=== PATIENT | male | born 1955 | race Caucasian/White ===

== ENCOUNTER 2019-08-06 16:36 | Emergency (ER) | payer OTHER, SELFPAY ==
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
[2019-08-06 16:44] VITALS: BP 145/92; PULSE 95; RESP 20; TEMP 36.9; O2SAT 97
[2019-08-06] MEDS: IBUPROFEN 600 MG TABLET PO (17:07)
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
[2019-08-06 18:25] VITALS: BP 136/101; PULSE 68; RESP 20; O2SAT 96
== END 2019-08-06 18:26 | disposition home or self-care (01) ==
PROVIDERS: Emergency Provider Emergency Medicine
DX: S80.01XA Contusion of right knee, initial encounter (principal); E78.00 Pure hypercholesterolemia, unspecified; Y04.2XXA Assault by strike against or bumped into by another person, initial encounter
CPT/HCPCS: 73564; 99283; A9270

== ENCOUNTER → 2022-04-12 10:11 | Outpatient (CLI) | payer OTHER, SELFPAY ==
--- NOTE | ~2022-04-12 | CT_ITS ---
EXAMINATION: CT sinus wo con DATE: 04/12/2022 10:28 INDICATION: Chronic sinusitis TECHNIQUE: Computed tomography (CT) of the paranasal sinuses was performed without intravenous contra st. The dose-length product was 289.74 mGy-cm. Automated exposure control and iterative reconstructio n technique were employed. COMPARISON: None FINDINGS: There is mild mucosal thickening of the right maxillary and ethmoid sinuses. No significant mucoperiosteal reaction. Leftward nasal septal deviation. Ostiomeatal units are patent. Mastoids are pneumatized. IMPRESSION: 1. Mild sinus disease. Reviewed, dictated and finalized at location B. 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 Mild sinus disease.
== END ==
PROVIDERS: PCP Otolaryngology; Visit Provider Otolaryngology
DX: J32.9 Chronic sinusitis, unspecified (principal)
CPT/HCPCS: 70486

== ENCOUNTER 2022-06-15 13:37 | Emergency (ER) | payer OTHER, SELFPAY ==
--- NOTE | ~2022-06-15 | CT_ITS ---
EXAMINATION: CT abdomen pelvis w con DATE: 06/15/2022 17:14 INDICATION: Right abdominal bulge. TECHNIQUE: Computed tomography (CT) of the abdomen and pelvis was performed with 100 mL Omnipaque 350 intravenous contrast. Automated exposure control and iterative reconstruction technique were employe d. The dose-length product was 709.88 mGy-cm. COMPARISON: None. FINDINGS: The visualized portions of the lung bases demonstrate mild atelectasis. No pleural effusion . The heart size is normal. No pericardial effusion. There is mild bilateral gynecomastia. The liver, gallbladder, spleen, pancreas, and adrenal glands are normal. There are cysts in the kidneys measuri ng up to 3.4 cm on the right. There is a right inguinal hernia containing nonobstructed small bowel. There is a left inguinal hernia containing fat. The appendix is normal. There are no dilated loops of bowel. There are no pathologically enlarged lymph nodes. There is no free intraperitoneal fluid. The re is severe lumbar spondylosis. IMPRESSION: 1. Right inguinal hernia containing nonobstructed small bowel. 2. Left inguinal hernia containing fat. Reviewed, dictated and finalized at location E.
[2022-06-15 14:01] VITALS: BP 150/98; PULSE 82; RESP 16; TEMP 36.9; O2SAT 100
--- NOTE | 2022-06-15 16:06 | PC.NURSE ---
Pt ambulates into ER c/o pain in his right groin. States the pain started 2 days ago and never experienced pain like this before. The next day pt awoke and found a bulge in the right groin and the pain had started to increase. Pt states he called his PCP who instructed him to come to the ED due to the sudden onset and no prior history. Pt states the pain is starting to radiate down his right leg.
--- NOTE | 2022-06-15 16:19 | ED.ABDPAIN ---
HPI - Abdominal Pain General Chief Complaint: Abdominal Pain Stated Complaint: hernia Time Seen by Provider: 06/15/22 16:12 History of Present Illness HPI narrative: 66-year-old male here for evaluation of right-sided abdominal pain x3 days. Patient states the pain comes and goes, seems to be provoked after he coughs or moves positions. He has felt a bulge in his right groin that has been tender to palpation as well. He contacted his primary care doctor who recommended ED evaluation. Denies any nausea, vomiting, diarrhea, constipation, fevers or chills. Related Data Home Medications Medication Instructions Recorded Confirmed rosuvastatin 10 mg tablet (Crestor) 10 mg PO HS 08/06/19 Allergies Allergy/AdvReac Type Severity Reaction Status Date / Time No Known Allergies Allergy Verified 06/15/22 16:13 Review of Systems Review of Systems: Gen.: Denies fevers or chills Eyes: Denies eye pain or visual change ENT: Denies congestion Respiratory: Denies shortness of breath or cough CV: Denies chest pain or palpitations GI: Reports abdominal pain. : denies burning, urgency, frequency or hematuria Musculoskeletal: Denies back pain or muscle pain Neuro: Denies numbness, tingling, weakness or focal weakness Skin: Denies rash Except as documented, all other systems reviewed and negative PMFSH Past Medical History Medical History Hypercholesterolemia Social History Social History (Updated 08/06/19 @ 17:08 by Moises Alcantar DO) Smoking status: Never smoker Alcohol intake: current Gender identity (if verbalized by the patient): Female Exam Narrative: APPEARANCE: Well appearing, no pain in distress, well-nourished. Head: Normocephalic and atraumatic. EYES: PERRLA/EOMI, conjunctivae clear NOSE: No nasal drainage EARS: External ear normal in appearance THROAT: Oropharynx is clear. Mucous membranes are moist. NECK: Supple. No adenopathy, no masses. RESPIRATORY: Airway patent, respirations nonlabored. Clear to auscultation bilaterally, no rales, rhonchi, wheezing. CARDIOVASCULAR: Regular rate and rhythm without murmurs, rubs, or gallops. ABDOMINAL: there is a firm mass palpated in the R scrotum, RLQ that is tender to palpation. MUSCULOSKELETAL: Extremities are warm and well-perfused. Moves all extremities well. No edema. NEURO: Normal speech. No focal neurologic deficits. SKIN: Skin is warm and dry. No rashes. PSYCHIATRIC: Normal affect/mood. Course Vital Signs Vital signs: Vital Signs Temperature 98.5 F 06/15/22 14:01 Pulse Rate 82 06/15/22 14:01 Respiratory Rate 16 06/15/22 14:01 Blood Pressure 150/98 H 06/15/22 14:01 Pulse Oximetry 100 06/15/22 14:01 Temperature 98.5 F 06/15/22 14:01 Pulse Rate 82 06/15/22 14:01 Respiratory Rate 16 06/15/22 14:01 Blood Pressure 150/98 H 06/15/22 14:01 Pulse Oximetry 100 06/15/22 14:01 MDM - Abdominal Pain MDM Narrative Medical decision making narrative: 66-year-old male here for evaluation of pain and a bulge that he feels in his right inguinal region for the past several days. He has evidence of an easily reducible right inguinal hernia on exam that is nontender to palpation without overlying redness/warmth. His basic labs are unremarkable. UA is normal. CT abdomen pelvis confirms this finding, reveals a inguinal hernia containing bowel in the left inguinal hernia containing fat. Patient declines pain medicine in the ED. He will be discharged home to follow-up with general surgery. We discussed return precautions, particularly signs or symptoms of incarcerated hernia, and he voiced understanding. Lab Data 06/15/22 16:32 06/15/22 16:32 Labs: Lab Results 06/15/22 06/15/22 Range/Units 16:32 17:35 WBC 6.9 (4.5-10.0) K/mm3 RBC 4.99 (4.6-6.20) M/mm3 Hgb 15.0 (14.0-18.0) g/dL Hct 45.6 (42.0-52.0)
[2022-06-15 16:53] LABS: Basophils Percent Auto 0.4 % (0.2-1.2); Eosinophils Absolute Auto 0.1 K/mm3 (0-0.3); Hematocrit 45.6 % (42.0-52.0); Immature Granulocyte Absolute 0.03 K/mm3 (0.00-0.031); Immature Granulocyte Percent A 0.4 % (0-0.5); Lymphocytes Absolute Auto 1.49 K/mm3 (0.9-3.2); Lymphocytes Percent Auto 21.7 % (18.3-44.2); Mean Corpuscular HGB Conc 32.9 g/dl (32-36); Mean Corpuscular Hemoglobin 30.1 pg (26-34); Mean Corpuscular Volume 91.4 fl (80-100); Mean Platelet Volume 10.8 fl (7.4-10.4); Monocytes Absolute Auto 0.5 K/mm3 (0.1-0.6); Monocytes Percent Auto 7.7 % (2.6-8.5); Neutrophils Absolute Auto 4.7 K/mm3 (1.3-6.7); Neutrophils Percent Auto 68.8 % (45.5-73.1); Platelet Count Result 166 k/mm3 (150-375); Red Blood Count 4.99 M/mm3 (4.6-6.20); Red Cell Distribution Width 12.8 % (11.5-14.5); White Blood Count 6.9 K/mm3 (4.5-10.0)
[2022-06-15 17:01] LABS: Alanine Aminotransferase 24 U/L (6-50); Albumin Level 4.7 g/dL (3.5-5.1); Alkaline Phosphatase 57 U/L (38-126); Anion Gap 6 mmol/L (8-16); Aspartate Amino Transferase 26 U/L (17-59); Bilirubin,Total 0.6 mg/dL (0.2-1.3); Blood Urea Nitrogen 24 mg/dL (9-20); Calcium 9.3 mg/dL (8.4-10.2); Carbon Dioxide 31 mmol/L (22-30); Chloride 103 mmol/L (98-107); Estimated CRCL calculation 81 ml/min; Estimated Glomerular Filt Rate > 60; Glucose 92 mg/dL (65-110); Lipase 75 U/L (23-300); Potassium 3.9 mmol/L (3.4-5.0); Sodium 140 mmol/L (137-145)
[2022-06-15 18:45] LABS: Appearance Urine Clear (Clear); Bilirubin Urine Negative (Negative); Blood Urine Negative (Negative); Color Urine Yellow (Yellow); Glucose Urine UA Negative (Negative); Ketones Urine Negative (Negative); Leukocyte Esterase Ur Negative LEU/UL (Negative); Nitrate Urine Negative (Negative); Protein Urine Negative (Negative); Urobilinogen Urine 0.2 mg/dL (<2.0)
[2022-06-15 18:56] LABS: Specific Grav Ur 1.058 (1.001-1.035)
[2022-06-15 18:57] LABS: Add Urine Microscopic? NO
== END 2022-06-15 18:22 | disposition home or self-care (01) ==
PROVIDERS: Emergency Provider Physician Assistant
DX: K40.20 Bilateral inguinal hernia, without obstruction or gangrene, not specified as recurrent (principal); E78.00 Pure hypercholesterolemia, unspecified
CPT/HCPCS: 36415; 74177; 80053; 81003; 83690; 85025; 99284; Q9967

== ENCOUNTER 2022-07-13 07:53 | Outpatient (CLI) | payer OTHER, SELFPAY ==
--- NOTE | 2022-07-13 08:00 | ECG_ITS ---
Measurements Intervals [place] Rate: 63 P: 18 MI: 184 QRS: 44 QRSD: 108 T: 10 QT: 393 QTc: 403 Interpretive Statements SINUS RHYTHM POSSIBLE LEFT VENTRICULAR HYPERTROPHY MINIMAL Q WAVES- DIFFUSE LEADS BASELINE ARTIFACT- I, II, AVR BORDERLINE ECG NO PREVIOUS ECG AVAILABLE FOR COMPARISON Electronically Signed On 07-13-2022 9:32:11 CDT by Zackary Davis D.O.
== END 2022-07-13 07:54 | disposition home or self-care (01) ==
PROVIDERS: Visit Provider Surgery
DX: Z01.812 Encounter for preprocedural laboratory examination (principal); Z01.810 Encounter for preprocedural cardiovascular examination; K40.20 Bilateral inguinal hernia, without obstruction or gangrene, not specified as recurrent; E78.00 Pure hypercholesterolemia, unspecified
CPT/HCPCS: 36415; 86850; 86900; 86901; 93005

== ENCOUNTER 2022-07-18 01:56 | Day surgery (SDC) | payer OTHER, SELFPAY ==
[2022-07-10 13:22] VITALS: BMI 27.3
--- NOTE | 2022-07-10 13:23 | PC.NURSE ---
Report to the Outpatient Waiting Room, entrance under the green pavilion located off [facility], at time _1000_ on date _[id number]_. Planned Procedure Time: _1200_. Time changes happen often and if your time is changed the preop area will call you the afternoon before. - You and your visitor will be asked to self-screen and do not enter if you have any COVID symptoms. - A mask is optional within the hospital at this time. Patients may have clear liquids (water, carbonated beverages, clear teas, apple juice) until 3 hours prior to surgery with a maximum of 20 ounces. - No food from midnight until time of surgery Take the following medications with a SIP of water the morning of surgery: ____None DO NOT STOP ANY OF YOUR OTHER PRESCRIPTION MEDICATIONS PRIOR TO SURGERY ?EXCEPT THE FOLLOWING Medications to discontinue per physician ____Calcium and vitamin d Date to take last oqca___[phone] Please no make-up, nail macedonian, hairspray, perfume, deodorant, or body powder the day of surgery. No jewelry (including any body piercings) or valuables the day of surgery, leave them at home. Please take a shower the morning of, surgery with Hebiclense an antibacterial soap. Wear comfortable, loose fitting clothing. - Jewelry must be removed prior to entering the operating room. Rings and piercings that are not removed may be cut off. - The hospital will not accept responsibility for valuables. - Please leave all valuables, including medications, at home the day of surgery. If you are going home after surgery, a licensed driver/refuse collector must drive you home. - NO public transportation without another adult if you receive anesthesia. - We recommend that an adult stay with you for 24 hours following discharge. - We also recommend that you do not drive, make important decision, drink alcoholic beverages, or take any drugs that were not prescribed by your health care provider for at least 24 hours after your discharge time. Follow any additional instructions given to you from your surgeon. If you or anyone in your household have experienced Covid symptoms in the past week, please notify your surgeon or the nurse liaison at the phone number below for possible testing. Telephone instructions given to __Patient___and asked if any additional questions and then verbalized understanding. Patient advised to call surgeon office or pre surgery nurse liaison [phone] if any additional questions.
[2022-07-18] VITALS (11 sets, daily range): BP systolic 95–162; BP diastolic 53–95; PULSE 56–79; RESP 12–20; TEMP 36.2–36.4; O2SAT 97–100
[2022-07-18] MEDS: ACETAMINOPHEN 500 MG TABLET 1000 MG PO (10:44)
[2022-07-18] MEDS: KETOROLAC 15 MG/ML VIAL (*BKC) IV PUSH ×2 (11:05→15:39)
--- NOTE | 2022-07-18 11:35 | WPDHPUPDATE1 ---
History and Physical Update Update Date/Time: 07/18/22 11:35 History and Physical has been reviewed, including an updated exam of the patient. There are NO changes in the patient's condition. Risks, benefits, and alternatives have been discussed and questions answered. Patient agrees to proceed with procedure.
--- NOTE | 2022-07-18 12:07 | P.PNAN_ITS ---
Anes - Initial Pre Proc Eval Procedure: Operation Date: 07/18/22 12:00 Proposed Procedures p Robotic Assisted Laparoscopic Bilateral Inguinal Hernia Repair with Mesh - Percy Jones MD Date/Time: 07/18/22 12:07 Surgeon: Percy Jones MD Pre Op Diagnosis: Reducible Bilateral Ing Hernia Patient Data Age: 66 Gender: M Height: 1.75 m Weight: 86.5 kg Last Vital Signs Temp 36.4 C L 07/18/22 10:17 Pulse 67 07/18/22 10:17 Resp 20 07/18/22 10:17 BP 162/95 H 07/18/22 10:17 Pulse Ox 97 07/18/22 10:17 O2 Del Method Room Air 07/18/22 10:17 Allergies Allergy/AdvReac Type Severity Reaction Status Date / Time No Known Allergies Allergy Verified 07/18/22 10:16 Home Medications Medication Instructions Recorded Confirmed Type ibuprofen 600 mg tablet (IBU) 600 mg PO Q6H PRN pain #20 tabs 08/06/19 07/18/22 Rx rosuvastatin 10 mg tablet (Crestor) 10 mg PO HS 08/06/19 07/18/22 History calcium carbonate 600 mg-vitamin 1 tablet PO DAILY 07/10/22 07/18/22 History D3 5 mcg (200 unit) tablet Patient hx anesthesia problems: none Family hx anesthesia problems: none Results Review: All pre-operative results and documents have been reviewed as part of the pre- operative evaluation. [facility] Past Medical History Medical History History of skin cancer Hypercholesterolemia Surgical History Surgical History S/P shoulder surgery Family History Family History Mother Diabetes mellitus Hypertension Social History Social History Smoking status: Never smoker Alcohol intake: current Drinks per week: 3 Living arrangements: with family Gender identity (if verbalized by the patient): Female Spiritual care concerns: No Anes - Eval Final PreProcedure Day of Procedure 07/18/22 12:07 Patient weight: overweight Heart: regular rate and rhythm Lungs: clear to auscultation Airway: Mallampati scale class II Neurological: alert and oriented Last oral intake: >/= 8 hours ASA classification: II Emergent: no Anesthetic plan: proceed Anesthesia type and monitoring: general ETT and standard monitoring Results Review: All pre-operative results and documents have been reviewed as part of the pre- operative evaluation. Informed Consent: The patient's anesthetic plan and its attendant risks and benefits were discussed with the patient/family/POA. Questions were solicited and answers provided to the satisfaction of the patient/family/POA.
[2022-07-18] MEDS: ceFAZolin 2 GM/D5W 50 ML 2 GM/50 ML BAG IVPB (13:00)
[2022-07-18] MEDS: LIDO 1%/EPINEPHRINE 1:100,000 20 ML VIAL 18 ML INFILTRATE (13:00)
[2022-07-18] MEDS: LACTATED RINGERS 1,000 ML 30 ML IV CONT ×3 (16:04→16:52)
--- NOTE | 2022-07-18 16:49 | PM.OP ---
Procedure Note - Brief Procedure Note - Brief Date of procedure: 07/18/22 Reducible Bilateral Ing Hernia Procedure performed: Robotic assisted laparoscopic bilateral inguinal hernia repair with Bard 3D mid weight mesh Surgeon: Percy Jones MD Payroll Bookkeeper: BO Carrington Anesthesia: GETA Implants: Bard 3D mid weight mesh extra-large x2 Estimated blood loss (mL): 20 Drains: No Packing: No Pathology: None sent Complications: No immediate complications Condition: Stable Disposition: PACU
[2022-07-18] MEDS: fentaNYL CITRATE INJ (*CRX) 100 MCG/2 ML VIAL 25 MCG IV PUSH ×6 (16:55→17:14)
[2022-07-18] MEDS: ONDANSETRON INJ 4 MG/2 ML VIAL IV PUSH (17:22)
[2022-07-18] MEDS: SCOPOLAMINE 1.5 MG PATCH TRANSDERM (17:57)
[2022-07-18] MEDS: FAMOTIDINE 20 MG/2 ML VIAL IV PUSH (18:19)
[2022-07-18] MEDS: diphenhydrAMINE HCl INJ 50 MG/ML VIAL 25 MG IV PUSH (18:20)
--- NOTE | 2022-07-18 18:50 | W.PM.PROC2 ---
Procedure Note - Detailed Date of Procedure 07/18/22 Pre-op Diagnosis Reducible Bilateral Ing Hernia Post-op Diagnosis Same ( right direct, left pantaloon) Procedure Performed Robotic assisted laparoscopic bilateral inguinal hernia repair with 3D mid weight mesh. 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 CT scan of the abdomen pelvis was performed showing a low right inguinal hernia with a loop of small bowel which was within the hernia sac which was not obstructed. Fat containing left inguinal hernia was seen on CT as well. He presents now for a robotic assisted laparoscopic bilateral inguinal hernia repair with mesh. Findings The right inguinal hernia was a large direct defect. The small bowel easily reduced out of the hernia defect with pneumoperitoneum. The left inguinal hernia was a pantaloon hernia with a small indirect component and a larger direct component. It was fat containing. Description of Procedure After informed consent was obtained patient was brought to the operating room was placed supine position and general endotracheal anesthesia was administered. The abdomen and bilateral groin regions were then prepped and draped in usual sterile fashion. A time-out was then performed correctly identifying the patient as well as procedure to be performed. No site marking was needed as this was a bilateral procedure. He was given a perioperative IV antibiotics. First started by gaining entrance in the abdomen utilizing a 10mm Optiview port left upper quadrant of the abdomen. Once inside the abdomen insufflated to adequate pneumoperitoneum of 15mmHg of CO2. 8Mm robotic ports were then and placed into the abdomen in the periumbilical region and the left and right sides of the abdomen under direct visualization. The DA Daisy robot was then brought to the patient's bedside and docked to the right side of the bed. The robotic arms were then attached the robotic ports. The robotic laparoscopic advanced into the abdomen and then robotic instruments were advanced into the abdomen under direct visualization. I then scrubbed out the procedure sent down the robotic console to perform the dissection robotically. First started by making a preperitoneal flap across the lower portion of the abdomen starting at the area just above and medial to the right anterior superior iliac spine extending across the midline to the same position on the left side of the abdomen. in the preperitoneal space I dissected this peritoneal flap distally 1st starting on the right side all the way down to the pubic tubercle. the inferior epigastric vessels were identified and there was a large direct defect on the right side. The hernia sac was dissected out of the defect easily and I dissected down into the internal ring as well. There is no evidence of a cord lipoma. I continued my dissection of the peritoneal flap up onto the psoas muscle. Identified vas deferens and testicular vessels were preserved these without injury. I continued my dissection of the peritoneal flap across the midline and the bladder was dissected off the pubic symphysis. I dissected down to the space of Retzius for couple cm. I continued my dissection to the left side again finding the left pubic tubercle and on this side there was a direct defect as well as a small indirect defect. The peritoneum was dissected out the direct defect easily with electrocautery. Inferior epigastric vessels were identified and then I dissected the small hernia sac out of the indirect space. Fast deficit cystic vessels were preserved without injury during this dissection the left side. The peritoneal flap was dissected all the way up onto the psoas muscle beyond where the vas deferens and testicular vessels separate. I then proceeded to choose extra large pieces of Bard 3D mid weight mesh.
== END 2022-07-18 19:06 | disposition home or self-care (01) ==
PROVIDERS: Visit Provider Surgery
PROC: 8E0Y4CZ Robotic Assisted Procedure of Lower Extremity, Percutaneous Endoscopic Approach (ICD-10-PCS; CPT 49650; principal; 2022-07-18 12:00)
DX: K40.20 Bilateral inguinal hernia, without obstruction or gangrene, not specified as recurrent (principal); E78.00 Pure hypercholesterolemia, unspecified
CPT/HCPCS: 49650; S2900; A9270; C1781; J0330; J0690; J1100; J1170; J1200; J1885; J2250; J2405; J2704; J2710; J3010; J7030; J7120

== ENCOUNTER 2022-07-21 03:15 | Emergency (ER) | payer OTHER, SELFPAY ==
--- NOTE | ~2022-07-21 | CT_ITS ---
CT of the Abdomen and Pelvis: Indication: Abdominal pain, status post recent surgery Technique: 2.5 mm axial scans were obtained through the abdomen and pelvis following intravenous adm inistration of 100 cc of Omnipaque 350. Dose reduction technique was used on this scan by utilizing a utomated exposure control and iterative reconstruction technique. The dose-length product (DLP) was 6 36.43 mGy-cm. COMPARISON: 06/15/2022 Findings: Scans through the lung bases are unremarkable. The liver, spleen, pancreas, gallbladder, adrenals and kidneys are within normal limits. No evidence of aortic aneurysm. No lymphadenopathy. No bowel obstruction or bowel wall thickening. Pneumoperitoneum as well as soft tissue gas along the abdominal wall is presumably postoperative in nature given history of recent surgery. Images through the pelvis were performed. Urinary bladder unremarkable. No ascites. There is been alexa arent recent repair bilateral inguinal hernias, with associated soft tissue gas extending to the scro ward. Prostate gland and seminal vesicles are unremarkable. Impression: Extensive pneumoperitoneum and subcutaneous soft tissue gas along the abdominal wall and extending to the scrotum is all presumably postsurgical in nature, related to recent bilateral inguinal hernia re pair. No other significant findings. Reviewed, dictated and finalized at location . Impression: Extensive pneumoperitoneum and subcutaneous soft tissue gas along the abdominal wall and extending to the scrotum is all presumably postsurgical in nature, re lated to recent bilateral inguinal hernia repair. No other significant findings.
[2022-07-21 03:17] VITALS: BP 135/113; PULSE 69; RESP 16; TEMP 36.3; O2SAT 98
[2022-07-21 03:40] LABS: Basophils Percent Auto 0.3 % (0.2-1.2); Eosinophils Absolute Auto 0.1 K/mm3 (0-0.3); Eosinophils Percent Auto 2.4 % (0-4.4); Hematocrit 41.8 % (42.0-52.0); Hemoglobin 13.2 g/dL (14.0-18.0); Immature Granulocyte Absolute 0.02 K/mm3 (0.00-0.031); Immature Granulocyte Percent A 0.3 % (0-0.5); Immature Platelet Fraction Pct 6.7 % (0.9-11.2); Lymphocytes Absolute Auto 1.33 K/mm3 (0.9-3.2); Lymphocytes Percent Auto 22.7 % (18.3-44.2); Mean Corpuscular HGB Conc 31.6 g/dl (32-36); Mean Corpuscular Hemoglobin 29.9 pg (26-34); Mean Corpuscular Volume 94.8 fl (80-100); Mean Platelet Volume 10.2 fl (7.4-10.4); Monocytes Absolute Auto 0.5 K/mm3 (0.1-0.6); Monocytes Percent Auto 7.7 % (2.6-8.5); Neutrophils Absolute Auto 3.9 K/mm3 (1.3-6.7); Neutrophils Percent Auto 66.6 % (45.5-73.1); Platelet Count Result 151 k/mm3 (150-375); Red Blood Count 4.41 M/mm3 (4.6-6.20); Red Cell Distribution Width 13.1 % (11.5-14.5); White Blood Count 5.9 K/mm3 (4.5-10.0)
[2022-07-21 03:49] LABS: Alanine Aminotransferase 29 U/L (6-50); Albumin Level 3.8 g/dL (3.5-5.1); Alkaline Phosphatase 49 U/L (38-126); Anion Gap 3 mmol/L (8-16); Aspartate Amino Transferase 41 U/L (17-59); Bilirubin,Total 0.4 mg/dL (0.2-1.3); Blood Urea Nitrogen 16 mg/dL (9-20); Calcium 8.6 mg/dL (8.4-10.2); Carbon Dioxide 31 mmol/L (22-30); Chloride 105 mmol/L (98-107); Estimated CRCL calculation 73 ml/min; Estimated Glomerular Filt Rate > 60; Glucose 101 mg/dL (65-110); Lactic Acid Reflex 0.6 mmol/L (0.7-2.0); Lipase 49 U/L (23-300); Sodium 139 mmol/L (137-145)
[2022-07-21] MEDS: ONDANSETRON INJ 4 MG/2 ML VIAL IV PUSH (03:50)
[2022-07-21] MEDS: SODIUM CHLORIDE 0.9% IV 1,000 ML 999 ML IV CONT (03:50)
--- NOTE | 2022-07-21 04:36 | ED.GENADULT ---
HPI - General Adult General Chief complaint: Abdominal Pain Stated complaint: abdominal pain Time Seen by Provider: 07/21/22 03:31 History of Present Illness HPI narrative: Patient 66-year-old gentleman who presents the emergency department with chief complaint of abdominal pain. Patient reports that he had a recent bilateral inguinal hernia repair and has been doing okay except has not had a bowel movement in the last 3 days patient reports that his abdomen has become more distended and he feels as though he has gained about 10 pounds in weight patient states that he is passing a small amount of gas patient denies vomiting Related Data Home Medications Medication Instructions Recorded Confirmed rosuvastatin 10 mg tablet (Crestor) 10 mg PO HS 08/06/19 07/18/22 calcium carbonate 600 mg-vitamin 1 tablet PO DAILY 07/10/22 07/18/22 D3 5 mcg (200 unit) tablet Allergies Allergy/AdvReac Type Severity Reaction Status Date / Time No Known Allergies Allergy Verified 07/21/22 03:16 Review of Systems Review of Systems: A 10 system review of systems was completed on the patient and is negative except for what is stated in the HPI. Nursing and ancillary documentation was reviewed. [facility] Past Medical History Medical History History of skin cancer Hypercholesterolemia Surgical History Surgical History S/P shoulder surgery Family History Family History Mother Diabetes mellitus Hypertension Social History Social History Smoking status: Never smoker Alcohol intake: current Drinks per week: 3 Living arrangements: with family Gender identity (if verbalized by the patient): Female Spiritual care concerns: No Exam Narrative: GENERAL: Well-appearing, well-nourished, and in no acute distress. HEAD: Normocephalic, atraumatic. EYES: PERRLA and EOMI. ENT: Nares clear, no rhinorrhea or epistaxis. Mucous membranes moist. NECK: Supple. CHEST: Clear to auscultation. No respiratory distress. HEART: Regular rate and rhythm. No murmur heard. Normal peripheral pulses. ABDOMEN: Soft, nontender, mild distended, normal active bowel sounds. Incisions are well approximated no erythema there is slight bruising along the lower incision inferior to the umbilicus EXTREMITIES: Normal range of motion. No edema. SKIN: Warm, dry, no rash. NEURO: No focal deficits. Alert and oriented x3. PSYCH: Normal mood and affect. Course Vital Signs Vital signs: Vital Signs Temperature 36.3 C L 07/21/22 03:17 Pulse Rate 69 07/21/22 03:17 Respiratory Rate 16 07/21/22 03:17 Blood Pressure 135/113 H 07/21/22 03:17 Pulse Oximetry 98 07/21/22 03:17 Oxygen Delivery Room Air 07/21/22 03:17 Temperature 36.3 C L 07/21/22 03:17 Pulse Rate 69 07/21/22 03:17 Respiratory Rate 16 07/21/22 03:17 Blood Pressure 135/113 H 07/21/22 03:17 Pulse Oximetry 98 07/21/22 03:17 Oxygen Delivery Room Air 07/21/22 03:17 Medical Decision Making [facility] Narrative Medical decision making narrative: Differential diagnosis includes small bowel obstruction, ileus, constipation, fecal impaction Laboratory studies were obtained on the patient which showed a white count of 5.9 hemoglobin was 13.2 electrolytes are within normal limits lactic acid is 0.6 liver enzymes are within normal limits lipase was 49 urinalysis was within normal limits CT scan of the abdomen pelvis showed a large amount of stool in the cecum measuring up to 7 cm in diameter suggesting constipation there is no focal bowel wall inflammation no free fluid and no abscess. Patient will be started on p.o. MiraLAX and should follow-up with his surgeon Vital Signs Vital Signs: Vital Signs Temperature 3
[2022-07-21 05:05] LABS: Appearance Urine Clear (Clear); Bilirubin Urine Negative (Negative); Blood Urine Negative (Negative); Color Urine Yellow (Yellow); Glucose Urine UA Negative (Negative); Ketones Urine Negative (Negative); Leukocyte Esterase Ur Negative LEU/UL (Negative); Nitrate Urine Negative (Negative); Protein Urine Negative (Negative); Urobilinogen Urine 0.2 mg/dL (<2.0); pH Urine 6.5 (5.0-9.0)
[2022-07-21 05:14] LABS: Specific Grav Ur 1.046 (1.001-1.035)
[2022-07-21 05:20] VITALS: BP 139/68; PULSE 89; RESP 17; O2SAT 100
[2022-07-21] MEDS: polyethylene glycoL 3350 17 GM POWD.PACK PO (05:25)
[2022-07-21 05:34] LABS: Add Urine Microscopic? NO
== END 2022-07-21 05:20 | disposition home or self-care (01) ==
PROVIDERS: Emergency Provider Emergency Medicine
DX: K59.00 Constipation, unspecified (principal); R10.84 Generalized abdominal pain; E78.00 Pure hypercholesterolemia, unspecified; Z85.828 Personal history of other malignant neoplasm of skin
CPT/HCPCS: 36415; 74177; 80053; 81003; 83605; 83690; 85025; 85055; 96361; 96374; 99284; J2405; J7030; Q9967

== ENCOUNTER 2023-12-21 23:38 | Emergency (ER) | payer MEDICARE, OTHER, SELFPAY ==
[2023-12-21 23:42] VITALS: BP 157/79; PULSE 73; RESP 18; TEMP 36.7; O2SAT 99
--- NOTE | 2023-12-22 00:52 | ED_ITS ---
HPI - Eye Problem General Chief complaint: Eye Problems Stated complaint: eye complaint Time Seen by Provider: 12/22/23 00:52 Source: patient Mode of arrival: ambulatory Limitations: no limitations History of Present Illness HPI Narrative: This is a 68-year-old male who presents to the ED for chief complaint of bilateral eye irritation and difficulty removing contacts. Reports that the contacts have been in since around 8:00 a.m. this morning. Reports trying a the irrigation techniques and unsuccessful to get the contacts out. He does not have the punctured advises to help suction the contacts off. Denies trauma to the eye. Endorses irritation but no significant pain or headache. Related Data Home Medications Medication Instructions Recorded Confirmed rosuvastatin 10 mg tablet (Crestor) 10 mg PO HS 08/06/19 07/18/22 Allergies Allergy/AdvReac Type Severity Reaction Status Date / Time No Known Allergies Allergy Verified 08/24/22 14:18 Review of Systems Review of Systems: All systems as dictated in [facility] Past Medical History Medical History History of skin cancer Hypercholesterolemia Surgical History Surgical History H/O bilateral inguinal hernia repair 07/18/22 Robotic assisted laparoscopic bilateral inguinal hernia repair with 3D mid weight mesh S/P shoulder surgery Family History Family History Mother Diabetes mellitus Hypertension Social History Social History Smoking status: Never smoker Alcohol intake: current Drinks per week: 3 Living arrangements: with family Gender identity (if verbalized by the patient): Female Spiritual care concerns: No Exam Narrative: GENERAL: Well-appearing, well-nourished, and in no acute distress. HEAD: Normocephalic, atraumatic. EYES: PERRLA and EOMI. Bilateral contacts in place. Scleral injection noted bilaterally. ENT: Nares clear, no rhinorrhea or epistaxis. Mucous membranes moist. Oropharynx without tonsillar hypertrophy exudate or other lesions. NECK: Supple. No adenopathy or masses. CHEST: No respiratory distress. Clear to auscultation. No wheezes rales or rhonchi HEART: Regular rate and rhythm. No murmur heard. Normal peripheral pulses. ABDOMEN: Soft, nontender, nondistended, normal active bowel sounds. MSK: Normal range of motion. No edema. SKIN: Warm, dry, no rash. NEURO: Alert and oriented x4. No focal deficits. PSYCH: Normal mood and affect. Course Vital Signs Vital signs: Vital Signs Temperature 98.0 F 12/21/23 23:42 Pulse Rate 73 12/21/23 23:42 Respiratory Rate 18 12/21/23 23:42 Blood Pressure 157/79 H 12/21/23 23:42 Pulse Oximetry 99 12/21/23 23:42 Oxygen Delivery Room Air 12/21/23 23:42 Temperature 98.0 F 12/21/23 23:42 Pulse Rate 73 12/21/23 23:42 Respiratory Rate 18 12/21/23 23:42 Blood Pressure 157/79 H 12/21/23 23:42 Pulse Oximetry 99 12/21/23 23:42 Oxygen Delivery Room Air 12/21/23 23:42 MDM - Eye Problem MDM Narrative Medical decision making narrative: This is a 68 yo male who presents to the ED for her chief complaint of contact lens stuck in a bilateral eyes. Patient uses rigid contacts and normally has a plunger but lost it today. Vitals are normal. Exam shows injected sclera bilaterally with contact lenses in position. Wood's lamp exam does not reveal any evidence of ocular injury. After a couple of attempts to remove contacts with Q-tip swabs, unsuccessful. However with manual attempts able to remove both contacts without pain or injury. Patient will be discharged in stable condition. Supportive measures discussed and return precautions given. Patient is understanding and agreeable with plan for discharge with PCP/ophtho follow-up. Discharge Plan Discharge Clinical Impression: Contact lens stuck Patient Disposition: Home, Self-Care Condition: Stable Instructions: Antibiotic Form Additional Instructions: Exam today did show contact lens stuck bilaterally. They were removed manually. Follow-up with eye doctor closely on this issue. If you have any new or worsening symptoms please return to the ER for further evaluation. Prescriptions: No Action rosuvastatin [Crestor] 10 mg tablet 10 mg PO HS ibuprofen [IBU] 600 mg tablet 600 mg PO Q6H PRN (Reason: pain) Qty: 20 0RF Follow-up/Referrals: [facility] [employer], [Primary Care Provider] - Time of Disposition: 01:53
== END 2023-12-22 02:00 | disposition home or self-care (01) ==
PROVIDERS: Emergency Provider Physician Assistant
DX: T15.02XA Foreign body in cornea, left eye, initial encounter (principal); T15.01XA Foreign body in cornea, right eye, initial encounter; E78.00 Pure hypercholesterolemia, unspecified; Z85.828 Personal history of other malignant neoplasm of skin; W44.8XXA Other foreign body entering into or through a natural orifice, initial encounter
CPT/HCPCS: 65220; 99282

== ENCOUNTER 2024-09-29 08:05 | Emergency (ER) | payer MEDICARE, OTHER, SELFPAY ==
--- NOTE | 2024-09-29 08:07 | ED_ITS ---
HPI - URI/Sore Throat General Chief Complaint: Upper Respiratory Infection Stated Complaint: sinus infection Time Seen by Provider: 09/29/24 08:07 Source: patient Mode of arrival: ambulatory Limitations: no limitations History of Present Illness HPI Narrative: Patient is a 68-year-old male who presents with 3 days of sinus congestion, sinus pressure and left ear pain. Patient went to [place] and [place] and t hen to [place] and forgot his allergy medications. Patient has sinus surgery scheduled the end of the month to fix his deviated septum. Patient has tried [id number] medications along with his prescribed meds with no relief. Related Data Home Medications ?Medication ?Instructions ?Recorded ?Confirmed ?Last Taken ?Type rosuvastatin 10 mg tablet (Crestor) 10 mg PO HS 08/06/19 07/18/22 07/15/22 History albuterol sulfate 90 mcg/actuation inhalation 09/29/24 Unknown History aerosol inhaler azelastine 205.5 mcg (0.15 %) 1 spray intranasal QDAY 09/29/24 09/29/24 Unknown History nasal spray (Astepro Allergy) fluticasone propionate 50 1 spray intranasal DAILY PRN nasal 09/29/24 09/29/24 Unknown History mcg/actuation nasal congestion spray,suspension (24 Hour Allergy Relief) Allergies Allergy/AdvReac Type Severity Reaction Status Date / Time caffeine AdvReac Mild Other Verified 09/29/24 08:17 Review of Systems Review of Systems: All systems reviewed & are unremarkable except as noted in HPI and below Constitutional: Constitutional: Denies chills, Denies fatigue, Denies fever(s), Denies headache(s), Denies malaise and Denies weakness Eyes: Eyes: Denies blurry vision, Denies itchy eyes and Denies loss of vision ENT: Reports otalgia, Denies headache(s), Reports nasal congestion, Denies sinus pain, Reports sinus pressure and Denies sore throat Cardiovascular: Cardiovascular: Denies chest pain, Denies irregular heart rhythm and Denies dyspnea Respiratory: Respiratory: Denies cough and Denies dyspnea Gastrointestinal: Gastrointestinal: Denies abdominal pain, Denies diarrhea, Denies nausea and Denies vomiting Musculoskeletal: Musculoskeletal: Denies back pain, Denies myalgias and Denies arthralgias Integumentary/Breasts: Skin/Breast: Denies pruritus and Denies rash Neurologic: Denies headache(s), Denies loss of vision and Denies weakness Psychiatric: Psychiatric: Reports no additional psychiatric complaints Endocrine: Endocrine: Denies fatigue Allergic/Immunologic: Allergic/Immunologic: Denies itchy eyes PMFSH Past Medical History Medical History History of skin cancer Hypercholesterolemia Surgical History Surgical History H/O bilateral inguinal hernia repair 07/18/22 Robotic assisted laparoscopic bilateral inguinal hernia repair with 3D mid weight mesh S/P shoulder surgery Family History Family History Mother Diabetes mellitus Hypertension Social History Social History Smoking status: Never smoker Alcohol intake: current Drinks per week: 3 Living arrangements: with family Gender identity (if verbalized by the patient): Female Spiritual care concerns: No Comments At time of signature, agree with nursing past medical, surgical, social and family history. There is no relevant family history pertinent to the presenting complaint. Exam Const: General: cooperative, healthy appearing, comfortable, no acute distress and well nourished Nutritional Appearance: well nourished Orientation/consciousness: patient oriented x3 Limitations: no limitations HENMT: Head: normal to inspection, normocephalic and atraumatic Ears: hearing grossly normal bilaterally, external ears normal, EAC's normal, no periauricular adenopathy and TM abnormal bulging on the left, erythematous on the left and scarred on the right Face/Nose/Sinus: Normal external nose present, Abnormal mucous membranes and turbinates present erythematous bilateral and diffuse, normal facial exam, face symmetric and Facial tenderness on exam of face and sinuses Face and sinus: normal facial exam and face symmetric Mouth: Yes Normal oral and palatal mucosa present, Yes lip normal, Yes tongue normal, Yes Normal salivary glands and ducts present, Yes oropharynx normal and Yes moist mucous membranes Teeth and gingiva: dentition normal Throat: posterior oropharynx normal, tonsils normal and uvula midline Eyes: General: appearance normal, both eyes and all related structures Alignment and Position: alignment normal and position normal Periorbital: periorbital findings normal Eyelids: eyelids normal Pupils: Equal, round and reactive pupils present Neck: Neck: normal visual inspection, full ROM, no lymphadenopathy and supple Chest: Chest palpation & inspection: normal inspection of the chest and normal palpation of entire chest wall Resp: Effort & Inspection: normal respiratory effort and able to speak in complete sentences Auscultation: clear to auscultation bilaterally, no crackles, no rales, no rhonchi and no wheezes Cardio: Rate: regular rate Rhythm: regular rhythm Heart sounds: S1 normal heart sound present and S2 normal heart sound present GI: Inspection: normal to inspection Skin: General skin exam: normal color and no rashes or lesions noted Neuro: General: patient oriented x3 and moves all extremities Cranial nerves: Yes Equal, round and reactive pupils present Speech: normal speech Gait exam (Neuro): Normal gait present Extrem: General: normal to inspection, full ROM and no edema Psych: Appearance: grossly normal and well kempt Mental Status: mental status grossly normal Speech and movement: Normal speech and movement present Affect: normal affect Attitude: cooperative Thought process: Normal thought process present Course Course Emergency Course: Discharge instructions reviewed with patient, as well as provided in writing per nursing staff. The instructions also include specific and strict return/GO TO THE ER as well as f/u information. All questions have been answered, and the patient deny any further questions with discharge and discharge plan. Portions of this record may have been created with voice recognition software Level of Care: Express Care Visit Vital Signs Vital signs: Reviewed MDM - URI/Sore Throat MDM Narrative Medical decision making narrative: Pt well hydrated appearing, in no respiratory distress, hemodynamically stable. Recommend supportive care. The patient is stable at time of discharge the clinical impression was discussed and the patient was given the opportunity to ask questions, which were addressed as completely as possible given the information available at present. Anticipatory guidance and return to care precautions were discussed and the importance of primary care follow-up was stressed and encouraged. The patient voiced understanding of the plan, indications to return, and the need for follow-up. Exam findings show no acute concerns or changes Patient is appropriate for outpatient treatment and follow-up. Differential diagnosis considered: Leyva virus, strep pharyngitis, allergic rhinitis, upper respiratory tract infection, sinusitis, rhinosinusitis, nasopharyngitis. viral pharyngitis, otitis media, otitis externa, otitis effusion, foreign body, cerumen impaction, viral syndrome, and influenza.? Medical Records Attestation: I reviewed the patient's medical records. Discharge Plan Discharge Clinical Impression: Otitis media Qualifiers: Otitis media type: suppurative Chronicity: acute Laterality: left Recurrence: non-recurrent Spontaneous tympanic membrane rupture: without spontaneous rupture Qualified Code(s): H66.002 - Acute suppurative otitis media without spontaneous rupture of ear drum, left ear Sinusitis Qualifiers: Sinusitis location: pansinusitis Chronicity: acute Recurrence: non-recurrent Qualified Code(s): J01.40 - Acute pansinusitis, unspecified Patient Disposition: Home Condition: Stable Instructions: Sinusitis (ED), Ear Infection (GEN) Additional Instructions: Take antibiotics as directed. Take steroids per package instructions Recommend antihistamine such as Benadryl at night time and Zyrtec or Marimar during the day until symptoms improve Symptomatic treatment of a sinus infection aims to relieve symptoms. These treatments do not shorten the duration of illness. Nonprescription pain medications, such as acetaminophen (eg, Tylenol) or ibuprofen (eg, Motrin, Advil), are recommended for pain. Flushing the nose and sinuses with a saline solution several times per day has been proven to decrease pain associated with congestion and shorten the duration of symptoms. Nasal steroids (such as Flonase, 2 sprays in each nostril daily) can help to reduce swelling inside the nose, usually within two to three days. These drugs have few side effects and relieve symptoms in most people. Oral decongestants (pseudoephedrine and phenylephrine) may be helpful if you have associated symptoms of ear pain or fullness. Nasal decongestant sprays, including oxymetazoline (Afrin) and phenylephrine (Brent-Synephrine), can be used to temporarily treat congestion. However, these sprays should not be used for more than two to three days due to the risk of rebound congestion (when the nose becomes congested constantly unless the medication is used repeatedly), possible addiction, and long-term consequences of frequent use, including persistent nasal dryness and crusting, which is very difficult to treat once it has developed. Medications to thin secretions (such as guaifenesin) may help to clear mucus. Please follow-up with your primary care doctor in the next 1-2 days. If you cannot follow-up with your primary care doctor please go to the ED for any urgent issues. If you have any worsening of symptoms or any other concerns please go to the ED immediately. Your blood pressure was elevated above 120/80 today at Urgent Care. This puts you above the threshold for follow up visit with a primary care provider. High blood pressure does not usually cause any symptoms, however it may lead to kidney failure, stroke, heart disease just to name a few if untreated . Many people are anxious when seeing a provider or nurse. As a result, you are not diagnosed with hypertension at this time unless your blood pressure is persistently high at two office visits at least one week apart. Some things that can help lower blood pressure are lifestyle modifications, such as light exercise, decreased salt in diet, and weight loss. It is important to follow up with a PCP about this within 1 week. Patient Language: Kiswahili Prescriptions: New methylprednisolone [Medrol (Ugo)] 4 mg tablets,dose pack See Rx Instructions .ROUTE .COMPLEX Qty: 21 0RF Rx Instructions: orally per package directions amoxicillin-pot clavulanate 875-125 mg tablet 1 tablet PO Q12H 10 Days Qty: 20 0RF No Action albuterol sulfate 90 mcg/actuation HFA aerosol inhaler INHALATION fluticasone propionate [24 Hour Allergy Relief] 50 mcg/actuation spray,suspension 1 spray intranasal DAILY PRN (Reason: nasal congestion) Rx Instructions: administer into each nostril rosuvastatin [Crestor] 10 mg tablet 10 mg PO HS Follow-up/Referrals: [facility] [Primary Care Provider] - 3 Days Time of Disposition: 08:28
--- OUTSIDE RECORDS SUMMARY | 2024-09-29 08:09 | XMS_ITS | Encounter Summary ---
Author Name [facility] [place] [facility] Address [address] [place] [address] Care Team Providers Care Process Assistant Name Role Phone LOULOU KILGORE Primary Care Provider Unavailabl e Insurance Providers: All historical and current Section Date Range: From patient's date of to the date document was created. This section includes the names of all active insurance providers for the patient. Insurance Provider Type of Coverage Plan Name Start of Policy Coverage End of Policy Coverage Group Number Member ID Insurance Provider's Telephone Number Policy Sears's Name Patient's Relationship to Policy Sears MEDICARE (WNR) MEDICARE (M) PART A Nov 19, 2022 PART A [id number] MANDY SAN PATIENT MEDICARE (WNR) MEDICARE (M) PART B Nov 19, 2022 PART B [id number] [place] PATIENT Selected Encounter This section includes the information on record at [place] for the Encounter. Date/Time Encounter Type Encounter Description Reason Provider Source Jan 22, 2024 01:30 PM OFFICE O/P EST MOD 30 MIN ORTHO/JOINT SURG ICD-10-CM M23.207 Derangement of unsp meniscus due to old tear/inj, left knee WEHKING,MILAGROS W IHE Encounter Template Text not used by [place] Assessments - Encounter Diagnoses This section includes the primary and secondary diagnoses documented for the Encounter. Date/Time Primary/Secondary Diagnosis Diagnosis Name Provider Source Jan 22, 2024 03:44 PM PRIMARY Derangement of unsp meniscus due to old tear/inj, left knee WEH,MILAGROS W [facility] Plan of Treatment: Future Appointments (+ 6 months) and Future Tests (+/- 45 days) The Plan of Treatment section includes future care activities for the patient from all [place] [facility]. This section includes future appointments and future orders which are active, pending or scheduled. Future Appointments This section includes appointments that were scheduled to occur 6 months from the date of the Encounter, up to a maximum of 20 appointments. The data comes from all [place] treatment facilities. Appointment Date/Time Appointment Type Appointme nt Facility Name Jan 31, 2024 11:00 AM AMBULATORY - NONE [facility] Feb 11, 2024 10:20 AM AMBULATORY - NONE [facility] Mar 17, 2024 01:00 PM AMBULATORY - SURGERY [facility] Mar 21, 2024 11:30 AM AMBULATORY - SURGERY [facility] Mar 24, 2024 10:00 AM AMBULATORY - MEDICINE [facility] Mar 27, 2024 10:30 AM AMBULATORY - MEDICINE [facility] Apr 01, 2024 08:30 AM AMBULATORY - NONE [facility] Apr 03, 2024 10:00 AM AMBULATORY - NONE [facility] Apr 10, 2024 10:00 AM AMBULATORY - MEDICINE [facility] Jun 05, 2024 09:30 AM AMBULATORY [facility] SURGERY [facility] July 15, 2024 11:00 AM AMBULATORY - SURGERY [facility] July 15, 2024 12:00 PM AMBULATORY - SURGERY [facility] Vital Signs: All taken on the encounter date This section contains inpatient and outpatient Vital Signs collected on the date of the Encounter. Date/Time Temperature Pulse Blood Pressure Respiratory Rate SP02 Pain Height Weight Body Mass Index Source Jan 22, 2024 01:30 PM 96.8 77 157/80 18 98 8 69 196.6 29 [facility] Radiology Reports: +/- 30 days of the encounter Radiology Reports For cases when an order for radiology services may have been completed prior to the date of the Encounter, the report list includes the Radiology Reports that were completed up to 30 days before dateof the Encounter. For cases when an order for radiology services may have been completed after the date of the Encounter, the report list also includes the Radiology Reports that were completed up to30 days after date of the Encounter. The data comes from all [place] treatment facilities. Date/Time Radiology Report Provider Source Jan 12, 2024 08:[address] SINUS W/O CONTR AST (ENV): RAJEEV SAN [id number] -1955 M Exm Date: JAN 12, 2024@08:45 Req Phys: RAJEEV FRANCIS Pat Loc: [facility] ( Img Loc: [facility] Service: Unknown [address] [address] (Case [id number] COMPLETE) CT SINUS W/O CONTRAST (ENV) (CT Detailed) CPT:17924 Reason for Study: chronic sinusiitis Clinical History: Responsible Attending: Dr. Singh Attending Contact Number: [phone] Resident Contact Number: CT [facility] Allergies listed in CPRS chart: CAFFEINE Creatinine: CREATININE 0.88 mg/dL 03/21/2023 08:21 /eGFR: STL EGFR (within one year). CREATININE 0.88 mg/dL (03/21/23 08:21) Wt: 188 lb [85.28 kg] (09/26/2023 09:34) History of: Renal failure, chronic or acute renal disease: NO Report Status: Verified Date Reported: JAN 14, 2024 Date Verified: JAN 14, 2024 Validation Software Facilitator E-Sig:/ES/CHARLIE VELEZ MD Report: Axial images with sagittal and coronal reconstructions through the paranasal sinuses were performed. No mucosal thickening, soft tissue masses, or fluid in the sinuses. No bony erosion or destruction. The infundibula of the osteomeatal complexes are patent. Impression: Normal Primary Interpreting Staff: CHARLIE VELEZ MD, Radiologist (Validation Software Facilitator) /CHARLIE CARTER [facility] Encounter Notes: All associated encounter notes This section contains the clinical notes associated to the Encounter. Date/Time Encounter Note(s) Provider Source Jan 22, 2024 03:42 PM SUICIDE PREVENTION NOTE: LOCAL TITLE: [place]-SUICIDE SEVERITY RATING SCALE STANDARD TITLE: SUICIDE PREVENTION NOTE DATE OF NOTE: JAN 22, 2024@15:42 ENTRY DATE: JAN 22, 2024@15:43 AUTHOR: MILAGROS PALMER EXP COSIGNER: URGENCY: STATUS: COMPLETED [place]-Suicide Severity Rating Scale (C-SSRS Screener) 1. Over the past month, have you wished you were or wished you could go to sleep and not wake up? No 2. Over the past month, have you had any actual thoughts of killing yourself? No 3. Over the past month, have you been thinking about how you might do this? Response not required due to responses to other questions. 4. Over the past month, have you had these thoughts and had some intention of acting on them? Response not required due to responses to other questions. 5. Over the past month, have you started to work out or worked out the details of how to kill yourself? Response not required due to responses to other questions. 6. If yes, at any time in the past month did you intend to carry out this plan? Response not required due to responses to other questions. 7. In your lifetime, have you ever done anything, started to do anything, or prepared to do anything to end your life (for example, collected pills, obtained a gun, gave away valuables, went to the roof but didn't jump)? No 8. If YES, was this within the past 3 months? Response not required due to responses to other questions. I have reviewed the results of the Mental Health screens and have evaluated the patient. Based on the evaluation, the following disposition plan will be implemented: No further intervention is needed at this time. Contact information and instructions for accessing emergency services provided. /amilcar/ MILAGROS POSEY- Advanced Practice Nurse, Orthopedics Signed: 01/22/2024 15:44 MILAGROS PALMER [facility] Jan 22, 2024 06:07 AM ORTHOPEDIC SURGERY NOTE: LOCAL TITLE: ORTHOPEDIC STL STANDARD TITLE: ORTHOPEDIC SURGERY NOTE DATE OF NOTE: JAN 22, 2024@06:07 ENTRY DATE: JAN 22, 2024@06:07:42 AUTHOR: MILAGROS PALMER EXP COSIGNER: URGENCY: STATUS: COMPLETED RAJEEV SAN, is a 68 year old MALE, accompanied by his , who [facility] for follow up regarding his left knee. He was last seen for this problem 08/16/2023 and received left knee Durolane injection. He received excellent relief until a few weeks ago he was raking leaves and also and had increasing pain to his left knee. He states he was very debilitating was unable to walk approximately 3 days. He ices and elevates and uses cream as directed. He describes his pain is severe: Sharp, stabbing, throbbing, burning, dull, aching. He states his pain is much better but he is afraid it will happen again. He has had an MRI and has a known meniscal tear. Denies any catching or locking/mechanical symptoms on a regular basis. 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 3) Pain in both feet 4) Deviated nasal septum 5) Low back pain Medications Active Outpatient Medications (including Supplies): Active Outpatient Medications Status ========= 1) AZELASTINE 137MCG/SPRAY 200D NASAL INHL SPRAY 2 ACTIVE SPRAYS IN NOSTRIL(S) TWICE A DAY FOR ALLERGIC RHINITIS *PRIME BEFORE USE* 2) CARBOXYMETHYLCELLULOSE 1% OPH GEL 0.4ML INSTILL 1 ACTIVE DROP INTO AFFECTED EYE(S) FOUR TIMES A DAY NEEDED FOR DRY EYE(S) USE DIRECTED 3) DICLOFENAC NA 1% TOP GEL APPLY 4 GM TO AFFECTED ACTIVE AREA(S) FOUR TIMES A DAY FOR PAIN DO NOT EXCEED MORE THAN 16 GRAMS DAILY TO ANY LOWER EXTREMITY JOINT. NOT MORE THAN 8 GRAMS DAILY TO ANY UPPER EXTREMITY JOINT. MAX 32GM/DAY OVER ALL JOINTS. (MEASURE DOSE WITH RULER ATTACHED INSIDE BOX) 4) FLUTICASONE PROP 50MCG 120D NASAL INHL INSTILL 2 ACTIVE SPRAYS IN NOSTRIL(S) TWICE A DAY FOR RHINITIS (MUST BE USED DIRECTED FOR MINIMUM OF 21 DAYS TO PROVIDE ADEQUATE BENEFITS) 5) OLOPATADINE HCL 0.2% OPH SOLN INSTILL 1 DROP IN BOTH ACTIVE EYES ONCE A DAY 6) ROSUVASTATIN CA 20MG TAB TAKE ONE-HALF TABLET BY ACTIVE MOUTH EVERY EVENING 7) SODIUM CHLORIDE 0.9% INHL 3ML USE 3 ML VIAL BY TO ACTIVE AFFECTED AREA(S) FOUR TIMES A DAY USE DIRECTED BY YOUR EYE CARE PROVIDER FOR SCLERAL CONTACT LENS Active Non-VA Medications Status ========= 1) Non-VA DICLOFENAC NA 75MG EC TAB 75MG BY MOUTH EVERY ACTIVE MORNING AND EVENING 8 Total Medications Allergies CAFFEINE Vital Signs: Temp: 96.8 F [36.0 C] (01/22/2024 13:30) Pulse: 77 (01/22/2024 13:30) BP: 157/80 (01/22/2024 13:30) RESP: 18 (01/22/2024 13:30) Pain: 8 (01/22/2024 13:30) Height: 69 in [175.3 cm] (01/22/2024 13:30) Weight: 196.6 lb [89.18 kg] (01/22/2024 13:30) BMI:29.1 CRE:CREATININE 0.88 mg/dL 03/21/2023 08:21 HBA1C: HGA1C 6.1 H % 03/21/2023 08:21 BASIC METABOLIC PANEL: SODIUM 139 mEq/L 03/21/2023 08:21 POTASSIUM 4.5 mEq/L 03/21/2023 08:21 CHLORIDE 106 mEq/L 03/21/2023 08:21 UREA NITROGEN 15.0 mg/dL 03/21/2023 08:21 CREATININE 0.88 mg/dL 03/21/2023 08:21 CALCIUM 9.5 mg/dL 03/21/2023 08:21 CARBON DIOXIDE 25 mEq/L 03/21/2023 08:21 GLUCOSE 94 mg/dL 03/21/2023 08:21 EGFR (CKD-EPI 2020) 95.4 03/21/2023 08:21 WBC: 4.3 10*3/uL (03/21/23 08:21) HCT: 45.4 % (03/21/23 08:21) HGB: HGB 14.5 g/dL 03/21/2023 08:21 Plt: PLT 162 10*3/uL 03/21/2023 08:21 EXAMINATION: Constitutional: Patient alert and oriented x3, well-developed, well-nourished / obese and in no acute distress. mood is pleasant and appropriate ambulation: antalgic respirations: even and unlabored hearing: able to hear spoken word skin intact Musculoskeletal exam: Knee: Exam of the right knee reveals no erythema, warmth, lesions, or masses. There is no swelling about the knee. Medial point j tenderness. There is a negative Vito's and anterior drawer test. No laxity with varus stress. No laxity with valgus stress. Crepitus is felt. Extension-5 degrees; Flexion 120 degrees, Knee flexion and extension strength 4/5. Distally neurovascularly intact with normal sensation, pulses, color, and capillary refill. Exam of the left knee reveals no erythema, warmth lesions, or masses. There is no swelling about the knee. No joint line tenderness. There is a negative Vito's and anterior drawer test. No laxity with varus stress. No laxity with valgus stress. Crepitus is felt. Extension 0 degrees ; Flexion 120 degrees, Knee flexion and extension strength 5/5. Distally neurovascularly intact with normal sensation, pulses, color, and capillary refill. Size, contour and muscular development is normal and appears symmetrical. Muscle strength is appropriate and equal bilaterally. ======== RADIOGRAPHS: Radiographs were personally reviewed with the patient in the office today. Date Procedure CPT Status Case # 03/26/2023 SPINE LUMBOSACRAL 2 OR 3 VIEWS [id number] Verified 627 Intervertebral disc space height loss and endplate remodeling is most prominent at L4-L5 and L2-L3. Multilevel facet arthropathy. Degenerative changes involving the sacroiliac joints. 5 nonrib-bearing bearing vertebral bodies. Lowest fully formed intervertebral disc space is designated as L5-S1. Normal vertebral body heights. No traumatic subluxation of the posterior elements. 03/26/2023 KNEE,LEFT, 3 VIEWS [id number] Verified 612 \H\Right knee: \N\ Joint spaces are grossly preserved. No acute displaced fracture. No significant malalignment. \H\Left knee: \N\ The joint spaces are grossly preserved. No acute displaced fracture. No significant malalignment. 03/26/2023 KNEE,RIGHT,1 OR 2 VIEWS [id number] Verified 613 IMPRESSION: derangement meniscus left knee ASSESSMENT/PLAN: The anatomic basis and natural history of the problem were discussed with the patient: going over the diagnosis, prognosis, and treatment options. Options discussed were NSAIDs , both Viscosupplement and corticosteroid injections and possible surgical intervention once all more conservative measures are exhausted. The following recommendations were made: The patient conveyed an understanding of the condition. The following recommendations were made: - home exercise program --mindfulness when getting up from chair and sitting down to use muscles. Try to not push off or plop down. - weight loss ( every pound lost is 3-5 pounds of pressure)Stay away from fad diets. Eat in moderation. Decreased carbs, increase protein. - ice and elevate, higher than heart, end of every day, for at least 30 minutes. - bracing: New knee sleeve ordered with whole for patella - diclofenac topical: QID scheduled Viscosupplement injections: provide an option that will not likely cause/contribute to joint degeneration. May have pseudoseptic response from medication. Cortisone/marcaine injection(s): risk of change in skin pigment, chondrolysis, rising blood sugars, bleeding, neuritis, crystal flare or systemic absorption. Injections have a potential to cause infection. Patient aware the maximum amount of cortisone injections to each joint is three: lifetime. -- INJECTION: KNEE Left knee Durolane viscosupplement injection(s) was/were requested today. Risks, benefits, and alternatives were discussed. Patient wishes to proceed. Consent and time out completed. Checklist to be completed prior to the start of the Procedure by the Nurse Practitioner A. If the patient is conscious and able to answer, do the following: Ask the patient to state the patient's full name: Yes Ask the patient to state full social security number or birthdate: Yes Ask the patient to state procedure to be done and site of procedure: Yes B. The name and SSN or date of must be checked against each of the following: Patient's armband or ID card or picture ID: Yes Consent form: Yes C. If patient is unable to state name and SSN or date: Did a guardian or family member provide the above information? No Was patient identification done by using armband, ID card or picture ID, and consent form: Yes PROCEDURE: Left knee Allergies were reviewed with the patient prior to preparation. The patient was positioned sitting on the edge of the examination table with the knee flexed 90 degrees. The joint space lateral to the patellar tendon was palpated and marked. The area was cleaned in a sterile fashion prior to the procedure with ChloraPrep One-Step. The sterile 20g 1.5 needle was inserted lateral to the patellar tendon, approximately 1 cm above the tibia plateau, and was directed 15-45 degrees from anterior knee surface vertical midline toward the intraarticular joint space. The injectate flowed freely without any significant resistance. The site was dressed with a sterile adhesive bandage and the patient was encouraged to ice the area immediately following the injection and to avoid strenuous activity with the involved knee for remainder of the day. Signs, symptoms and reasons to call for infection and/or localized reaction were explained, patient verbalized understanding. Left knee Durolane 60mg/3 ml [id number] Numbing of area before above injection: The area was cleaned in a sterile fashion prior to the procedure with ChloraPrep One-Step. The sterile 25g 1.5 needle was inserted lateral to the patellar tendon, approximately 1 cm above the tibia plateau, and was directed 15-45 from anterior knee surface vertical midline toward the intraarticular joint space. The injectate flowed freely without any significant resistance. Left knee Lidocaine 1% 3ml [id number] -avoid any activities that put stress on your knee (such as jogging, tennis, heavy lifting, standing on your feet for more than an hour) for 48 hours. -If after the injection, experience increased pain, redness or tenderness ,blood sugar >299: seek attention promptly. -Discussed if viscosupplement injection does not help his pain could consider genicular blocks/RFA ablation. Dr. Sullivan reviewed MRI today:mild medial compartment OA. 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 - f/u 6 months re-evaluation of left knee and possible left knee Durolane viscosupplement injection(s) NO OB, NO OFF GRID. Patient to contact me sooner if his pain is not resolved or much better after today's injection. Patient verbalized understanding and agreed with the plan of care outlined above. Time spent:30 minutes chart review, interview, physical examination, inspection of images, order processing clerk, counseling/teaching, and documentation /amilcar/ MILAGROS PALMER ANP- Advanced Practice Nurse, Orthopedics Signed: 01/22/2024 15:49 MILAGROS PALMER [facility]
--- OUTSIDE RECORDS SUMMARY | 2024-09-29 08:09 | XMS_ITS | Encounter Summary ---
Author Name [facility] ([place] Address [address] [place] [address] Care Team Providers Care Heddle Machine Operator Name Role Phone LOULOU KILGORE Primary Care [...] PART A Nov 19, 2022 PART A [id number] [place] PATIENT MEDICARE (WNR) MEDICARE (M) PART B Nov 19, 2022 PART B [id number] [place] PATIENT Selected Encounter This section includes the information on record at [place] for the Encounter. Date/Time Encounter Type Encounter Description Reason Provider Source Sep 08, 2024 10:30 AM OFFICE O/P EST MOD 30 MIN OPTOMETRY ICD-10-CM H52.6 Other disorders of refraction XIOMARA NOE Encounter Template Text not used by [place] Assessments - Encounter Diagnoses This section includes the primary and secondary diagnoses documented for the Encounter. Date/Time Primary/Secondary Diagnosis Diagnosis Name Provider Source Sep 08, 2024 11:15 AM PRIMARY Other disorders of refraction VERONICA-BRAULIO,OD DIPIKA V [facility] Sep 08, 2024 11:15 AM SECONDARY Age-related nuclear cataract, bilateral LEMELODIE-BRAULIO,OD DIPIKA V [facility] Sep 08, 2024 11:15 AM SECONDARY Dry eye syndrome of bilateral lacrimal glands VERONICA-BRAULIO,OD DIPIKA V [facility] Sep 08, 2024 11:15 AM SECONDARY Prediabetes VERONICA-BRAULIO,OD DIPIKA V [facility] Sep 08, 2024 11:15 AM SECONDARY Unspecified pterygium of eye, bilateral LEMELODIE-AKNOLAN,OD DIPIKA V [facility] Sep 08, 2024 11:15 AM SECONDARY Vitreous degeneration, right eye VERONICA-BRAULIO,OD DIPIKA V [facility] Plan of Treatment: Future Appointments (+ 6 months) and Future Tests (+/- 45 days) The Plan of Treatment section includes future care activities for the patient [facility] [place] [facility] This section includes future appointments and future orders which are active, pending or scheduled. Future Appointments This section includes appointments that were scheduled to occur 6 months from the date of the Encounter, up to a maximum of 20 appointments. The data comes from all [place] treatment facilities. Appointment Date/Time Appointment Type Appointme nt Facility Name Nov 13, 2024 10:30 AM AMBULATORY - NONE . [facility] Jan 07, 2025 01:30 PM AMBULATORY - MEDICINE [facility] Jan 12, 2025 10:30 AM AMBULATORY - SURGERY [facility] Mar 06, 2025 02:00 PM AMBULATORY - SUR[facility]ERY [facility] Lab Results: +/- 30 days of the encounter This section includes the Chemistry and Hematology Lab Results on record with [place] for the patient. Radiology Reports and Pathology Reports are provided separately, in subsequent sections. Lab Results This section contains the Chemistry/Hematology Results that were resulted 30 days before or 30 daysafter the date of the Encounter. Date/Time Source Result Type Result - Unit Interpretation Reference Range Specimen Type Comment Sep 23, 2024 02:18 PM [facility] BASIC METABOLIC PANEL PLASMA Specimen Type: PLASMA Comment: No hemolysis noted. Ordering Provider: JOSEPH GAONA Report Released Date/Time: Sep 18, 2024 11:19 AM Reporting Lab: [address] [id number] Performing Lab: [address] [id number] CREATININE 0.84 mg/dL 0.7-1.3 UREA NITROGEN 20.8 mg/dL 9.0-25.0 GLUCOSE 151 mg/dL H 72-99 SODIUM 140 meq/L 136-145 POTASSIUM 3.8 meq/L 3.5-5 CHLORIDE 107 meq/L 98-107 CARBON DIOXIDE 26 meq/L 22-31 CALCIUM 9.1 mg/dL 8.4-10.4 EGFR (CKD-EPI 2020) 96.2 >60 Sep 23, 2024 02:18 PM [facility] CBC BLOOD Specimen Type: BLOO D No comment entered. Ordering Provider: JOSEPH GAONA Report Released Date/Time: Sep 18, 2024 11:19 AM Reporting Lab: [address] [id number] Performing Lab: [address] [id number] WBC 5.7 10*3/uL 3.6-11.2 RBC 4.72 10*6/uL 4.10-5.70 HGB 14.0 g/dL 13.1-16.8 HCT 42.8 38.2-48.4 MCV 90.7 fL 80.0-100.0 MCH 29.7 pg 27.0-34.0 MCHC 32.7 g/dL L 33.0-36.0 PLT 162 10*3/uL 150-400 MPV 10.6 fL 7.5-11.2 RDW 12.7 11.8-15.1 LYMPHOCYTES, AUTO % 25 MONOCYTES, AUTO % 6 NEUTROPHILS, AUTO % 67 EOSINOPHILS, AUTO % 1 BASOPHILS, AUTO % 0 LYMPHOCYTES, ABSOLUTE 1.43 10*3/uL 0.77- 4.50 MONOCYTES, ABSOLUTE 0.34 10*3/uL 0.19-0. 80 NEUTROPHILS, ABSOLUTE 3.83 10*3/uL 2.10- 8.00 EOSINOPHILS, ABSOLUTE 0.06 10*3/uL 0.00- 0.60 BASOPHILS, ABSOLUTE 0.02 10*3/uL 0.00-0. 20 Encounter Notes: All associated encounter notes This section contains the clinical notes associated to the Encounter. Date/Time Encounter Note(s) Provider Source Sep 08, 2024 11:07 AM OPTOMETRY NOTE: LOCAL TITLE: EYEGLASS PRESCRIPTION NOTE STL STANDARD TITLE: OPTOMETRY NOTE DATE OF NOTE: SEP 08, 2024@11:07 ENTRY DATE: SEP 08, 2024@11:07:12 AUTHOR: JANICE MEDINA EXP COSIGNER: URGENCY: STATUS: COMPLETED EYEGLASS PRESCRIPTION NOTE STL Has ADDENDA DATE OF LAST EYE EXAM:SEP 08, 2024 OD: +3.00 -2.50 x031 OS: +2.75 -2.50 x140 Add: +2.50 LENS MATERIAL: Polycarbonate LENS TYPE: Bifocal Other Add Ons: Photochromic lenses included due to medical condition Additional Comments: /monet MEDINA RESIDENT TEST CENTER ADMINISTRATOR Signed: 09/08/2024 11:08 09/08/2024 ADDENDUM STATUS: COMPLETED ADDITIONAL COMMENTS: AR NUZHAT /monet MEDINA RESIDENT TEST CENTER ADMINISTRATOR Signed: 09/08/2024 11:[address] [facility] Sep 08, 2024 10:34 AM OPTOMETRY NOTE: LOCAL TITLE: OPTOMETRY NOTE STANDARD TITLE: OPTOMETRY NOTE DATE OF NOTE: SEP 08, 2024@10:34 ENTRY DATE: SEP 08, 2024@10:34:14 AUTHOR: JANICE MEDINA EXP COSIGNER: MARY NOE URGENCY: STATUS: COMPLETED OPTOMETRY NOTE Has ADDENDA KALANI: CL exam 02/2024 REASON FOR VISIT: CEE CC: Patient reports... Blurry vision, OU - doing well in ScCL wearing since 08:30am this morning - finished at S - good comfort in ScCL now,vision is good - cleans lens with [place] (Qdaily) and ClearCare (Q1W) - (-)flashes/floaters/curta in over vision Pre-DM - Lost 20 lbs since mar - A1C is doing well No other ocular or visual concerns today. Ocular meds: none Ocular ROS: 1. PVD OD 2. Pterygium OU 3. Cataracts OU 4. DANNY 2/2 allergic component 5. Presbyopia/ref error FOHx: (-) blindness (-) glaucoma (-) AMD (-) RD Cardiovascular ROS: no change from problem & medication lists CPRS Problem list, medications and allergies reviewed: [facility] Serology for Diabetes GLUCOSE 94 mg/dL 03/20/2024 11:30 HGA1C 5.9 % 03/20/2024 11:30 Cardiovascular BP: 147/78 (06/05/2024 09:20) Pulse: 77 (06/05/2024 09:20) Neuro: Orientation: Normal Psych: Mood/Affect: Normal Depression/suicide ideation: NO - VISUAL ACUITY - DVA WITH ScCL correction: OD: 20/20 OS: 20/20 Pupils: PERRL OU (-)APD Confrontation: FTFC OU Extra-Ocular Muscles: Full OU ORScCL ODl +0.50 SPH 20/20 OS: PL SPH 20/20 Externals/Adnexa: Unremarkable OU LMRx: 01/01/2024 OD: +3.50 -3.00 x031 20/20 OS: +2.75 -2.50 x140 20/20 Add: +2.50 Refraction: (09/08/2024) OD: +3.00 -2.50 x031 20/20 OS: +2.75 -2.50 x140 20/20 Add: +2.50 - SLIT LAMP EXAMINATION - Lids/Lashes/Lacrimal: (-) blepharitis OU Conjunctiva/Sclera: tr injection 360 OU OS: (+)symblepharon/scarring reji Cornea: pannus 360, dense reji ant stromal scarring OU Ant Chamber: deep and quiet OU Iris: normal, (-)NVI OU Lens: tr NS OU Intraocular Pressures (Goldmann): 1 gtt Fluress Date OD OS Time Meds 09/08/2024 13 13 1100 none - RETINAL EVALUATION - DFE Dilated retinal exam: Instilled 1 gtt phenylephrine 2.5%, 1 gtt tropicamide 1% OU @ 1100 Pt understands the side effects associated with dilation Vitreous: (-)PVD OU Optic Nerve OD: 0.45 CDR Flat, pink, distinct (-)NVD OS: 0.50 CDR Flat, pink, distinct (-)NVD Vessels: 2/3 OU, (-)NVE OU Posterior Pole: OD: (-) hemes/exudates/CWS/NVE OS: (-) hemes/exudates/CWS/NVE Macula: OD: Flat, clear (-)CSME OS: Flat, clear (-)CSME Periphery: OD: No holes, tears, detachments 360 OS: No holes, tears, detachments 360 Assessment/Plan: (09/08/2024) 1. Pre-Diabetes without retinopathy - Last HgA1C 5.9 - No DME OU - Pt ed on the importance of maintaining tight bg control to reduce the risk for diabetic ocular complications. - Cont to monitor with annual DFE. 2. Hyperopia/astig/presbyopi a - CL are from 08/2023 with minor scratches. - stable BCVA c ScCL OU with good comfort/vision OD/OS - Order new ScCL (to be delivered to pt address- mailing address verified) - Stressed importance of maintaining good CL hygiene to minimize risks of CL-associated infections. Advised pt to remove CL and RTC STAT for any sudden onset of visual change (burning/redness/cloudine ss). Pt verbalized understanding. - RTC 6 months for ScCL check or sooner pending issues. - Updated spec rx today. 3. Pterygium OU - s/p excision OU - high recurrence OS, uncomplicated OD - stable findings on clinical exam today (+)dense scarring/symblepharon OS c limited ABduction - pt was prev offered surgical treatment to increase motility OS but deferred d/t risk - Monitor at next visit for any changes in S/S's 4. Cataracts OU - not visually significant - BCVA c ScCL: 20/20 OD/OS/OU - no CE indicated at this time. - Pt ed on use of UV protection when outdoors to slow progression of cataract development. Monitor for visual changes. 5. DANNY OU - minimally symptomatic - using ATs PRN OU - Continue using ATs. No refills needed at this time - Monitor at next viist. 6. PVD OD - asymptomatic for floaters/flashes/curtain over vision - (-)holes/breaks/detachmen ts - Pt ed on signs/symptoms of RD (flashes/floaters/curtain over vision). RTC STAT for any sudden onset of symptoms. - Monitor. Patient educated on all findings and given the opportunity to have questions answered RTC 6 months in [place] [facility] clinic for ScCL check; sooner if any issues. CONTACT LENS ASSESSMENT: 09/08/2024 - OD - Custom Stable Sa.097 CCZ: -1.00 Limbal Light: -2.00 SLZ: +1.00/-6.00 Power: -1.00 sphere BC: 7.85 JOCELINE: 14.8 CT: 0.30 PT: 0.40 Material: Optimum Extra Fit: minor diffuse scratches, good coverage, adequate edge lift, good central clearance ~150 um, midperiph 1:1, adeqaute limbal clearance (+)O-marking @ 35deg - OS - Custom Stable Sa.016 CCZ: -2.00 Limbal Light: -2.00 SLZ: 0.00/-7.00 SLZ in Q3 -2.00 Power: +1.00 sphere BC: 8.23 JOCELINE: 14.8 Material: Optimum Extra 30/30/155 edge vault OS: Light Blue OS Fit: minor diffuse scratches, good coverage, adequate edge lift good central clearance ~200 um, midperiph 1:1, adeqaute limbal clearance (+)O-marking @deg 030 /amilcar/ JANICE MEDINA RESIDENT TEST CENTER ADMINISTRATOR Signed: 09/08/2024 14:07 /amilcar/ MARY NOE OD TEST CENTER ADMINISTRATOR Cosigned: 09/08/2024 14:27 09/08/2024 ADDENDUM STATUS: COMPLETED I have reviewed the history, findings and agree with the assessment and plan as charted in CPRS on this established patient. /amilcar/ MARY NOE OD TEST CENTER ADMINISTRATOR Signed: 09/08/2024 14:28 [facility]
--- OUTSIDE RECORDS SUMMARY | 2024-09-29 08:09 | XMS_ITS | Encounter Summary ---
Author Name [facility] [place] ([place]) Organization [facility] ([place] Address [address] [place] [address] Care Team Providers Care Activities Director Name Role Phone LOULOU KILGORE Primary Care [...] PART A Nov 19, 2022 PART A [id number] [phone] M[place]Y [place] PATIENT MEDICARE (WNR) MEDICARE (M) PART B Nov 19, 2022 PART B [id number] [place] PATIENT Selected Encounter This section includes the information on record at [place] for the Encounter. Date/Time Encounter Type Encounter Description Reason Provider Source Dec 10, 2023 09:34 AM EMERGENCY DEPT VISIT [facility] EMERGENCY DEPT ICD-10-CM J41.0 Simple chronic bronchitis ALAN FRYE Encounter Template Text not used by [place] Assessments - Encounter Diagnoses This section includes the primary and secondary diagnoses documented for the Encounter. Date/Time Primary/Secondary Diagnosis Diagnosis Name Provider Source Dec 10, 2023 11:46 AM PRIMARY Simple chronic bronchitis ALAN FRYE [facility] Plan of Treatment: Future Appointments (+ 6 months) and Future Tests (+/- 45 days) The Plan of Treatment section includes future care activities for the patient from all [place] [facility]. This section includes future appointments and future orders which are active, pending or scheduled. Future Appointments This section includes appointments that were scheduled to occur 6 months from the date of the Encounter, up to a maximum of 20 appointments. The data comes from all [facility] facilities. Appointment Date/Time Appointment Type Appointme nt Facility Name Jan 01, 2024 09:00 AM AMBULATORY - SURGERY [facility] Jan 12, 2024 09:00 AM AMBULATORY - NONE [facility] Jan 22, 2024 08:40 AM AM[facility]ULATORY - NONE [facility] Jan 22, 2024 01:30 PM AMBULATORY - [facility]ERY [facility] Jan 22, 2024 02:30 PM AMBULATORY - NONE [facility] Jan 31, 2024 11:00 AM AM[facility]ULATORY - NONE [facility] Feb 11, 2024 10:20 AM AMBULATORY - NONE [facility] Mar 17, 2024 01:00 PM AM[facility]ULATORY - [facility]ERY [facility] Mar 21, 2024 11:30 AM AMBULATORY - [facility]ERY [facility] Mar 24, 2024 10:00 AM AMBULATORY - MEDICINE [facility] Mar 27, 2024 10:30 AM AMBULATORY - MEDICINE [facility] Apr 01, 2024 08:30 AM AMBULATORY - NONE [facility] Apr 03, 2024 10:00 AM AMBULATORY - NONE [facility] Apr 10, 2024 10:00 AM AMBULATORY - MEDICINE [facility] Jun 05, 2024 09:30 AM AMBULATORY - [facility]GERY [facility] Vital Signs: All taken on the encounter date This section contains inpatient and outpatient Vital Signs collected on the date of the Encounter. Date/Time Temperature Pulse Blood Pressure Respiratory Rate SP02 Pain Height Weight Body Mass Index Source Dec 10, 2023 09:42 AM 97.5 84 163/91 16 5 [facility] Radiology Reports: +/- 30 [...] the Encounter. The data comes from all [place] treatment facilities. Date/Time Radiology Report Provider Source Dec 10, 2023 09:46 AM CHEST X-RAY, 2 VIE WS: RAJEEV SAN [id number] -[id number] M Exm Date: DEC 10, 2023@09:46 Req Phys: AALN FRYE Loc: -EMERGENCY DEPT 2ND SHIFT (R Img Loc: -MAIN RADIOLOGY SUITE Service: [facility] [address] [place] [address] (Case [id number] COMPLETE) CHEST X-RAY, 2 VIEWS (RAD Detailed) CPT:66472 Reason for Study: SOB, nonproductive cough Clinical History: Report Status: Verified Date Reported: DEC 10, 2023 Date Verified: DEC 10, 2023 Splicer Operator E-Sig:/ES/CHARLIE VELEZ MD Report: CASE #: [id number] DATE:12/10/2023 9:54 AM CLINICAL HISTORY:SOB, nonproductive cough TECHNIQUE: CHEST X-RAY, 2 VIEWS COMPARISON: None currently available. PA and lateral chest x-ray Heart: No significant pathology Lungs: No significant pathology. Mediastinum: No significant pathology Pulmonary vasculature: Within normal limits. Impression: No acute disease Dictated by Denae Gay M.D. (Diagnostic Bucket Operator). ICharlie, have reviewed the images and report and concur with these findings. Primary Interpreting Staff: CHARLIE VELEZ MD, Radiologist (Splicer Operator) Primary Interpreting Resident: Denae Gay MD, Resident Physician /CHARLIE VENTURA [facility] Encounter Notes: All associated encounter notes This section contains the clinical notes associated to the Encounter. Date/Time Encounter Note(s) Provider Source Dec 10, 2023 10:46 AM PHYSICIAN EMERGENCY DEPT NOTE: LOCAL TITLE: EMERGENCY DEPARTMENT ST STANDARD TITLE: PHYSICIAN EMERGENCY DEPT NOTE DATE OF NOTE: DEC 10, 2023@10:46 ENTRY DATE: DEC 10, 2023@10:46:35 AUTHOR: ALAN FRYE COSIGNER: URGENCY: STATUS: COMPLETED TRIAGE CHIEF COMPLAINT: cough, chest conjestion HPI: Patient is a 68 year old male who presents with cough, chest conjestion. Went to an urgent care last week and was prescribed augmentin, tessilon pearls, albuterol, paxlovid (althought he was covid negative) prednisone but continues to cough. States he cannot sleep due to coughing. Denies GARCIA, blurred vision, dizziness, muscle aches, CP, SOB, N/V/D, constipation, dysuria. REVIEW OF SYSTEMS: See HPI for further details. All 10 systems reviewed and otherwise negative unless otherwise detailed herein. PAST MEDICAL HISTORY: 1) Hyperlipidemia 2) Derangement of meniscus of left knee joint 3) Pain in both feet 4) Deviated nasal septum 5) Low back pain CURRENT MEDICATIONS: Active Outpatient Medications (including Supplies): Active Outpatient Medications Status ========= 1) AZELASTINE 137MCG/SPRAY 200D NASAL INHL SPRAY 2 ACTIVE SPRAYS IN NOSTRIL(S) TWICE A DAY FOR ALLERGIC RHINITIS *PRIME BEFORE USE* 2) CARBOXYMETHYLCELLULOSE 1% OPH GEL 0.4ML INSTILL 1 ACTIVE DROP INTO AFFECTED EYE(S) FOUR TIMES A DAY NEEDED FOR DRY EYE(S) USE DIRECTED 3) CARBOXYMETHYLCELLULOSE NA 0.5% OPH SOLN INSTILL 1 ACTIVE DROP IN BOTH EYES FOUR TIMES A DAY NEEDED FOR DRY EYE(S) 4) DICLOFENAC NA 1% TOP GEL APPLY 4 GM TO AFFECTED ACTIVE AREA(S) FOUR TIMES A DAY FOR PAIN DO NOT EXCEED MORE THAN 16 GRAMS DAILY TO ANY LOWER EXTREMITY JOINT. NOT MORE THAN 8 GRAMS DAILY TO ANY UPPER EXTREMITY JOINT. MAX 32GM/DAY OVER ALL JOINTS. (MEASURE DOSE WITH RULER ATTACHED INSIDE BOX) 5) FLUTICASONE PROP 50MCG 120D NASAL INHL INSTILL 2 ACTIVE SPRAYS IN NOSTRIL(S) TWICE A DAY FOR RHINITIS (MUST BE USED DIRECTED FOR MINIMUM OF 21 DAYS TO PROVIDE ADEQUATE BENEFITS) 6) OLOPATADINE HCL 0.2% OPH SOLN INSTILL 1 DROP IN BOTH ACTIVE EYES ONCE A DAY 7) ROSUVASTATIN CA 20MG TAB TAKE ONE-HALF TABLET BY ACTIVE MOUTH EVERY EVENING 8) SINUS RINSE NEILMED REGULAR KIT USE 1 KIT NOSTRIL(S) ACTIVE TWICE A DAY FOR NASAL CONGESTION 9) SODIUM CHLORIDE 0.9% INHL 3ML USE 3 ML VIAL BY TO ACTIVE AFFECTED AREA(S) FOUR TIMES A DAY USE DIRECTED BY YOUR EYE CARE PROVIDER FOR SCLERAL CONTACT LENS Active Non-VA Medications Status ========= 1) Non-VA DICLOFENAC NA 75MG EC TAB 75MG BY MOUTH EVERY ACTIVE MORNING AND EVENING 10 Total Medications I have reviewed the patient's medication list with the patient and/or his/her care-interior horticulturist. Any medication discrepancies have been resolved. Patient will be provided with an updated list of his/her medication(s). SURGICAL HISTORY: not pertinent FAMILY HISTORY: not pertinent SOCIAL HISTORY: Social History Main Topics: Smoking status: No data available for: Current Tobacco User Alcohol Use: not indorsed ____ Illicit Drug Use: not indorsed Sexual Activity: Other Topics of Concern: ALLERGIES: Review of patient's allergies indicates: CAFFEINE PHYSICAL EXAM: VITAL SIGNS: 163/91 (12/10/2023 09:42)84 (12/10/2023 09:42)96% (11/30/2023 12:46)97.5 F [36.4 C] (12/10/2023 09:42)16 (12/10/2023 09:42)The OBJECT WEIGHT LAST 3 was NOT found...Contact IRM. MAThe OBJECT was NOT found...Contact IRM.PAIN ASSESSMENTThe OBJECT was NOT found...Contact IRM. Measurement DT PAIN 12/10/2023 09:42 5 GENERAL:Coopertive, NAD CV:S1S2 regular no murmur, gallops or rubs LUNGS: Respirations unlabored, lung sounds clear in all almeida ABD: Soft, nontender, bowel sounds in all quads, no organmegaly. EXT: no edema NEURO:Alert, oriented X3 LABS: RADIOLOGY: CXR: Impression: No acute disease ECG IMPRESSION: ED COURSE & MEDICAL DECISION MAKING: Nursing notes, medications, vital signs, allergies and pertinent labs & imaging studies reviewed (see chart for details) with lab results reviewed with patient and family/caregivers at bedside and radiology results reviewed with patient and any family/caregivers at bedside. Stable, alert, nontoxic, nonfocal with clinically apparent cough, neg cxr will order guiafensin with codiene Clinical information obtained from an independent historian. History obtained from or confirmed by:Vet ___spouse ___parent ___guardian ___family ___friend ___EMS ___other: External records reviewed: ___Inpatient records ___office records _x__outpatient records ___prior outpatient labs ___prior outpatient radiology ___primary care record ___outside ED record ___PMD referral ___outside ER ___urgent care referral ___other: Management of the patient was discussed with: Sara RESEARCH BIOLOGIST SERVICE/TIME: MEDICATIONS GIVEN IN ED: [ ] YES [ x ] NO Critical care time none DECISION to ADMIT / DISCHARGE TIME: 1100 DISPOSITION CONDITION:[ ] Improved [ ] Unchanged [ ] Deteriorated CLINICAL IMPRESSION: 1 - bronchitis-treated by will give guiafensin with codiene for cough 2 - 3 - DISCHARGE INSTRUCTIONS AND PATIENT-DIRECTED FOLLOW-UP RECOMMENDATIONS: DIET: ACTIVITY: NEW MEDS:as above MEDICATION RECONCILIATION: CONTINUE ALL PRESCRIBED MEDICATIONS DIRECTED EXCEPT: FOLLOW-UP WITH PRIMARY INCIDENT ANALYST/SPECIALIST: RETURN TO EMERGENCY: if any worries or concerns ADDITIONAL SIGNATURE PCP: [ ] YES [ ] NO [ ] not listed /amilcar/ ALAN FRYE Advanced Practice Nurse Signed: 12/10/2023 14:42 Receipt Acknowledged By: 12/13/2023 18:19 /amilcar/ LOULOU KILGORE MD Staff Physician ALAN FRYE [facility] Dec 10, 2023 09:39 AM EMERGENCY DEPT TRIAGE NOTE: LOCAL TITLE: EMERGENCY DEPARTMENT TRIAGE NOTE STANDARD TITLE: EMERGENCY DEPT TRIAGE NOTE DATE OF NOTE: DEC 10, 2023@09:39 ENTRY DATE: DEC 10, 2023@09:39:52 AUTHOR: NARCISO KOHLER EXP COSIGNER: URGENCY: STATUS: COMPLETED Emergency Department/Urgent Care Center Triage Patient age:68 Sex: MALE On arrival patient was: AMBULATORY Patient phone number: Allergies: CAFFEINE Subjective/Chief Complaint: SOB/cough/congestion Objective: Pt to ED with complaint of SOB, cough, and congestion for the past week. Pt states he was seen at Urgent Care last Sunday. Pt states he was given an inhaler, Paxlovid, a steroid, cough syrup, and a medication for congestion, but it is not getting any better. Pt's respirations are even and unlabored. Pt is afebrile and nondiaphoretic. The patient is a fall risk. Intervention: Pt observed. BP: P: R: WT: T: HT: Temperature 97.5 F (36.4 C) Pulse 84 Respirations 16 Blood Pressure 163/91 Pain scale recorded: 5 Pulse Oximetry 96 Room Air Sepsis Screening Evaluation Emergency Severity Index (LALO) level Level 3 Current Medications: Active Outpatient Medications (including Supplies): Active Outpatient Medications Status ========= 1) AZELASTINE 137MCG/SPRAY 200D NASAL INHL SPRAY 2 ACTIVE SPRAYS IN NOSTRIL(S) TWICE A DAY FOR ALLERGIC RHINITIS *PRIME BEFORE USE* 2) CARBOXYMETHYLCELLULOSE 1% OPH GEL 0.4ML INSTILL 1 ACTIVE DROP INTO AFFECTED EYE(S) FOUR TIMES A DAY NEEDED FOR DRY EYE(S) USE DIRECTED 3) CARBOXYMETHYLCELLULOSE NA 0.5% OPH SOLN INSTILL 1 ACTIVE DROP IN BOTH EYES FOUR TIMES A DAY NEEDED FOR DRY EYE(S) 4) DICLOFENAC NA 1% TOP GEL APPLY 4 GM TO AFFECTED ACTIVE AREA(S) FOUR TIMES A DAY FOR PAIN DO NOT EXCEED MORE THAN 16 GRAMS DAILY TO ANY LOWER EXTREMITY JOINT. NOT MORE THAN 8 GRAMS DAILY TO ANY UPPER EXTREMITY JOINT. MAX 32GM/DAY OVER ALL JOINTS. (MEASURE DOSE WITH RULER ATTACHED INSIDE BOX) 5) FLUTICASONE PROP 50MCG 120D NASAL INHL INSTILL 2 ACTIVE SPRAYS IN NOSTRIL(S) TWICE A DAY FOR RHINITIS (MUST BE USED DIRECTED FOR MINIMUM OF 21 DAYS TO PROVIDE ADEQUATE BENEFITS) 6) OLOPATADINE HCL 0.2% OPH SOLN INSTILL 1 DROP IN BOTH ACTIVE EYES ONCE A DAY 7) ROSUVASTATIN CA 20MG TAB TAKE ONE-HALF TABLET BY ACTIVE MOUTH EVERY EVENING 8) SINUS RINSE NEILMED REGULAR KIT USE 1 KIT NOSTRIL(S) ACTIVE TWICE A DAY FOR NASAL CONGESTION 9) SODIUM CHLORIDE 0.9% INHL 3ML USE 3 ML VIAL BY TO ACTIVE AFFECTED AREA(S) FOUR TIMES A DAY USE DIRECTED BY YOUR EYE CARE PROVIDER FOR SCLERAL CONTACT LENS Active Non-VA Medications Status ========= 1) Non-VA DICLOFENAC NA 75MG EC TAB 75MG BY MOUTH EVERY ACTIVE MORNING AND EVENING 10 Total Medications Current Problems: 1) Hyperlipidemia 2) Derangement of meniscus of left knee joint 3) Pain in both feet 4) Deviated nasal septum 5) Low back pain Suicide Screen: [place] Suicide Severity Rating Scale (C-SSRS) screener 1. Over the past month, have you [...] required due to responses to other questions. /es/ NARCISO KOHLER VOLUNTEER SERVICES MANAGER REGISTERED NURSE Signed: 12/10/2023 09:43 NARCISO KOHLER [facility]
--- OUTSIDE RECORDS SUMMARY | 2024-09-29 08:10 | XMS_ITS ---
Author Name [facility] [place] Organization [place] Address [address] [place] [address] Care Team Providers Care Accounting Auditor Name Role Phone LOULOU KILGORE Primary Care [...] PART A Nov 19, 2022 PART A [id number] [phone] MANDY [place] PATIENT MEDICARE (WNR) MEDICARE (M) PART B Nov 19, 2022 PART B [id number] MANDY [place] PATIENT Selected Encounter This section includes the information on record at [place] for the Encounter. Date/Time Encounter Type Encounter Description Reason Provider Source Apr 01, 2024 08:30 AM MANUAL THERAPY 1/> [facility] ICD-10-CM M54.50 Low back pain, unspecified ESME CARR Encounter Template Text not used by [place] Assessments - Encounter Diagnoses This section includes the primary and secondary diagnoses documented for the Encounter. Date/Time Primary/Secondary Diagnosis Diagnosis Name Provider Source Apr 01, 2024 08:52 AM PRIMARY Low back pain, unspecified EVER CARR [facility] Apr 01, 2024 08:52 AM SECONDARY Myalgia, other site EVER CARR [facility] Plan of Treatment: Future Appointments (+ 6 months) and Future Tests (+/- 45 days) The Plan of Treatment section includes future care activities for the patient from all [place] treatmentfacilities. This section includes future appointments and future orders which are active, pending or scheduled. Future Appointments This section includes appointments that were scheduled to occur 6 months from the date of the Encounter, up to a maximum of 20 appointments. The data comes from all [place] treatment facilities. Appointment Date/Time Appointment Type Appointme nt Facility Name Apr 03, 2024 10:00 AM AMBULATORY - NONE [facility] Apr 10, 2024 10:00 AM AMBULATORY - MEDICINE [facility] Jun 05, 2024 09:30 AM AMBULATORY - SURGERY [facility] July 15, 2024 11:00 AM AMBULATORY - SUR[facility]ERY [facility] July 15, 2024 12:00 PM AMBULATORY - SUR[facility]ERY [facility] Sep 08, 2024 10:30 AM AMBULATORY - SURGERY [facility] Lab Results: +/- 30 days of the encounter This section includes the Chemistry and Hematology Lab Results on record with [place] for the patient. Radiology Reports and Pathology Reports are provided separately, in subsequent sections. Lab Results This section contains the Chemistry/Hematology Results that were resulted 30 days before or 30 daysafter the date of the Encounter. Date/Time Source Result Type Result - Unit Interpretation Reference Range Specimen Type Comment Mar 20, 2024 11:30 AM [facility] COMPREHENSIVE METABOLIC PANEL PLASMA Specimen Type: PLASMA Comment: No hemolysis noted. Ordering Provider: LOULOU KILGORE Report Released Date/Time: Sep 26, 2023 10:07 AM Reporting Lab: [facility] [address] [phone] Performing Lab: [facility] [address] [facility] [phone] CREATININE 0.78 mg/dL 0.7-1.3 UREA NITROGEN 16.3 mg/dL 9.0-25.0 GLUCOSE 94 mg/dL 72-99 SODIUM 142 meq/L 136-145 POTASSIUM 4.7 meq/L 3.5-5 CHLORIDE 110 meq/L H 98-107 CARBON DIOXIDE 25 meq/L 22-31 CALCIUM 9.2 mg/dL 8.4-10.4 PROTEIN 6.8 g/dL 6-8.6 ALBUMIN 3.9 g/dL 3.4-5 TOTAL BILIRUBIN 0.6 mg/dL 0.2-1.2 ALKALINE PHOSPHATASE 51 U/L 40-150 AST/SGOT 23 U/L 5-34 ALT/SGPT 18 U/L 8-40 EGFR (CKD-EPI 2020) 98.4 >60 Mar 20, 2024 11:30 AM [facility] CBC BLOOD Specimen Type: BLOOD No comment entered. Ordering Provider: LOULOU KILGORE Report Released Date/Time: Sep 26, 2023 10:07 AM Reporting Lab: [facility] [address] [phone] Performing Lab: [facility] [address] [facility] [facility] [phone] WBC 4.7 10*3/uL 3.6-11.2 RBC 4.92 10*6/uL 4.10-5.70 HGB 14.5 g/dL 13.1-16.8 HCT 44.9 38.2-48.4 MCV 91.3 fL 80.0-100.0 MCH 29.5 pg 27.0-34.0 MCHC 32.3 g/dL L 33.0-36.0 PLT 133 10*3/uL L 150-400 MPV 12.7 fL H 7.5-11.2 RDW 12.4 11.8-15.1 LYMPHOCYTES, AUTO % 23 MONOCYTES, AUTO % 9 NEUTROPHILS, AUTO % 67 EOSINOPHILS, AUTO % 1 BASOPHILS, AUTO % 0 LYMPHOCYTES, ABSOLUTE 1.06 10*3/uL 0.77- 4.50 MONOCYTES, ABSOLUTE 0.41 10*3/uL 0.19-0. 80 NEUTROPHILS, ABSOLUTE 3.10 10*3/uL 2.10- 8.00 EOSINOPHILS, ABSOLUTE 0.06 10*3/uL 0.00- 0.60 BASOPHILS, ABSOLUTE 0.02 10*3/uL 0.00-0. 20 Mar 20, 2024 11:30 AM [facility] LIPID PANEL (STL) PLASMA Specimen Type: PLASM A Comment: No hemolysis noted. Ordering Provider: LOULOU KILGORE Report Released Date/Time: Sep 26, 2023 10:07 AM Reporting Lab: [facility] [address] [phone] Performing Lab: [facility] [address] [place] [phone] CHOLESTEROL 197 mg/dL 0-200 TRIGLYCERIDE 111 mg/dL 0-150 CALCULATED LDL 129 mg/dL HDL(New) 46 mg/dL >40 Mar 20, 2024 11:30 AM [facility] PROST. SPECIFIC AG.(PB-STL) SERUM Specimen Ty pe: SERUM Comment: The listed sex of this patient may not be a typical indication for this test. Therefore, reference ranges or interpretive criteria listed may not be valid. Clinical correlation suggested. Ordering Provider: LOULOU KILGORE Report Released Date/Time: Sep 26, 2023 10:07 AM Reporting Lab: [facility] [address] [facility] [phone] Performing Lab: [facility] [address] [place] [phone] PROST. SPECIFIC AG.(PB-STL) 1.393 ng/mL 0-4 Mar 20, 2024 11:30 AM [facility] HGA1C BLOOD Specimen Type: BLOOD No comment entered. Ordering Provider: LOULOU KILGORE Report Released Date/Time: Sep 26, 2023 10:07 AM Reporting Lab: [facility] [address] [facility] [phone] Performing Lab: [facility] [address] [place] [phone] HGA1C 5.9 4.0-6.0 Mar 20, 2024 11:30 AM [facility] TSH (MA-PB) SERUM Specimen Type: SERUM Comment: No hemolysis noted. Ordering Provider: LOULOU KILGORE Report Released Date/Time: Sep 26, 2023 10:07 AM Reporting Lab: [facility] [address] [phone] Performing Lab: [facility] [address] [facility] [phone] TSH 1.969 u[IU]/mL 0.47-5 Mar 20, 2024 11:30 AM [facility] VITAMIN D, 25-HYDROXY SERUM Specimen Type: SE RUM Comment: The listed sex of this patient may not be a typical indication for this test. Therefore, reference ranges or interpretive criteria listed may not be valid. Clinical correlation suggested. Ordering Provider: LOULOU KILGORE Report Released Date/Time: Sep 26, 2023 10:07 AM Reporting Lab: [facility] [address] [phone] Performing Lab: [facility] [address] [phone] VITAMIN D, 25-HYDROXY 31.5 ng/mL 30- Encounter Notes: All associated encounter notes This section contains the clinical notes associated to the Encounter. Date/Time Encounter Note(s) Provider Source Apr 01, 2024 08:34 AM CHIROPRACTIC NOTE: LOCAL TITLE: CHIROPRACTIC [facility] STANDARD TITLE: CHIROPRACTIC NOTE DATE OF NOTE: APR 01, 2024@08:34 ENTRY DATE: APR 01, 2024@08:34:59 AUTHOR: EVER CARR COSIGNER: URGENCY: STATUS: COMPLETED SUBJECTIVE: Patient presents today for a follow up visit of keron madsen. He notes lately has been doing alot of walking, about 3 miles/day. he notes with increased walkinging has noticed some tightness in low back, more prevalant in morning, when getting up and moving around will loosen up. He notes seeing pain management provider and recommended holding off on geniculate block. He has continued with home exercises which have been helpful. Today rates complaint as 2-3/10. GOALS: Decrease low back pain, improve core stability REFERRAL DATE: EXAM DATE(S): 05/23/23 11:00 INITIAL TREATMENT DATE: 05/23/23 11:00 TYPE OF CARE: active DISCHARGE DATE: 04/01/2024 ALERTS: EXAMINATION APPEARANCE, MOOD & ORIENTATION The patient is a 68 year old WHITE NOT OR MALE, who is alert and oriented to person, place, and time. The patient is in no apparent distress and is well developed and well nourished. Patient walks with slight limp offloading left lower extremity. OBJECTIVE/PALPATION: Taut and tender thoracolumbar paraspinals, and QL. RESTRICTIONS: Thoracic, lumbar, SIJ ASSESSMENT: Patient is a pleasant 68-year-old male with history of chronic low back pain, recent episode of low back pain likely contributed to from biomechanical changes in gait due to left knee pain. On examination no evidence of neurological compromise, deep tendon reflexes, dermatomes and myotomes intact bilaterally without deficit. Currently working with orthopedics regarding left knee complaint, has MRI ordered waiting to be scheduled. Patient motivated to increase physical activity however limited due to knee pain, open to self- care/self-management strategies. Has had previous conservative management with benefit and anticipate similar results. Continues to to notice benefit with self management strategies, should flare up or exacerbation occured may contact clinic for trial of care. PLAN: The patient was given a review of findings following the exam. The benefits, risks and alternatives to healthcare administrator were discussed with the patient, along with an opportunity to ask questions. Patient then gave an informed consent to treatment. Plan of care will consist of 4 -6 visits consisting of chiropractic manipulation with an incremental increase in home exercise depending on the patients response. The patient agrees to this plan. Treatment consisted of flexion distraction lumbar spine, supine manipulation thoracic spine, side-lying manipulation lumbar and SIJ. Manual therapy consisting of table assisted pin and stretch thoracolumbar paraspinals, side-lying passive stretch lumbar paraspinals. Prone vibratory massage thoracolumbar paraspinals, and QLs Manual therapy 8 minutes. The patient reported feeling much better following their treatment. Treatment rendered without incident. HOME CARE: bug exercises, 10 reps 3 sets daily, curl ups 10 reps, 3 times daily, seated hamstring stretch as needed. Supine trunk rotations as needed, seated figure 4 hold 2-3 seconds, 5 reps, B/L daily. RTC:CHRIS /amilcar/ EVER CARR [facility] Chiropractic Physician Signed: 04/01/2024 08:52 EVER CARR [facility]
--- OUTSIDE RECORDS SUMMARY | 2024-09-29 08:10 | XMS_ITS | Encounter Summary ---
Author Name [facility] [place] [facility] [place] Address [address] [facility], [place] [address] Care Team Providers Care Finishing Lab Technician Name Role Phone LOULOU KILGORE Primary Care [...] PART A Nov 19, 2022 PART A [id number] [place] PATIENT MEDICARE (WNR) MEDICARE (M) PART B Nov 19, 2022 PART B [id number] [place] PATIENT Selected Encounter This section includes the information on record at [place] for the Encounter. Date/Time Encounter Type Encounter Description Reason Provider Source Mar 27, 2024 10:30 AM OFFICE O/P EST MOD 30 MIN PRIMARY CARE/MEDICINE ICD-10-CM M54.50 Low back pain, unspecified LOULOU KILGORE Encounter Template Text not used by [place] Assessments - Encounter Diagnoses This section includes the primary and secondary diagnoses documented for the Encounter. Date/Time Primary/Secondary Diagnosis Diagnosis Name Provider Source Mar 27, 2024 04:27 PM PRIMARY Low back pain, unspecified [facility] Mar 27, 2024 04:27 PM SECONDARY Derangement of unsp meniscus due to old tear/inj, left knee [facility] Mar 27, 2024 04:27 PM SECONDARY Deviated nasal septum [facility] Mar 27, 2024 04:27 PM SECONDARY Elevated blood-pressure reading, w/o diagnosis of htn [facility] Mar 27, 2024 04:27 PM SECONDARY Hyperlipidemia, unspecified [facility] Mar 27, 2024 04:27 PM SECONDARY Prediabetes [facility] Plan of Treatment: Future Appointments (+ 6 months) and Future Tests (+/- 45 days) The Plan of Treatment section includes future care activities for the patient from all [place] treatment[facility] hospital. This section includes future appointments and future orders which are active, pending or scheduled. Future Appointments This section includes appointments that were scheduled to occur 6 months from the date of the Encounter, up to a maximum of 20 appointments. The data comes from all [place] treatment facilities. Appointment Date/Time Appointment Type Appointme nt Facility Name Apr 01, 2024 08:30 AM AMBULATORY - NONE [facility] Apr 03, 2024 10:00 AM AMBULATORY - NONE [facility] Apr 10, 2024 10:00 AM AMBULATORY - MEDICINE [facility] Jun 05, 2024 09:30 AM AMBULATORY - SURGERY [facility] July 15, 2024 11:00 AM AMBULATORY [facility] July 15, 2024 12:00 PM [facility] Sep 08, 2024 10:30 AM AMBULATORY - SURGERY [facility] Lab Results: +/- 30 days [...] Type Comment Mar 20, 2024 11:30 AM [facility] COMPREHENSIVE METABOLIC PANEL PLASMA Specimen Type: PLASMA Comment: No hemolysis noted. Ordering Provider: LOULOU KILGORE Report Released Date/Time: Sep 26, 2023 10:07 AM Reporting Lab: [facility] [address] [place] [phone] Performing Lab: [address] [address] CREATININE 0.78 mg/dL 0.7-1.3 UREA NITROGEN 16.3 [...] 98.4 >60 Mar 20, 2024 11:30 AM [facility] CBC BLOOD Specimen Type: BLOOD No comment entered. Ordering Provider: LOULOU KILGORE Report Released Date/Time: Sep 26, 2023 10:07 AM Reporting Lab: [facility] [address] [place] [phone] Performing Lab: [facility] [address] [place] [phone] WBC 4.7 10*3/uL 3.6-11.2 RBC 4.92 10*6/uL [...] 0.00-0. 20 Mar 20, 2024 11:30 AM [facility] LIPID PANEL (STL) PLASMA Specimen Type: PLASM A Comment: No hemolysis noted. Ordering Provider: LOULOU KILGORE Report Released Date/Time: Sep 26, 2023 10:07 AM Reporting Lab: [address] [phone] Performing Lab: [address] [address] CHOLESTEROL 197 mg/dL 0-200 TRIGLYCERIDE 111 mg/dL 0-150 CALCULATED LDL 129 mg/dL HDL(New) 46 mg/dL >40 Mar 20, 2024 11:30 AM [facility] PROST. SPECIFIC AG.(PB-STL) SERUM Specimen Ty pe: SERUM Comment: The listed sex of this patient may not be a typical indication for this test. Therefore, reference ranges or interpretive criteria listed may not be valid. Clinical correlation suggested. Ordering Provider: LOULOU KILGORE Report Released Date/Time: Sep 26, 2023 10:07 AM Reporting Lab: [facility] [address] [facility] [address] Performing Lab: [address] [address] PROST. SPECIFIC AG.(PB-STL) 1.393 ng/mL 0-4 Mar 20, 2024 11:30 AM [facility] HGA1C BLOOD Specimen Type: BLOOD No comment entered. Ordering Provider: LOULOU KILGORE Report Released Date/Time: Sep 26, 2023 10:07 AM Reporting Lab: [address] [place] [address] Performing Lab: [place] [address] [facility] [address] HGA1C 5.9 4.0-6.0 Mar 20, 2024 11:30 AM [facility] TSH (MA-PB) SERUM Specimen Type: SERUM Comment: No hemolysis noted. Ordering Provider: LOULOU KILGORE Report Released Date/Time: Sep 26, 2023 10:07 AM Reporting Lab: [facility] [address] [facility] [address] Performing Lab: [place] [address] [facility] [address] TSH 1.969 u[IU]/mL 0.47-5 Mar 20, 2024 11:30 AM [facility] VITAMIN D, 25-HYDROXY SERUM Specimen Type: SE RUM Comment: The listed sex of this patient may not be a typical indication for this test. Therefore, reference ranges or interpretive criteria listed may not be valid. Clinical correlation suggested. Ordering Provider: LOULOU KILGORE Report Released Date/Time: Sep 26, 2023 10:07 AM Reporting Lab: [address] [address] Performing Lab: [address] [address] VITAMIN D, 25-HYDROXY 31.5 ng/mL 30-96 Vital Signs: All taken on the encounter date This section contains inpatient and outpatient Vital Signs collected on the date of the Encounter. Date/Time Temperature Pulse Blood Pressure Respiratory Rate SP02 Pain Height Weight Body Mass Index Source Mar 27, 2024 10:39 AM 86 147/92 [facility] Mar 27, 2024 10:29 AM 98 75 143/78 16 96 [address] [place] [address] Social History: Smoking Status (Most current) and Tobacco Use (All prior to encounter date) This section includes the most current, and the historical, smoking and tobacco- related health factors from the [place] facility where the Encounter took place. Current Smoking Status This section includes the most current smoking, or tobacco-related health factor, from the [place] facility where the Encounter took place. Date/Time Current Smoking Status Comment Facil ity Mar 27, 2024 10:30 AM VA-TOBACCO NEVER U SED CIGARETTES [facility] Tobacco Use History This section includes a history of the smoking, or tobacco-related health factors, that were collected on or before the date of the Encounter. The data comes from the [place] facility where the Encounter took place. Date/Time Smoking Status/Tobacco Use Comment F acility Mar 27, 2024 10:30 AM VA-TOBACCO NEVER U SED OTHER TYPE [facility] Mar 26, 2023 10:30 AM VA-TOBACCO NEVER USED [facility] Mar 29, 2022 01:00 PM VA-TOBACCO NEVER USED [facility] Encounter Notes: All associated encounter notes This section contains the clinical notes associated to the Encounter. Date/Time Encounter Note(s) Provider Source Mar 27, 2024 04:17 PM PRIMARY CARE NOTE: LOCAL TITLE: PRIMARY CARE PROVIDER ESTABLISHED VISIT STL STANDARD TITLE: PRIMARY CARE NOTE DATE OF NOTE: MAR 27, 2024@16:17 ENTRY DATE: MAR 27, 2024@16:17:11 AUTHOR: LOULOU KILGORE COSIGNER: URGENCY: STATUS: COMPLETED Patient is 68 and WHITE Self Identified Gender - Man Reason for visit:Scheduled follow-up Chief Complaint: - -Follow-up on chronic medical issues private PCP at [place]-Dr. Ronaldo Luu at [facility] for dermatology [facility] E[facility] He had multiple Rt tympanoplastis ( with ) most recent in Feb No otalgia, facial weakness, or vertigo. getting scheduled for Endoscopic septoplasty, bilateral inferior turbinate reductions stable left knee pain, he had physical therapy and for intra- articular injections so far and did not help. He had meniscal tear . [facility] off [facility] Given viscosupplement injection into the left knee in 07/2026. Significant medical history( updated ) :- -Hyperlipidemia -Right ear pain tympanic membrane perforation, s/p Tympanoplasty multiple times He had another patch put in 3 months ago Deviated nsal septum & collpased left nostril -Left knee meniscal tear -multiple steroid inj, most recent injection Visco supplement [facility]2023 [facility] -Bilateral feet pain -Low back pain -s/p right shoulder arthroscopic surgery for impingement -s/p removal of multiple skin cancers -s/p bilateral inguinal hernia repair 06/2022 FH : Mother diabetic Screening and test: Colonoscopy 07/10/2023: 1 hyperplastic polyp 1 tubular adenomatous polyp External hemorrhoids Repeat surveillance colonoscopy in 3 years SH : ---- Retired from [employer] in 2011 Never smoked Alcohol: Twice weekly, 2 glasses of wine No recreational drug use Medication Review: The essential med list for review which includes the patient's active VA prescriptions and if applicable, remote VA prescriptions, non-VA prescriptions, and discontinued VA prescriptions within the last 90 days and known allergies including local and remote allergies have been reviewed. Allergies:CAFFEINE Active and Recently Outpatient Medications (excluding Supplies): Active Outpatient Medications Status 1) AZELASTINE 137MCG/SPRAY 200D NASAL INHL SPRAY 2 SPRAYS IN ACTIVE NOSTRIL(S) TWICE A DAY *PRIME BEFORE USE* Indication: FOR ALLERGIC RHINITIS 2) CARBOXYMETHYLCELLULOSE 1% OPH GEL 0.4ML INSTILL 1 DROP INTO ACTIVE AFFECTED EYE(S) FOUR TIMES A DAY NEEDED USE DIRECTED Indication: FOR DRY EYE(S) 3) DICLOFENAC NA 1% TOP GEL APPLY 4 GM TO AFFECTED AREA(S) FOUR ACTIVE (S) TIMES A DAY NEEDED NO MORE THAN 16 GM/DAY TO ANY LOWER EXTREMITY JOINT. NO MORE THAN 8 GM/DAY TO ANY UPPER EXTREMITY JOINT. MAX 32GM/DAY OVER ALL JOINTS.(MEASURE DOSE WITH RULER INSIDE BOX) Indication: FOR PAIN 4) FLUTICASONE PROP 50MCG 120D NASAL INHL INSTILL 2 SPRAYS IN ACTIVE (S) NOSTRIL(S) TWICE A DAY (MUST BE USED DIRECTED FOR MINIMUM OF 21 DAYS TO PROVIDE ADEQUATE BENEFITS) Indication: FOR RHINITIS 5) OLOPATADINE HCL 0.2% OPH SOLN INSTILL 1 DROP IN BOTH EYES ACTIVE ONCE A DAY Indication: FOR ALLERGIC CONJUNCTIVITIS 6) ROSUVASTATIN CA 20MG TAB TAKE ONE-HALF TABLET BY MOUTH EVERY ACTIVE (S) EVENING Indication: FOR HIGH CHOLESTEROL 7) SODIUM CHLORIDE 0.9% INHL 3ML USE 3 ML VIAL BY TO AFFECTED ACTIVE AREA(S) FOUR TIMES A DAY USE DIRECTED BY YOUR EYE CARE PROVIDER Indication: FOR SCLERAL CONTACT LENS Active Non-VA Medications Status 1) Non-VA DICLOFENAC NA 75MG EC TAB 75MG BY MOUTH EVERY MORNING ACTIVE AND EVENING Indication: FOR PAIN 8 Total Medications Weight : Patient Weight History - Last Four 1. 194.8 lbs. / 88.4 kg. on MAR 27, 2024@10:29:37 2. 196.6 lbs. / 89.2 kg. on JAN 22, 2024@13:30:34 3. 188.0 lbs. / 85.3 kg. on SEP 26, 2023@09:34:01 4. 195.3 lbs. / 88.6 kg. on AUG 16, 2023@09:26:52 Vitals : ----- Temp : 98 F [36.7 C] (03/27/2024 10:29) BP : 147/92 (03/27/2024 10:39) MN : 86 (03/27/2024 10:39): RR : 16 (03/27/2024 10:29) POX: 96% (03/27/2024 10:29) Objective findings: Alert , oriented X 3 Not in acute distress HEENT - moist mucous membranes NECK - supple , no adenopathy, no bruits Heart - s1s2, rrr, no murmurs Chest - CTA edin with no distress Abdomen - soft, nontender, no organomegaly Extremities- no pedal edema , good pedal pulses, both feet warm Most recent labs : LDL : 129 HDL : 46 mg/dL (03/20/24 11:30) TRI : 111 mg/dL (03/20/24 11:30) CHOLESTEROL 197 mg/dL 03/20/2024 11:30 HGA1C 5.9 % 03/20/2024 11:30 HGA1C 6.1 H % 03/21/2023 08:21 HGA1C 5.8 % 03/29/2022 14:28 VITAMIN D, 25-HYDROXY 31.5 ng/mL 03/20/2024 11:30 HEP C Ab HCV Ab (STL) Nonreactive S/CO (03/29/22 14:28) TSH 1.969 uIU/mL 03/20/2024 11:30 PROST. SPECIFIC AG.(PB-STL) 1.393 ng/mL 03/20/2024 11:30 WBC : 4.7 10*3/uL (03/20/24 11:30) HGB 14.5 g/dL 03/20/2024 11:30 MCV :91.3 fL (03/20/24 11:30) PLT 133 L 10*3/uL 03/20/2024 11:30 SODIUM 142 mEq/L 03/20/2024 11:30 POTASSIUM 4.7 mEq/L 03/20/2024 11:30 CALCIUM : 9.2 mg/dL (03/20/24 11:30) CREATININE 0.78 mg/dL 03/20/2024 11:30 GLUCOSE 94 mg/dL 03/20/2024 11:30 SGOT : 23 U/L (03/20/24 11:30) SGPT : 18 U/L (03/20/24 11:30) ALKALINE PHOSPHATASE 51 U/L 03/20/2024 11:30 Assessment/Plan: Above labs reviewed with patient Patient gives verbal permission to leave messages on voice mail # Hyperlipidemia: LDL reasonable, continue Crestor 10 mg daily Recommend low-fat diet-avoid deep fried foods and red meat Increase vegetable intake Moderate exercise # Predabetes : improved a1c - he is trying to avoid seets & lose weight # Left knee pain from torn meniscus: He is using diclofenac 75 mg twice daily had intra-articular steroid injection X 4 He completed physical therapy Seen by [place] orthopedics and advisable surgery at this time due to no instability He was given viscosupplement injection into left knee 07/2023 # Bilateral feet pain : Evaluated by [place]iatry in [place] in 06/2022, he was issued custom orthotics #S/p Multiple tympanoplasty of right ear: f/u with ENT # DNS : he is going to be scheduled for Septoplasty & inferior turbinate reduction # Low back pain: Chronic but stable. He has good results with chiropractic therapy. Lumbar spine x-ray 03/2023: Intervertebral disc space height loss and endplate remodeling is most prominent at L4-L5 and L2-L3. Multilevel facet arthropathy. Degenerative changes involving the sacroiliac joints # Elevted bp with out diagnosis of HTN : advised low salt diet & exercise issued Bp monitor advised to check gaviota daily & keep log request rncm to f/u SUMMARY STATEMENT: Plan of care has been discussed with including expected therapeutic benefits and potential side effects of prescribed medication and treatments. [place] verbalizes understanding and is in agreement with the plan of care. Patient was instructed to keep all scheduled appointments and contact truck unloader for any additional problems. 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 RTC: 12/2024 /amilcar/ LOULOU KILGORE MD Staff Physician Signed: 03/27/2024 16:27 LOULOU KILGORE [facility] Mar 27, 2024 10:33 AM NURSING NOTE: LOCAL TITLE: V15 PACT FACE TO FACE NOTE STL STANDARD TITLE: NURSING NOTE DATE OF NOTE: MAR 27, 2024@10:33 ENTRY DATE: MAR 27, 2024@10:33:25 AUTHOR: MILAD PUENTES COSIGNER: URGENCY: STATUS: COMPLETED Provider Visit: Patient Identifiers : Full Name Date of Reason for visit: Established Follow-Up Mode of Arrival: Ambulatory Allergy Review: CAFFEINE Allergy list reviewed and remains current. Recent Vital Signs: Temperature: 98 F [36.7 C] (03/27/2024 10:29) Pulse: 75 (03/27/2024 10:) Respiration: 16 (03/27/2024 10:) B/P: 143/78 (03/27/2024 10:29) Pain: 2 (03/27/2024 10:) Wt: 194.8 lb [88.36 kg] (03/27/2024 10:29) Ht: 69 in [175.3 cm] (03/27/2024 10:) BMI: 28.8 POX: 96% (03/27/2024:) Blood sugar glucometer reading: na PERSONAL HEALTH INVENTORY Notes: No data available for PHI note titles PERSONAL HEALTH INVENTORY - MAP: 09/26/2023 Personal Health Plan [place], [place], [place] (MAP) getting over covid 03/26/2023 Personal Health Plan [place], [place] (MAP) HAVING FUN WITH MY AND STAYING HEALTHY What matters most to you in your life right now? [place]'s Response: my health WHOLE HEALTH SHARED GOALS: PERSONAL HEALTH PLAN - SHARED GOALS: 09/26/2023 [facility] Shared Goals weight loss SHARED GOALS weight loss Would you like to discuss any personal problem, family problem, alcohol use, drug use, or a mental or emotional illness? No Contact provided Primary Care phone number and encouraged to call if any questions or concerns. Review that after hours nurse line [phone] and emergency room are available 11/09 for patient use. Contact verbalized good understanding. Alcohol Use Screen (AUDIT-C) - V: Alcohol Screen: SCREEN FOR ALCOHOL (AUDIT-C) An alcohol screening test (AUDIT-C) was negative (score=2). 1. How often did you have a drink containing alcohol in the past year? Consider a drink to be a 12 ounce can or bottle of regular beer, 8 ounces of malt liquor, a 5 ounce glass of table wine, or a 1.5 ounce shot of liquor (like scotch, gin, or vodka). Two to four times a month 2. How many drinks containing alcohol did you have on a typical day when you were drinking in the past year? One or two drinks 3. How often did you have six or more drinks on one occasion in the past year? Never Tobacco Use Screening - AT,DE,L,M,N,P,PH,PS,RT,S,U: The patient has never smoked cigarettes. The patient has never used other types of tobacco. Learning Assessment: - * This patient's learning ABILITIES, BARRIERS to learning, CULTURAL and BUDDHISM beliefs, and learning PREFERENCES were assessed. Following are findings of note: Patient reads well. Comment: wears hars contacts Patient has the following hearing/auditory barrier(s) to consider when teaching: Hard of hearing. Patient has the following speech barrier to consider when teaching: No speech barrier identified. LANGUAGE Patient reports that Egyptian is preferred language for healthcare. Patient reports learning preference is to refer to handouts. Patient reports learning preference is attending one-to-one or group demonstrations. Patient reports learning preference is looking at pictures or viewing videos. COVID-19 Immunization - L,N,P,PH,U: Refused Pfizer Monovalent COVID-19 vaccine Immunization: COVID-19 (PFIZER), MRNA, LNP-S, PF, BINTA-SUCROSE, 30 MCG/0.3 ML (AGES 12+ YEARS) Refusal Reason: PATIENT DECISION Patient refuses all immunization(s) in the COVID-19 group Date Documented: 03/27/24 10:40 Depression Screening - V: Perform PHQ-2 A PHQ-2 screen was performed. The score was 0 which is a negative screen for depression. Over the past two weeks, how often have you been bothered by the following problems? 1. Little interest or pleasure in doing things Not at all 2. Feeling down, depressed, or hopeless Not at all Influenza Immunization - L,N,P,PH,U: Deferral / Refusal The patient declines to receive the recommended dose of seasonal influenza vaccine. Immunization: INFLUENZA, UNSPECIFIED FORMULATION Refusal Reason: PATIENT DECISION Patient refuses all immunization(s) in the FLU group Date Documented: 03/27/24 10:41 Herpes Zoster (Shingles) Vaccine - L,N,P,PH,U: The patient declines to receive the recommended dose of zoster (shingles) vaccine. Immunization: ZOSTER RECOMBINANT Refusal Reason: PATIENT DECISION Patient refuses all immunization(s) in the ZOSTER group Date Documented: 03/27/24 10:41 Pneumococcal Conjugate Vaccine (PCV15/PCV20) - L,N,P,PH,U: Refuses PCV vaccine Immunization: PNEUMOCOCCAL CONJUGATE, UNSPECIFIED FORMULATION Refusal Reason: PATIENT DECISION Patient refuses all immunization(s) in the PneumoPCV group Date Documented: 03/27/24 10:41 Tdap Immunization - L,N,P,PH,U: The patient declines to receive the recommended dose of Tdap vaccine. Immunization: TDAP Refusal Reason: PATIENT DECISION Patient refuses all immunization(s) in the TDAP group Date Documented: 03/27/24 10:41 /amilcar/ MILAD PUENTES LPN LICENSED PRACTIAL NURSE Signed: 03/27/2024 10:42 MILAD PUENTES [facility]
--- OUTSIDE RECORDS SUMMARY | 2024-09-29 08:10 | XMS_ITS | Encounter Summary ---
Author Name [facility] ([place] [facility] Address [address] [place] [address] Care Team Providers Care Bar Hostess Name Role Phone LOULOU KILGORE Primary Care [...] PART A Nov 19, 2022 PART A [id number] M[place]Y [place] PATIENT MEDICARE (WNR) MEDICARE (M) PART B Nov 19, 2022 PART B [id number] [place] PATIENT Selected Encounter This section includes the information on record at [place] for the Encounter. Date/Time Encounter Type Encounter Description Reason Provider Source Jan 01, 2024 09:00 AM OFFICE O/P EST MOD 30 MIN OPTOMETRY ICD-10-CM H43.811 Vitreous degeneration, right eye TRESA ENGLAND IHNimisha Encounter Template Text not used by [facility] Assessments - Encounter Diagnoses This section includes the primary and secondary diagnoses documented for the Encounter. Date/Time Primary/Secondary Diagnosis Diagnosis Name Provider Source Jan 01, 2024 01:13 PM PRIMARY Vitreous degeneration, right eye JALEN MUNOZ [facility] Jan 01, 2024 01:13 PM SECONDARY Age-related nuclear cataract, bilateral JALEN MUNOZ [facility] Jan 01, 2024 01:13 PM SECONDARY Dry eye syndrome of bilateral lacrimal glands JALEN MUNOZ [facility] Jan 01, 2024 01:13 PM SECONDARY Presbyopia JALEN MUNOZ [facility] Jan 01, 2024 01:13 PM SECONDARY Unspecified pterygium of eye, bilateral JALEN MUNOZ [facility] Plan of Treatment: Future Appointments (+ 6 months) and Future Tests (+/- 45 days) The Plan of Treatment section includes future care activities for the patient from all [place] treatmentfacilities. This section includes future appointments and future orders which are active, pending or scheduled. Future Appointments This section includes appointments that were scheduled to occur 6 months from the date of the Encounter, up to a maximum of 20 appointments. The data comes from all [place] treatment facilities. Appointment Date/Time Appointment Type Appointme nt Facility Name Jan 12, 2024 09:00 AM AMBULATORY - NONE [facility] Jan 22, 2024 08:40 AM AMBULATORY - NONE [facility] Jan 22, 2024 01:30 PM AMBULATORY - SURGERY [facility] Jan 22, 2024 02:30 PM AMBULATORY - NONE [facility] Jan 31, 2024 11:00 AM AMBULATORY - NONE [facility] Feb 11, 2024 10:20 AM AMBULATORY - NONE [facility] Mar 17, 2024 01:00 PM AMBULATORY - SURGERY [facility] Mar 21, 2024 11:30 AM AMBULATORY - SURGERY [facility] Mar 24, 2024 10:00 AM AMBULATORY - MEDICINE [facility] Mar 27, 2024 10:30 AM AMBULATORY - [facility]IC[facility] Apr 01, 2024 08:30 AM [facility] Apr 03, 2024 10:00 AM AMBULATORY - NONE [facility] Apr 10, 2024 10:00 AM AMBULATORY - MEDICINE [facility] Jun 05, 2024 09:30 AM AMBULATORY - SURGERY [facility] Arabella [facility] Radiology Reports: +/- 30 days of the [...] the Encounter. The data comes from all [place] treatment facilities. Date/Time Radiology Report Provider Source Jan 12, 2024 08:[address] SINUS W/O CONTR AST (ENV): RAJEEV SAN [id number] -[id number] M Exm Date: JAN 12, 2024@08:45 Req Phys: RAJEEV FRANCIS Pat Loc: [facility]-ENT HEAD AND NECK CONSULT ( Img Loc: [facility] IMAGING Service: [address] [address] (Case [id number] COMPLETE) CT SINUS W/O CONTRAST (ENV) (CT Detailed) CPT:03949 Reason for Study: chronic sinusiitis Clinical History: Responsible Attending: Dr. Singh Attending Contact Number: [phone] Resident Contact Number: CT [facility] Allergies listed in CPRS chart: CAFFEINE Creatinine: CREATININE 0.88 mg/dL 03/21/2023 08:21 /eGFR: STL EGFR (within one year). CREATININE 0.88 mg/dL (03/21/23 08:21) Wt: 188 lb [85.28 kg] (09/26/2023 09:34) History of: Renal failure, chronic or acute renal disease: NO Report Status: Verified Date Reported: JAN 14, 2024 Date Verified: JAN 14, 2024 Mill Platform Supervisor E-Sig:/ES/CHARLIE VELEZ MD Report: Axial images with sagittal and coronal reconstructions through the paranasal sinuses were performed. No mucosal thickening, soft tissue masses, or fluid in the sinuses. No bony erosion or destruction. The infundibula of the osteomeatal complexes are patent. Impression: Normal Primary Interpreting Staff: CHARLIE VELEZ MD, Radiologist (Mill Platform Supervisor) /CHARLIE CARTER Steve [facility] Dec 10, 2023 09:46 AM CHEST X-RAY, 2 VIE WS: RAJEEV SAN [id number] -[id number] M Exm Date: DEC 10, 2023@09:46 Req Phys: ALAN FRYE Loc: -EMERGENCY DEPT 2ND SHIFT (R Img Loc: -MAIN RADIOLOGY SUITE Service: [facility], [facility] [address] [place] [address] (Case [id number] COMPLETE) CHEST X-RAY, 2 VIEWS (RAD Detailed) CPT:48418 Reason for Study: SOB, nonproductive cough Clinical History: Report Status: Verified Date Reported: DEC 10, 2023 Date Verified: DEC 10, 2023 Mill Platform Supervisor E-Sig:/ES/CHARLIE VELEZ MD Report: CASE #: [id number] DATE:12/10/2023 9:54 AM CLINICAL HISTORY:SOB, nonproductive cough TECHNIQUE: CHEST X-RAY, 2 VIEWS COMPARISON: None currently available. PA and lateral chest x-ray Heart: No significant pathology Lungs: No significant pathology. Mediastinum: No significant pathology Pulmonary vasculature: Within normal limits. Impression: No acute disease Dictated by Denae Gay M.D. (Diagnostic Title One Reading Teacher). ICharlie, have reviewed the images and report and concur with these findings. Primary Interpreting Staff: CHARLIE VELEZ MD, Radiologist (Mill Platform Supervisor) Primary Interpreting Resident: Denae Gay MD, Resident Physician /CHARLIE VENTURA [facility] Encounter Notes: All associated encounter notes This section contains the clinical notes associated to the Encounter. Date/Time Encounter Note(s) Provider Source Jan 01, 2024 09:05 AM OPTOMETRY NOTE: LOCAL TITLE: OPTOMETRY NOTE STANDARD TITLE: OPTOMETRY NOTE DATE OF NOTE: JAN 01, 2024@09:05 ENTRY DATE: JAN 01, 2024@09:06:03 AUTHOR: [place]ER [place] EXP COSIGNER: URGENCY: STATUS: COMPLETED Last seen: 07/06/2023 for scleral lens discomfort (Last DFE 01/01/2023) Reason for visit: ocular health CC: 1. Pt s/p pterygium removal OU OD uneventful OS has high recurrence, had 5x surergies. Ended up with decent vision, but diplopia 2' to heavy nasal symblepharon 2. vision is stable OU with scleral lenses wears about 10-12 hours per day 1 week ago pt reports losing plunger, could not get lenses out of eye, had to go to ER ([facility]) who eventually removed the lenses, was told to follow up with optom using OTC readers over SCLs 3. new flashes OD only first started about 3 weeks ago with associated floaters constant flashes for the first 4-5 days, now intermittent seems to be getting better Ocular meds: ATs prn Ocular ROS: (+) Pterygium OU 1 surgery OD-excision Complicated surgical course OS, 5x excision surgeries. Heavy nasal symblepharon, lateral EOM restriction Family OcHX: (-) blindness (-) glaucoma (-) AMD (-) RD Cardiovascular ROS: no change from problem & medication lists CPRS Problem list, medications and allergies reviewed: CPRS Serology for Diabetes GLUCOSE 94 mg/dL 03/21/2023 08:21 HGA1C 6.1 H % 03/21/2023 08:21 Cardiovascular BP: 163/91 (12/10/2023 09:42) Pulse: 84 (12/10/2023 09:42) Neuro: Orientation: Normal Psych: Mood/Affect: Normal Depression/suicide ideation: NO VISUAL ACUITY With correction Distance Visual Acuity (thru scleral lenses) OD: 20/15 OS: 20/15 Pupils PERRL OU (-)APD Confrontation: FTFC OU Extra-Ocular Muscles Full OD, limited Abduction OS Externals/adnexa: Unremarkable OU Refraction: 01/01/2023 OD SPHERE: +3.00 CYL: -2.50 AXIS: 31 20/20- OS SPHERE: +2.50 CLY: -2.25 AXIS: 133 20/20- ADD: +2.50 Refraction info from 02/2023 autorefraction OD +4.25-3.97v404 (5-7) OS +3.75-2.95c959 (5-7) Manifest Refraction 02/22/2023 OD +3.50-3.87u863 20/20- prefers mrx much better OS +3.00-2.33c048 20/20- slow fairly close Add +2.50 trialed full distance rx OD/OS patient can appreciate improvement OU patient is unable to adapt using phoropter and trial frame Patient is used to having OS clearer than OD due to uncorrected rx's when best corrected OD is clearer than OS and is difficult for patient in glasses Trialed full rx OD, no rx OS half rx OD, no rx OS (OD had monoc diplopia) full rx OU The interesting thing is patient is able to see 20/20 uncorrected OS -- he doesn't appreciate a large improvement with the manifest refraction. OD however, he notices and loves the improvement in BCVA. Refraction 01/01/2024 OD: +3.50 -3.00 x031 20/20 OS: +2.75 -2.50 x140 20/20 Add: +2.50 *Pt reports clear, single vision OD/ OS/ OU thru phoropter* SLIT LAMP EXAMINATION Lids/Lashes/Lacrimal No blepharitis OU Conjunctiva/Sclera Moderate circumlimbal injection OU Scarring/symblepharon nasal OS Cornea Pannus 360, heavy anterior stromal scarring nasal OU Ant Chamber Deep and quiet OU Iris Normal, (-)NVI OU Lens Tr NS cataract OU Intraocular Pressures (Goldmann) 1 gtt fluress Date: O.D. O.S. 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 patient agrees to have OD only dilatd. Optic Nerve OD: 0.30 CDR Flat, pink, distinct (-)NVD OS: 0.30 CDR Flat, pink, distinct (-)NVD Vessels: 2/3 OU Macula: OD: Flat, clear (-)CSME OS: Flat, clear (-)CSME Post Pole: OD: Clear OS: Clear Periphery OD: flat and attached (-) holes, tears, detachments OS: undilated Vitreous (+)PVD OD Bethany Munoz, Optometry Retail Wireless Sales Representative participated in the care of this under my supervision. I personally examined the patient and provided the following assessment and plan: Assessment 01/01/2024 1. PVD OD pt recently symptomatic for flashes and floaters 2. Pterygium OU S/p excision OU Uncomplicated OD Complicated with multiple surgeries/recurrences OS Cornea OS doing well now, but heavy scarring/symblepharon OS limited OS abduction, diplopic in left gaze. Pt had previously discussed surgery for motility issue OS, felt that risk was high and he elected to monitor. Offered surgical opinion here at [place], pt declines. Has my contact # if he changes his mind. 3. Mild age related cataracts OU not viusally significant 4. Dry Eye OU 2/2 to Allergic component pt asymptomatic with current tx 5. Refractive error/presbyopia OU BCVA stable entering (thru sceral lenses) Plan 01/01/2024 1. Edu pt on findings and nature of condition. Discussed signs and symptoms of RD and need for immediate rtc if experiencing any. Pt verbalizes understanding. 2. Monitor 12 months Continue ATs ptn Call if he would like surgical eval OS 3. Monitor Defer c/e until BVA is 20/40 or worse and signs/sx indicate 4. Continue ATs BID-TID PRN, continue 1 gtt Olopatadine BID/prn OU instructed patient to wait at least 5-10 minutes before putting in contacts Educated pt on chronic nature of condition of which there is no cure; stressed importance of daily maintenance therapy. Monitor 5. No glasses ordered due to h/o poor adaptation. Continue habitual scleral contact lenses at this time. RTC Feb 2024 as previously scheduled for contact lens f/up Continue OTC readers over SCLs for near viewing. 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
--- OUTSIDE RECORDS SUMMARY | 2024-09-29 08:10 | XMS_ITS | Continuity of Care Document ---
Author Name [facility] Organization [facility] Care Team Providers [employer] Analyst Name Role Phone [facility] Unavailable Unavailable Problems Combined list of problems from Department of Defense and Veterans Affairs facilities. It does not include entries that were removed or entered in error. Problem Status Onset Date Problem Type Date of Resolution Comments Source Foreign body granuloma of skin2 Active 019 Condition Outside Source Comment: Overview: Vicryl suture [facility] Inflamed seborrheic keratosis3 Active 018 Condition Outside Source Comment: Last Assessment & Plan: - Discussed benign potential - Fully reviewed treatment options with patient including indications, risks, benefits, alternatives to LN2 - pt desires treatment - Cryo x 5 lesion - Wound care reviewed - Post cryo handout given [facility] Basal cell carcinoma of skin1 Active Condition Outside S ource Comment: see below [facility] Elevated blood pressure reading without diagnosis of hypertension Active Condition [facility] Hyperlipidemia Active Condition 0055C-3 75th [facility] Low back pain Active Condition 0055C-37 5th [facility] Murmur Active Condition [facility] Tympanic membrane marginal perforation Active Condition [facility] Derangement of meniscus of left knee joint Active Condition [facility] Deviated nasal septum Active Condition [facility] Elevated blood-pressure reading without diagnosis of hypertension Active Condition [facility] Pain in both feet Active Condition [facility] Prediabetes Active Condition [facility] CHEST PAIN Active Condition [facility] Outpatient Physician Consultation Active Condition Do[facility] ACTINIC KERATOSIS Inactive Condition [facility] SKIN NEOPLASM UNCERTAIN BEHAVIOR Active Condition [facility] Preventive Medicine Estab Patient Checkup Adult 40-64 Inactive Condition [facility] visit for: issue repeat prescription Inactive Condition [facility] Back Muscle Spasm Active Condition [facility] ANTERIOR WALL CHEST PAIN WITH RESPIRATION Active Condition [facility] SEBORRHEIC KERATOSIS INFLAMED Active Condition [facility] Murmurs Active Condition [facility] HYPERLIPIDEMIA Active Condition [facility] PINGUECULA Active Condition [facility] PTERYGIUM DOUBLE Active Condition DoD PRESBYOPIA Active Condition DoD ASTIGMATISM Active Condition [facility] REFRACTIVE ERROR - HYPERMETROPIA Active Condition Do[facility] visit for: routine eye exam Active Condition DoD visit for: administrative purpose Inactive Condition [facility] BACK STRAIN Inactive Condition There se ems to be a spastic component to his pain. Advised to try glucosamine chondroitin otc as directed for 1 month or longer if it works for him. He's to contact his PCM for an accupuncture referral and schedule the appointment. DoD ACROCHORDON Active Condition Electroc autery x 2 lesions. Snip removal of axillary lesion. Tolerated well. DoD SKIN CANCER Active Condition No new l esions noted today on full skin exam DoD Laboratory Studies Inactive Condition L AB LIPID PANEL~SEND PATIENT TO LAB~BLOOD~RED /SST on 02 Jan 2008 ~PRE-ACTIVE . . . . . . . . . . . . . . . . sNOBLEC 13AUG@1250 DoD DERMATOPHYTOSIS NAILS Active Condition DoD visit for: screening malignant neoplasm colon Active Condition DoD visit for: screening exam lipoid disorders Active Condition DoD LUMBAGO Active Condition DoD visit for: refer patient without exam or treatment Inactive Condition [facility] SKIN CANCER BASAL CELL CARCINOMA Active Condition see below Do[facility] X-Ray Inactive Condition CT results Do[facility] Imaging Studies Inactive Condition [facility] STRAIN Inactive Condition Has faild conservative therapy. Will get MRI of the pelvis to look at the inginal ligament and associated muscles. Exam is negative for hernia bulges. F/U after the MRI. May need referral to ortho. [facility] Other Physical Therapy Inactive Condition DoD FOREIGN BODY GRANULOMAS OF THE SKIN Active Condition Vicryl suture DoD Diagnosis: ICD-10-CM H52.6 Other disorders of refraction Active Diagnosis [facility] Diagnosis: ICD-10-CM M23.207 Derangement of unsp meniscus due to old tear/inj, left knee Active Diagnosis [facility] Diagnosis: ICD-10-CM H90.A22 Snsrnrl hear loss, uni, l ear, with rstrcd hear cntra side Active Diagnosis [facility] Diagnosis: ICD-10-CM R09.81 Nasal congestion Active Diagnosis [facility] Diagnosis: ICD-10-CM Z71.9 Counseling, unspecified Active Diagnosis [facility] Diagnosis: ICD-10-CM M79.673 Pain in unspecified foot Active Diagnosis [facility] Diagnosis: ICD-10-CM Z46.89 Encounter for fitting and adjustment of oth devices Active Diagnosis [facility] Diagnosis: ICD-10-CM M54.50 Low back pain, unspecified Active Diagnosis [facility] Diagnosis: ICD-10-CM J34.2 Deviated nasal septum Active Diagnosis [facility] Diagnosis: ICD-10-CM H11.009 Unspecified pterygium of unspecified eye Active Diagnosis [facility] Diagnosis: ICD-10-CM H43.811 Vitreous degeneration, right eye Active Diagnosis [facility] Diagnosis: ICD-10-CM J41.0 Simple chronic bronchitis Active Diagnosis [facility] Diagnosis: ICD-10-CM J32.8 Other chronic sinusitis Active Diagnosis [facility] Diagnosis: ICD-10-CM H90.3 Sensorineural hearing loss, bilateral Active Diagnosis [facility] Diagnosis: ICD-10-CM H91.93 Unspecified hearing loss, bilateral Active Diagnosis [facility] Diagnosis: ICD-10-CM E78.5 Hyperlipidemia, unspecified Active Diagnosis [facility] Diagnosis: ICD-10-CM H90.A31 Mix cndct/snrl hear loss,uni,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 Active Diagnosis [facility] Diagnosis: ICD-10-CM M17.12 Unilateral primary osteoarthritis, left knee Active Diagnosis [facility] Diagnosis: ICD-10-CM K63.5 Polyp of colon Active Diagnosis [facility] Diagnosis: ICD-10-CM Z01.818 Encounter for other preprocedural examination Active Diagnosis [facility] Diagnosis: ICD-10-CM H11.003 Unspecified pterygium of eye, bilateral Active Diagnosis [facility] Diagnosis: ICD-10-CM Z23 Encounter for immunization Active Diagnosis [facility] Diagnosis: ICD-10-CM Z12.11 Encounter for screening for malignant neoplasm of colon Active Diagnosis [facility] Medications Combined list of outpatient medications from Department of Defense and Veterans Affairs facilities.Medications provided include 1) outpatient medications from the last 15 months, and 2) patient-reported medications. Medication Details Route Status Patient Instructions Prescription Expires Prescription Number Last Dispense Date Ordering Provider Order Date Order Qty Source AZELASTINE HCL 137MCG/SPRA Y INHL,NASAL, 30ML SPRAY 2 SPRAYS IN NOSTRIL( S) TWICE A DAY FOR ALLERGIC RHINITIS *PRIME BEFORE USE* NASAL ACTIVE 04/15/2025 [id number] MANDY FRANCIS P 2024 1 [facility] AZELASTINE HCL 137MCG/SPRA Y INHL,NASAL, 30ML SPRAY 2 SPRAYS IN NOSTRIL( S) TWICE A DAY FOR ALLERGIC RHINITIS *PRIME BEFORE USE* NASAL DISCONT INUED 11/30/2024 [id number] 5 MANDY FRANCIS P 2023 1 [facility] calcium-vit stroud D extended release Oral, every morning, 0 total refill(s ), Maintena nce Oral (given by mouth) Ordered 2023 0055C-[address] [place] [address] CARBOXYMETH YLCELLULOSE NA 1% GEL,OPH 0.4ML INSTILL 1 DROP INTO AFFECTED EYE(S) FOUR TIMES A DAY NEEDED FOR DRY EYE(S) USE DIRECTED OPHTHA LMIC 08/16/2024 [id number] NAY SINGH N 2023 90 [facility] CODEINE 10MG/GUAIFE NESIN 100MG/5ML (SF & AF) LIQUID TAKE 10 ML BY MOUTH FOUR TIMES A DAY NEEDED FOR COUGH ORAL 01/09/2024 [id number] 4 Saskia FRYE 2023 118 [facility] CRESTOR (BRAND) 20 MG ORAL TAB TAKE ONE-HALF TABLET BY MOUTH EVERY EVENING 03/26/2024 [id number] 4 LOULOU KILGORE 2023 45 [facility] DICLOFENAC NA 1% GEL,TOP APPLY 4 GM TO AFFECTED AREA(S) FOUR TIMES A DAY NEEDED FOR PAIN NO MORE THAN 16 GM/DAY TO ANY LOWER EXTREMIT Y JOINT. NO MORE THAN 8 GM/DAY TO ANY UPPER EXTREMIT Y JOINT. MAX 32GM/DAY OVER ALL JOINTS.( MEASURE DOSE WITH RULER INSIDE BOX) TOPICA L ACTIVE 03/28/2025 [id number] 5 BRENNA KILGORE D 2024 100 [facility] DICLOFENAC NA 1% GEL,TOP APPLY 4 GM TO AFFECTED AREA(S) FOUR TIMES A DAY FOR PAIN DO NOT EXCEED MORE THAN 16 GRAMS DAILY TO ANY LOWER EXTREMIT Y JOINT. NOT MORE THAN 8 GRAMS DAILY TO ANY UPPER EXTREMIT Y JOINT. MAX 32GM/DAY OVER ALL JOINTS. (MEASURE DOSE WITH RULER ATTACHED INSIDE BOX) TOPICA L DISCONT INUED 08/16/2024 [id number] 4 Saskia PALMER W 2023 300 [facility] DICLOFENAC NA 75MG TAB,EC TAKE ONE TABLET BY MOUTH EVERY MORNING AND EVENING ORAL ACTIVE BRENNA KILGORE 2022 [facility] FLUTICASONE PROPIONATE 50MCG/SPRAY SOLN,NASAL, 16GM INSTILL 2 SPRAYS IN NOSTRIL( S) TWICE A DAY FOR RHINITIS (MUST BE USED DIRECTED FOR MINIMUM OF 21 DAYS TO PROVIDE ADEQUATE BENEFITS ) NASAL ACTIVE 03/28/2025 [id number] 5 BRENNA KILGORE D 2024 6 [facility] FLUTICASONE PROPIONATE 50MCG/SPRAY SOLN,NASAL, 16GM INSTILL 2 SPRAYS IN NOSTRIL( S) TWICE A DAY FOR RHINITIS (MUST BE USED DIRECTED FOR MINIMUM OF 21 DAYS TO PROVIDE ADEQUATE BENEFITS ) NASAL DISCONT INUED 02/28/2024 [id number] 4 MANDY FRANCIS P 2023 3 [facility] OLOPATADINE 0.2 % EYE DROP [2.5 ML] INSTILL 1 DROP IN BOTH EYES ONCE A DAY 07/06/2024 [id number] CHUN AGUILAR 2023 10 [facility] gentile OLOPATADINE HCL 0.2% SOLN,OPH INSTILL 1 DROP IN BOTH EYES ONCE A DAY OPHTHA LMIC 07/06/2024 [id number] 4 CHUN AGUILAR 2023 10 [facility] Abhijit rosuvastati n 10 mg oral tablet 1 tab(s), Oral, Daily, # 90 tab(s), 3 total refill(s ), Acute, Pharmacy : [facility] Oral (given by mouth) Complet ed 01/25/2024 3 2023 90.0 0055C-[address] [place] [address]- [facility] rosuvastati n 10 mg tablet See dose instruct ions in comments , # 90 EA, 2 total refill(s ), Acute Complet ed 12/25/2022 3 2022 90.0 Ambulat ory Pharmac y ROSUVASTATI N CA 20MG TAB TAKE ONE-HALF TABLET BY MOUTH EVERY EVENING ORAL ACTIVE 03/28/2025 [id number] 5 BRENNA KILGORE [address] [facility] ROSUVASTATI N CA 20MG TAB TAKE ONE-HALF TABLET BY MOUTH EVERY EVENING ORAL DISCONT INUED 03/26/2024 [id number] 4 BRENNA KILGORE 2023 45 [facility] SINUS RINSE NEILMED REGULAR KIT USE 1 KIT NOSTRIL( S) TWICE A DAY FOR NASAL CONGESTI ON NASAL 12/30/2023 [id number] 4 MANDY FRANCIS 2023 1 [facility] Allergies, Adverse Reactions, Alerts Combined list of allergies from Department of Defense and Veterans Affairs facilities. It does not include entries that were removed or entered in error. Substance Category Reaction Severity Reaction type Status Date Reported Comments Source caffeine Propensity to adverse reactions to drug Unknown Active 4 Unknown Organization [place] Propensity to adverse reactions to substance (finding) Tremor SEVERE active 3 [facility] ([place]) Drug allergy (disorder) Unknown active 4 [facility] ([facility] Immunizations Combined list of available immunizations from the Department of Defense and Veterans Affairs facilities. Immunization Series Date Given Administered By Site Reaction Lot Number CVX Code Drug Compliance Director Status Comments Source zoster vaccine, inactivated 2020 zzLef t Arm [id number] [employer] complet ed zoster vaccine, inactivat ed 08/25/20 Given Ambulat ory Pharmac y zoster vaccine recombinant 1 2020 Unknown, Provider [id number] [facility] complet ed zoster vaccine recombina nt DoD COVID Vaccine Moderna 2020 TRANSCR IBED 207 complet ed COVID Vaccine Moderna 04/07/20 Given Ambulat ory Pharmac y SARS-COV-2 (COVID-19) vaccine, mRNA, spike protein, LNP, preservative free, 100 mcg or 50 mcg dose 2 2020 Unknown, Provider 207 Moderna [employer] (MOD) complet ed SARS-COV- 2 (COVID-19 ) vaccine, mRNA, spike protein, LNP, preservat dana free, 100 mcg or 50 mcg dose DoD COVID Vaccine Moderna 2020 TRANSCR IBED 207 complet ed COVID Vaccine Moderna 03/09/20 Given Ambulat ory Pharmac y SARS-COV-2 (COVID-19) vaccine, mRNA, spike protein, LNP, preservative free, 100 mcg or 50 mcg dose 1 2020 Unknown, Provider 207 Moderna [employer] (MOD) complet ed SARS-COV- 2 (COVID-19 ) vaccine, mRNA, spike protein, LNP, preservat dana free, 100 mcg or 50 mcg dose DoD INFLUENZA, UNSPECIFIED FORMULATION 1 2019 88 complet ed HISTORICA L INFORMATI ON - FROM OTHER REGISTRY, [facility] tetanus, diphtheria, acellular pertu is 2016 zzLef t Arm [id number] Gl[employer]Smith[employer] ne complet ed tetanus, diphtheri a, acellular pertussis 08/16/16 Given Ambulat ory Pharmac y tetanus toxoid, reduced diphtheria toxoid, and acellular pertu is vaccine, adsorbed 1 2016 Unknown, Provider [address] ([place]) complet ed tetanus toxoid, reduced diphtheri a toxoid, and acellular pertussis vaccine, adsorbed DoD influenza virus vaccine, whole virus 2002 zzLef t Arm [id number] 16 sanofi pasteur complet ed influenza virus vaccine, whole virus 12/08/02 Given Ambulat ory Pharmac y influenza virus vaccine, whole virus 1 2002 Unknown, Provider [id number] 16 Sanofi Pasteur ([facility]) complet ed influenza virus vaccine, whole virus DoD influenza virus vaccine, whole virus 2001 [id number] 16 [employer] complet ed influenza virus vaccine, whole virus 12/23/01 Given Ambulat ory Pharmac y influenza virus vaccine, whole virus 1 2001 Unknown, Provider [id number] 16 [facility] ([facility]) complet ed influenza virus vaccine, whole virus DoD meningococcal polysaccharid e (MPSV4) 2001 [id number] sanofi pasteur complet ed meningoco ccal polysacch aride (MPSV4) 07/25/01 Given Ambulat ory Pharmac y meningococcal polysaccharid e vaccine (MPSV4) 1 2001 Unknown, Provider [id number] 32 Sanofi Pasteur ([facility]) complet ed meningoco ccal polysacch aride vaccine (MPSV4) DoD influenza virus vaccine, whole virus 2000 [id number] 16 sanofi pasteur complet ed influenza virus vaccine, whole virus 02/06/01 Given Ambulat ory Pharmac y influenza virus vaccine, whole virus 1 2000 Unknown, Provider [id number] 16 Sanofi Pasteur ([facility]) complet ed influenza virus vaccine, whole virus DoD influenza virus vaccine, whole virus 1999 zzLef t Arm [id number] 16 [employer] complet ed influenza virus vaccine, whole virus 01/30/00 Given Ambulat ory Pharmac y influenza virus vaccine, whole virus 1 1999 Unknown, Provider [id number] 16 [facility] ([facility]) complet ed influenza virus vaccine, whole virus DoD tuberculin purified protein derivative 1999 zzLef t Arm [id number] sanofi pasteur complet ed Patient Tolerance : Negative Ambulat ory Pharmac y tuberculin skin test; purified protein derivative solution, intradermal 1 1999 Unknown, Provider [id number] 96 Sanofi Pasteur ([facility]) complet ed tuberculi n skin test; purified protein derivativ e solution, intraderm al DoD typhoid vaccine, inactivated 1999 zzLef t Arm 101 complet ed typhoid vaccine, inactivat ed 01/02/00 Given Ambulat ory Pharmac y typhoid vaccine, parenteral, other than acetone-kille d, dried 1 1999 Unknown, Provider 41 () complet ed typhoid vaccine, parentera l, other than acetone-k illed, dried DoD influenza virus vaccine, whole virus 1998 [id number] 16 sanofi pasteur complet ed influenza virus vaccine, whole virus 01/31/99 Given Ambulat ory Pharmac y influenza virus vaccine, whole virus 1 1998 Unknown, Provider [id number] 16 Sanofi Pasteur ([facility]) complet ed influenza virus vaccine, whole virus DoD influenza virus vaccine, whole virus [id number] 16 [facility] complet ed influenza virus vaccine, whole virus 12/10/97 Given Ambulat ory Pharmac y hepatitis A adult vaccine 1997 52 complet ed hepatitis A adult vaccine 12/10/97 Given Ambulat ory Pharmac y influenza virus vaccine, whole virus 1 1997 Unknown, Provider [id number] 16 [facility] ([facility]) complet ed influenza virus vaccine, whole virus DoD hepatitis A vaccine, adult dosage 2 1997 Unknown, Provider 52 () complet ed hepatitis A vaccine, adult dosage DoD yellow fever vaccine 1996 37 complet ed yellow fever vaccine 07/22/96 Given Ambulat ory Pharmac y yellow fever vaccine 1 1996 Unknown, Provider 37 () complet ed yellow fever vaccine DoD typhoid, parenteral, AKD 1996 53 complet ed typhoid, parentera l, AKD 07/10/96 Given Ambulat ory Pharmac y hepatitis A adult vaccine 1996 52 complet ed hepatitis A adult vaccine 07/10/96 Given Ambulat ory Pharmac y tetanus-dipht h toxoids (Td) adult/adol 1996 09 complet ed tetanus-d iphth toxoids (Td) adult/ado l 07/10/96 Given Ambulat ory Pharmac y meningococcal polysaccharid e (MPSV4) 1996 32 complet ed meningoco ccal polysacch aride (MPSV4) 07/10/96 Given Ambulat ory Pharmac y tetanus and diphtheria toxoids, adsorbed, preservative free, for adult use (2 Lf of tetanus toxoid and 2 Lf of diphtheria toxoid) 1 1996 Unknown, Provider 09 () complet ed tetanus and diphtheri a toxoids, adsorbed, preservat dana free, for adult use (2 Lf of tetanus toxoid and 2 Lf of diphtheri a toxoid) DoD meningococcal polysaccharid e vaccine (MPSV4) 1 1996 Unknown, Provider 32 () complet ed meningoco ccal polysacch aride vaccine (MPSV4) DoD hepatitis A vaccine, adult dosage 1 1996 Unknown, Provider 52 () complet ed hepatitis A vaccine, adult dosage DoD typhoid vaccine, parenteral, acetone-kille d, dried ([place] ) 2 1996 Unknown, Provider 53 () complet ed typhoid vaccine, parentera l, acetone-k illed, dried ([place] ) DoD poliovirus vaccine, live, oral 1983 02 complet ed polioviru s vaccine, live, oral 08/03/83 Given Ambulat ory Pharmac y trivalent poliovirus vaccine, live, oral 1 1983 Unknown, Provider 02 () complet ed trivalent polioviru s vaccine, live, oral DoD poliovirus vaccine, live, oral 1983 02 complet ed polioviru s vaccine, live, oral 05/02/83 Given Ambulat ory Pharmac y trivalent poliovirus vaccine, live, oral 1 1983 Unknown, Provider 02 () complet ed trivalent polioviru s vaccine, live, oral [facility] Results Combined list of recent chemistry, hematology and other laboratory results from Department of Defense and Veterans Affairs, ranging from 15 months to all on record, depending upon the facility. Order Name Results Value Reference Range Date Interpretation Specimen Comments Source BASIC METABOLIC PANEL CREATININE [MASS/VOLUM E] IN SERUM OR PLASMA 0.84 mg/dL 0.7 - 1.3 09/23 Specimen Type: PLASMA Comment: No hemolysis noted. Ordering Provider: ANTONIA GAONA Report Released Date/Time: Sep 18, 2024 11:19 AM Reporting Lab: [facility] [address] [address] Performing Lab: [facility] [address] [place] [phone] [facility] BASIC METABOLIC PANEL UREA NITROGEN [MASS/VOLUM E] IN SERUM OR PLASMA 20.8 mg/dL 9.0 - 25.0 09/23 Specimen Type: PLASMA Comment: No hemolysis noted. Ordering Provider: ANTONIA GAONA Report Released Date/Time: Sep 18, 2024 11:19 AM Reporting Lab: [address] [address] Performing Lab: [address] [address] [facility] BASIC METABOLIC PANEL GLUCOSE [MASS/VOLUM E] IN SERUM OR PLASMA 151 mg/dL 72 - 99 09/23 H Specimen Type: PLASMA Comment: No hemolysis noted. Ordering Provider: ANTONIA GAONA Report Released Date/Time: Sep 18, 2024 11:19 AM Reporting Lab: [place] [address] [address] [address] Performing Lab: [address] [address] [facility] BASIC METABOLIC PANEL SODIUM [MOLES/VOLU ME] IN SERUM OR PLASMA 140 meq/L 136 - 145 09/23 Specimen Type: PLASMA Comment: No hemolysis noted. Ordering Provider: ANTONIA GAONA Report Released Date/Time: Sep 18, 2024 11:19 AM Reporting Lab: [place] [address] [facility] [address] Performing Lab: [address] [address] [facility] BASIC METABOLIC PANEL POTASSIUM [MOLES/VOLU ME] IN SERUM OR PLASMA 3.8 meq/L 3.5 - 5 08/05 /2025 Specimen Type: PLASMA Comment: No hemolysis noted. Ordering Provider: ANTONIA GAONA Report Released Date/Time: Sep 18, 2024 11:19 AM Reporting Lab: [facility] [address] [address] Performing Lab: [facility] [address] [address] [facility] BASIC METABOLIC PANEL CHLORIDE [MOLES/VOLU ME] IN SERUM OR PLASMA 107 meq/L 98 - 107 09/23 Specimen Type: PLASMA Comment: No hemolysis noted. Ordering Provider: ANTONIA GAONA Report Released Date/Time: Sep 18, 2024 11:19 AM Reporting Lab: [facility] [address] [place] [phone] Performing Lab: [facility] [address] [address] [facility] BASIC METABOLIC PANEL CARBON DIOXIDE, TOTAL [MOLES/VOLU ME] IN SERUM OR PLASMA 26 meq/L 22 - 31 09/23 Specimen Type: PLASMA Comment: No hemolysis noted. Ordering Provider: ANTONIA GAONA Report Released Date/Time: Sep 18, 2024 11:19 AM Reporting Lab: [facility] [address] [address] Performing Lab: [facility] [address] [address] [facility] BASIC METABOLIC PANEL CALCIUM [MASS/VOLUM E] IN SERUM OR PLASMA 9.1 mg/dL 8.4 - 10.4 09/23 Specimen Type: PLASMA Comment: No hemolysis noted. Ordering Provider: ANTONIA GAONA Report Released Date/Time: Sep 18, 2024 11:19 AM Reporting Lab: [facility] [address] [address] Performing Lab: [facility] [address] [address] [facility] BASIC METABOLIC PANEL GLOMERULAR FILTRATION RATE/1.73 SQ M.PREDICTED [VOLUME RATE/AREA] IN SERUM, PLASMA OR BLOOD BY CREATININE- BASED FORMULA (CKD-EPI 2020) 96.2 60 09/23 Specimen Type: PLASMA Comment: No hemolysis noted. Ordering Provider: ANTONIA GAONA Report Released Date/Time: Sep 18, 2024 11:19 AM Reporting Lab: [place] [address] Performing Lab: [address] CBC LEUKOCYTES [#/VOLUME] IN BLOOD BY AUTOMATED COUNT 5.7 10*3/u L 3.6 - 11.2 09/23 Specimen Type: BLOOD No comment entered. Ordering Provider: ANTONIA GAONA Report Released Date/Time: Sep 18, 2024 11:19 AM Reporting Lab: [place] [address] Performing Lab: [address] CBC ERYTHROCYTE S [#/VOLUME] IN BLOOD BY AUTOMATED COUNT 4.72 10*6/u L 4.10 - 5.70 09/23 Specimen Type: BLOOD No comment entered. Ordering Provider: ANTONIA GAONA Report Released Date/Time: Sep 18, 2024 11:19 AM Reporting Lab: [place] [address] Performing Lab: [address] CBC HEMOGLOBIN [MASS/VOLUM E] IN BLOOD 14.0 g/dL 13.1 - 16.8 09/23 Specimen Type: BLOOD No comment entered. Ordering Provider: ANTONIA GAONA Report Released Date/Time: Sep 18, 2024 11:19 AM Reporting Lab: [place] [address] Performing Lab: [address] [place] [address] [facility] CBC HEMATOCRIT [VOLUME FRACTION] OF BLOOD 42.8 38.2 - 48.4 09/23 Specimen Type: BLOOD No comment entered. Ordering Provider: ANTONIA GAONA Report Released Date/Time: Sep 18, 2024 11:19 AM Reporting Lab: [address] [address] Performing Lab: [address] [address] [facility] CBC MCV [ENTITIC VOLUME] BY AUTOMATED COUNT 90.7 fL 80.0 - 100.0 09/23 Specimen Type: BLOOD No comment entered. Ordering Provider: ANTONIA GAONA Report Released Date/Time: Sep 18, 2024 11:19 AM Reporting Lab: [address] [address] Performing Lab: [address] [address] [facility] CBC MCH [ENTITIC MASS] BY AUTOMATED COUNT 29.7 pg 27.0 - 34.0 09/23 Specimen Type: BLOOD No comment entered. Ordering Provider: ANTONIA GAONA Report Released Date/Time: Sep 18, 2024 11:19 AM Reporting Lab: [address] [address] Performing Lab: [address] [address] [facility] CBC MCHC [MASS/VOLUM E] BY AUTOMATED COUNT 32.7 g/dL 33.0 - 36.0 09/23 L Specimen Type: BLOOD No comment entered. Ordering Provider: ANTONIA GAONA Report Released Date/Time: Sep 18, 2024 11:19 AM Reporting Lab: [address] [address] Performing Lab: [address] [place] [address] [facility] CBC PLATELETS [#/VOLUME] IN BLOOD BY AUTOMATED COUNT 162 10*3/u L 150 - 400 09/23 Specimen Type: BLOOD No comment entered. Ordering Provider: ANTONIA GAONA Report Released Date/Time: Sep 18, 2024 11:19 AM Reporting Lab: [address] [address] Performing Lab: [place] [address] [facility] [address] [facility] CBC PLATELET MEAN VOLUME [ENTITIC VOLUME] IN BLOOD BY AUTOMATED COUNT 10.6 fL 7.5 - 11.2 09/23 Specimen Type: BLOOD No comment entered. Ordering Provider: ANTONIA GAONA Report Released Date/Time: Sep 18, 2024 11:19 AM Reporting Lab: [place] [address] [facility] [address] Performing Lab: [place] [address] [facility] [address] [facility] CBC ERYTHROCYTE DISTRIBUTIO N WIDTH [RATIO] BY AUTOMATED COUNT 12.7 11.8 - 15.1 09/23 Specimen Type: BLOOD No comment entered. Ordering Provider: ANTONIA GAONA Report Released Date/Time: Sep 18, 2024 11:19 AM Reporting Lab: [place] [address] [facility] [address] Performing Lab: [address] [address] [facility] CBC LYMPHOCYTES /100 LEUKOCYTES IN BLOOD BY AUTOMATED COUNT 25 09/23 Specimen Type: BLOOD No comment entered. Ordering Provider: ANTONIA GAONA Report Released Date/Time: Sep 18, 2024 11:19 AM Reporting Lab: [place] [address] [facility] [address] Performing Lab: [place] [address] [facility] [address] [facility] CBC MONOCYTES/1 00 LEUKOCYTES IN BLOOD BY AUTOMATED COUNT 6 09/23 Specimen Type: BLOOD No comment entered. Ordering Provider: ANTONIA GAONA Report Released Date/Time: Sep 18, 2024 11:19 AM Reporting Lab: [facility] [address] [facility] [address] Performing Lab: [facility] [address] [facility] [phone] [place] [address] CBC NEUTROPHILS /100 LEUKOCYTES IN BLOOD BY AUTOMATED COUNT 67 09/23 Specimen Type: BLOOD No comment entered. Ordering Provider: ANTONIA GAONA Report Released Date/Time: Sep 18, 2024 11:19 AM Reporting Lab: [facility] [address] [place] [phone] Performing Lab: [facility] [address] [place], [place] [id number] CBC EOSINOPHILS /100 LEUKOCYTES IN BLOOD BY AUTOMATED COUNT 1 09/23 Specimen Type: BLOOD No comment entered. Ordering Provider: ANTONIA GAONA Report Released Date/Time: Sep 18, 2024 11:19 AM Reporting Lab: [facility] [address] [place] [address] Performing Lab: [address] [phone] [place] [address] CBC BASOPHILS/1 00 LEUKOCYTES IN BLOOD BY AUTOMATED COUNT 0 09/23 Specimen Type: BLOOD No comment entered. Ordering Provider: ANTONIA GAONA Report Released Date/Time: Sep 18, 2024 11:19 AM Reporting Lab: [address] [address] Performing Lab: [address] [address] [facility] CBC LYMPHOCYTES [#/VOLUME] IN BLOOD BY AUTOMATED COUNT 1.43 10*3/u L 0.77 - 4.50 09/23 Specimen Type: BLOOD No comment entered. Ordering Provider: ANTONIA GAONA Report Released Date/Time: Sep 18, 2024 11:19 AM Reporting Lab: [address] [address] Performing Lab: [address] [address] [facility] CBC MONOCYTES [#/VOLUME] IN BLOOD BY AUTOMATED COUNT 0.34 10*3/u L 0.19 - 0.80 09/23 Specimen Type: BLOOD No comment entered. Ordering Provider: ANTONIA GAONA Report Released Date/Time: Sep 18, 2024 11:19 AM Reporting Lab: [address] [address] Performing Lab: [address] [address] [facility] CBC NEUTROPHILS [#/VOLUME] IN BLOOD BY AUTOMATED COUNT 3.83 10*3/u L 2.10 - 8.00 09/23 Specimen Type: BLOOD No comment entered. Ordering Provider: ANTONIA GAONA Report Released Date/Time: Sep 18, 2024 11:19 AM Reporting Lab: [address] [address] Performing Lab: [address] [address] [facility] CBC EOSINOPHILS [#/VOLUME] IN BLOOD BY AUTOMATED COUNT 0.06 10*3/u L 0.00 - 0.60 09/23 Specimen Type: BLOOD No comment entered. Ordering Provider: ANTONIA GAONA Report Released Date/Time: Sep 18, 2024 11:19 AM Reporting Lab: [address] [address] Performing Lab: [address] [address] [facility] CBC BASOPHILS [#/VOLUME] IN BLOOD BY AUTOMATED COUNT 0.02 10*3/u L 0.00 - 0.20 09/23 Specimen Type: BLOOD No comment entered. Ordering Provider: ANTONIA GAONA Report Released Date/Time: Sep 18, 2024 11:19 AM Reporting Lab: [address] [address] Performing Lab: [address] [address] [facility] COMPREHEN SIVE METABOLIC PANEL CREATININE [MASS/VOLUM E] IN SERUM OR PLASMA 0.78 mg/dL 0.7 - 1.3 03/20 Specimen Type: PLASMA Comment: No hemolysis noted. Ordering Provider: LOULOU KILGORE Report Released Date/Time: Sep 26, 2023 10:07 AM Reporting Lab: [address] [address] Performing Lab: [address] [address] [facility] COMPREHEN SIVE METABOLIC PANEL UREA NITROGEN [MASS/VOLUM E] IN SERUM OR PLASMA 16.3 mg/dL 9.0 - 25.0 03/20 Specimen Type: PLASMA Comment: No hemolysis noted. Ordering Provider: LOULOU KILGORE Report Released Date/Time: Sep 26, 2023 10:07 AM Reporting Lab: [address] [address] Performing Lab: [address] [address] [facility] COMPREHEN SIVE METABOLIC PANEL GLUCOSE [MASS/VOLUM E] IN SERUM OR PLASMA 94 mg/dL 72 - 99 03/20 Specimen Type: PLASMA Comment: No hemolysis noted. Ordering Provider: LOULOU KILGORE Report Released Date/Time: Sep 26, 2023 10:07 AM Reporting Lab: [address] [address] Performing Lab: [address] [address] [facility] COMPREHEN SIVE METABOLIC PANEL SODIUM [MOLES/VOLU ME] IN SERUM OR PLASMA 142 meq/L 136 - 145 03/20 Specimen Type: PLASMA Comment: No hemolysis noted. Ordering Provider: LOULOU KILGORE Report Released Date/Time: Sep 26, 2023 10:07 AM Reporting Lab: [facility] [address] [facility] [address] Performing Lab: [facility] [address] [facility] [address] [facility] COMPREHEN SIVE METABOLIC PANEL POTASSIUM [MOLES/VOLU ME] IN SERUM OR PLASMA 4.7 meq/L 3.5 - 5 03/20 Specimen Type: PLASMA Comment: No hemolysis noted. Ordering Provider: LOULOU KILGORE Report Released Date/Time: Sep 26, 2023 10:07 AM Reporting Lab: [facility] [address] [facility] [address] Performing Lab: [facility] [address] [facility] [address] [facility] COMPREHEN SIVE METABOLIC PANEL CHLORIDE [MOLES/VOLU ME] IN SERUM OR PLASMA 110 meq/L 98 - 107 03/20 H Specimen Type: PLASMA Comment: No hemolysis noted. Ordering Provider: LOULOU KILGORE Report Released Date/Time: Sep 26, 2023 10:07 AM Reporting Lab: [facility] [address] [facility] [address] Performing Lab: [facility] [address] [facility] [address] [facility] COMPREHEN SIVE METABOLIC PANEL CARBON DIOXIDE, TOTAL [MOLES/VOLU ME] IN SERUM OR PLASMA 25 meq/L 22 - 31 03/20 Specimen Type: PLASMA Comment: No hemolysis noted. Ordering Provider: LOULOU KILGORE Report Released Date/Time: Sep 26, 2023 10:07 AM Reporting Lab: [facility] [address] [facility] [address] Performing Lab: [facility] [address] [facility] [address] [facility] COMPREHEN SIVE METABOLIC PANEL CALCIUM [MASS/VOLUM E] IN SERUM OR PLASMA 9.2 mg/dL 8.4 - 10.4 03/20 Specimen Type: PLASMA Comment: No hemolysis noted. Ordering Provider: LOULOU KILGORE Report Released Date/Time: Sep 26, 2023 10:07 AM Reporting Lab: [place] [phone] Performing Lab: [place] [phone] COMPREHEN SIVE METABOLIC PANEL PROTEIN [MASS/VOLUM E] IN SERUM OR PLASMA 6.8 g/dL 6 - 8.6 03/20 Specimen Type: PLASMA Comment: No hemolysis noted. Ordering Provider: LOULOU KILGORE Report Released Date/Time: Sep 26, 2023 10:07 AM Reporting Lab: [place] [phone] Performing Lab: [address] [phone] [place] [address] COMPREHEN SIVE METABOLIC PANEL ALBUMIN [MASS/VOLUM E] IN SERUM OR PLASMA 3.9 g/dL 3.4 - 5 03/20 Specimen Type: PLASMA Comment: No hemolysis noted. Ordering Provider: LOULOU KILGORE Report Released Date/Time: Sep 26, 2023 10:07 AM Reporting Lab: [facility] [address] [place], [place] [phone] Performing Lab: [address] [address] [facility] COMPREHEN SIVE METABOLIC PANEL BILIRUBIN.T OTAL [MASS/VOLUM E] IN SERUM OR PLASMA 0.6 mg/dL 0.2 - 1.2 03/20 Specimen Type: PLASMA Comment: No hemolysis noted. Ordering Provider: LOULOU KILGORE Report Released Date/Time: Sep 26, 2023 10:07 AM Reporting Lab: [facility] [address] [place] [phone] Performing Lab: [facility] [address] [place] [phone] [facility] COMPREHEN SIVE METABOLIC PANEL ALKALINE PHOSPHATASE [ENZYMATIC ACTIVITY/VO LUME] IN SERUM OR PLASMA 51 U/L 40 - 150 03/20 Specimen Type: PLASMA Comment: No hemolysis noted. Ordering Provider: LOULOU KILGORE Report Released Date/Time: Sep 26, 2023 10:07 AM Reporting Lab: [facility] [address] [place] [phone] Performing Lab: [address] [phone] [place] [address] COMPREHEN SIVE METABOLIC PANEL ASPARTATE AMINOTRANSF ERASE [ENZYMATIC ACTIVITY/VO LUME] IN SERUM OR PLASMA 23 U/L 5 - 34 03/20 Specimen Type: PLASMA Comment: No hemolysis noted. Ordering Provider: LOULOU KILGORE Report Released Date/Time: Sep 26, 2023 10:07 AM Reporting Lab: [facility] [address] [place] [phone] Performing Lab: [facility] [address] [place] [phone] [facility] COMPREHEN SIVE METABOLIC PANEL ALANINE AMINOTRANSF ERASE [ENZYMATIC ACTIVITY/VO LUME] IN SERUM OR PLASMA 18 U/L 8 - 40 03/20 Specimen Type: PLASMA Comment: No hemolysis noted. Ordering Provider: LOULOU KILGORE Report Released Date/Time: Sep 26, 2023 10:07 AM Reporting Lab: [facility] [address] [place] [phone] Performing Lab: [address] [address] [facility] COMPREHEN SIVE METABOLIC PANEL GLOMERULAR FILTRATION RATE/1.73 SQ M.PREDICTED [VOLUME RATE/AREA] IN SERUM, PLASMA OR BLOOD BY CREATININE- BASED FORMULA (CKD-EPI 2020) 98.4 60 03/20 Specimen Type: PLASMA Comment: No hemolysis noted. Ordering Provider: LOULOU KILGORE Report Released Date/Time: Sep 26, 2023 10:07 AM Reporting Lab: [facility] [address] [place], [place] [phone] Performing Lab: [facility] [address] [place] [phone] [place] [address] CBC LEUKOCYTES [#/VOLUME] IN BLOOD BY AUTOMATED COUNT 4.7 10*3/u L 3.6 - 11.2 03/20 Specimen Type: BLOOD No comment entered. Ordering Provider: LOULOU KILGORE Report Released Date/Time: Sep 26, 2023 10:07 AM Reporting Lab: [place] [address] Performing Lab: [address] CBC ERYTHROCYTE S [#/VOLUME] IN BLOOD BY AUTOMATED COUNT 4.92 10*6/u L 4.10 - 5.70 03/20 Specimen Type: BLOOD No comment entered. Ordering Provider: LOULOU KILGORE Report Released Date/Time: Sep 26, 2023 10:07 AM Reporting Lab: [facility] [address] [place] [phone] Performing Lab: [address] [phone] [place] [address] CBC HEMOGLOBIN [MASS/VOLUM E] IN BLOOD 14.5 g/dL 13.1 - 16.8 03/20 Specimen Type: BLOOD No comment entered. Ordering Provider: LOULOU KILGORE Report Released Date/Time: Sep 26, 2023 10:07 AM Reporting Lab: [facility] [address] [place] [address] Performing Lab: [address] CBC HEMATOCRIT [VOLUME FRACTION] OF BLOOD 44.9 38.2 - 48.4 03/20 Specimen Type: BLOOD No comment entered. Ordering Provider: LOULOU KILGORE Report Released Date/Time: Sep 26, 2023 10:07 AM Reporting Lab: [facility] [address] [place] [phone] Performing Lab: [address] [phone] [place] [address] CBC MCV [ENTITIC VOLUME] BY AUTOMATED COUNT 91.3 fL 80.0 - 100.0 03/20 Specimen Type: BLOOD No comment entered. Ordering Provider: LOULOU KILGORE Report Released Date/Time: Sep 26, 2023 10:07 AM Reporting Lab: [address] [address] Performing Lab: [address] CBC MCH [ENTITIC MASS] BY AUTOMATED COUNT 29.5 pg 27.0 - 34.0 03/20 Specimen Type: BLOOD No comment entered. Ordering Provider: LOULOU KILGORE Report Released Date/Time: Sep 26, 2023 10:07 AM Reporting Lab: [address] [address] Performing Lab: [address] [phone] [place] [address] CBC MCHC [MASS/VOLUM E] BY AUTOMATED COUNT 32.3 g/dL 33.0 - 36.0 03/20 L Specimen Type: BLOOD No comment entered. Ordering Provider: LOULOU KILGORE Report Released Date/Time: Sep 26, 2023 10:07 AM Reporting Lab: [address] [address] Performing Lab: [address] [phone] CBC PLATELETS [#/VOLUME] IN BLOOD BY AUTOMATED COUNT 133 10*3/u L 150 - 400 03/20 L Specimen Type: BLOOD No comment entered. Ordering Provider: LOULOU KILGORE Report Released Date/Time: Sep 26, 2023 10:07 AM Reporting Lab: [facility] [address] [facility] [address] Performing Lab: [facility] [address] [facility] [address] [facility] CBC PLATELET MEAN VOLUME [ENTITIC VOLUME] IN BLOOD BY AUTOMATED COUNT 12.7 fL 7.5 - 11.2 03/20 H Specimen Type: BLOOD No comment entered. Ordering Provider: LOULOU KILGORE Report Released Date/Time: Sep 26, 2023 10:07 AM Reporting Lab: [facility] [address] [facility] [address] Performing Lab: [address] [address] [facility] CBC ERYTHROCYTE DISTRIBUTIO N WIDTH [RATIO] BY AUTOMATED COUNT 12.4 11.8 - 15.1 03/20 Specimen Type: BLOOD No comment entered. Ordering Provider: LOULOU KILGORE Report Released Date/Time: Sep 26, 2023 10:07 AM Reporting Lab: [facility] [address] [facility] [address] Performing Lab: [facility] [address] [place] [phone] [facility] CBC LYMPHOCYTES /100 LEUKOCYTES IN BLOOD BY AUTOMATED COUNT 23 03/20 Specimen Type: BLOOD No comment entered. Ordering Provider: LOULOU KILGORE Report Released Date/Time: Sep 26, 2023 10:07 AM Reporting Lab: [facility] [address] [place] [phone] Performing Lab: [facility] [address] [facility] [address] [facility] CBC MONOCYTES/1 00 LEUKOCYTES IN BLOOD BY AUTOMATED COUNT 9 03/20 Specimen Type: BLOOD No comment entered. Ordering Provider: LOULOU KILGORE Report Released Date/Time: Sep 26, 2023 10:07 AM Reporting Lab: [facility] [address] [place] [phone] Performing Lab: [facility] [address] [facility] [address] [facility] CBC NEUTROPHILS /100 LEUKOCYTES IN BLOOD BY AUTOMATED COUNT 67 03/20 Specimen Type: BLOOD No comment entered. Ordering Provider: LOULOU KILGORE Report Released Date/Time: Sep 26, 2023 10:07 AM Reporting Lab: [facility] [address] [place] [phone] Performing Lab: [facility] [address] [place] [phone] [facility] CBC EOSINOPHILS /100 LEUKOCYTES IN BLOOD BY AUTOMATED COUNT 1 03/20 Specimen Type: BLOOD No comment entered. Ordering Provider: LOULOU KILGORE Report Released Date/Time: Sep 26, 2023 10:07 AM Reporting Lab: [facility] [address] [place] [phone] Performing Lab: [address] [phone] CBC BASOPHILS/1 00 LEUKOCYTES IN BLOOD BY AUTOMATED COUNT 0 03/20 Specimen Type: BLOOD No comment entered. Ordering Provider: LOULOU KILGORE Report Released Date/Time: Sep 26, 2023 10:07 AM Reporting Lab: [facility] [address] [place] [phone] Performing Lab: [facility] [address] [place] [phone] [facility] CBC LYMPHOCYTES [#/VOLUME] IN BLOOD BY AUTOMATED COUNT 1.06 10*3/u L 0.77 - 4.50 03/20 Specimen Type: BLOOD No comment entered. Ordering Provider: LOULOU KILGORE Report Released Date/Time: Sep 26, 2023 10:07 AM Reporting Lab: [facility] [address] [place] [phone] Performing Lab: [facility] [address] [place] [phone] [facility] CBC MONOCYTES [#/VOLUME] IN BLOOD BY AUTOMATED COUNT 0.41 10*3/u L 0.19 - 0.80 03/20 Specimen Type: BLOOD No comment entered. Ordering Provider: LOULOU KILGORE Report Released Date/Time: Sep 26, 2023 10:07 AM Reporting Lab: [place] [address] Performing Lab: [facility] [address] [place] [phone] CBC NEUTROPHILS [#/VOLUME] IN BLOOD BY AUTOMATED COUNT 3.10 10*3/u L 2.10 - 8.00 03/20 Specimen Type: BLOOD No comment entered. Ordering Provider: LOULOU KILGORE Report Released Date/Time: Sep 26, 2023 10:07 AM Reporting Lab: [place] [address] Performing Lab: [address] CBC EOSINOPHILS [#/VOLUME] IN BLOOD BY AUTOMATED COUNT 0.06 10*3/u L 0.00 - 0.60 03/20 Specimen Type: BLOOD No comment entered. Ordering Provider: LOULOU KILGORE Report Released Date/Time: Sep 26, 2023 10:07 AM Reporting Lab: [address] [address] Performing Lab: [address] [phone] [place] [address] CBC BASOPHILS [#/VOLUME] IN BLOOD BY AUTOMATED COUNT 0.02 10*3/u L 0.00 - 0.20 03/20 Specimen Type: BLOOD No comment entered. Ordering Provider: LOULOU KILGORE Report Released Date/Time: Sep 26, 2023 10:07 AM Reporting Lab: [place] [address] Performing Lab: [address] [phone] [place] [address] LIPID PANEL (STL) CHOLESTEROL [MASS/VOLUM E] IN SERUM OR PLASMA 197 mg/dL 0 - 200 03/20 Specimen Type: PLASMA Comment: No hemolysis noted. Ordering Provider: LOULOU KILGORE Report Released Date/Time: Sep 26, 2023 10:07 AM Reporting Lab: [address] [address] Performing Lab: [address] [address] [facility] LIPID PANEL (STL) TRIGLYCERID E [MASS/VOLUM E] IN SERUM OR PLASMA 111 mg/dL 0 - 150 03/20 Specimen Type: PLASMA Comment: No hemolysis noted. Ordering Provider: LOULOU KILGORE Report Released Date/Time: Sep 26, 2023 10:07 AM Reporting Lab: [place] [phone] Performing Lab: [address] [phone] [place] [address] LIPID PANEL (STL) CHOLESTEROL IN LDL [MASS/VOLUM E] IN SERUM OR PLASMA BY CALCULATION 129 mg/dL 03/20 Specimen Type: PLASMA Comment: No hemolysis noted. Ordering Provider: LOULOU KILGORE Report Released Date/Time: Sep 26, 2023 10:07 AM Reporting Lab: [address] [phone] Performing Lab: [address] [phone] [place] [address] LIPID PANEL (STL) CHOLESTEROL IN HDL [MASS/VOLUM E] IN SERUM OR PLASMA 46 mg/dL 40 03/20 Specimen Type: PLASMA Comment: No hemolysis noted. Ordering Provider: LOULOU KILGORE Report Released Date/Time: Sep 26, 2023 10:07 AM Reporting Lab: [address] [address] Performing Lab: [address] [address] [facility] PROST. SPECIFIC AG.(PB-ST L) PROSTATE SPECIFIC AG [MASS/VOLUM E] IN SERUM OR PLASMA 1.393 ng/mL 0 - 4 01/30 /2025 Specimen Type: SERUM Comment: The listed sex of this patient may not be a typical indication for this test. Therefore, reference ranges or interpretiv e criteria listed may not be valid. Clinical correlation suggested. Ordering Provider: LOULOU KILGORE Report Released Date/Time: Sep 26, 2023 10:07 AM Reporting Lab: [place] [address] Performing Lab: [address] [id number] HEMOGLOBIN A1C/HEMOGLO BIN.TOTAL IN BLOOD 5.9 4.0 - 6.0 03/20 Specimen Type: BLOOD No comment entered. Ordering Provider: LOULOU KILGORE Report Released Date/Time: Sep 26, 2023 10:07 AM Reporting Lab: [place] [address] Performing Lab: [address] TSH (MA-PB) THYROTROPIN [UNITS/VOLU ME] IN SERUM OR PLASMA 1.969 u[IU]/ mL 0.47 - 5 03/20 Specimen Type: SERUM Comment: No hemolysis noted. Ordering Provider: LOULOU KILGORE Report Released Date/Time: Sep 26, 2023 10:07 AM Reporting Lab: [place] [phone] Performing Lab: [address] VITAMIN D, 25-HYDROX Y 25-HYDROXYV ITAMIN D3 [MASS/VOLUM E] IN SERUM OR PLASMA 31.5 ng/mL 30 - 96 03/20 Specimen Type: SERUM Comment: The listed sex of this patient may not be a typical indication for this test. Therefore, reference ranges or interpretiv e criteria listed may not be valid. Clinical correlation suggested. Ordering Provider: LOULOU KILGORE Report Released Date/Time: Sep 26, 2023 10:07 AM Reporting Lab: [facility] [address] [facility] [address] Performing Lab: [facility] [address] [facility] [address] [facility] Chemistry eGFR CKD EPI 95 mL/min /1.73_ m2 05/09 Interpretiv e Data: Estimated Glomerular Filtration Rate (eGFR) calculated using the 2020 Chronic Kidney Disease-Epi demiology (CKD-EPI) Collaborati on creatinine equation; units of measure are mL/min/1.73 m2. Results are only valid for adults (>=18 years) whose serum creatinine is in steady state. eGFR calculation s are not valid for patients with acute kidney injury and for patients on dialysis. Creatinine- based estimates of kidney function may also be inaccurate in patients with reduced creatinine generation due to decreased muscle mass (e.g., malnutritio n, severe hypoalbumin emia, sarcopenia, chronic neuromuscul ar disease, amputations , severe heart failure or liver disease) and in patients with increased creatinine generation due to increased muscle mass (e.g., muscle builders, anabolic steroids) or increased dietary intake. CKD is diagnosed based on abnormaliti es of kidney structure or function, present for >3 months, with implication s for health and disease. CKD is classified and staged based on cause, eGFR and albuminuria (quantified as urine albumin to creatinine ratio). An eGFR >60 mL/min/1.73 m2 in the absence of increased urine albumin excretion or structural abnormaliti es does not CKD. eGFR provides only an estimate of measured GFR within +/- 30% for most patients. As mentioned, nutritional status and muscle mass, among many factors, may lead to inaccuracy in the estimate. Consider ordering the creatinine- cystatin C panel if better accuracy is needed for clinical decision-joão awad. eGFR (mL/min/1.7 3 m2) CKD stage Interpretat ion Normal 60-89 Mild decrease 45-59 Mild to moderate decrease 30-44 Moderate to severe decrease 15-29 Severe decrease <15 Kidney failure [facility] Potassium Lvl 4.1 mmol/L 3.5 - 5.1 05/09 N [facility] Sodium 140 mmol/L 136 - 145 05/09 N [facility] Phosphorus 2.8 mg/dL 2.3 - 4.7 05/09 N [facility] Creatinine Level 0.90 mg/dL 0.72 - 1.25 05/09 N [facility] Chemistry Glucose Lvl 102 mg/dL 74 - 99 05/09 H [facility] Chemistry AGAP 10.00 0.00 - 15.00 05/09 N [facility] Chemistry Albumin 3.90 g/dL 3.50 - 5.20 05/09 N [facility] Chemistry BUN/Creat Ratio 20 mg/dL 12 - 20 05/09 N [facility] Chemistry Calcium 9.7 mg/dL 8.4 - 10.2 05/09 N [facility] Chloride 104 mmol/L 98 - 107 05/09 N [facility] CO2 26 mmol/L 22 - 29 05/09 N [facility] Chemistry BUN 18 mg/dL 8 - 26 05/09 N [facility] Chemistry eAvg Glucose 105 mg/dL 05/09 [facility] Chemistry Hemoglobin A1c 5.3 % 4.0 - 5.6 05/09 N Interpretiv e Data: Normal: 4.0 - 5.6% Increased Risk: 5.7 - 6.4% Diabetic Range: 6.5% For patients without diabetes, the normal range for the hemoglobin A1c test is between 4% and 5.6%. Hemoglobin A1c levels between 5.7% and 6.4% indicate increased risk of diabetes, and levels of 6.5% or higher indicate diabetes. Because studies have repeatedly shown that out-of-cont rol diabetes results in complicatio ns from the disease, the goal for people with diabetes is a hemoglobin A1c less than 7%. The higher the hemoglobin A1c, the higher the risks of developing complicatio ns related to diabetes. If confirmatio n is needed, consider recalling the patient and ordering Hemoglobin Electrophor esis. - [facility] MCHC 33.0 g/dL 33.0 - 36.5 05/09 N [facility] MCH 30 pg 28 - 33 05/09 N [facility] Hemoglobin 15.2 g/dL 13.0 - 16.3 05/09 N [facility] Hematocrit 46 % 40 - 49 05/09 N 375 [facility] Differentia l? Auto ( 8:49 AM) 05/09 N [facility] WBC 9.5 x10^3/ mcL 4.0 - 11.0103 05/09 N [facility] RDW 12.6 % 11.0 - 14.9 05/09 N [facility] RBC 5.0 x10^6/ mcL 4.0 - 5.6106 05/09 N [facility] Platelets 158.0 x10^3/ mcL 150.0 - 450.0103 05/09 N [facility] MPV 11.1 fL 7.4 - 10.4 05/09 H [facility] MCV 92 fL 80 - 97 05/09 N [facility] Chol/HDL 3 mg/dL 05/09 [facility] Cholesterol Total 188 mg/dL 05/09 N Interpretiv e Data: According to the [place] [employer] : AGES 0-19: Desirable: < 170 mg/dL Borderline High: 170-199 mg/dL High Blood Cholesterol : >/= 200 mg/dL ADULTS: Desirable < 200 mg/dL Borderline High: 200-239 mg/dL High Blood Cholesterol : >/= 240 mg/dL [facility] Chemistry HDL Cholesterol 56 mg/dL 40 - 59 05/09 N Interpretiv e Data: HDL (HIGH DENSITY LIPOPROTEIN ): ADULTS: Low: < 40 mg/dL High: >/= 60 mg/dL AGES 0 -19: Low: < 40 mg/dL Borderline Low: 40 - 45 mg/dL Acceptable: > 45 mg/dL [facility] Chemistry LDL 123 mg/dL 100 - 130 05/09 N Interpretiv e Data: AGES 0-19: Desirable: < 110 mg/dL Borderline High: 110-129 mg/dL High: >/= 130 mg/dL ADULTS: Desirable: <100 mg/dL Near/above optimal: 100-130 mg/dL Borderline High: 131-159 mg/dL High: 160-189 mg/dL Very High: 190 mg/dL [facility] Chemistry LDL/HDL 2 05/09 [facility] Chemistry Triglycerid es 73 mg/dL 7 - 149 05/09 N Interpretiv e Data: AGES 0-9: Desirable: < 75 mg/dL Borderline High: 75-99 mg/dL High: >/= 100 mg/dL AGES 10-19: Desirable: < 90 mg/dL Borderline High: 90-129 mg/dL High: >/= 130 mg/dL ADULTS: Desirable: < 150 mg/dL Borderline High: 150-199 mg/dL High: >/= 240 mg/dL Very High: >/= 500 mg/dL [facility] Chemistry Potassium Lvl 4.1 mmol/L 3.5 - 5.1 05/09 N [facility] Chemistry Sodium 140 mmol/L 136 - 145 05/09 N [facility] Protein Total 7.3 g/dL 6.4 - 8.3 05/09 N [facility] Chemistry AGAP 10.00 0.00 - 15.00 05/09 N [facility] Chemistry Albumin 3.90 g/dL 3.50 - 5.20 05/09 N [facility] Alk Phos 60 U/L 40 - 150 05/09 N [facility] ALT 14 U/L 5 - 55 05/09 N [facility] AST 14 U/L 5 - 34 05/09 N [facility] Bilirubin Total 0.6 mg/dL 0.2 - 1.2 05/09 N [facility] BUN 18 mg/dL 8 - 26 05/09 N [facility] BUN/Creat Ratio 20 mg/dL 12 - 20 05/09 N [facility] Calcium 9.7 mg/dL 8.4 - 10.2 05/09 N [facility] CO2 26 mmol/L 22 - 29 05/09 N [facility] Creatinine Level 0.90 mg/dL 0.72 - 1.25 05/09 N [facility] Glucose Lvl 102 mg/dL 74 - 99 05/09 H [facility] Neutrophil % Auto 79.5 % 46.0 - 77.0 05/09 H [facility] Lymph Absolute 1.2 x10^3/ mcL 1.2 - 4.0103 05/09 N [facility] Donley Absolute 0.6 x10^3/ mcL 0.2 - 0.8103 05/09 N [facility] Lymphocyte % Auto 12.2 % 20.0 - 40.0 05/09 L [facility] Monocyte % Auto 7 % 1 - 12 05/09 N [facility] Neutro Absolute 7.6 x10^3/ mcL 2.0 - 7.0103 05/09 H [facility] Baso Absolute 0.0 x10^3/ mcL 0.0 - 0.1103 05/09 N - [facility] Eosinophil % Auto 1 % 0 - 5 05/09 N [facility] Basophil % Auto 0.2 % 0.0 - 2.5 05/09 N [facility] Eos Absolute 0.1 x10^3/ mcL 0.0 - 0.7103 05/09 N - [facility] PROST. SPECIFIC AG.(PB-ST L) PROSTATE SPECIFIC AG [MASS/VOLUM E] IN SERUM OR PLASMA 1.251 ng/mL 0 - 4 03/21 Specimen Type: SERUM Comment: The listed sex of this patient may not be a typical indication for this test. Therefore, reference ranges or interpretiv e criteria listed may not be valid. Clinical correlation suggested. Ordering Provider: LOULOU KILGORE Report Released Date/Time: Oct 04, 2022 11:21 AM Reporting Lab: [facility] [address] [place] [phone] Performing Lab: [facility] [address] [place] [phone] [facility] Vital Signs Combined list of inpatient and outpatient Vital Signs from Department of Defense and Veterans Affairs, ranging from 12 months to all on record, depending upon the facility. Vital Sign Value Date Comments Source BP Site Left arm 05/15/2023 14:34:00 [facility] Temperature Oral 36.4 [place] 05/15/2023 14:34:00 [facility] Peripheral Pulse Rate 79 bpm 05/15/2023 14:34:00 [facility] Mean Arterial Pressure, Cuff (Calc) 99 mm[Hg] 05/15/2023 14:34:00 [facility] Blood Pressure Manual Automatic 05/15/2023 14:34:00 [facility] Respiratory Rate 18 br/min 05/15/2023 14:34:00 [facility] Systolic Blood Pressure 137 mm[Hg] 05/15/19 14:34:00 [facility] Diastolic Blood Pressure 80 mm[Hg] 14:34:00 [facility] Mean Arterial Pressure, Cuff (Calc) 105 mm[Hg] 05/14/2023 13:19:00 [facility] Peripheral Pulse Rate 80 bpm 05/14/2023 13:19:00 [facility] Systolic Blood Pressure 148 mm[Hg] 05/14/19 13:19:00 [facility] Diastolic Blood Pressure 83 mm[Hg] 13:19:00 [facility] SYSTOLIC BLOOD PRESSURE 147 06/06/19 09:20:27 [facility] DIASTOLIC BLOOD PRESSURE 78 025 09:20:27 [facility] PULSE OXIMETRY 97 06/05/2024 09:20:27 [facility] PAIN 0 06/05/2024 09:20:27 [facility] TEMPERATURE 97.8 06/05/2024 09:20:27 [facility] PULSE 77 06/05/2024 09:20:27 [facility] RESPIRATION 18 06/05/2024 09:20:27 [facility] SYSTOLIC BLOOD PRESSURE 131 04/10/19 09:54:28 [facility] DIASTOLIC BLOOD PRESSURE 86 025 09:54:28 [facility] PULSE OXIMETRY 99 04/10/2024 09:54:28 [facility] WEIGHT 195.4 04/10/2024 09:54:28 [facility] BMI 29 kg/m2 04/10/2024 09:54:28 [facility] TEMPERATURE 97.6 04/10/2024 09:54:28 [facility] PULSE 77 04/10/2024 09:54:28 [facility] RESPIRATION 18 04/10/2024 09:54:28 [facility] SYSTOLIC BLOOD PRESSURE 143 03/27/19 10:29:37 [facility] DIASTOLIC BLOOD PRESSURE 78 025 10:29:37 [facility] PULSE OXIMETRY 96 03/27/2024 10:29:37 [facility] WEIGHT 194.8 03/27/2024 10:29:37 [facility] BMI 29 kg/m2 03/27/2024 10:29:37 [facility] PAIN 2 03/27/2024 10:29:37 [facility] HEIGHT 69 03/27/2024 10:29:37 [facility] TEMPERATURE 98 03/27/2024 10:29:37 [facility] PULSE 75 03/27/2024 10:29:37 [facility] RESPIRATION 16 03/27/2024 10:29:37 [facility] SYSTOLIC BLOOD PRESSURE 138 03/21/19 25 11:39:14 [facility] DIASTOLIC BLOOD PRESSURE 73 025 11:39:14 [facility] PULSE OXIMETRY 97 03/21/2024 11:39:14 [facility] PAIN 0 03/21/2024 11:39:14 [facility] TEMPERATURE 98 03/21/2024 11:39:14 [facility] PULSE 93 03/21/2024 11:39:14 [facility] RESPIRATION 16 03/21/2024 11:39:14 [facility] SYSTOLIC BLOOD PRESSURE 157 01/22/20 24 13:30:34 [facility] DIASTOLIC BLOOD PRESSURE 80 024 13:30:34 [facility] PULSE OXIMETRY 98 01/22/2024 13:30:34 [facility] WEIGHT 196.6 01/22/2024 13:30:34 [facility] BMI 29 kg/m2 01/22/2024 13:30:34 [facility] PAIN 8 01/22/2024 13:30:34 [facility] HEIGHT 69 01/22/2024 13:30:34 [facility] TEMPERATURE 96.8 01/22/2024 13:30:34 [facility] PULSE 77 01/22/2024 13:30:34 [facility] RESPIRATION 18 01/22/2024 13:30:34 [facility] Encounters Combined list of: 1) Encounters from Department of [facility] Affairs facilities going backup to the last 18 months, not all VA inpatient encounters are included; 2) Encounters from the Department of [facility] facilities going backup to 280 months. Location Location Details Encounter Type Encounter Number Reason For Visit Attending Provider ADM Date DC Date Status Disposition Source [address] [place] [address] [employer] [place]Eric matology) OUTPATIENT [id number] f/u CHRISTIANO MAYERS 09/24 Released w/o Limitations [address] [place] [address] [employer] ([facility])(D ermatol ogy) [address] [place] [address] [employer] ([facility]Pt Neuromusc uloskelet al Clinic) OUTPATIENT [id number] EZEQUIEL Cuevas 05/03 Released w/o Limitations [facility] [employer] [facility]P t Neuromu sculosk eletal Clinic) [address] [place] [address] [employer] ([facility]Phy sical Therapy) OUTPATIENT [id number] TL KOHLER 05/17 Released w/o Limitations [address] [place] [address] [employer] ([facility]P hysical Therapy ) [address] [place] [address] [employer] ([facility]Phy sical Therapy) OUTPATIENT [id number] TL KOHLER 05/23 Released w/o Limitations [address] [place] [address] [employer] ([facility]P hysical Therapy ) [address] [place] [address] [employer] ([facility]Phy sical Therapy) OUTPATIENT [id number] TL KOHLER 05/25 Released w/o Limitations [address] [place] [address] [employer] ([facility]P hysical Therapy ) [address] [place] [address] [employer] ([facility]Phy sical Therapy) OUTPATIENT [id number] TL KOHLER 05/31 Released w/o Limitations [address] [place] [address] [employer] ([facility]P hysical Therapy ) [address] [place] [address] [employer] ([facility]Pt Neuromusc uloskelet al Clinic) OUTPATIENT [id number] EZEQUIEL HUFFMAN 06/01 Released w/o Limitations [address] [place] [address])(P t Neuromu sculosk eletal [facility]) [address] [place] [address])(Pt Neuromusc uloskelet al [facility]) OUTPATIENT [id number] EZEQUIEL HUFFMAN 07/05 Released w/o Limitations [address] [place] [address])(P t Neuromu sculosk eletal [facility]) [address] [place] [address])([facility]) TELE CONSULT [id number] Pull Groin Muscle - MRI Results EMELYN HERNANDEZ Vickie 08/[address] [place] [address])(F amily Practic e Non-GME FHI1) [address] [place] [address])([facility] Non-GME FHI1) TELE CONSULT [id number]- [place] [facility] jack-karen VALLEJOEMELYN FRANCOIS Vickie 04/[address] [place] [address])(F amily Practic e Non-GME FHI1) [address] [place] [address])([facility] jeni Practice Non-GME FHI1) OUTPATIENT [id number] EXTREME LOWER BACK PAIN GIOVANNA ESCOBEDO 10/30 Released w/o Limitations [address] [place] [address])(F amily Practic e Non-GME FHI1) [address] [place] [address])([facility] jeni Practice Non-GME FHI1) TELE CONSULT [id number] MRI results - LESVIA Poole 11/[address] [place] [address])(F amily Practic e Non-GME FHI1) [address] [place] [address])([facility] jeni Practice Non-GME FHI1) OUTPATIENT [id number] f/u on MRI results and lumbago GIOVANNA ESCOBEDO 12/14 Released w/o Limitations [address] [place] [address])(F amily Practic e Non-GME FHI1) [address] [place] [address])([facility] jeni Practice Non-GME FHI1) TELE CONSULT [id number] renew ref for yrly derm exam - ARSLAN Royal 05/[address] [place] [address])(F amily Practic e Non-GME FHI1) [address] [place] [address])([facility] Non-[facility]ME FHI1) TELE CONSULT [id number] referra jack oliva on- LESVIA Poole 05/[address] [place] [address])(F amily Practic e Non-GME FHI1) [address] [place] [address])([facility] Non-GME FHI1) OUTPATIENT [id number] NEED REFERRA L TO DERM AND OTHER DISCUSS ION??? RAFAEL RAMESH 09/23 Released w/o Limitations [address] [place] [address])(F amily Practic e Non-GME FHI1) [address] [place] [address])([facility] jeni Practice Non-GME FHI2) TELE CONSULT [id number] Lab Call Back- BENEDICTO Sanchez 09/[address] [place] [address])(F amily Practic e Non-GME FHI2) [address] [place] [address])(Eric matology) OUTPATIENT [id number] BASAL CELL NEVUS SYNDROM E TONIE FOREMAN 10/02 Released w/o Limitations [address] [place] [address])(D ermatol ogy) [address] [place] [address])([facility] Non-GME FHI2) TELE CONSULT [id number] ANGELICA WHIPPLE 10/[address] [place] [address])(F amily Practic e Non-GME FHI2) [address] [place] [address])(Sco tt Internal Medicine Tm) OUTPATIENT [id number] lower back pain [place] 10/13 Released w/o Limitations [address] [place] [address])(S cott Interna l Medicin e Tm) [address] [place] [address])([facility] jeni Practice Non-GME FHI2) TELE CONSULT [id number] referra santiago/HIGINIO [place] 10/[address] [place] [address])(F amily Practic e Non-GME FHI2) [address] [place] [address] [employer] [facility] jeni Practice Non-GME FHI2) TELE CONSULT [id number] Med Request MALU ALVES 11/[address] [place] [address] [facility]F amily Practic e Non-GME FHI2) [address] [place] [address] [employer] [facility] jeni Practice Non-GME FHI1) TELE CONSULT [id number] Labs MALU ALVES 11/[address] [place] [address] [facility]F amily Practic e Non-GME FHI1) [address] [place] [address] [employer] [facility] jeni Practice Non-GME FHI2) TELE CONSULT [id number] call back lab results LEOBARDO LYNN 12/[address] [place], [place] [address]B [facility]F amily Practic e Non-GME FHI2) [address] [place], [place] [address]B [facility]Opt ometry) OUTPATIENT [id number] C ANNUAL EXAM - WEARS READING GLASSES SUMEET COOK W 01/06 Released w/o Limitations [address] [place] [address] [employer] [facility]O ptometr y) [address] [place] [address] [employer] Non[facility]ME FHI1) OUTPATIENT [id number] f/u on cholest medhat RAFAEL RAMESH 01/09 Released w/o Limitations [address] [place] [address] [employer] [facility]F amily Practic e Non-GME FHI1) [address] [place] [address] [facility] Non-[facility]ME FHI1) TELE CONSULT [id number] PCM/NOB LE/BIGH AM-PT REQUEST ING LAB TESTS MAHAMED HOGAN 02/[address] [place] [address] [employer] [facility]F amily Practic e Non-GME FHI1) [address] [place] [address] [employer] [facility] jeni Practice Non-GME FHI1) TELE CONSULT [id number] Ramesh/B igham/w ants lab results LEOBARDO LYNN 03/[address] [place] [address] [employer] [facility]F amily Practic e Non-GME FHI1) [address] [place] [address] [employer] [facility])(Sco tt FHC Team 3) TELE CONSULT [id number] call re: stress echo MARIYA MILNER Vickie 05/[address] [place] [address] [facility] ([facility] 3) [address] [place] [address] [facility] [facility])(Eric matology) OUTPATIENT [id number] history of basal cell cancer TONIE FOREMAN Clare 06/03 Released w/o Limitations [address] [place] [address] [facility] [place] ([facility])(D ermatol alessandra) [address] [place] [address] [facility] [place] [facility] Team 3) TELE CONSULT [id number] med refill- STEVEN Collins 01/[address] [place] [address] [facility] 3) [address] [place] [address] [facility] [place] [facility] 3) OUTPATIENT [id number] annual cholest RAFAEL Pretty 01/22 Released w/o Limitations [address] [place] [address] [facility] [place] [facility] 3) [address] [place] [address] [facility] [place] [facility] 4) TELE CONSULT [id number] Ramesh/r eferral request CAROLINA SIGALA 03/[address] [place] [address] [facility] [place] [facility] [address]) [address] [place] [address] [facility] [place] [facility])(Fam jeni Med Tm B Non-AD BCC) OUTPATIENT [id number] PAIN IN RT RIBS (SECOND KEVIN TO TRAUMA) LIVIER MATTSON 03/18 Released w/o Limitations [address] [place] [address] [facility] [place] [facility])(F amily Med Tm B Non-AD BCC) [address] [place] [address] [facility] [place] [facility])([facility] 3) OUTPATIENT [id number] back pain [phone] RAFAEL RAMESH 06/01 Released w/o Limitations [address] [place] [address] [facility] [place] [facility] 3) [address] [place] [address] [employer] [facility] 3) TELE CONSULT [id number] Pt request ing referra l to [employer] logist -[phone] BAIRON WILEY 10/[address] [place] [address] [facility] 3) [address] [place] [address] [facility])([facility] 3) OUTPATIENT [id number] Pt with hx pterygi um seen by jacinda optlori kimball who states vision is worseni NAREN Salas 10/05 Released w/o Limitations [address] [place] [address] [facility])([facility] 3) [address] [place] [address] [facility])([facility] 3) TELE CONSULT [id number] Vlad /[phone]/re fill LIPITOR and labs ordered CHHOEUN, VENTURA R 02/09 Referred for Appointment [address] [place] [address] [facility] 3) [address] [place] [address] [facility])([facility] 3) TELE CONSULT [id number] Vlad /[phone]/re fill LIPITOR CHHOEUN, VENTURA R 02/28 Referred for Appointment [address] [place] [address] [facility] 3) [address] [place] [address] [facility])([facility] 3) TELE CONSULT [id number] Santana/ [phone] rdio referra l extenti on LIZ Bales R 04/07 Referred for Appointment [facility])([facility] 3) [address] [place] [address] [facility])([facility] 3) TELE CONSULT [id number] [facility] referra [facility] renewed . [phone] LIZ MACEDO R 04/22 Referred for Appointment [facility] 3) [address] [place] [address] [facility] Medicine Team 3) TELE CONSULT [id number] T con for referra l for eye surgery [address]n [address] Cook ph [phone] LIZ MACEDO R 07/[address] [place] [address] [facility] Team 3) [address] [place] [address] [facility])([facility] 3) TELE CONSULT [id number] T con for referra l for eye special ist at [facility] ph [phone] 09/[address] [place] [address] Per[facility])([facility] Team 3) [address] [place] [address] Per[facility])([facility] 3) OUTPATIENT [id number] medical assessm ent prior to surgery NAREN COOK 10/26 Released w/o Limitations [address] [place] [address])([facility] Team 3) [address] [place] [address])([facility] 3) TELE CONSULT [id number] Notes Entered by: DIVINA HOUSTON 23 Mar 2011 1200 ------- ------- ------- ------- -- Jacoby harper /Randall hy/444. 0417c/m LIZ Salazar 03/[address] [place] [address])([facility] Team 3) [address] [place] [address])([facility] A Ad) TELE CONSULT [id number] Notes Entered by: Jr RAMIREZ 10 Jul 2012 0720 ------- ------- ------- ------- -- Request ing blood work Kong [phone] CARISA CORNEJO I 07/[address] [place] [address])([facility] Ad) [address] [place] [address])([facility] A Ad) TELE CONSULT [id number] Notes Entered by: LUDWIN PRECIADO 11 Jul 2012 1237 ------- ------- ------- ------- -- CAROLINA Miller 07/[address] [place] [address])([facility] Tm A Ad) [address] [place] [address])([facility] T[facility] A Ad) OUTPATIENT [id number] [facility] s exam ED PRECIADO 07/24 Released w/o Limitations [address] [place] [address] [facility])([facility] Tm A Ad) [address] [place] [address] Per[facility])(Eric matology) OUTPATIENT [id number] skin cancer history CAMILLEPERCY MARQUEZ 08/08 Released w/o Limitations [address] [place] [address] [facility]D ermatol ogy) [address] [place] [address] Per[facility])(Fam jeni Med Tm B Non-AD BCC) TELE CONSULT [id number] Notes Entered by: DESTIN RIVERA 24 Dec 2012 0800 ------- ------- ------- ------- -- Network Results - CARDIOL OGY - 3 ED PRECIADO 12/[address] [place] [address] Per[facility])(F amily Med Tm B Non-AD BCC) [address] [place] [address] Per[facility])([facility] Med Cln Tm A Ad) TELE CONSULT [id number] Notes Entered by: LINNEA BOYD 24 Dec 2012 1216 ------- ------- ------- ------- -- Network results - Ophthal mology - 3 ED PRECIADO 12/[address] [place] [address] [facility])([facility] Cl[facility] Tm A Ad) [address] [place] [address] [facility])([facility] Cl[facility] Tm A Ad) OUTPATIENT [id number] pt fell on ice-1 wk ago, feels L side rib cage pain [id number] ED PRECIADO 04/02 Released w/o Limitations [address] [place] [address] Per[facility])([facility] Op Med Cln Tm A Ad) [address] [place] [address] [facility])([facility] Op Med Cln Tm A Ad) TELE CONSULT [id number] Notes Entered by: LUDWIN PRECIADO 03 Apr 2013 1140 ------- ------- ------- ------- -- X-ray ED PRECIADO 04/[address] [place] [address])([facility] Tm A Ad) [address] [place] [address])([facility] Tm A Ad) TELE CONSULT [id number] Notes Entered by: Jr RAMIREZ 04 Aug 2013 1155 ------- ------- ------- ------- -- Med refill Preciado DARIEN BEE 08/[address] [place] [address])([facility] Cl[facility] Tm A Ad) [address] [place] [address])([facility] Cl[facility] Tm A Ad) OUTPATIENT [id number] annual face to face check up, med refED Elena 08/12 Released w/o Limitations [address] [place] [address])([facility] Med Cl[facility] Tm A Ad) [address] [place] [address])(Fam jeni Med Tm B Non-AD BCC) TELE CONSULT [id number] Notes Entered by: DESTIN RIVERA 04 Nov 2013 1338 ------- ------- ------- ------- -- Network Results - DERMATO LOGY - 09/25/13 ED PRECIADO 11/[address] [place] [address])(F amily Med Tm B Non-AD BCC) [address] [place] [address])([facility] Cl[facility] Tm A Ad) TELE CONSULT [id number] Notes Entered by: THERESA CUELLAR 02 Apr 2014 0821 ------- ------- ------- ------- -- Dermato logy trenton l renewal request ed by DEYANIRA Cronin 04/02 Referred for Appointment [address] [place] [address])([facility] Tm A Ad) [address] [place] [address])([facility] Cl[facility] Tm A Ad) TELE CONSULT [id number] Notes Entered by: DESTIN RIVERA 27 Apr 2014 1625 ------- ------- ------- ------- -- Network Results - DERMATO LOGY - 04/27/14 BELINDA BERNABE 04/[address] [place] [address])([facility] Med Cl[facility] Tm A Ad) [address] [place] [address])([facility] Op Med Cln Tm A Ad) TELE CONSULT [id number] Notes Entered by: ROB LUND ELS 24 Aug 2014 1248 ------- ------- ------- ------- -- Lab Request //Med Renewal //Liver mon//44 4.0417 DOUG MCKEON 08/24 Referred for Appointment [address] [place] [address])([facility] Tm A Ad) [address] [place] [address])([facility] Cl[facility] Tm A Ad) OUTPATIENT [id number] annual check up BELINDA BERNABE 09/10 Released w/o Limitations [address] [place] [address])([facility] Tm A Ad) [address] [place] [address])([facility] Cl[facility] Tm A Ad) TELE CONSULT [id number] Notes Entered by: VINOD DIGGS 29 Sep 2014 1457 ------- ------- ------- ------- -- Laborat ory results BELINDA BERNABE 09/[address] [place] [address])([facility] Cl[facility] Tm A Ad) [address] [place] [address])([facility] Cl[facility] Tm A Ad) TELE CONSULT [id number] Notes Entered by: VINOD DIGGS 17 Nov 2014 1305 ------- ------- ------- ------- -- Thaddeus su t count DOUG MCKEON 11/17 Referred for Appointment [address] [place] [address])([facility] Cl[facility] Tm A Ad) [address] [place] [address])(Fam jeni Med Tm B Non-AD BCC) TELE CONSULT [id number] Notes Entered by: LUCHO SANTIAGO 21 Jan 2015 0647 ------- ------- ------- ------- -- Lab results LINDADOUG GUZMÁN Jack 01/21 Referred for Appointment [address] [place] [address])(F amily Med Tm B Non-AD BCC) [address] [place] [address])([facility] ) TELE CONSULT [id number] Notes Entered by: Vickie LUCIANO 11 May 2015 0732 ------- ------- ------- ------- -- ER F/U Appt / Sangita / Martin# AUNG PEREZ 05/[address] [place] [address])(S cott Interna l Medicin e Tm) [address] [place] [address])([facility] ) OUTPATIENT [id number] f/u ER Visit-- L Mid Finger Injury (record s receive d) KANIKA QUESADA 05/11 Released w/o Limitations [address] [place] [address])(S cott Interna l Medicin e Tm) [address] [place] [address])([facility] ) TELE CONSULT [id number] Notes Entered by: TOMMY BHATTI 13 May 2015 1325 ------- ------- ------- ------- -- Needs a referra l for occupat ional therapy AUNG PEREZ 05/[address] [place] [address])(S cott Interna l Medicin e Tm) [address] [place] [address])([facility] ) TELE CONSULT [id number] Notes Entered by: TASHI GRAY 02 Aug 2015 0722 ------- ------- ------- ------- -- TRENTON HARPER / SANGITA / / ATTILA CABRERA 08/01 Immediate Referral [address] [place] [address])(S cott Interna l Medicin e Tm) [address] [place] [address])(Eric matology) OUTPATIENT [id number] Foreign body granulo ma of the skin and subcuta neous tissue DANIELA SHAW 09/14 Released w/o Limitations [address] [place] [address])(D ermatol ogy) [address] [place] [address])([facility] matology) OUTPATIENT [id number] Excisio n left mid back DANIELA SHAW 10/04 Released w/o Limitations [address] [place] [address])(D ermatol ogy) [address] [place] [address] [id number] Notes Entered by: Jr AL 18 Oct 2015 0743 ------- ------- ------- ------- -- Suture Removal DANIELA SHAW 10/17 Released w/o Limitations [address] [place] [address])(D ermatol ogy) [address] [place] [address])([facility]) TELE CONSULT [id number] Notes Entered by: Estiven TEAGUE 15 Nov 2015 1335 ------- ------- ------- ------- -- Med renewal / Sangita / SOLE Vela 11/[address] [place] [address])(S cott Interna l Medicin e Tm) [address] [place] [address])([facility]) TELE CONSULT [id number] Notes Entered by: Rosalie FELICIANO 19 Nov 2015 1028 ------- ------- ------- ------- -- Med jacobyill JASON WINN 11/18 Referred for Appointment [facility])(S cott Interna l Medicin e Tm) [facility])([facility] ) TELE CONSULT [id number] Notes Entered by: LAN WOOD 05 Jan 2016 0937 ------- ------- ------- ------- -- Network results Physica l Therapy 016 [place], TE 01/04 [facility])(S cott Interna l Medicin e Tm) [facility])([facility] ) TELE CONSULT [id number] Notes Entered by: LAN WOOD 20 Jan 2016 0927 ------- ------- ------- ------- -- Network results Surgery 016 [place], TE 01/19 [facility])(S cott Interna l Medicin e Tm) [facility])([facility] ) TELE CONSULT [id number] Notes Entered by: ISIDRA MAGDALENO 28 Feb 2016 1544 ------- ------- ------- ------- -- Med Renewal / Request for Lab Order / Pushpa / - sgJASON Paulino 02/27 Referred for Appointment [facility])(S cott Interna l Medicin e Tm) [facility])([facility] ) OUTPATIENT [id number] f/u labs annual appoint ment TE [place] 03/07 Released w/o Limitations [facility]S cott Interna l Medicin e Tm) [facility])([facility] ) TELE CONSULT [id number] Notes Entered by: FRANCISCA HOROWITZ 15 Jun 2016 0911 ------- ------- ------- ------- -- Med leroy /Tenzin mcghee/ /nely ANGEL DELEONGARCÍA Johnston 06/15 Medication Refill Forwarded [address] [place] [address] Per[facility])(S cott Interna l Medicin e Tm) [address] [place] [address])([facility] ) TELE CONSULT [id number] Notes Entered by: Estiven MATTSON 14 Jul 2016 1612 ------- ------- ------- ------- -- Network results Ophthal mology 05/12/16 TB SCOTT SHIN V 07/[address] [place] [address] [facility])( cott Interna l Medicin e Tm) [address] [place] [address])([facility] ) TELE CONSULT [id number] Notes Entered by: MEL HANCOCK RET 24 Jul 2016 0730 ------- ------- ------- ------- -- SX: Swollen tight from fluid- [facility] F/U Cecil nickerson/John borrero/ JASON WINN 07/24 Referred for Appointment [address] [place] [address] [facility])(S cott Interna l Medicin e Tm) [address] [place] [address] [facility])([facility] ) OUTPATIENT [id number] rt knee pain and swellin g SCOTT SHIN V 08/02 Released w/o Limitations [address] [place] [address] Per[facility])(S cott Interna l Medicin e Tm) [address] [place] [address] [facility])([facility]) OUTPATIENT [id number] right knee CARLOS LEE A 08/04 Released w/o Limitations [address] [place] [address] [facility] [place] - Orthope dics) [address] [place] [address] [facility])([facility]) OUTPATIENT [id number] f/u right knee bursiti CAROLS Myers A 08/11 Released w/o Limitations [address] [place] [address] [facility])([facility] A - Orthope dics) [address] [place] [address])([facility]) OUTPATIENT [id number] Follow up right knee bursiti CARLOS Myers 08/28 Released w/o Limitations [address] [place] [address])(V A - Orthope dics) [address] [place] [address])([facility] ) TELE CONSULT [id number] Notes Entered by: Vickie LUCIANO 29 Mar 2017 0832 ------- ------- ------- ------- -- Med Renewal / Pushpa/ [phone] - SOLE Rosen 03/[address] [place] [address])(S cott Interna l Medicin e Tm) [address] [place] [address])([facility] ) OUTPATIENT [id number] Med refill, lab results , annual visit TE [place] 04/27 Released w/o Limitations [address] [place] [address])(S cott Interna l Medicin e Tm) [address] [place] [address])([facility] ) TELE CONSULT [id number] Notes Entered by: MICHAEL ERVIN 20 Jun 2017 1008 ------- ------- ------- ------- -- Trenton Harper /Dirk /([phone])- [phone] SOLE JONES 06/[address] [place] [address])(S cott Interna l Medicin e Tm) [address] [place] [address])([facility] ) OUTPATIENT [id number] open wound on head and f/u vertigo - [id number] PRICE PARKER 07/31 Released w/o Limitations [address] [place] [address])(S cott Interna l Medicin e Tm) [facility])([facility] ) TELE CONSULT [id number] Notes Entered by: FRANCISCA HOROWITZ 29 Aug 2017 1134 ------- ------- ------- ------- -- STAT Referra jack 04 September 2017/Elayne diaz 4.0417/ KATIE Arnold 08/[address] [place] [address] Group [facility])(S cott Interna l Medicin e Tm) [address] [place] [address] Group [facility])([facility] ) TELE CONSULT [id number] Notes Entered by: JOHNATHON OLSEN 17 Oct 2017 0912 ------- ------- ------- ------- -- Retro referra jack Dumont - - tsg ADRIENNE QUIROS 10/17 Referred for Appointment [facility])(S cott Interna l Medicin e Tm) [facility])([facility] ) OUTPATIENT [id number] 1 right foot pain and cough x 3 wks MOUSTAPHA DUMONT 02/07 Released w/o Limitations [facility])(S cott Interna l Medicin e Tm) [address] [place] [address])([facility] ) TELE CONSULT [id number] Notes Entered by: VIOLETA KNOX 01 Mar 2018 0858 ------- ------- ------- ------- -- STAT-re jey cooley /davie / DARIEN Chandler 03/01 Referred for Appointment [facility])(S cott Interna l Medicin e Tm) [address] [place] [address])([facility] ) TELE CONSULT [id number] Notes Entered by: VIOLETA KNOX 14 May 2018 1124 ------- ------- ------- ------- -- Medicat ion leroy /davie / SOLE Taveras 05/14 Medication Refill Forwarded [address] [place] [address])(S cott Interna l Medicin e Tm) [address] [place] [address])([facility] ) TELE CONSULT [id number] Notes Entered by: JOHNATHON OLSEN 07 Jun 2018 1002 ------- ------- ------- ------- -- Order maryan - Davie - - SOLE Maldonado 06/07 Other Not Elsewhere Classified [address] [place] [address])(S cott Interna l Medicin e Tm) [address] [place] [address])([facility] ) OUTPATIENT [id number] annual check up MOUSTAPHA DUMONT 06/19 Released w/o Limitations [address] [place] [address])(S cott Interna l Medicin e Tm) [address] [place] [address])([facility] ) TELE CONSULT [id number] 3 Notes Entered by: John GARCIA 10 Jul 2018 1523 ------- ------- ------- ------- -- Network results Podiatr y 019 MOUSTAPHA HERNADEZ 07/[address] [place] [address])(S cott Interna l Medicin e Tm) [address] [place] [address])([facility] ) TELE CONSULT [id number] Notes Entered by: SHANNON IVAN 05 Sep 2018 1118 ------- ------- ------- ------- -- STAT Aug Otorhin olary Ref Renew Req/Sos nov/ GUSTAVO Snowa -a jh STEVEN PAUL 09/05 Referred for Appointment [facility])(S cott Interna l Medicin e Tm) [address] [place] [address])([facility] ) TELE CONSULT [id number] Notes Entered by: MATHIEU ASTUDILLO R 17 Feb 2019 1141 ------- ------- ------- ------- -- Referra l Renewal /Sosalexandre / SOLE JONES 02/17 Other Not Elsewhere Classified [address] [place] [address] Group [facility])(S cott Interna l Medicin e Tm) [address] [place] [address])([facility] ) TELE CONSULT [id number] Notes Entered by: BERNICE MATSON 04 Jul 2019 0859 ------- ------- ------- ------- -- Referra l Renewal / Sosalexandre/ (841) STEVEN PAUL 07/03 Referred for Appointment [address] [place] [address] Group [facility])(S cott Interna l Medicin e Tm) [address] [place] [address])([facility] ) TELE CONSULT [id number] Notes Entered by: SHANNON IVAN 05 Aug 2019 1236 ------- ------- ------- ------- -- Lab Test Inquiry -Med Renewal Request / Sosnov/ 618- - [facility] [phone] MOUSTAPHA DUMONT 08/[address] [place] [address] Group [facility])(S cott Interna l Medicin e Tm) [address] [place] [address])([facility] ) TELE CONSULT [id number] Notes Entered by: MATHIEU ASTUDILLO R 19 Dec 2019 1507 ------- ------- ------- ------- -- Positiv e COVID Test/Co hen/618 .444.04 17 SOLE JONES 12/18 Other Not Elsewhere Classified [address] [place] [address] Group [facility])(S cott Interna l Medicin e Tm) [address] [place] [address])([facility] ) OUTPATIENT [id number] right hand middle finger pain/61 [phone]/vi rtual MAMIE GUERRERO 01/28 Released w/o Limitations [address] [place] [address])(S cott Interna l Medicin e Tm) [address] [place] [address])([facility] ) TELE CONSULT [id number] Notes Entered by: Jr GUERRERO 30 Jan 2020 1456 ------- ------- ------- ------- -- Finger pain STEVEN PAUL 01/29 Other Not Elsewhere Classified [address] [place] [address])(S cott Interna l Medicin e Tm) [address] [place] [address])([facility] ) OUTPATIENT [id number] Virtual - L ear pain, MAMIE GUERRERO 02/05 Released w/o Limitations [address] [place] [address])(S cott Interna l Medicin e Tm) [address] [place] [address])([facility] ) TELE CONSULT [id number] Notes Entered by: SHANNON IVAN 18 Mar 2020 1108 ------- ------- ------- ------- -- Dermato roselia Moratayaq- Appt CesarBean [phone] -ADRIENNE Saldana 03/18 Referred for Appointment [address] [place] [address])(S cott Interna l Medicin e Tm) [address] [place] [address])([facility] ) TELE CONSULT [id number] Notes Entered by: BERNICE MATSON 06 Jul 2020 1032 ------- ------- ------- ------- -- Trenton Guerrero/ STEVEN PAUL 07/06 Other Not Elsewhere Classified [address] [place] [address])(S cott Interna l Medicin e Tm) [address] [place] [address])([facility] ) TELE CONSULT [id number] Notes Entered by: SHANNON IVAN 13 Aug 2020 0911 ------- ------- ------- ------- -- Med Renewal Request / Shashi/ [phone] - SOLE Rosen 08/13 Medication Refill Forwarded [address] [place] [address])(S cott Interna l Medicin e Tm) [address] [place] [address])([facility] ) OUTPATIENT [id number] F2f lab and annual CONNOR CARRIZALES 08/18 Released w/o Limitations [address] [place] [address])(S cott Interna l Medicin e Tm) [address] [place] [address])([facility] ) TELE CONSULT [id number] Notes Entered by: BERNICE MATSON 07 Oct 2020 0759 ------- ------- ------- ------- -- Lab Request / Shashi/ SOLE JONES 10/07 Other Not Elsewhere Classified [address] [place] [address])(S cott Interna l Medicin e Tm) [address] [place] [address])([facility] ) OUTPATIENT [id number] RX eval, [phone] .[phone] f2f appt CONNOR CARRIZALES 10/08 Released w/o Limitations [address] [place] [address])(S cott Interna l Medicin e Tm) [address] [place] [address])([facility] ) TELE CONSULT [id number] 5 Notes Entered by: BIANCA GRIMALDO 30 Nov 2020 1012 ------- ------- ------- ------- -- SX Itchine rivas/ Lavinia martni/ JASON LUND 11/30 Referred for Appointment [address] [place] [address])(S cott Interna l Medicin e Tm) [address] [place] [address])([facility] ) OUTPATIENT [id number] F2F rash/it sharon possibl e drug reatcio n SWETHA CRUZ 12/01 Released w/o Limitations [address] [place] [address])(S cott Interna l Medicin e Tm) [address] [place] [address])([facility] ) TELE CONSULT [id number] Notes Entered by: SHARON STOKES 10 Dec 2020 1458 ------- ------- ------- ------- -- Network Results Podiatr y 021 BF SWETHA CRUZ 12/[address] [place] [address])(S cott Interna l Medicin e Tm) [address] [place] [address])([facility] ) TELE CONSULT [id number] Notes Entered by: Clare BRITO 07 Sep 2021 0859 ------- ------- ------- ------- -- Rx Renewal 6 days left/Ro tee / LISSA SCHRADER 09/[address] [place] [address])(S cott Interna l Medicin e Tm) [address] [place] [address])([facility] ) TELE CONSULT [id number] Notes Entered by: BERNICE MATSON 29 Nov 2021 0927 ------- ------- ------- ------- -- Lab Results / and Appt Request / Felix fitzgerald/ [id number] VARINDER NIETOCaroline Santiago 11/29 Medication Refill Forwarded [address] [place] [address])(S cott Interna l Medicin e Tm) [address] [place] [address])([facility] ) OUTPATIENT [id number] f/u annual phyical [phone] EVER FUNG 12/07 Released w/o Limitations [address] [place] [address])(S cott Interna l Medicin e Tm) [address] [place] [address])([facility] [facility] ) OUTPATIENT [id number] F2F - left knee pain EVER FUNG 01/23 Released w/o Limitations [address] [place] [address])([facility]) [address] [place] [address])([facility] ) TELE CONSULT [id number] Notes Entered by: BERNICE MATSON 21 Feb 2022 0953 ------- ------- ------- ------- -- MRI Results / Felix fitzgerald / [phone] STEVEN PAUL 02/21 Other Not Elsewhere Classified [address] [place] [address])([facility]) [address] [place] [address])([facility] ) TELE CONSULT [id number] 2 Notes Entered by: CYN OTTO 27 Feb 2022 1204 ------- ------- ------- ------- -- MRI Review STEVEN PAUL 02/27 Other Not Elsewhere Classified [address] [place] [address])([facility]) [address] [place] [address])([facility] ) OUTPATIENT [id number] VIRTUAL MRI RESULTS EVER FUNG 02/27 Released w/o Limitations [address] [place] [address])([facility]) [address] [place] [address])([facility] ) OUTPATIENT [id number] F2F - F/U right ear [phone] EVER FUNG 03/14 Released w/o Limitations [address] [place] [address])([facility]) [address] [place] [address])([facility] ) TELE CONSULT [id number] Notes Entered by: RYLAN CHAVEZ 16 Mar 2022 1526 ------- ------- ------- ------- -- Network results Orthope dics 023 HLW EVER FUNG 03/[address] [place] [address])([facility]) [address] [place] [address])([facility] ) TELE CONSULT [id number] 9 Notes Entered by: LUIZ TURNER 12 Apr 2022 1630 ------- ------- ------- ------- -- Network results Otolary ngology [ENT] 04/06/19 23 EVER BUSTILLO 04/[address] [place] [address])([facility]) [address] [place] [address])([facility] ) TELE CONSULT [id number] 6 Notes Entered by: OSCAR LARKIN 26 Apr 2022 0954 ------- ------- ------- ------- -- Trenton Aviles /Victoria donahue/618 .[phone] 17 TANG FUCHS 04/26 Other Not Elsewhere Classified [address] [place] [address])([facility]) [address] [place] [address])([facility] ) TELE CONSULT [id number] 8 Notes Entered by: JOHNATHON OLSEN 26 May 2022 0956 ------- ------- ------- ------- -- F/U Spec - Referra l req - Felix es - - [facility] [place] STEVEN PAUL 05/26 Referred for Appointment [address] [place] [address])([facility]) [address] [place] [address])([facility] ) TELE CONSULT [id number] 0 Notes Entered by: JEET CELESTE 15 Jun 2022 0739 ------- ------- ------- ------- -- Sx - Possibl e Hernia/ Felix es/618. [phone] 7 ANDREA SEYMOUR 06/15 Referred- Emergency Department [address] [place] [address])([facility]) [address] [place] [address])([facility] ) TELE CONSULT [id number] 1 Notes Entered by: CHERRY LEDEZMA 16 Jun 2022 0836 ------- ------- ------- ------- -- ER JOSELO/ FELIX ES / TANG FUCHS 06/16 Other Not Elsewhere Classified [address] [place] [address])([facility]) [address] [place] [address])([facility] ) TELE CONSULT [id number] 5 Notes Entered by: RYLAN CHAVEZ 22 Jun 2022 1100 ------- ------- ------- ------- -- Network results Orthope dics 023 EVER QUINTERO 06/[address] [place] [address])([facility]) [address] [place] [address])([facility]) TELE CONSULT [id number] 0 Notes Entered by: Abhijit GUERIN 02 Jul 2022 1356 ------- ------- ------- ------- -- Network Results - Otolary ngology EVER FUNG 07/[address] [place] [address] Percy RAHMAN [place]) [facility] Outpatient Encounter [id number] 04/18 [facility] Outpatient Encounter [id number] 04/23 [facility] OFF/OP CONSLTJ NEW/EST SF 20 58216-4.65 [id number] Diagnos is: ICD-10- CM Z12.11 Encount er for screeni ng for maligna nt neoplas m of colon SHEDELJAK RKENISHA L 05/07 [facility] OFF/OP CNSLTJ NEW/EST MOD 40 14341-1.65 [id number] Diagnos is: ICD-10- CM 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 COLONOSCOP Y W/LESION REMOVAL 08236-1.65 [id number] Diagnos is: ICD-10- CM K63.5 Polyp of colon WENDY KarinaCHELLY T 07/09 [facility] Outpatient Encounter 82742-6.65 [id number] 07/09 [facility] Outpatient Encounter 96318-1.65 [id number] MARKO OCHOA 07/09 [facility] Outpatient Encounter 24612-9.65 [id number] NAHEED NANCE 07/11 [facility] Outpatient Encounter 93377-5.65 [id number] 07/12 [facility] Outpatient Encounter 60820-1.65 [id number] 2 07/26 [facility] MANUAL THERAPY 1/> [place] 97199-5.65 [id number] Diagnos is: ICD-10- CM M54.50 Low back pain, unspeci fied JOÃO CARR TTHEW J 07/30 [facility] OFFICE O/P EST MOD 30 MIN 77862-0.65 [id number] Diagnos is: ICD-10- CM 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, left knee WEHKING,PE GGY W 08/15 [facility] Outpatient Encounter [id number] [id number] 08/15 [facility] Outpatient Encounter 97103-9.65 [id number] Diagnos is: ICD-10- CM 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 , left knee RAUSARIA,S MEHDI 08/15 [facility] Outpatient Encounter 29360-7.65 [id number] LOULOU KILGORE 09/18 [facility] Outpatient Encounter 57767-2.65 [id number] 09/18 [facility] HEARING AID FITTING/CH ECKING 51432-1.65 [id number] 480 Diagnos is: ICD-10- CM H90.A31 Mix cndct/s nrl hear loss,un i,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 BLUE LIU S E 09/20 [facility] Outpatient Encounter [id number] [id number] 09/23 [facility] OFFICE O/P EST MOD 30 MIN 15916-1.65 [id number] 487 Diagnos is: ICD-10- CM E78.5 Hyperli pidemia , unspeci fied LOULOU KILGORE D 09/25 [facility] Outpatient Encounter 08736-5.65 [id number] 09/25 [facility] MANUAL THERAPY 1/> [place] 40366-0.65 [id number] Diagnos is: ICD-10- CM M54.50 Low back pain, unspeci fied JOÃO CARR TTHEW J 10/29 [facility] EAR IMPRESSION 05226-7.65 [id number] Diagnos is: ICD-10- CM H91.93 Unspeci fied hearing loss, BLUE Jones E 10/30 [facility] Outpatient Encounter 24843-4.65 [id number] 10/30 [facility] HEARING AID FITTING/CH ECKING 21756-8.65 [id number] 412 Diagnos is: ICD-10- CM H90.3 Sensori neural hearing loss, harsh pritchard NAMITA VALDOVINOS J 11/15 [facility] MANUAL THERAPY 1/ [place] 04100-6.65 [id number] 502 Diagnos is: ICD-10- CM M54.50 Low back pain, unspeci fied JOÃO CARR TTHEW J 11/19 [facility] OFFICE O/P NEW LOW 30 MIN 67168-6.65 [id number] Diagnos is: ICD-10- CM J32.8 Other chronic sinusit is HERMELINDO HERRON 11/29 [facility] Outpatient Encounter 80837-3.65 [id number] JANNETH FRYE 12/09 [facility] EMERGENCY DEPT VISIT LOW [facility] 80234-5.65 [id number] Diagnos is: ICD-10- CM J41.0 Simple chronic bronchi tis JANNETH FREY 12/09 [facility] Outpatient Encounter 57875-4.65 [id number] JANNETH FRYE 12/09 [facility] OFFICE O/P EST MOD 30 MIN 59847-4.65 [id number] Diagnos is: ICD-10- CM 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, right eye JOÃO ENGLAND TTHEW C 12/31 [facility] CHIROPRACT MANJ 3-4 [place] 95352-3.65 [id number] 707 Diagnos is: ICD-10- CM M54.50 Low back pain, unspeci fied JOÃO CARR TTHEW J 01/21 [facility] OFFICE O/P EST MOD 30 MIN 56190-2.65 [id number] Diagnos is: ICD-10- CM 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, left knee WEHKING,PE GGY W 01/21 [facility] Outpatient Encounter [id number] [id number] 01/21 [facility] ORTHOTIC MGMT&TRAIN G 1ST ENC 38679-3.65 [id number] 249 Diagnos is: ICD-10- CM Z46.89 Encount er for fitting and adjustm ent of oth devices DEJON MAZARIEGOS ERT J 01/21 [facility] Outpatient Encounter 44584-6.65 [id number] RAMANDEEP,OLGA NTHA L 01/23 [facility] BELT STRAP SLEEV GRMNT COVER 16918-3.65 [id number] Diagnos is: ICD-10- CM Z46.89 Encount er for fitting and adjustm ent of oth devices OLIVERIO GIBSON 01/30 [facility] MANUAL THERAPY 1/> [place] 53983-7.65 [id number] Diagnos is: ICD-10- CM M54.50 Low back pain, unspeci fied JOÃO CARR TTHEW J 02/10 [facility] Outpatient Encounter 20003-0.65 [id number] 02/13 [facility] OFFICE O/P EST LOW 20 MIN 66281-9.65 [id number] Diagnos is: ICD-10- CM H11.009 Unspeci fied pterygi um of unspeci fied eye MARY NOE 03/17 [facility] Outpatient Encounter 70501-3.65 [id number] MAGUI,LOULOU D 03/19 [facility] OFFICE O/P EST MOD 30 MIN 09225-1.65 [id number] Diagnos is: ICD-10- CM J34.2 Deviate d nasal septum GERMAINE,HERMELINDO ODETTE 03/21 [facility] Outpatient Encounter 54421-6.65 [id number] 03/24 [facility] OFFICE O/P EST MOD 30 MIN 72868-2.65 [id number] Diagnos is: ICD-10- CM M54.50 Low back pain, unspeci fied MAGUI,LOULOU D 03/27 [facility] MANUAL THERAPY 1/> [place] 58795-6.65 [id number] Diagnos is: ICD-10- CM M54.50 Low back pain, unspeci fied JOÃO CARR TTHEW J 04/01 [facility] Outpatient Encounter [id number] [id number] 04/02 [facility] BELT STRAP SLEEV GRMNT COVER 49386-9.65 [id number] Diagnos is: ICD-10- CM Z46.89 Encount er for fitting and adjustm ent of oth devices OLIVERIO GIBSON KALANI 04/03 [facility] OFF/OP EST MAY X REQ PHY/QHP 20847-3.65 [id number] 577 Diagnos is: ICD-10- CM Z71.9 [employer] 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, 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 Alireza Lebron 04/08 [facility] OFFICE O/P EST LOW 20 MIN 79573-8.65 [id number] Diagnos is: ICD-10- CM M79.673 Pain in unspeci fied foot MAGUI,LOULOU D 04/10 [facility] OFF/OP EST MAY X REQ PHY/QHP 06035-8.65 [id number] Diagnos is: ICD-10- CM Z71.9 [employer] Specialist ing, unspeci Alireza Lebron 04/14 [facility] Outpatient Encounter 55328-5.65 [id number] 05/06 [facility] Outpatient Encounter 54958-1.65 [id number] 05/06 [facility] OFFICE O/P EST LOW 20 MIN 98311-5.65 [id number] Diagnos is: ICD-10- CM R09.81 Nasal congest TRACY Macdonald ETT E 06/05 [facility] Outpatient Encounter 78713-3.65 [id number] SEAN PALMER GGY W 07/03 [facility] HEARING AID FITTING/CH ECKING 77378-8.65 [id number] 560 Diagnos is: ICD-10- CM H90.A22 Snsrnrl hear loss, uni, l ear, with rstrcd hear cntra side LUKE LOWE 07/15 [facility] Outpatient Encounter 66246-3.65 [id number] 07/15 [facility] O[facility]P EST MOD 30 MIN 96547-2.65 [id number] 282 Diagnos is: ICD-10- CM 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, left knee WEANABELL,PE GGY W 07/15 [facility] OFFICE O/P EST MOD 30 MIN 07788-5.65 [id number] Diagnos is: ICD-10- CM H52.6 Other disorde rs of refract ion HASMUKHMARY 09/08 [facility] Outpatient Encounter [id number] [id number] 09/18 [facility] Procedures Combined list of: 1) Procedures from Department of Veterans Affairs facilities going back up to thelast 18 months, not all VA non-surgical procedures are included; 2) All procedures from the Department of Defense facilities. Procedure Procedure Type Code Date Perfomer Comments Sour e Hernia repair Hernia repair (procedure) [id number] 20225C [facility] Right Tympanoplasty Repair of middle ear (procedure) [id number] 20225C- [facility] fanny Pterygium excision Simple excision of pterygium (procedure) [id number] 2013 x5 of left eye, x1 of right eye 5th [facility] cott Arthroscopy of right shoulder with limited debridement Arthroscopy of shoulder with limited debridement (procedure) 48402413 5th [facility] cott TELE ASSESS & MGT SRV PROV QUAL NONPHYS HLTH CARE PRO TO EST PAT,PARENT,GUARD NOT ORIG REL ASSESS & MGT SRV PROV W/IN PREV 7 DAYS NOR LEAD ASSESS & MGT SRV/PX W/IN NXT 24H/SOON APT; 11-20 MIN MED DIS 2022 DoD TELE ASSESS & MGT SRV PROV QUAL NONPHYS HLTH CARE PRO TO EST PAT,PARENT,GUARD NOT ORIG REL ASSESS & MGT SRV PROV W/IN PREV 7 DAYS NOR LEAD ASSESS & MGT SRV/PX W/IN NXT 24H/SOON APT; 11-20 MIN MED DIS 2022 DoD TELE ASSESS & MGT SRV PROV QUAL NONPHYS HLTH CARE PRO TO EST PAT,PARENT,GUARD NOT ORIG REL ASSESS & MGT SRV PROV W/IN PREV 7 DAYS NOR LEAD ASSESS & MGT SRV/PX W/IN NXT 24H/SOON APT; 11-20 MIN MED DIS 2022 DoD WAIVER SERVICES; NOT OTHERWISE SPECIFIED (NOS) 2022 DoD TELE ASSESS & MGT SRV PROV QUAL NONPHYS HLTH CARE PRO TO EST PAT,PARENT,GUARD NOT ORIG REL ASSESS & MGT SRV PROV W/IN PREV 7 DAYS NOR LEAD ASSESS & MGT SRV/PX W/IN NXT 24 HR/SOON APT;5-10 MIN MED DIS 2022 DoD TELE ASSESS & MGT SRV PROV QUAL NONPHYS HLTH CARE PRO TO EST PAT,PARENT,GUARD NOT ORIG REL ASSESS & MGT SRV PROV W/IN PREV 7 DAYS NOR LEAD ASSESS & MGT SRV/PX W/IN NXT 24 HR/SOON APT;5-10 MIN MED DIS 2022 DoD TELE ASSESS & MGT SRV PROV QUAL NONPHYS HLTH CARE PRO TO EST PAT,PARENT,GUARD NOT ORIG REL ASSESS & MGT SRV PROV W/IN PREV 7 DAYS NOR LEAD ASSESS & MGT SRV/PX W/IN NXT 24 HR/SOON APT;5-10 MIN MED DIS 2021 DoD WAIVER SERVICES; NOT OTHERWISE SPECIFIED (NOS) 2019 DoD WAIVER SERVICES; NOT OTHERWISE SPECIFIED (NOS) 2019 DoD TELE ASSESS & MGT SRV PROV QUAL NONPHYS HLTH CARE PRO TO EST PAT,PARENT,GUARD NOT ORIG REL ASSESS & MGT SRV PROV W/IN PREV 7 DAYS NOR LEAD ASSESS & MGT SRV/PX W/IN NXT 24 HR/SOON APT;5-10 MIN MED DIS 2017 DoD TELE ASSESS & MGT SRV PROV QUAL NONPHYS HLTH CARE PRO TO EST PAT,PARENT,GUARD NOT ORIG REL ASSESS & MGT SRV PROV W/IN PREV 7 DAYS NOR LEAD ASSESS & MGT SRV/PX W/IN NXT 24 HR/SOON APT;5-10 MIN MED DIS 2017 DoD TELE ASSESS & MGT SRV PROV QUAL NONPHYS HLTH CARE PRO TO EST PAT,PARENT,GUARD NOT ORIG REL ASSESS & MGT SRV PROV W/IN PREV 7 DAYS NOR LEAD ASSESS & MGT SRV/PX W/IN NXT 24 HR/SOON APT;5-10 MIN MED DIS 2017 DoD TELE ASSESS & MGT SRV PROV QUAL NONPHYS HLTH CARE PRO TO EST PAT,PARENT,GUARD NOT ORIG REL ASSESS & MGT SRV PROV W/IN PREV 7 DAYS NOR LEAD ASSESS & MGT SRV/PX W/IN NXT 24 HR/SOON APT;5-10 MIN MED DIS 2017 DoD ARTHROCENTESIS, ASPIRATION AND/OR INJECTION, MAJOR JOINT OR BURSA (EG, SHOULDER, HIP, KNEE, SUBACROMIAL BURSA); WITHOUT ULTRASOUND GUIDANCE 2016 DoD TELE ASSESS & MGT SRV PROV QUAL NONPHYS HLTH CARE PRO TO EST PAT,PARENT,GUARD NOT ORIG REL ASSESS & MGT SRV PROV W/IN PREV 7 DAYS NOR LEAD ASSESS & MGT SRV/PX W/IN NXT 24 HR/SOON APT;5-10 MIN MED DIS 2016 DoD TELE ASSESS & MGT SRV PROV QUAL NONPHYS HLTH CARE PRO TO EST PAT,PARENT,GUARD NOT ORIG REL ASSESS & MGT SRV PROV W/IN PREV 7 DAYS NOR LEAD ASSESS & MGT SRV/PX W/IN NXT 24 HR/SOON APT;5-10 MIN MED DIS 2016 DoD TELE ASSESS & MGT SRV PROV QUAL NONPHYS HLTH CARE PRO TO EST PAT,PARENT,GUARD NOT ORIG REL ASSESS & MGT SRV PROV W/IN PREV 7 DAYS NOR LEAD ASSESS & MGT SRV/PX W/IN NXT 24 HR/SOON APT;5-10 MIN MED DIS 2015 DoD TELE ASSESS & MGT SRV PROV QUAL NONPHYS HLTH CARE PRO TO EST PAT,PARENT,GUARD NOT ORIG REL ASSESS & MGT SRV PROV W/IN PREV 7 DAYS NOR LEAD ASSESS & MGT SRV/PX W/IN NXT 24 HR/SOON APT;5-10 MIN MED DIS 2015 DoD POSTOPERATIVE FOLLOW-UP VISIT, NORMALLY INCLUDED IN THE SURGICAL PACKAGE, INDICATE THAT EVALUATION & MANAGEMENT SERVICE WAS PERFORMED DURING A POSTOPERATIVE PERIOD REASON RELATED ORIGINAL PROCEDURE 2015 DoD REPAIR, INTERMEDIATE, WOUNDS OF SCALP, AXILLAE, TRUNK AND/OR EXTREMITIES (EXCLUDING HANDS AND FEET); 2.6 CM TO 7.5 CM 2015 DoD DESTRUCT (EG, LASER SURGERY, ELECTROSURGERY, CRYOSURGERY, CHEMOSURGERY, SURGICAL CURETTEMENT), PREMALIGNANT LESIONS (EG, ACTINIC KERATOSES); 2ND THRU 14 LESIONS, EA (LIST SEP ADDITION CD, 1ST LESION) 2015 DoD TELE ASSESS & MGT SRV PROV QUAL NONPHYS HLTH CARE PRO TO EST PAT,PARENT,GUARD NOT ORIG REL ASSESS & MGT SRV PROV W/IN PREV 7 DAYS NOR LEAD ASSESS & MGT SRV/PX W/IN NXT 24 HR/SOON APT;5-10 MIN MED DIS 2015 DoD TELE ASSESS & MGT SRV PROV QUAL NONPHYS HLTH CARE PRO TO EST PAT,PARENT,GUARD NOT ORIG REL ASSESS & MGT SRV PROV W/IN PREV 7 DAYS NOR LEAD ASSESS & MGT SRV/PX W/IN NXT 24H/SOON APT; 11-20 MIN MED DIS 2015 DoD TELE ASSESS & MGT SRV PROV QUAL NONPHYS HLTH CARE PRO TO EST PAT,PARENT,GUARD NOT ORIG REL ASSESS & MGT SRV PROV W/IN PREV 7 DAYS NOR LEAD ASSESS & MGT SRV/PX W/IN NXT 24 HR/SOON APT;5-10 MIN MED DIS 2014 DoD TELE ASSESS & MGT SRV PROV QUAL NONPHYS HLTH CARE PRO TO EST PAT,PARENT,GUARD NOT ORIG REL ASSESS & MGT SRV PROV W/IN PREV 7 DAYS NOR LEAD ASSESS & MGT SRV/PX W/IN NXT 24 HR/SOON APT;5-10 MIN MED DIS 2014 DoD TELE ASSESS & MGT SRV PROV QUAL NONPHYS HLTH CARE PRO TO EST PAT,PARENT,GUARD NOT ORIG REL ASSESS & MGT SRV PROV W/IN PREV 7 DAYS NOR LEAD ASSESS & MGT SRV/PX W/IN NXT 24 HR/SOON APT;5-10 MIN MED DIS 2014 DoD TELE ASSESS & MGT SRV PROV QUAL NONPHYS HLTH CARE PRO TO EST PAT,PARENT,GUARD NOT ORIG REL ASSESS & MGT SRV PROV W/IN PREV 7 DAYS NOR LEAD ASSESS & MGT SRV/PX W/IN NXT 24 HR/SOON APT;5-10 MIN MED DIS 2014 DoD TELE ASSESS & MGT SRV PROV QUAL NONPHYS HLTH CARE PRO TO EST PAT,PARENT,GUARD NOT ORIG REL ASSESS & MGT SRV PROV W/IN PREV 7 DAYS NOR LEAD ASSESS & MGT SRV/PX W/IN NXT 24 HR/SOON APT;5-10 MIN MED DIS 2013 DoD DESTRUCT (EG, LASER SURGERY, ELECTROSURGERY, CRYOSURGERY, CHEMOSURGERY, SURGICAL CURETTEMENT), PREMALIGNANT LESIONS (EG, ACTINIC KERATOSES); 2ND THRU 14 LESIONS, EA (LIST SEP ADDITION CD, 1ST LESION) 2012 DoD TELE ASSESS & MGT SRV PROV QUAL NONPHYS HLTH CARE PRO TO EST PAT,PARENT,GUARD NOT ORIG REL ASSESS & MGT SRV PROV W/IN PREV 7 DAYS NOR LEAD ASSESS & MGT SRV/PX W/IN NXT 24 HR/SOON APT;5-10 MIN MED DIS 2011 DoD DESTRUCTION (EG, LASER SURGERY, ELECTROSURGERY, CRYOSURGERY, CHEMOSURGERY, SURGICAL CURETTEMENT), OF BENIGN LESIONS OTHER THAN SKIN TAGS OR CUTANEOUS VASCULAR PROLIFERATIVE LESIONS; UP TO 14 LESIONS 2008 DoD TELE ASSESS & MGT SRV PROV QUAL NONPHYS HLTH CARE PRO TO EST PAT,PARENT,GUARD NOT ORIG REL ASSESS & MGT SRV PROV W/IN PREV 7 DAYS NOR LEAD ASSESS & MGT SRV/PX W/IN NXT 24 HR/SOON APT;5-10 MIN MED DIS 2008 DoD DETERMINATION OF REFRACTIVE STATE 2007 DoD REMOVAL OF SKIN TAGS, MULTIPLE FIBROCUTANEOUS TAGS, ANY AREA; UP TO AND INCLUDING 15 LESIONS 2007 DoD PHYSICAL THERAPY RE-EVALUATION 2004 DoD PHYSICAL THERAPY RE-EVALUATION 2004 DoD APPLICATION OF A MODALITY TO 1 OR MORE AREAS; ULTRASOUND, EACH 15 MINUTES 2004 DoD APPLICATION OF A MODALITY TO 1 OR MORE AREAS; ULTRASOUND, EACH 15 MINUTES 2004 DoD APPLICATION OF A MODALITY TO 1 OR MORE AREAS; ULTRASOUND, EACH 15 MINUTES 2004 DoD MANUAL THERAPY TECHNIQUES (EG, MOBILIZATION/ MANIPULATION, MANUAL LYMPHATIC DRAINAGE, MANUAL TRACTION), 1 OR MORE REGIONS, EACH 15 MINUTES 2004 DoD PHYSICAL THERAPY EVALUATION 2004 DoD SUPPLY OF SPECTACLES, EXCEPT PROSTHESIS FOR APHAKIA AND LOW VISION AIDS 2003 DoD INJECTION, DIAZEPAM, UP TO 5 MG 2003 DoD REPAIR, INTERMEDIATE, WOUNDS OF FACE, EARS, EYELIDS, NOSE, LIPS AND/OR MUCOUS MEMBRANES; 2.5 CM OR LESS 2003 DoD DESTRUCT (EG, LASER SURGERY, ELECTROSURGERY, CRYOSURGERY, CHEMOSURGERY, SURGICAL CURETTEMENT), PREMALIGNANT LESIONS (EG, ACTINIC KERATOSES); 2ND THRU 14 LESIONS, EA (LIST SEP ADDITION CD, 1ST LESION) 2002 DoD INJECTION, METHYLPREDNISOLONE ACETATE, 40 MG 2002 DoD THERAPEUTIC PROCEDURE, 1 OR MORE AREAS, EACH 15 MINUTES; THERAPEUTIC EXERCISES TO DEVELOP STRENGTH AND ENDURANCE, RANGE OF MOTION AND FLEXIBILITY 2002 DoD THERAPEUTIC PROCEDURE, 1 OR MORE AREAS, EACH 15 MINUTES; THERAPEUTIC EXERCISES TO DEVELOP STRENGTH AND ENDURANCE, RANGE OF MOTION AND FLEXIBILITY 2002 DoD THERAPEUTIC PROCEDURE, 1 OR MORE AREAS, EACH 15 MINUTES; THERAPEUTIC EXERCISES TO DEVELOP STRENGTH AND ENDURANCE, RANGE OF MOTION AND FLEXIBILITY 2002 DoD THERAPEUTIC PROCEDURE, 1 OR MORE AREAS, EACH 15 MINUTES; THERAPEUTIC EXERCISES TO DEVELOP STRENGTH AND ENDURANCE, RANGE OF MOTION AND FLEXIBILITY 2002 DoD THERAPEUTIC PROCEDURE, 1 OR MORE AREAS, EACH 15 MINUTES; THERAPEUTIC EXERCISES TO DEVELOP STRENGTH AND ENDURANCE, RANGE OF MOTION AND FLEXIBILITY 2002 DoD THERAPEUTIC PROCEDURE, 1 OR MORE AREAS, EACH 15 MINUTES; THERAPEUTIC EXERCISES TO DEVELOP STRENGTH AND ENDURANCE, RANGE OF MOTION AND FLEXIBILITY 2002 DoD THERAPEUTIC PROCEDURE, 1 OR MORE AREAS, EACH 15 MINUTES; THERAPEUTIC EXERCISES TO DEVELOP STRENGTH AND ENDURANCE, RANGE OF MOTION AND FLEXIBILITY 2002 DoD THERAPEUTIC PROCEDURE, 1 OR MORE AREAS, EACH 15 MINUTES; THERAPEUTIC EXERCISES TO DEVELOP STRENGTH AND ENDURANCE, RANGE OF MOTION AND FLEXIBILITY 2002 DoD RANGE OF MOTION MEASUREMENTS AND REPORT (SEPARATE PROCEDURE); EACH EXTREMITY (EXCLUDING HAND) OR EACH TRUNK SECTION (SPINE) 2002 DoD THERAPEUTIC PROCEDURE, 1 OR MORE AREAS, EACH 15 MINUTES; THERAPEUTIC EXERCISES TO DEVELOP STRENGTH AND ENDURANCE, RANGE OF MOTION AND FLEXIBILITY 2002 DoD THERAPEUTIC PROCEDURE, 1 OR MORE AREAS, EACH 15 MINUTES; THERAPEUTIC EXERCISES TO DEVELOP STRENGTH AND ENDURANCE, RANGE OF MOTION AND FLEXIBILITY 2002 DoD THERAPEUTIC PROCEDURE, 1 OR MORE AREAS, EACH 15 MINUTES; THERAPEUTIC EXERCISES TO DEVELOP STRENGTH AND ENDURANCE, RANGE OF MOTION AND FLEXIBILITY 2002 DoD THERAPEUTIC PROCEDURE, 1 OR MORE AREAS, EACH 15 MINUTES; THERAPEUTIC EXERCISES TO DEVELOP STRENGTH AND ENDURANCE, RANGE OF MOTION AND FLEXIBILITY 2002 DoD THERAPEUTIC PROCEDURE, 1 OR MORE AREAS, EACH 15 MINUTES; THERAPEUTIC EXERCISES TO DEVELOP STRENGTH AND ENDURANCE, RANGE OF MOTION AND FLEXIBILITY 2002 [facility] ROTATOR CUFF REPAIR 2002 [facility] ARTHROSCOPY OF SHOULDER 2002 [facility] OTHER REPAIR OF SHOULDER 2002 [facility] EXERCISE EQUIPMENT 2002 [facility] RANGE OF MOTION MEASUREMENTS AND REPORT (SEPARATE PROCEDURE); EACH EXTREMITY (EXCLUDING HAND) OR EACH TRUNK SECTION (SPINE) 2002 DoD INJECTION, METHYLPREDNISOLONE ACETATE, 40 MG 2002 DoD INJECTION, METHYLPREDNISOLONE ACETATE, 40 MG 2002 DoD THERAPEUTIC PROCEDURE, 1 OR MORE AREAS, EACH 15 MINUTES; THERAPEUTIC EXERCISES TO DEVELOP STRENGTH AND ENDURANCE, RANGE OF MOTION AND FLEXIBILITY 2002 DoD APPLICATION OF A MODALITY TO 1 OR MORE AREAS; HOT OR COLD PACKS 2002 DoD APPLICATION OF A MODALITY TO 1 OR MORE AREAS; HOT OR COLD PACKS 2002 DoD APPLICATION OF A MODALITY TO 1 OR MORE AREAS; ELECTRICAL STIMULATION (UNATTENDED) 2002 DoD APPLICATION OF A MODALITY TO 1 OR MORE AREAS; ELECTRICAL STIMULATION (UNATTENDED) 2002 DoD THERAPEUTIC PROCEDURE, 1 OR MORE AREAS, EACH 15 MINUTES; THERAPEUTIC EXERCISES TO DEVELOP STRENGTH AND ENDURANCE, RANGE OF MOTION AND FLEXIBILITY 2002 [facility] APPLICATION OF A MODALITY TO 1 OR MORE AREAS; ELECTRICAL STIMULATION (MANUAL), EACH 15 MINUTES 2002 [facility] PHYSICAL THERAPY EVALUATION 2001 [facility] Non-Physician Phone Call To Patient/Provider Brief (5-10min) Non-Physician Phone Call To Patient/Provider Brief (5-10min) [id number] 2017 ADRIENNE QUIROS [facility] Non-Physician Phone Call To Patient/Provider Brief (5-10min) Non-Physician Phone Call To Patient/Provider Brief (5-10min) [id number] 2017 KATIE BLANKENSHIP [facility] Non-Physician Phone Call To Patient/Provider Brief (5-10min) Non-Physician Phone Call To Patient/Provider Brief (5-10min) [id number] 2017 SOLE JONES [facility] Non-Physician Phone Call To Patient/Provider Brief (5-10min) Non-Physician Phone Call To Patient/Provider Brief (5-10min) [id number] 2017 SOLE JONES [facility] Arthrocentesis Aspiration Of Bursa Of Knee Arthrocentesis Aspiration Of Bursa Of Knee [id number] 2016 CARLOS LEE [facility] Non-Physician Phone Call To Patient/Provider Brief (5-10min) Non-Physician Phone Call To Patient/Provider Brief (5-10min) [id number] 2016 JASON WINN [facility] Non-Physician Phone Call To Patient/Provider Brief (5-10min) Non-Physician Phone Call To Patient/Provider Brief (5-10min) [id number] 2016 JASON WINN [facility] Non-Physician Phone Call To Patient/Provider Brief (5-10min) Non-Physician Phone Call To Patient/Provider Brief (5-10min) [id number] 2015 JASON WINN [facility] Non-Physician Phone Call To Patient/Provider Brief (5-10min) Non-Physician Phone Call To Patient/Provider Brief (5-10min) [id number] 2015 SOLE JONES [facility] Postoperative Visit, Without Charge Postoperative Visit, Without Charge [id number] 2015 DANIELA SHAW [facility] Layer Closure Of Wound Trunk 2.6 to 7.5 cm Layer Closure Of Wound Trunk 2.6 to 7.5 cm 52905 2015 DANIELA SHAW Excision Of Lesion Trunk Benign 1.1 to 2cm Excision Of Lesion Trunk Benign 1.1 to 2cm 59305 2015 DANIELA SHAW Destruct Of Benign Lesion By Any Method Second Through 14 Destruct Of Benign Lesion By Any Method Second Through 14 03571 2015 DANIELA SHAW Destruction Of Benign Lesion By Any Method One Lesion Destruction Of Benign Lesion By Any Method One Lesion 08658 2015 DANIELA SHAW Destruct Of Premalignant Lesion By Any Method 2nd Through 14 Destruct Of Premalignant Lesion By Any Method 2nd Through 14 83101 2015 DANIELA SHAW Destruction Of Premalignant Lesion By Any Method One Lesion Destruction Of Premalignant Lesion By Any Method One Lesion 08340 2015 DANIELA SHAW Shaving Of Lesion Trunk .6 to 1cm Shaving Of Lesion Trunk .6 to 1cm 85924 2015 DANIELA SHAW Non-Physician Phone Call To Patient/Provider Brief (5-10min) Non-Physician Phone Call To Patient/Provider Brief (5-10min) [id number] 2015 AUNG PEREZ Non-Physician Phone Call To Pt/Provider Intermed (11-20 min) Non-Physician Phone Call To Pt/Provider Intermed (11-20 min) [id number] 2015 AUNG PEREZ Non-Physician Phone Call To Patient/Provider Brief (5-10min) Non-Physician Phone Call To Patient/Provider Brief (5-10min) [id number] 2014 DOUG MCKEON Non-Physician Phone Call To Patient/Provider Brief (5-10min) Non-Physician Phone Call To Patient/Provider Brief (5-10min) [id number] 2014 DOUG MCKEON Non-Physician Phone Call To Patient/Provider Brief (5-10min) Non-Physician Phone Call To Patient/Provider Brief (5-10min) [id number] 2014 DOUG MCKEON Non-Physician Phone Call To Patient/Provider Brief (5-10min) Non-Physician Phone Call To Patient/Provider Brief (5-10min) [id number] 2014 DEYANIRA CUELLAR [facility] Non-Physician Phone Call To Patient/Provider Brief (5-10min) Non-Physician Phone Call To Patient/Provider Brief (5-10min) [id number] 2013 DARIEN BEE [facility] Destruct Of Premalignant Lesion By Any Method 2nd Through 14 Destruct Of Premalignant Lesion By Any Method 2nd Through 14 70750 2012 PERCY OBRIEN Destruction Of Premalignant Lesion By Any Method One Lesion Destruction Of Premalignant Lesion By Any Method One Lesion 39489 2012 PERCY BORIEN [facility] Biopsy Skin Biopsy Skin 90804 2012 PERCY OBRIEN [facility] Non-Physician Phone Call To Patient/Provider Brief (5-10min) Non-Physician Phone Call To Patient/Provider Brief (5-10min) [id number] 2011 LIZ MACEDO [facility] Destruction Of Benign Lesion By Cryosurgery 2008 TONIE FOREMAN [facility] Non-Physician Phone Call To Patient/Provider Brief (5-10min) Non-Physician Phone Call To Patient/Provider Brief (5-10min) [id number] 2008 LEOBARDO LYNN [facility] Determination Of Refractive State Determination Of Refractive State [id number] 2007 SUMEET COOK [facility] Ophthalmological New Patient Start Comprehensive Care Ophthalmological New Patient Start Comprehensive Care [id number] 2007 SUMEET COOK [facility] Physical Medicine Physical Therapy Re-Evaluation Physical Medicine Physical Therapy Re-Evaluation 58916 2004 EZEQUIEL HUFFMAN Physical Medicine Physical Therapy Re-Evaluation Physical Medicine Physical Therapy Re-Evaluation 22673 2004 EZEQUIEL HUFFMAN Modalities Ultrasound Modalities Ultrasound 95860 2004 TL KOHLER [facility] Modalities Ultrasound Modalities Ultrasound 67858 2004 TL KOHLER Modalities Ultrasound Modalities Ultrasound 02605 2004 TL KOHLER Modalities Ultrasound Modalities Ultrasound 26300 2004 TL KOHLER Physical Therapy Mobilization Joint Physical Therapy Mobilization Joint 41671 2004 TL KOHLER Physical Medicine Physical Therapy Evaluation Physical Medicine Physical Therapy Evaluation 02397 2004 EZEQUIEL HUFFMAN DoD Waiver services; not otherwise specified (NOS) MAMIE GUERRERO [facility] Non-Physician Phone Call To Patient/Provider Brief (5-10min) Non-Physician Phone Call To Patient/Provider Brief (5-10min) [id number] LARRY NIETO [facility] Non-Physician Phone Call To Pt/Provider Intermed (11-20 min) Non-Physician Phone Call To Pt/Provider Intermed (11-20 min) [id number] TANG FUCHS [facility] Social History Combined list of available smoking, tobacco, and other social history from Department of Defense and Veterans Affairs facilities. Social History Type Response Date Comment [facility] e Tobacco smoking status NHIS NM-TOBACCO NEVER USED CIGARETTES 03/27/2024 [facility] History of tobacco use NM-TOBACCO NEVER USED OTHER TYPE 03/27/2024 [facility] History of tobacco use NM-TOBACCO NEVER USED 03/26/2023 [facility] Sex Representation Male (finding) 04/13/2022 Un known Organization History of tobacco use VA-TOBACCO NEVER USED 03/29/2022 [facility] Tobacco Cigarette use: Never-cigarette user. Other Tobacco use: Never-other tobacco user (not cigarettes). [facility] Sexual Orientation Ambula tory Pharmacy Gender identity Ambulator y Pharmacy This section is an empty social history section. [facility] Assessment and Plan Combined list of future care activities from Department of Defense and Veterans Affairs facilities (e.g., assessment and plan notes, appointments, orders, and referrals). Additional future care activities may be listed in the Plan of Care section. Result Assessment and Plan Date Source Assessment and Plan Extracted from:Title : 0055[facility] - Preop risk assessment/abnormal EKG Author: JEFFRY KHANNA MD Date: 05/15/23 1. T ympanic membrane marginal perforation Pre-operative evaluation: Surgery: Right Tympanoplasty under general anesthesia Risk of surgery: Low Cardiac: -No history of active ACS, decompensated heart failure, uncontrolled arrhythmia or severe valvular disease. -RCRI= 1 point (class II risk) (6.0% 30-day risk of , IN, or cardiac arrest) -Olson score: 0.1% risk of IN or cardiac arrest -DASI score: 50.7. METS 8 .97 -Can perform >4 METS at baseline -No history of arrhythmia -EKG obtained in clinic today showed pathologic Q-waves in the inferior leads and ST-segment changes in the lateral leads. No comparisons available. Pulmonary: -JORDY: No, STOP-BAN, low risk. -Smoking: Never -Asthma/COPD: none -No CXR or PFTs indicated Hematologic: -No history of uncontrolled bleeding/thrombosis or transfusion reaction -Baseline CBC o btained Renal: -Last serum creatinine 0 .9 Neurologic: -No history of cerebrovascular disease Diabetes: -No history of diabetes mellitus (last a1c 5.3) Medications to withhold: -NSAIDs to be stopped 1 week prior to surgery Personal or family history of anesthetic complications: -None -Full medication reconciliation performed with patient at clinic visit today -Per RCRI, patient is low-risk for a low risk surgical procedure -No further cardiopulmonary testing indicated prior to surgery. Will review old records from [facility] and consider further workup after surgery. 2. M urmur [place] back in 2012. TTE at the time showed normal left ventricular function (EF 74%), no focal wall motion abnormalities, normal diastolic function, normal aortic, tricuspid, and pulmonary valves. Normal appearance of the mitral valve with trivial regurgitation noted. The murmur is no longer present, and has not been heard in years. He denies any associated sxms. - No indication for repeat TTE prior to surgery 3. E KG: Q wave abnormal EKG obtained in clinic today showed pathologic Q-waves in the inferior leads and ST-segment changes in the lateral leads. No comparisons available. He reports that he saw cardiology in 2013 at [facility] for evaluation of a murmur. He had the TTE done as well as a stress test (unclear why). Only the TTE record is available. He reports that the stress test was normal. Will obtain these records and consider further evaluation for the abnormal EKG after surgery. Given that he is asymptomatic and low risk for complications, this will no need to delay his surgery. He expressed understanding of this plan of care. Patient encouraged to return to clinic, present to [facility] or ER for persistent worsening or development of other concerning symptoms. Patient cites understanding and agrees with plan of care. A total of 30 minutes was spent on this visit reviewing previous notes, counseling the patient on the listed diagnoses, reviewing/ordering tests, adjusting medications, and documenting the findings in this note. Jeffry Khanna MD Capt, [facility] Internal Medicine Staff Physician Extracted from:Title: 0055C Clinic - Annual visit/hyperlipidemia Author: JEFFRY KHANNA MD Date: 05/14/23 1. A nnual wellness exam Reviewed most recent labs, imaging, history, and prev med. ROS and physical exam unremarkable. Discussed diet and exercise recommendations (Low carb diet, Mediterranean diet, whole food plant based as options). 150 min/wk vigorous exercise per ACC/AHA. Preventative Medicine: # General Wellness. -Colon CA Screening: Normal in 2010, due for repeat, being scheduled with [facility] -Lung CA: D oes not meet criteria (non-smoker) -Prostate Cancer: Being obtained through the [facility], discussed risks and benefits -Osteoporosis Screening: N ot indicated -AAA Screening: Not indicated, nonsmoker -Diabetes Screening: Patient is N on-Diabetic. Last hgba1c of 5 .3 -Lipid Screening: O n statin -ASCVD: 14.5% -Hepatitis C (lifetime): N eg (2020) # Vaccinations: -Influenza: Advised to complete annually -Pneumococcal: Due, advised to obtain -Tetanus: Last 0 08/16/2016 -Zoster: 08/25/2020 10/26/2020DUE, advised to obtain -COVID: Clare oderna 04/07/2020x2, advised to complete annually 2. H yperlipidemia LDL 123 (previous high 183 prior to statin therapy). ASCVD risk: 14.5%. On appropriate statin therapy with 30% reduction in LDL. - Continue rosuvastatin 10mg daily 3. E levated blood pressure reading without diagnosis of hypertension Elevated blood pressure in clinic. Hxy of white coat hypertension. - Advised to keep periodic blood pressure log and to call if readings are consistently elevated ? Patient encouraged to return to clinic, present to UC or ER for persistent worsening or development of other concerning symptoms. Patient cites understanding and agrees with plan of care. A total of 40 minutes was spent on this visit reviewing previous notes, counseling the patient on the listed diagnoses, reviewing/ordering tests, adjusting medications, and documenting the findings in this note. Jeffry Khanna MD Capt, [facility] Internal Medicine Staff Physician 09/29/2024 [id number] Plan of Care List of future care activities from Department of Veterans Affairs facilities. Additional future care activities may be listed in the Assessment and Plan section. Date/Time Care Activity Care Activity Detail Juanita ty 11/13/2024 AMBULATORY - NONE AMBULATORY - NONE [facility] Functional Status Combined list of recent functional and cognitive assessments recorded at [facility] Functional Chambers Measurement (FIM) Scale: 1 = Total Assistance (Subject = 0% +), 2 = Maximal Assistance (Subject = 25% +), 3 = Moderate Assistance (Subject = 50% +), 4 = Minimal Assistance (Subject = 75% +), 5 = Supervision, 6 = Modified Chambers (Device), 7 = Complete Chambers (Timely, Safely). Assessment Date/Time Source Assessment Type Assessment Skill Assessment Score Assessment Details No data available for this section
--- OUTSIDE RECORDS SUMMARY | 2024-09-29 08:10 | XMS_ITS | Encounter Summary ---
Author Name [facility] [place] [facility] Address [address] [place] [address] Care Team Providers Care Tooling Specialist Name Role Phone LOULOU KILGORE Primary Care [...] PART A Nov 19, 2022 PART A [id number] [place] PATIENT MEDICARE (WNR) MEDICARE (M) PART B Nov 19, 2022 PART B [id number] [place] PATIENT Selected Encounter This section includes the information on record at [place] for the Encounter. Date/Time Encounter Type Encounter Description Reason Provider Source Jan 24, 2024 02:22 PM Outpatient Encounter COMMUNITY CARE CONSULT FABI SABILLON Encounter Template Text not used by [place] Plan of Treatment: Future Appointments (+ 6 months) and Future Tests (+/- 45 days) The Plan of Treatment section includes future care activities for the patient from all VA treatmentfacilities. This section includes future appointments and future orders which are active, pending or scheduled. Future Appointments This section includes appointments that were scheduled to occur 6 months from the date of the Encounter, up to a maximum of 20 appointments. The data comes from all [facility]. Appointment Date/Time Appointment Type Appointme nt Facility Name Jan 31, 2024 11:00 AM AMBULATORY - NONE [facility] Feb 11, 2024 10:20 AM AMBULATORY - NONE [facility] Collins [facility] Mar 17, 2024 01:00 PM AMBULATORY - SURGERY [facility] Mar 21, 2024 11:30 AM AMBULATORY - SURGERY [facility] Mar 24, 2024 10:00 AM AMBULATORY - MEDICINE [facility] Mar 27, 2024 10:30 AM AMBULATORY - MEDICINE [facility] Apr 01, 2024 08:30 AM AMBULATORY - NONE [facility] R [facility] Apr 03, 2024 10:00 AM AMBULATORY - NONE [facility] Osborn [facility] Apr 10, 2024 10:00 AM AMBULATORY - MEDICINE [facility] Jun 05, 2024 09:30 AM AMBULATORY - SURGERY [facility] July 15, 2024 11:00 AM AMBULATORY - SURGERY [facility] July 15, 2024 12:00 PM AMBULATORY - SURGERY [facility] Radiology Reports: +/- 30 days of [...] the Encounter. The data comes from all [facility]. Date/Time Radiology Report Provider Source Jan 12, 2024 08:[address] SINUS W/O CONTR AST (ENV): RAJEEV SAN [id number] -[id number] M Exm Date: JAN 12, 2024@08:45 Req Phys: RAJEEV FRANCIS Pat Loc: [facility] HEAD [facility]ECK CONSULT ( Img Loc: [facility]AGING [facility] Service: Unknown [facility], [address] [place] [address] (Case [id number] COMPLETE) CT SINUS W/O CONTRAST (ENV) (CT Detailed) CPT:66131 Reason for Study: chronic sinusiitis Clinical History: Responsible Attending: Dr. Singh Attending Contact Number: [phone] Resident Contact Number: [facility] Allergies listed in CPRS chart: CAFFEINE Creatinine: CREATININE 0.88 mg/dL 03/21/2023 08:21 /eGFR: STL EGFR (within one year). CREATININE 0.88 mg/dL (03/21/23 08:21) Wt: 188 lb [85.28 kg] (09/26/2023 09:34) History of: Renal failure, chronic or acute renal disease: NO Report Status: Verified Date Reported: JAN 14, 2024 Date Verified: JAN 14, 2024 Snowboard Instructor E-Sig:/ES/CHARLIE VELEZ MD Report: Axial images with sagittal and coronal reconstructions through the paranasal sinuses were performed. No mucosal thickening, soft tissue masses, or fluid in the sinuses. No bony erosion or destruction. The infundibula of the osteomeatal complexes are patent. Impression: Normal Primary Interpreting Staff: CHARLIE VELEZ MD, Radiologist (Snowboard Instructor) /CHARLIE CARTER [facility] Encounter Notes: All associated encounter notes This section contains the clinical notes associated to the Encounter. Date/Time Encounter Note(s) Provider Source Jan 24, 2024 02:22 PM NONVA NOTE: LOCAL TITLE: COMMUNITY CARE-CARE COORDINATION PLAN NOTE 6[address] STANDARD TITLE: NONVA NOTE DATE OF NOTE: JAN 24, 2024@14:22 ENTRY DATE: JAN 24, 2024@14:23:07 AUTHOR: FABI SABILLON EXP COSIGNER: URGENCY: STATUS: COMPLETED COMMUNITY CARE-CARE COORDINATION PLAN NOTE 6[address] Has ADDENDA Community Care Consult: Pain Management Consult No: [id number] [facility] Referral #: [id number] Chief Complaint: Pain in left Knee Patient Admitted? No Level of Care Coordination Moderate Care Coordination was determined from: Chart Review Facility Community Care Office Contact Care Coordination Point of Contact: Fabi Sabillon RN Services: Basic Care Coordination Services Monitoring and coordination of Rehab/PT Services Direct communication to referring provider Care management, if appropriate Plan: Will follow until consult is scheduled. Will navigate services regarding protocol; monitoring and coordinating CC appt, monitor disease process, report significant findings, communicate with /care team, transition care to the referring provider. Provider selection pending consult processing. /amilcar/ FABI SABILLON MSN RN REGISTERED NURSE Signed: 01/24/2024 14:26 04/23/2024 ADDENDUM STATUS: COMPLETED [facility] [address] [address] [place] [address] P: [phone] F: [phone] Jessica Mandujano Patient seen with recommended follow up in 4-6 months. /monet SABILLON MSN RN REGISTERED NURSE Signed: 04/23/2024 17:50 FABI SABILLON [facility]
--- OUTSIDE RECORDS SUMMARY | 2024-09-29 08:10 | XMS_ITS | Encounter Summary ---
Author Name Department of [facility] Affairs ([place]) Organization Department of [facility] Affairs ([place]) Address [address] [place] [address] Care Team Providers Care Adjuster Electrical Contacts Name Role Phone LOULOU KILGORE Primary Care [...] PART A Nov 19, 2022 PART A [id number] MANDY SAN PATIENT MEDICARE (WNR) MEDICARE (M) PART B Nov 19, 2022 PART B [id number] MANDY SAN PATIENT Selected Encounter This section includes the information on record at OR for the Encounter. Date/Time Encounter Type Encounter Description Reason Provider Source Nov 30, 2023 01:00 PM OFFICE O/P NEW LOW 30 MIN OTOLARYNGOLOGY/EN T ICD-10-CM J32.8 Other chronic sinusitis GERMAINE,HERMELINDO ODETTE IHE Encounter Template Text not used by [place] Assessments - Encounter Diagnoses This section includes the primary and secondary diagnoses documented for the Encounter. Date/Time Primary/Secondary Diagnosis Diagnosis Name Provider Source Dec 01, 2023 05:12 PM PRIMARY Other chronic sinusitis RAJEEV FRANCIS [facility] Dec 01, 2023 05:12 PM SECONDARY Central perforation of tympanic membrane, right ear RAJEEV FRANCIS [facility] Plan of Treatment: Future Appointments (+ 6 months) and Future Tests (+/- 45 days) The Plan of Treatment section includes future care activities for the patient from all [place] [facility]. This section includes future appointments and future orders which are active, pending or scheduled. Future Appointments This section includes appointments that were scheduled to occur 6 months from the date of the Encounter, up to a maximum of 20 appointments. The data comes from all [place] treatment facilities. Appointment Date/Time Appointment Type Appointme nt Facility Name Dec 10, 2023 09:34 AM AMBULATORY - MEDICINE [facility] Jan 01, 2024 09:00 AM AMBULATORY - SURGERY [facility] Jan 12, 2024 09:00 AM AMBULATORY - NONE [facility] Jan 22, 2024 08:40 AM AM[facility]ULATORY [facility] NONE [facility] Jan 22, 2024 01:30 PM AM[facility]ULATORY [facility]ERY [facility] Jan 22, 2024 02:30 PM AMBULATORY - NONE [facility] Jan 31, 2024 11:00 AM AMBULATORY - NONE [facility] Feb 11, 2024 10:20 AM AMBULATORY - NONE [facility] Mar 17, 2024 01:00 PM AMBULATORY - SUR[facility]ERY [facility] Mar 21, 2024 11:30 AM AM[facility]ULATORY - [facility] Mar 24, 2024 10:00 AM AMBULATORY - MEDICINE [facility] Mar 27, 2024 10:30 AM AMBULATORY - MEDICINE [facility] Apr 01, 2024 08:30 AM AM[facility]ULATORY - NONE [facility] Apr 03, 2024 10:00 AM AMBULATORY - NONE [facility] Apr 10, 2024 10:00 AM AMBULATORY - MEDICINE [facility] Vital Signs: All taken on the encounter date This section contains inpatient and outpatient Vital Signs collected on the date of the Encounter. Date/Time Temperature Pulse Blood Pressure Respiratory Rate SP02 Pain Height Weight Body Mass Index Source Nov 30, 2023 12:46 PM 98.7 82 137/87 16 96 0 [facility] Radiology Reports: +/- 30 days [...] the Encounter. The data comes from all [place] treatment facilities. Date/Time Radiology Report Provider Source Dec 10, 2023 09:46 AM CHEST X-RAY, 2 VIE WS: RAJEEV SAN [id number] M Ex Date: DEC 10, 2023@09:46 Req Phys: ALAN FRYE Loc: -EMERGENCY DEPT 2ND SHIFT (R Img Loc: -MAIN RADIOLOGY SUITE Service: [address] [address] (Case [id number] COMPLETE) CHEST X-RAY, 2 VIEWS (RAD Detailed) CPT:48757 Reason for Study: SOB, nonproductive cough Clinical History: Report Status: Verified Date Reported: DEC 10, 2023 Date Verified: DEC 10, 2023 Die Cleaner E-Sig:/ES/CHARLIE VELEZ MD Report: CASE #: [id number] DATE:12/10/2023 9:54 AM CLINICAL HISTORY:SOB, nonproductive cough TECHNIQUE: CHEST X-RAY, 2 VIEWS COMPARISON: None currently available. PA and lateral chest x-ray Heart: No significant pathology Lungs: No significant pathology. Mediastinum: No significant pathology Pulmonary vasculature: Within normal limits. Impression: No acute disease Dictated by Denae Gay M.D. (Diagnostic Screw Machine Tender). I, Charlie Velez, have reviewed the images and report and concur with these findings. Primary Interpreting Staff: CHARLIE VELEZ MD, Radiologist (Die Cleaner) Primary Interpreting Resident: Denae Gay MD, Resident Physician /CHARLIE VENTURA [facility] Encounter Notes: All associated encounter notes This section contains the clinical notes associated to the Encounter. Date/Time Encounter Note(s) Provider Source Nov 30, 2023 01:14 PM OTOLARYNGOLOGY CONSULT: LOCAL TITLE: OTOLARYNGOLOGY CONSULT ST STANDARD TITLE: OTOLARYNGOLOGY CONSULT DATE OF NOTE: NOV 30, 2023@13:14 ENTRY DATE: NOV 30, 2023@13:14:58 AUTHOR: RAJEEV FRANCIS EXP COSIGNER: HERMELINDO HERRON URGENCY: STATUS: COMPLETED NOV 30, 2023 OTOLARYNGOLOGY-HEAD AND NECK SURGERY - NEW PATIENT CONSULT NOTE CC: recurrent sinus infections, hearing loss HPI: RAJEEV SAN is a 68 y/o male presenting for persistent hearing loss and recurrent sinus infections. He has a history of right TM perforation s/p multiple tympanoplasty (w/ Dr. Gonzalez) c/b persistent perforation. He has persistent hearing loss as well as intermittent otorrhea from the right ear. No otalgia, facial weakness, or vertigo. He is scheduled to see Dr. Gonzalez again in December. He typically has significant facial pressure with sinus infections that improves with antibiotics. Denies any facial numbness, vision or smell loss, or known allergies. He has persistent right nasal obstruction. Pt denies ear pain, dysphagia, globus, aspiration, hemoptysis, voice change and unintentional weight loss. PMH: 1) Hyperlipidemia 2) Derangement of meniscus of left knee joint 3) Pain in both feet 4) Deviated nasal septum 5) Low back pain MEDICATIONS: Active Outpatient Medications (including Supplies): Active Outpatient Medications Status ========= 1) CARBOXYMETHYLCELLULOSE 1% OPH GEL 0.4ML INSTILL 1 ACTIVE DROP INTO AFFECTED EYE(S) FOUR TIMES A DAY NEEDED FOR DRY EYE(S) USE DIRECTED 2) CARBOXYMETHYLCELLULOSE NA 0.5% OPH SOLN INSTILL 1 ACTIVE DROP IN BOTH EYES FOUR TIMES A DAY NEEDED FOR DRY EYE(S) 3) DICLOFENAC NA 1% TOP GEL APPLY 4 GM TO AFFECTED ACTIVE AREA(S) FOUR TIMES A DAY FOR PAIN DO NOT EXCEED MORE THAN 16 GRAMS DAILY TO ANY LOWER EXTREMITY JOINT. NOT MORE THAN 8 GRAMS DAILY TO ANY UPPER EXTREMITY JOINT. MAX 32GM/DAY OVER ALL JOINTS. (MEASURE DOSE WITH RULER ATTACHED INSIDE BOX) 4) OLOPATADINE HCL 0.2% OPH SOLN INSTILL 1 DROP IN BOTH ACTIVE EYES ONCE A DAY 5) ROSUVASTATIN CA 20MG TAB TAKE ONE-HALF TABLET BY ACTIVE MOUTH EVERY EVENING 6) SODIUM CHLORIDE 0.9% INHL 3ML USE 3 ML VIAL BY TO ACTIVE AFFECTED AREA(S) FOUR TIMES A DAY USE DIRECTED BY YOUR EYE CARE PROVIDER FOR SCLERAL CONTACT LENS Active Non-VA Medications Status ========= 1) Non-VA DICLOFENAC NA 75MG EC TAB 75MG BY MOUTH EVERY ACTIVE MORNING AND EVENING 7 Total Medications ALLERGIES: CAFFEINE PSH: Reviewed SH: Address: [address] [place] [address] Employment: Reviewed Tobacco: Reviewed EtOH: Reviewed Drug abuse: none FH:Reviewed ROS: Constitutional: denies significant weight loss or weight gain. Neuro: denies headaches, vision changes, vertigo, dizziness, numbness/tingling HEENT: as noted in HPI CV: denies chest pain Resp: denies SOB GI: denies N/V, constipation, diarrhea Renal: denies hematuria/dysuria, extremity swelling Heme: no bleeding disorders Derm: no rashes PHYSICAL EXAM: Temp: 98.7 F [37.1 C] (11/30/2023 12:46) Pulse Ox: Measurement DT POx (L/MIN)(%) 11/30/2023 12:46 96 08/16/2023 09:26 97 05/09/2023 10:07 97 03/26/2023 10:27 96 PULSE: 82 (11/30/2023 12:46) RESPIRATION: 16 (11/30/2023 12:46) BLOOD PRESSURE: 137/87 (11/30/2023 12:46) WEIGHT: 188 lb [85.28 kg] (09/26/2023 09:34) GEN: General: Awake, NAD FACE: Normocephalic/Atraumatic. No scars or cutaneous lesions. EARS: Bilateral auricles well formed. No drainage. Microscopy exam: R EAC clear, TM w/ persistent central perforation, Me aerated L EAC clear, TM intact, Me aerated NOSE: External nose normal. No drainage. Nasal septum deviated to the left anteriorly. EYES: EOMI. Conjugate gaze. No nystagmus. Vision grossly intact. OC/OP: No oral bleeding, Mucosa moist without lesions. NECK: Supple with no LAD. Trachea midline. CHEST: breathing comfortably, no stridor/stertor. Skin: Warm and well perfused. NEURO: Cranial nerves II-XII grossly intact, A&Ox3 LABS/IMAGING/DIAGNOSTICS: Audio (09/21/23) Right Ear- Audiometry (air and/or bone conduction):Moderate to profound mixed loss with good speech discrimination SRT: 60 WRS: 80% Tympanogram:Could not seal Reflexes:Could not seal Left Ear- Audiometry (air and/or bone conduction):Mild to severe sensorineural loss with good discrim SRT: 30 WRS: 88% Tympanogram:Hyper-compliant type Ad, hand-held Reflexes:Could not hold seal ASSESSMENT: RAJEEV SAN is a 68 y/o male who presents with recurrent sinus infections and right-sided hearing loss in the seting of 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 Advised patient to continue otologic care with Dr. Gonzalez and follow-up as scheduled. Will start a nasal regimen with plans to obtain a CT scan in 1 month to evalute for paranasal sinus disease. PLAN: - Start sinus irrigations BID, flonase, azelastine - Follow-up with Dr. Gonzalez as scheduled - CT sinus in 1 month - RTC 3 months on a to review CT scan /es/ RAJEEV FRANCIS Resident Physician Signed: 12/01/2023 17:12 /amilcar/ HERMELINDO HERRON STAFF PHYSICIAN Cosigned: 12/06/2023 17:38 RAJEEV FRANCIS [facility]
--- OUTSIDE RECORDS SUMMARY | 2024-09-29 08:10 | XMS_ITS ---
Author Name Department of [facility]a Affairs ([place]) Organization [facility]) Address [address] [place] [address] Care Team Providers Care Work From Home Name Role Phone LOULOU KILGORE Primary Care [...] PART A Nov 19, 2022 PART A [id number] [phone] MANDY SAN PATIENT MEDICARE (WNR) MEDICARE (M) PART B Nov 19, 2022 PART B [id number] MANDY SAN PATIENT Selected Encounter This section includes the information on record at [place] for the Encounter. Date/Time Encounter Type Encounter Description Reason Provider Source July 15, 2024 12:00 PM OFFICE O/P EST MOD 30 MIN ORTHO/JOINT SURG ICD-10-CM M23.207 Derangement of unsp meniscus due to old tear/inj, left knee WEHKING,MILAGROS W IHE Encounter Template Text not used by [place] Assessments - Encounter Diagnoses This section includes the primary and secondary diagnoses documented for the Encounter. Date/Time Primary/Secondary Diagnosis Diagnosis Name Provider Source July 15, 2024 12:48 PM PRIMARY Derangement of unsp meniscus due to old tear/inj, left knee MILAGROS PALMER [facility] Plan of Treatment: Future Appointments (+ 6 months) and Future Tests (+/- 45 days) The Plan of Treatment section includes future care activities for the patient from all [place] [facility]. This section includes future appointments and future orders which are active, pending or scheduled. Future Appointments This section includes appointments that were scheduled to occur 6 months from the date of the Encounter, up to a maximum of 20 appointments. The data comes from all [place] treatment facilities. Appointment Date/Time Appointment Type Appointme nt Facility Name Sep 08, 2024 10:30 AM AMBULATORY - SURGERY [facility] Nov 13, 2024 10:30 AM AMBULATORY - NONE [facility] Jan 07, 2025 01:30 PM AMBULATORY - MEDICINE [facility] Jan 12, 2025 10:30 AM AMBULATORY - SURGERY [facility] Encounter Notes: All associated encounter notes This section contains the clinical notes associated to the Encounter. Date/Time Encounter Note(s) Provider Source July 15, 2024 11:41 AM ORTHOPEDIC SURGERY NOTE: LOCAL TITLE: ORTHOPEDIC ST STANDARD TITLE: ORTHOPEDIC SURGERY NOTE DATE OF NOTE: JULY 15, 2024@11:41 ENTRY DATE: JULY 15, 2024@11:41:28 AUTHOR: MILAGROS PALMER EXP COSIGNER: URGENCY: STATUS: COMPLETED RAJEEV SAN, is a 68 year old MALE who presents to the [facility] for follow up regarding his left knee. He was last seen for this problem 06/22/2023 received a left knee Durolane injection. He was also given a commute care consult to pain management for genicular blocks/RFA. He was experiencing increased pain and the injections were not helping as much. After long discussion at appointment he started working on losing weight and moving more and he is lost over 20 pounds. He states his knee is feeling much better and he credits me for making him do it. He did meet with community care pain management at [facility] and they decided to hold off on the genicular block/RFA right now because his knee is doing so much better. Patient denies increased erythema, swelling, pain or warmth after previous injections . Would like to proceed with left knee Durolane injection(s) today. Unfortunately his appointment tomorrow got canceled because I will be out of the office for the next week and a half. He came in today to check on his appointment and I was able to fit him in today. He is getting ready to leave on a 3-week trip to [place] and would really appreciate an injection. REVIEW OF SYSTEMS: General: (-)fever/chills, (-)unexplained weight [...] Deviated nasal septum 5) Low back pain 6) Prediabetes 7) Elevated blood-pressure reading without diagnosis of hypertension Medications Active Outpatient Medications (including Supplies): Active Outpatient Medications Status 1) AZELASTINE [...] 4 GM TO AFFECTED AREA(S) FOUR ACTIVE TIMES A DAY NEEDED NO MORE THAN 16 GM/DAY TO ANY LOWER EXTREMITY JOINT. NO MORE THAN 8 GM/DAY TO ANY UPPER EXTREMITY JOINT. MAX 32GM/DAY OVER ALL JOINTS.(MEASURE DOSE WITH RULER INSIDE BOX) Indication: FOR PAIN 4) FLUTICASONE PROP 50MCG 120D NASAL INHL INSTILL 2 SPRAYS IN ACTIVE NOSTRIL(S) TWICE A DAY (MUST BE USED DIRECTED FOR MINIMUM OF 21 DAYS TO PROVIDE ADEQUATE BENEFITS) Indication: FOR RHINITIS 5) ROSUVASTATIN CA 20MG TAB TAKE ONE-HALF TABLET BY MOUTH EVERY ACTIVE EVENING Indication: FOR HIGH CHOLESTEROL Active Non-VA Medications Status 1) Non-VA DICLOFENAC NA 75MG EC TAB 75MG BY MOUTH EVERY MORNING ACTIVE AND EVENING Indication: FOR PAIN 6 Total Medications Allergies CAFFEINE Vital Signs: Temp: 97.8 F [36.6 C] (06/05/2024 09:20) Pulse: 77 (06/05/2024 09:20) BP: 147/78 (06/05/2024 09:20) RESP: 18 (06/05/2024 09:20) Pain: 0 (06/05/2024 09:20) Height: 69 in [175.3 cm] (03/27/2024 10:29) Weight: 195.4 lb [88.63 kg] (04/10/2024 09:54) BMI:28.9 CRE:CREATININE 0.78 mg/dL 03/20/2024 11:30 HBA1C: HGA1C 5.9 % 03/20/2024 11:30 EXAMINATION: Constitutional: Patient alert and oriented x3, [...] 03/26/2023 SPINE LUMBOSACRAL 2 OR 3 VIEWS [id number] Verified 627 Intervertebral disc space height loss and endplate remodeling is most prominent at L4-L5 and L2-L3. Multilevel facet arthropathy. Degenerative changes involving the sacroiliac joints. 5 nonrib-bearing bearing vertebral bodies. Lowest fully formed intervertebral disc space is designated as L5-S1. Normal vertebral body heights. No traumatic subluxation of the posterior elements. 03/26/2023 KNEE,LEFT, 3 VIEWS [id number] Verified 612 \H\Right knee: \N\ Joint spaces are grossly preserved. No acute displaced fracture. No significant malalignment. \H\Left knee: \N\ The joint spaces are grossly preserved. No acute displaced fracture. No significant malalignment. 03/26/2023 KNEE,RIGHT,1 OR 2 VIEWS [id number] Verified 613 IMPRESSION: derangement meniscus left knee [...] day, for at least 30 minutes. - diclofenac topical: QID scheduled Viscosupplement injections: [...] injections to each joint is three: lifetime. INJECTION: KNEE Left knee Durolane viscosupplement injection(s) [...] verbalized understanding. Left knee Durolane 60mg/3 ml lot [id number] 2026-11-18 Numbing of area before above injection: The [...] without any significant resistance. Left knee Lidocaine 3ml 1% [id number] -avoid any activities that put stress on your knee (such as jogging, tennis, heavy lifting, standing on your feet for more than an hour) for 48 hours. -If after the injection, experience increased pain, redness or tenderness ,blood sugar >299: seek attention promptly. - f/u 6 months re-evaluation of left knee and probable left knee Durolane viscosupplement injection(s) NO OB, NO OFF GRID Patient verbalized understanding and agreed with the plan of care outlined above. Time spent: 30 minutes chart review, interview, physical examination, inspection of images, medical charge entry specialist, counseling/teaching, and documentation /es/ MILAGROS PALMER ANP- Advanced Practice Nurse, Orthopedics Signed: 07/15/2024 12:49 MILAGROS PALMER [facility]
--- OUTSIDE RECORDS SUMMARY | 2024-09-29 08:11 | XMS_ITS ---
Author Organization [facility] Address [address] [place] [address] Care Team Providers Care Tooling Supervisor Name Role Phone Jeffry Khanna MD Primary Care Provi juan Active Problems Problem Noted Date Diagnosed Date Basal cell carcinoma (BCC) 04/22/2024 Overview (04/22/2024): Outside Source Comment: see below Elevated blood pressure read ing without diagnosis of hypertension 04/22/2024 Other chronic sinusitis 04/22/2024 Sensorineural hearing loss, bilateral 04/22/2024 Simple chronic bronchitis 04/22/2024 Vitreous degeneration, right eye 04/22/2024 Chronic mastoiditis, right 03/03/2024 Conductive hearing loss of r ight ear with unrestricted hearing of left ear 03/03/2024 Derangement of unspecified m eniscus due to old tear or injury, left knee 10/09/2023 Low back pain, unspecified 10/09/2023 Polyp of colon 10/09/2023 Unilateral primary osteoarthritis, left knee Unspecified pterygium of eye, bilateral 10/09/19 Perforation of right tympanic membrane Conductive hearing loss of r ight ear with restricted hearing of left ear 05/28/2023 Right chronic otitis media 05/28/2023 Abnormal electrocardiography 05/15/2023 Murmur 05/15/2023 Tear of medial meniscus of knee 04/26/2023 Foreign body granuloma of skin 09/15/2018 Overview (04/22/2024): Outside Source Comment: Overview: Vicryl suture Inflamed seborrheic keratosis 09/26/2017 Overview (04/22/2024): Outside Source Comment: Last Assessment & Plan: - Discussed benign potential - Fully reviewed treatment options with patient including indications, risks, benefits, alternatives to LN2 - pt desires treatment - Cryo x 5 lesion - Wound care reviewed - Post cryo handout given Current Treatment and Therapy Plans No current plan information found. Past Treatment and Therapy Plans No past plan information found. Lifetime Dose Tracking * Chemical Lifetime Dose Automatic Entry Manual Entr y DLP 579 mGycm 579 mGycm 0 mGycm
--- OUTSIDE RECORDS SUMMARY | 2024-09-29 08:11 | XMS_ITS ---
Author Name [facility] [place] [facility] [place] [facility] [place] Address [address] [place] [address] Care Team Providers Care Carver And Checkerer Specials Name Role Phone LOULOU KILGORE Primary Care [...] PART A Nov 19, 2022 PART A [id number] MANDY SAN PATIENT MEDICARE (WNR) MEDICARE (M) PART B Nov 19, 2022 PART B [id number] [place]Y [place] PATIENT Selected Encounter This section includes the information on record at [place] for the Encounter. Date/Time Encounter Type Encounter Description Reason Provider Source Nov 20, 2023 08:20 AM MANUAL THERAPY 1/> [employer] WORKER ICD-10-CM M54.50 Low back pain, unspecified ESME CARR Encounter Template Text not used by [place] Assessments - Encounter Diagnoses This section includes the primary and secondary diagnoses documented for the Encounter. Date/Time Primary/Secondary Diagnosis Diagnosis Name Provider Source Nov 20, 2023 08:38 AM PRIMARY Low back pain, unspecified EVER CARR [facility] Nov 20, 2023 08:38 AM SECONDARY Myalgia, other site ETHELCLEMENCIAEVER CARVALHO Jr [facility] Plan of Treatment: Future Appointments (+ 6 months) and Future Tests (+/- 45 days) The Plan of Treatment section includes future care activities for the patient from all [place] [facility]. This section includes future appointments and future orders which are active, pending or scheduled. Future Appointments This section includes appointments that were scheduled to occur 6 months from the date of the Encounter, up to a maximum of 20 appointments. The data comes from all [place] treatment facilities. Appointment Date/Time Appointment Type Appointme nt Facility Name Nov 30, 2023 01:00 PM AMBULATORY - SURGERY [facility] Dec 10, 2023 09:34 AM AMBULATORY - MEDICINE [facility] Jan 01, 2024 09:00 AM AMBULATORY - SURGERY [facility] Jan 12, 2024 09:00 AM AMBULATORY - NONE [facility] Jan 22, 2024 08:40 AM AMBULATORY - NONE [facility] Jan 22, 2024 01:30 PM AMBULATORY - SURGERY [facility] Jan 22, 2024 02:30 PM AMBULATORY - NONE [facility] Jan 31, 2024 11:00 AM AMBULATORY - NONE [facility] Feb 11, 2024 10:20 AM AMBULATORY - NONE [facility] Mar 17, 2024 01:00 PM AMBULATORY - SURGERY [facility] Mar 21, 2024 11:30 AM AMBULATORY - SURGERY [facility] Mar 24, 2024 10:00 AM AMBULATORY - MEDICINE [facility] Mar 27, 2024 10:30 AM AMBULATORY - MEDICINE [facility] Apr 01, 2024 08:30 AM AMBULATORY - NONE [facility] Apr 03, 2024 10:00 AM AMBULATORY - NONE [facility] Apr 10, 2024 10:00 AM AMBULATORY - MEDICINE [facility] Radiology Reports: +/- 30 days of the [...] the Encounter. The data comes from all [place] treatment facilities. Date/Time Radiology Report Provider Source Dec 10, 2023 09:46 AM CHEST X-RAY, 2 VIE WS: RAJEEV SAN Alireza [id number] -[id number] M Exm Date: DEC 10, 2023@09:46 Req Phys: ALAN FRYE Loc: -EMERGENCY DEPT 2ND SHIFT (R Img Loc: -MAIN RADIOLOGY SUITE Service: [address] [address] (Case [id number] COMPLETE) CHEST X-RAY, 2 VIEWS (RAD Detailed) CPT:80956 Reason for Study: SOB, nonproductive cough Clinical History: Report Status: Verified Date Reported: DEC 10, 2023 Date Verified: DEC 10, 2023 Division Sergeant E-Sig:/ES/CHARLIE VELEZ MD Report: CASE #: [id number] DATE:12/10/2023 9:54 AM CLINICAL HISTORY:SOB, nonproductive cough TECHNIQUE: CHEST X-RAY, 2 VIEWS COMPARISON: None currently available. PA and lateral chest x-ray Heart: No significant pathology Lungs: No significant pathology. Mediastinum: No significant pathology Pulmonary vasculature: Within normal limits. Impression: No acute disease Dictated by Denae Gay M.D. (Diagnostic Sludge Control Attendant). I, Charlie Velez, have reviewed the images and report and concur with these findings. Primary Interpreting Staff: CHARLIE VELEZ MD, Radiologist (Division Sergeant) Primary Interpreting Resident: Denae Gay MD, Resident Physician /CHARLIE VENTURA [facility] Encounter Notes: All associated encounter notes This section contains the clinical notes associated to the Encounter. Date/Time Encounter Note(s) Provider Source Nov 20, 2023 07:49 AM CHIROPRACTIC NOTE: LOCAL TITLE: CHIROPRACTIC [facility] STANDARD TITLE: CHIROPRACTIC NOTE DATE OF NOTE: NOV 20, 2023@07:49 ENTRY DATE: NOV 20, 2023@07:49:08 AUTHOR: EVER CARR COSIGNER: URGENCY: STATUS: COMPLETED SUBJECTIVE: Patient presents today for a follow up visit. He continues to experience stiffness in the morning when waking up. He was able to close up the pool and mow the lawn, notes a bit more stiffness this morning. Denies numbness/tingling along lower extremities. GOALS: Decrease low back pain, improve core stability REFERRAL DATE: EXAM DATE(S): 05/23/23 11:00 INITIAL TREATMENT DATE: 05/23/23 11:00 TYPE OF CARE: active DISCHARGE DATE: ALERTS: EXAMINATION APPEARANCE, MOOD & ORIENTATION The patient is a 67 year old WHITE NOT OR MALE, who is alert and oriented to person, place, and time. The patient is in no apparent distress and is well developed and well nourished. Patient walks with slight limp offloading left lower extremity. OBJECTIVE/PALPATION: Taut and tender thoracolumbar paraspinals and QLs. RESTRICTIONS: Thoracic, lumbar, SIJ ASSESSMENT: Patient is a pleasant 67-year-old male with history of chronic low back [...] management with benefit and anticipate similar results. PLAN: The patient was given a review of findings following the exam. The benefits, risks and alternatives to pharmacy care coordinator were discussed with the patient, along with [...] thoracolumbar paraspinals, side-lying passive stretch lumbar paraspinals. Manual therapy 8 minutes. The patient reported feeling much better following their treatment. Treatment rendered without incident. HOME CARE: bug exercises, 10 reps 3 sets daily, curl ups 10 reps, 3 times daily, seated hamstring stretch as needed. Supine trunk rotations as needed RTC: 4-6 wks /es/ EVER CARR [facility] Chiropractic Physician Signed: 11/20/2023 08:38 EVER CARR [facility]
--- OUTSIDE RECORDS SUMMARY | 2024-09-29 08:11 | XMS_ITS | Encounter Summary ---
Author Name [facility] [place] Address [address] [place] [address] Care Team Providers Care Press Set Up Person Name Role Phone LOULOU KILGORE Primary Care [...] PART A Nov 19, 2022 PART A [id number] [place] PATIENT MEDICARE (WNR) MEDICARE (M) PART B Nov 19, 2022 PART B [id number] [place]Y [place] PATIENT Selected Encounter This section includes the information on record at [place] for the Encounter. Date/Time Encounter Type Encounter Description Reason Provider Source Jun 05, 2024 09:30 AM OFFICE O/P EST LOW 20 MIN OTOLARYNGOLOGY/EN T ICD-10-CM R09.81 Nasal congestion MIKEY CHANDLER Encounter Template Text not used by [place] Assessments - Encounter Diagnoses This section includes the primary and secondary diagnoses documented for the Encounter. Date/Time Primary/Secondary Diagnosis Diagnosis Name Provider Source Jun 05, 2024 10:07 AM PRIMARY Nasal congestion ARLETH CORNEJO [facility] Plan of Treatment: Future Appointments (+ 6 months) and Future Tests (+/- 45 days) The Plan of Treatment section includes future care activities for the patient [facility] all [place] [facility]. This section includes future appointments and future orders which are active, pending or scheduled. Future Appointments This section includes appointments that were scheduled to occur 6 months from the date of the Encounter, up to a maximum of 20 appointments. The data comes from all [place] treatment facilities. Appointment Date/Time Appointment Type Appointme nt Facility Name July 15, 2024 11:00 AM AMBULATORY - SURGERY [facility] July 15, 2024 12:00 PM AMBULATORY - SURGERY [facility] Sep 08, 2024 10:30 AM AMBULATORY - SURGERY [facility] Nov 13, 2024 10:30 AM AMBULATORY - NONE [facility] Vital Signs: All taken on the encounter date This section contains inpatient and outpatient Vital Signs collected on the date of the Encounter. Date/Time Temperature Pulse Blood Pressure Respiratory Rate SP02 Pain Height Weight Body Mass Index Source Jun 05, 2024 09:20 AM 97.8 77 147/78 18 [address] [facility] Encounter Notes: All associated encounter notes This section contains the clinical notes associated to the Encounter. Date/Time Encounter Note(s) Provider Source July 09, 2024 09:45 AM ADDENDUM: LOCAL TITLE: Addendum STANDARD TITLE: ADDENDUM DATE OF NOTE: JULY 09, 2024@09:45:55 ENTRY DATE: JULY 09, 2024@09:45:56 AUTHOR: APRYL SCHWARTZ EXP COSIGNER: URGENCY: STATUS: COMPLETED Patient is scheduled on , November 13 at noon for an endoscopic septoplasty and inferior turbinate reduction with Dr. Chandler. Patient will report to [address] [place] [address] by 1030 for pre op check-in appointment. Pre op labs and ekg will be ordered for completion on September 08 following his optometry appointment. Anesthesia will be consulted following completion of pre op testing. Pre op paperwork mailed. Please schedule in vista. /amilcar/ APRYL SCHWARTZ REGISTERED NURSE Signed: 07/09/2024 09:48 Receipt Acknowledged By: 07/09/2024 14:30 /es/ NAYLA BACK Resident Physician 07/10/2024 08:32 /es/ MIKEY CHANDLER STAFF PHYSICIAN, OTOLARYNGOLOGY --- Original Document --- 06/05/24 OTOLARYNGOLOGY STL: JUN 05, 2024 OTOLARYNGOLOGY-HEAD AND NECK SURGERY - ESTABLISHED PATIENT PROGRESS NOTE Dx: Nasal airway obstruction, chronic rhinitis Tx: Nasal irrigations, Flonase, azelastine S: RAJEEV SAN is a 68 y/o WHITE MALE presenting for routine follow- up. His sinus infections have improved on topical regimen. He still has nasal airway obstruction that he would like to address. 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 PHYSICAL EXAM: GEN: Awake, NAD FACE: NC/AT. No scars or cutaneous lesions. EARS: Bilateral auricles well formed. No drainage. NOSE: External nose normal. Nasal mucosa moist, no bleeding/drainage. Left septal deviation. Minimal improvement with modified caudal maneuver. Post- surgical scar from Mohs surgery and recon on nasal tip/dorsum EYES: EOMI. Vision grossly intact. OC/OP: No OC/OP bleeding, tolerating secretions, MMM NECK: Supple with no LAD. Trachea midline. CHEST: Breathing comfortably, no stridor/stertor. NEURO: Cranial nerves II-XII grossly intact. LABS/IMAGING/DIAGNOSTICS: CT Sinus 01/12/24 - Normal paranasal sinuses - Prominent left septal spur and septal deviation - Paradoxical right middle turbinate ASSESSMENT: RAJEEV SAN is a 68 y/o WHITE MALE with chronic rhinitis that responded well to topical therapy. He reports persistent nasal airway obstruction that he would like to address surgically. We discussed risks, benefits, and alternatives to endoscopic septoplasty and inferior turbinate reduction. Benefits of surgery would be improvement of nasal airflow. We discussed he would need to continue medical therapy for his chronic rhinitis. Risks include bleeding, infection, lack of benefit, pain, change in shape of the nose (rare), and empty nose syndrome (rare). PLAN: - OR planning - Pre-op CXR, labs, and EKG /amilcar/ ARLETH CORNEJO Resident Physician Signed: 06/05/2024 10:08 /amilcar/ MIKEY CHANDLER STAFF PHYSICIAN, OTOLARYNGOLOGY Cosigned: 06/05/2024 12:11 Receipt Acknowledged By: 06/05/2024 12:28 /amilcar/ APRYL SCHWARTZ REGISTERED NURSE APRYL SCHWARTZ [facility] Jun 05, 2024 09:54 AM OTOLARYNGOLOGY NOT E: LOCAL TITLE: OTOLARYNGOLOGY ST STANDARD TITLE: OTOLARYNGOLOGY NOTE DATE OF NOTE: JUN 05, 2024@09:54 ENTRY DATE: JUN 05, 2024@09:54:16 AUTHOR: ARLETH CORNEJO EXP COSIGNER: MIKEY CHANDLER URGENCY: STATUS: COMPLETED OTOLARYNGOLOGY ST Has ADDENDA JUN 05, 2024 OTOLARYNGOLOGY-HEAD AND NECK SURGERY - ESTABLISHED PATIENT PROGRESS NOTE Dx: Nasal airway obstruction, chronic rhinitis Tx: Nasal irrigations, Flonase, azelastine S: RAJEEV SAN is a 68 y/o WHITE MALE presenting for routine follow- up. His sinus infections have improved on topical regimen. He still has nasal airway obstruction that he would like to address. 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 PHYSICAL EXAM: GEN: Awake, NAD FACE: NC/AT. No scars or cutaneous lesions. EARS: Bilateral auricles well formed. No drainage. NOSE: External nose normal. Nasal mucosa moist, no bleeding/drainage. Left septal deviation. Minimal improvement with modified caudal maneuver. Post- surgical scar from Mohs surgery and recon on nasal tip/dorsum EYES: EOMI. Vision grossly intact. OC/OP: No OC/OP bleeding, tolerating secretions, MMM NECK: Supple with no LAD. Trachea midline. CHEST: Breathing comfortably, no stridor/stertor. NEURO: Cranial nerves II-XII grossly intact. LABS/IMAGING/DIAGNOSTICS: CT Sinus 01/12/24 - Normal paranasal sinuses - Prominent left septal spur and septal deviation - Paradoxical right middle turbinate ASSESSMENT: RAJEEV SAN is a 68 y/o WHITE MALE with chronic rhinitis that responded well to topical therapy. He reports persistent nasal airway obstruction that he would like to address surgically. We discussed risks, benefits, and alternatives to endoscopic septoplasty and inferior turbinate reduction. Benefits of surgery would be improvement of nasal airflow. We discussed he would need to continue medical therapy for his chronic rhinitis. Risks include bleeding, infection, lack of benefit, pain, change in shape of the nose (rare), and empty nose syndrome (rare). PLAN: - OR planning - Pre-op CXR, labs, and EKG /amilcar/ ARLETH CORNEJO Resident Physician Signed: 06/05/2024 10:08 /amilcar/ MIKEY CHANDLER STAFF PHYSICIAN, OTOLARYNGOLOGY Cosigned: 06/05/2024 12:11 Receipt Acknowledged By: 06/05/2024 12:28 /amilcar/ APRYL SCHWARTZ REGISTERED NURSE 07/09/2024 ADDENDUM STATUS: COMPLETED Patient is scheduled on , November 13 at noon for an endoscopic septoplasty and inferior turbinate reduction with Dr. Chandler. Patient will report to [address] [place] [address] by 1030 for pre op check-in appointment. Pre op labs and ekg will be ordered for completion on September 08 following his optometry appointment. Anesthesia will be consulted following completion of pre op testing. Pre op paperwork mailed. Please schedule in vista. /amilcar/ APRYL SCHWARTZ REGISTERED NURSE Signed: 07/09/2024 09:48 Receipt Acknowledged By: * AWAITING SIGNATURE * NAYLA BACK * AWAITING SIGNATURE * MIKEY CHANDLER THOMAS F [facility]
--- OUTSIDE RECORDS SUMMARY | 2024-09-29 08:11 | XMS_ITS | Clinical Summary ---
Author Organization [facility] Address [address] [place] [id number] Care Team Providers Care Electromechanical Assembly Technician Name Role Phone None, Provider MD Primary Care Provider Unavaila ble Social History Tobacco Use Types Packs/Day Years Used Date Smoking Tobacco: Never Assessed Sex and Gender Information Value Date Recorded Sex Assigned at Not on file Legal Sex Male 7:30 PM CDT Gender Identity Not on file Sexual Orientation Not on file Plan of Treatment Health Maintenance Due Date Last Done Comments Colorectal Cancer Screening Colonoscopy (10 Years) 1955 Hepatitis C 11/25/1975 Pneumococcal Vaccine: 50+ Years (1 of 1 - PCV) 11/25/2007 Zoster Vaccines (2 of 2) 10/20/2020 08/25/2020 Annual Medicare Wellness Visit 2022 COVID-19 Vaccine (4 - 2023-2 5 season) 2023 02/27/2021, 04/07/2020, 03/09/2020 DTaP, Tdap and Td Vaccines ( 2 - Td or Tdap) 08/16/2026 08/16/2016, 07/10/1996 RSV Immunization or 60+ Years (1 - 1-dose 75+ series) 2032 Meningococcal Vaccine Aged Out 07/25/2001 , 07/10/1996 No longer eligible based on patient's age to complete this topic Meningococcal B Vaccine Aged Out No l onger eligible based on patient's age to complete this topic RSV Immunizations Under 20 Months Aged Out No longer eligible b ased on patient's age to complete this topic Insurance [facility] Care Teams Electromechanical Assembly Technician Relationship Specialty Start Date End Date None, Provider, PCP - General UNKNOWN PHYSICIAN SPECIALTY 07/19/23
--- OUTSIDE RECORDS SUMMARY | 2024-09-29 08:11 | XMS_ITS | Encounter Summary ---
Author Name [facility] [place] Organization [facility] Address [address] [place] [address] Care Team Providers Care Paper Inserter Name Role Phone LOULOU KILGORE Primary Care [...] PART A Nov 19, 2022 PART A [id number] [phone] [place]Y [place] PATIENT MEDICARE (WNR) MEDICARE (M) PART B Nov 19, 2022 PART B [id number] [place]Y [place] PATIENT Selected Encounter This section includes the information on record at [place] for the Encounter. Date/Time Encounter Type Encounter Description Reason Provider Source Mar 17, 2024 01:00 PM OFFICE O/P EST LOW 20 MIN OPTOMETRY ICD-10-CM H11.009 Unspecified pterygium of unspecified eye XIOMARA NOE Encounter Template Text not used by [place] Assessments - Encounter Diagnoses This section includes the primary and secondary diagnoses documented for the Encounter. Date/Time Primary/Secondary Diagnosis Diagnosis Name Provider Source Mar 17, 2024 02:55 PM PRIMARY Unspecified pterygium of unspecified eye MEIR CHERY [facility] Mar 17, 2024 02:55 PM SECONDARY Age-related nuclear cataract, bilateral MEIR CHERYPALMER [facility] Mar 17, 2024 02:55 PM SECONDARY Dry eye syndrome [facility]rimal glands [facility] Mar 17, 2024 02:55 PM SECONDARY Presbyopia MEIR CHERYPALMER [facility] Plan of Treatment: Future Appointments (+ 6 months) and Future Tests (+/- 45 days) The Plan of Treatment section includes future care activities for the patient from all [place] [facility] This section includes future appointments and future orders which are active, pending or scheduled. Future Appointments This section includes appointments that were scheduled to occur 6 months from the date of the Encounter, up to a maximum of 20 appointments. The data comes from all [place] treatment facilities. Appointment Date/Time Appointment Type Appointme nt Facility Name Mar 21, 2024 11:30 AM AMBULATORY - SURGERY [facility] Mar 24, 2024 10:00 AM AMBULATORY - MEDICINE [facility] Mar 27, 2024 10:30 AM AMBULATORY - MEDICINE [facility] Apr 01, 2024 08:30 AM AMBULATORY - NONE [facility] Apr 03, 2024 10:00 AM AMBULATORY - NONE [facility] Apr 10, 2024 10:00 AM AMBULATORY - MEDICINE [facility] Jun 05, 2024 09:30 AM AMBULATORY - SUR[facility]ERY [facility] July 15, 2024 11:00 AM AMBULATORY - SUR[facility]ERY [facility] July 15, 2024 12:00 PM AMBULATORY - SURGERY [facility] Sep 08, 2024 10:30 AM AMBULATORY - SUR[facility]ERY [facility] Lab Results: +/- 30 days of [...] Type Comment Mar 20, 2024 11:30 AM [facility] COMPREHENSIVE METABOLIC PANEL PLASMA Specimen Type: PLASMA Comment: No hemolysis noted. Ordering Provider: LOULOU KILGORE Report Released Date/Time: Sep 26, 2023 10:07 AM Reporting Lab: [facility] [address] [facility] [address] Performing Lab: [address] [address] CREATININE 0.78 mg/dL 0.7-1.3 UREA NITROGEN 16.3 [...] 98.4 >60 Mar 20, 2024 11:30 AM [facility] CBC BLOOD Specimen Type: BLOOD No comment entered. Ordering Provider: LOULOU KILGORE Report Released Date/Time: Sep 26, 2023 10:07 AM Reporting Lab: [facility] [address] [facility] [facility] [address] Performing Lab: [address] [address] WBC 4.7 10*3/uL 3.6-11.2 RBC 4.92 10*6/uL [...] 0.00-0. 20 Mar 20, 2024 11:30 AM [facility] LIPID PANEL (STL) PLASMA Specimen Type: PLASM A Comment: No hemolysis noted. Ordering Provider: LOULOU KILGORE Report Released Date/Time: Sep 26, 2023 10:07 AM Reporting Lab: [facility] [address] [place] [phone] Performing Lab: [address] [address] CHOLESTEROL 197 mg/dL 0-200 TRIGLYCERIDE 111 mg/dL 0-150 CALCULATED LDL 129 mg/dL HDL(New) 46 mg/dL >40 Mar 20, 2024 11:30 AM [facility] PROST. SPECIFIC AG.(PB-STL) SERUM Specimen Ty pe: SERUM Comment: The listed sex of this patient may not be a typical indication for this test. Therefore, reference ranges or interpretive criteria listed may not be valid. Clinical correlation suggested. Ordering Provider: LOULOU KILGORE Report Released Date/Time: Sep 26, 2023 10:07 AM Reporting Lab: [facility] [address] [place] [phone] Performing Lab: [address] [address] PROST. SPECIFIC AG.(PB-STL) 1.393 ng/mL 0-4 Mar 20, 2024 11:30 AM [facility] HGA1C BLOOD Specimen Type: BLOOD No comment entered. Ordering Provider: LOULOU KILGORE Report Released Date/Time: Sep 26, 2023 10:07 AM Reporting Lab: [facility] [address] [facility] [address] Performing Lab: [facility] [address] [place] [phone] HGA1C 5.9 4.0-6.0 Mar 20, 2024 11:30 AM [facility] TSH (MA-PB) SERUM Specimen Type: SERUM Comment: No hemolysis noted. Ordering Provider: LOULOU KILGORE Report Released Date/Time: Sep 26, 2023 10:07 AM Reporting Lab: [facility] [address] [place] [phone] Performing Lab: [address] [address] TSH 1.969 u[IU]/mL 0.47-5 Mar 20, 2024 11:30 AM [facility] VITAMIN D, 25-HYDROXY SERUM Specimen Type: SE RUM Comment: The listed sex of this patient may not be a typical indication for this test. Therefore, reference ranges or interpretive criteria listed may not be valid. Clinical correlation suggested. Ordering Provider: LOULOU KILGORE Report Released Date/Time: Sep 26, 2023 10:07 AM Reporting Lab: [facility] [address] [facility] [address] Performing Lab: [address] [address] VITAMIN D, 25-HYDROXY 31.5 ng/mL 30-96 Encounter Notes: All associated encounter notes This section contains the clinical notes associated to the Encounter. Date/Time Encounter Note(s) Provider Source Mar 17, 2024 12:55 PM OPTOMETRY NOTE: LOCAL TITLE: OPTOMETRY NOTE STANDARD TITLE: OPTOMETRY NOTE DATE OF NOTE: MAR 17, 2024@12:55 ENTRY DATE: MAR 17, 2024@12:55:34 AUTHOR: MEIR CHERY EXP COSIGNER: MARY NOE URGENCY: STATUS: COMPLETED OPTOMETRY NOTE Has ADDENDA KALANI: 01/01/2024 REASON FOR VISIT: ScCL F/U CC: 1. stable vision since KALANI per pt - doing well in ScC wearing since 10am this morning - finished at [facility] - good comfort in ScC now, can tolerate longer wear time - cleans lens with [place] (Qdaily) and ClearCare (Q1W) - (-)flashes/floaters/curta in over vision Ocular meds: none Ocular ROS: 1. PVD [...] 6.1 H % 03/21/2023 08:21 Cardiovascular BP: 157/80 (01/22/2024 13:30) Pulse: 77 (01/22/2024 13:30) Neuro: Orientation: Normal Psych: Mood/Affect: Normal Depression/suicide ideation: NO * - VISUAL ACUITY - DVA WITH ScCL correction OD: 20/20 OS: 20/20 Pupils: PERRL OU (-)APD Confrontation: FTFC OU Extra-Ocular Muscles: Full OU Externals/adnexa: Unremarkable OU LMRx: 01/01/2024 OD: +3.50 -3.00 x031 20/20 OS: +2.75 -2.50 x140 20/20 Add: +2.50 - SLIT LAMP EXAMINATION - Lids/Lashes/Lacrimal: (-) blepharitis OU Conjunctiva/Sclera: tr injection 360 OU OS: (+)symblepharon/scarring reji Cornea: pannus 360, dense reji ant stromal scarring OU Ant Chamber: deep and quiet OU Iris: normal, (-)NVI OU Lens: tr NS OU (undilated) Intraocular Pressures (Goldmann): 1 gtt Altafluor Date OD OS Time Meds 01/01/2024 15 14 0938 none - RETINAL EVALUATION - UNDILATED (LDFE: 12/2023) Optic Nerve OD: 0.30 CDR Flat, pink, distinct (-)NVD OS: 0.30 CDR Flat, pink, distinct (-)NVD Assessment/Plan 03/17/2024 1. Hyperopia/astig/presbyopi a - stable BCVA c ScCL OU - good comfort/vision OD/OS - (+)slightly flat fitting inf OS, adequate fit OD conisder steepening OS only if pt has discomfort - (-) sleep/swim/shower in CL - Pt ed to use ClearCare/Unique PH cleaning system to disinfect/store lenses. - Stressed importance of maintaining good CL hygiene to minimize risks of CL-associated infections. Advised pt to remove CL and RTC STAT for any sudden onset of visual change (burning/redness/cloudine ss). Pt verbalized understanding. - RTC 6 mos for ScCL f/u. 2. Pterygium OU - s/p excision OU - high recurrence OS, uncomplicated OD - stable findings on clinical exam today (+)dense scarring/symblepharon OS c limited ABduction - pt was prev offered surgical treatment to increase motility OS but deferred d/t risk - Monitor at next visit for any changes in S/S's 3. Cataracts OU - not visually significant - BCVA c ScCL: 20/20 OD/OS/OU - no CE indicated at this time. - Pt ed on use of UV protection when outdoors to slow progression of cataract development. Monitor for visual changes. 4. DANNY OU - minimally symptomatic - using ATs PRN OU - Continue using ATs. No refills needed at this time - Monitor at next viist 5. PVD OD - did not assess today - asymptomatic for floaters/flashes/curtain over vision - (-)holes/breaks/detachmen ts per LDFE (01/01/2024) - Pt ed on signs/symptoms of RD (flashes/floaters/curtain over vision). RTC STAT for any sudden onset of symptoms. - Monitor at next dilated visit. Pt edu on all findings and given the opportunity to have questions answered RTC 6 mos for ScCL f/u. CONTACT LENS ASSESSMENT: 03/17/2024 - OD - Custom Stable Sa.097 CCZ: -1.00 Limbal Light: -2.00 SLZ: +1.00/-6.00 Power: -1.00 sphere BC: 7.85 JOCELINE: 14.8 CT: 0.30 PT: 0.40 Material: Optimum Extra Fit: good coverage, adequate edge lift, central 1:1, midperiph 1:1, limbus 1:0.5 (+)O-marking @ 45deg - OS - Custom Stable Sa.016 CCZ: -2.00 Limbal Light: -2.00 SLZ: 0.00/-7.00 SLZ in Q3 -2.00 Power: +1.00 sphere BC: 8.23 JOCELINE: 14.8 Material: Optimum Extra 30/30/155 edge vault OS: Light Blue OS Fit: good coverage, adequate edge lift, central 1:1, miderperpih 1:1, limbus 1:1 (+)NaFl seen under inf edge of lens (+)O-marking @ 35deg /es/ MEIR CHERY Optometry Resident Signed: 03/17/2024 14:55 /es/ MARY NOE OD CENTRAL OFFICE INSTALLER Cosigned: 03/17/2024 15:05 03/17/2024 ADDENDUM STATUS: COMPLETED CONTACT LENS ASSESSMENT: 03/17/2024 OD: Custom Stable Sa.097 CCZ: -1.00 Limbal Light: -2.00 SLZ: +1.00/-6.00 Power: -1.00 sphere BC: 7.85 JOCELINE: 14.8 CT: 0.30 PT: 0.40 Material: Optimum Extra OD: Clear Lens Add Hydrapeg Fit: good coverage, adequate edge lift, central 1:1, midperiph 1:1, limbus 1:0.5 (+)O-marking @ 45deg OS: Custom Stable Material: Optimum Extra Light Blue Sa.017 CCZ (Q1): -2.00 LITe Zone (Q1): -2.00 SLZ (Q1): 0.00 CCZ (Q2): -2.00 LITe Zone (Q2): -2.00 SLZ (Q2): -7.00 CCZ (Q3): -2.00 LITe Zone (Q3): -2.00 SLZ (Q3): -2.00 CCZ (Q4): -2.00 LITe Zone (Q4): -2.00 SLZ (Q4): -7.00 CT: 0.30 PT: 0.40 Edge Vault Height: 0.30 Edge Vault Width: 30.00 Edve Vault Angle: 155.00 LARS: -10.00 Add Hydrapeg Laser Stiven 'o' on Q1/Q3 Apexes Laser Stiven 'l' +2 Obrigs on 270 Power: +1.00 sphere BC: 8.23 JOCELINE: 14.8 Fit: good coverage, adequate edge lift, central 1:1, miderperpih 1:1, limbus 1:1 (+)NaFl seen under inf edge of lens (+)O-marking @ 35deg /amilcar/ MARY NOE OD CENTRAL OFFICE INSTALLER Signed: 03/17/2024 15:07 MEIR CHERY [facility]
--- OUTSIDE RECORDS SUMMARY | 2024-09-29 08:11 | XMS_ITS | Clinical Summary ---
Author Organization [facility] Address [address] [place] [address] Care Team Providers Care Grades 1 6 Tutor Name Role Phone Jeffry Khanna MD Primary Care Provi juan Allergies Active Allergy Reactions Criticality Noted Date Comments Caffeine Other (See comments) Low 03/17/2003 Can't tolerate Medications rosuvastatin (CRESTOR) 10 mg tabletIndicatio ns:hyperlipidem ia Take 1 tablet (10 mg total) by mouth nightly 3 Active CALCIUM ORALIndications :supplement Take 1 tablet by mouth every morning CA _Vit d3 oral daily Active Refresh Tears 0.5 % ophthalmic solutionIndicat ions:Dry Eye Administer 1 drop into both eyes 3 (three) times a day as needed 3 Active Eye Allergy Itch Relief 0.2 % ophthalmic solution Administer 1 drop into both eyes as needed for allergies 4 Active diclofenac sodium (VOLTAREN) 1 % gelIndications: Osteoarthritis Apply 2 g topically as needed Active HYDROcodone-reynaldo taminophen (NORCO) 5-325 mg per tabletIndicatio ns:Pain Take 1 tablet by mouth every 6 (six) hours as needed for pain (breakthrough pain) 15 tablet 5 Active Additional Information Patient not taking.Reported on 03/24/2024 ofloxacin (OCUFLOX) 0.3 % ophthalmic solution Administer 5 drops into the right ear 2 (two) times a day Start 1 week after surgery and continue until your follow up appointment 10 mL 3 5 Active albuterol HFA (PROVENTIL HFA,VENTOLIN HFA,PROAIR HFA) 90 mcg/actuation inhaler INHALE 1-2 PUFFS BY MOUTH EVERY 4-6 HOURS NEEDED 5 Active amoxicillin-cla vulanate (AUGMENTIN) 875-125 mg per tablet Take 1 tablet by mouth 2 (two) times a day 5 Active benzonatate (TESSALON) 200 mg capsule TAKE 1 CAPSULE BY MOUTH THREE TIMES DAILY FOR 10 DAYS 5 Active predniSONE (DELTASONE) 10 mg tablet TAKE 3 TABLETS BY MOUTH DAILY FOR 5 DAYS 5 Active Active Problems Problem Noted Date Diagnosed Date [...] care reviewed - Post cryo handout given Encounters Date Type Department Care Team Description 07/29/2024 10:00 AM CDT Office Visit [facility] Otolaryngology [address], [address] [place] [address] Juliocesar Gonzalez MD Chronic atticoantral suppurative otitis media, right ear (Primary Dx); Conductive hearing loss of right ear with unrestricted hearing of left ear 07/29/2024 9:40 AM CDT Procedure visit [facility] Otolaryngology [address], [facility] [address] [place] [address] Mixed conductive and sensorineural hearing loss of right ear with restricted hearing of left ear (Primary Dx) from Last 3 Months Surgical History Surgery Date Site/Laterality Comments ROTATOR CUFF REPAIR 02/19/1999 - 02/19/2000 Right R rotator cuff repair EYE SURGERY 02/19/2013 - 02/18/2014 eye surgery x5 SKIN CANCER EXCISION 02/19/2018 - 02/18/2019 skin cancer resection- squamous cell HERNIA REPAIR 06/19/2022 - 07/19/2022 2 weeks ago TYMPANOPLASTY 07/31/2022 Right 04/2023 Medical History Medical History Date Comments Osteoarthritis osteoarthritis Hx Other Medical mitral regurgit ation-mild Hx Other Medical tricuspid regur gitation-mild Hypercholesterolemia High choles terol Awareness under anesthesia woke during all 3 colonoscopies in the past Motion sickness Family History Medical History Relation Name Comments Anesthesia problems Neg Hx Malig Hyperthermia Neg Hx Pseudochol deficiency Neg Hx Social History Tobacco Use Types Packs/Day Years Used Date Smoking Tobacco: Never Smokeless Tobacco: Never Tobacco Cessation:Counseling Given: Not Answered Alcohol Use Standard Drinks/Week Comments Yes 0 (1 standard drink = 0.6 oz pur e alcohol) AUDIT-C Answer Date Recorded Q1: How often do you have a drink containing alc ohol? 2-3 times a week 03/24/2024 Q2: How many drinks containi ng alcohol do you have on a typical day when you are drinking? 1 or 2 03/24/2024 Q3: How often do you have si x or more drinks on one occasion? Never 03/24/2024 Hunger Vital Sign Answer Date Recorded Within the past 12 months, y ou worried that your food would run out before you got the money to buy more. Never true 03/24/19 25 Within the past 12 months, t he food you bought just didn't last and you didn't have money to get more. Never true 03/24/2024 Personal Safety Answer Date Recorded Have you ever been in or are you currently in a harmful physical or emotional relationship or is someone making you feel afraid or unsafe? Denies 03/03/2024 Sex and Gender Information Value Date Recorded Sex Assigned at Not on file Legal Sex Male 4:04 AM HORSE SHOER Gender Identity Not on file Sexual Orientation Not on file Obstetrics History Last Filed Vital Signs Vital Sign Reading Time Taken Comments Blood Pressure 135/87 03/24/2024 9:46 AM HORSE SHOER 97 Pulse 87 03/24/2024 9:46 AM HORSE SHOER Temperature 36.4 C (97.5 F) 03/24/2024 9:46 AM HORSE SHOER Respiratory Rate 10 03/24/2024 9:46 AM HORSE SHOER Oxygen Saturation 98% 03/24/2024 9:46 AM HORSE SHOER Inhaled Oxygen Concentration - - Weight 87.5 kg (193 lb) 03/24/2024 9:46 AM HORSE SHOER Height 175.3 cm (5' 9) 03/24/2024 9:46 AM HORSE SHOER Body Mass Index 28.5 03/24/2024 9:46 AM HORSE SHOER Plan of Treatment Health Maintenance Due Date Last Done Comments Colon Cancer Screening-Colonoscopy 1955 Depression Screening 1955 Hepatitis C Screening 1955 Prostate Cancer Screening-PSA 1957 DTaP/Tdap/Td Vaccine (1 - Tdap) 1968 Hepatitis B Screening 11/25/1975 Pneumococcal vaccine 65+ (1 of 2 - PCV) 1976 Zoster Vaccine (1 of 2) 11/25/2007 Well Visit 65+ 2022 Covid-19 Vaccine ( - season) 10/21/202310/2021, 03/09/2020 Influenza Vaccine (#1) 2024 12/27/2019 Fall Risk Assessment 03/03/2025 03/03/2024 Goals Goal Patient Goal Type Associated Problems Recent Progress Patient-Stated? Author CCM Chronic Pain Care Plan Chronic Care Management Cathy Garcia RN Note: Problem: Chronic Pain Goals: 1. Minimize further functional decline 2. Maximize quality of life 3. Control pain Strategies: - Activity/exercise program recommendation - Conservative stepwise pain medicine strategy with multi-disciplinary approach - Recommend healthy lifestyle strategies and compensatory methods as needed Procedures Procedure Name Priority Date/Time Associated Diagnosis Comments AUDBASE RESULTS 07/29/2024 9:42 AM CDT from Last 3 Months Results * AudBase Results (07/29/2024 9:42 AM CDT) Provider Scanning AUDIOLOGY SERVICES ORDERABLES Final Result from Last 3 Months Insurance [facility] MEDICARE [employer] Address: [address] [address] FOR LIFE MEDICARE FOR LIFE Care Teams Grades 1 6 Tutor Relationship Specialty Start Date End Date Jeffry Khanna MD PCP - General Internal Medicine 04/03/23
--- OUTSIDE RECORDS SUMMARY | 2024-09-29 08:11 | XMS_ITS | Encounter Summary ---
Author Name [facility] [place] [place] Organization [facility] [place] Address [address] [place] [address] Care Team Providers Care Furnace Installer Name Role Phone LOULOU KILGORE Primary Care [...] PART A Nov 19, 2022 PART A [id number] [phone] MANDY [place] PATIENT MEDICARE (WNR) MEDICARE ([place]) PART B Nov 19, 2022 PART B [id number] [phone] MANDY [place] PATIENT Selected Encounter This section includes the information on record at [place] for the Encounter. Date/Time Encounter Type Encounter Description Reason Pro vider Source IHE Encounter Template Text not used by [place]
--- OUTSIDE RECORDS SUMMARY | 2024-09-29 08:11 | XMS_ITS | Encounter Summary ---
Author Name Department of Vetera Affairs ([place]) Organization [facility] Address [address] [place] [address] Care Team Providers Care Electrolytic De Scaler Name Role Phone LOULOU KILGORE Primary Care [...] PART A Nov 19, 2022 PART A [id number] MANDY SAN PATIENT MEDICARE (WNR) MEDICARE (M) PART B Nov 19, 2022 PART B [id number] MANDY [place] PATIENT Selected Encounter This section includes the information on record at [place] for the Encounter. Date/Time Encounter Type Encounter Description Reason Provider Source Mar 21, 2024 11:30 AM OFFICE O/P EST MOD 30 MIN OTOLARYNGOLOGY/ENT ICD-10-CM J34.2 Deviated nasal septum GERMAINE,HERMELINDO ODETTE IHE Encounter Template Text not used by [place] Assessments - Encounter Diagnoses This section includes the primary and secondary diagnoses documented for the Encounter. Date/Time Primary/Secondary Diagnosis Diagnosis Name Provider Source Apr 10, 2024 06:44 PM PRIMARY Deviated nasal septum SHANDRACELINE BURGOSHAN IE [facility] Plan of Treatment: Future Appointments (+ 6 months) and Future Tests (+/- 45 days) The Plan of Treatment section includes future care activities for the patient from all [place] treatmentfacilities. This section includes future appointments and future orders which are active, pending or scheduled. Future Appointments This section includes appointments that were scheduled to occur 6 months from the date of the Encounter, up to a maximum of 20 appointments. The data comes from all [place] treatment facilities. Appointment Date/Time Appointment Type Appointme nt Facility Name Mar 24, 2024 10:00 AM AMBULATORY - MEDICINE [facility] Mar 27, 2024 10:30 AM AMBULATORY - MEDICINE [facility] Apr 01, 2024 08:30 AM AMBULATORY - NONE [facility] Apr 03, 2024 10:00 AM AMBULATORY - NONE [facility] Osborn [facility] Apr 10, 2024 10:00 AM AMBULATORY - MEDICINE [facility] Jun 05, 2024 09:30 AM AMBULATORY - SURGERY [facility] July 15, 2024 11:00 AM AMBULATORY - SURGERY [facility] July 15, 2024 12:00 PM AMBULATORY - SURGERY [facility] Sep 08, 2024 10:30 AM AMBULATORY - SURGERY [facility] Lab Results: +/- 30 days of the encounter This section includes the Chemistry and Hematology Lab Results on record with [place] for the patient. Radiology Reports and Pathology Reports are provided separately, in subsequent sections. Lab Results This section contains the Chemistry/Hematology Results that were resulted 30 days before or 30 daysafter the date of the Encounter. Date/Time Source Result Type Result - Unit Interpretation Reference Range Specimen Type Comment Mar 20, 2024 11:30 AM [facility] COMPREHENSIVE METABOLIC PANEL PLASMA Specimen Type: PLASMA Comment: No hemolysis noted. Ordering Provider: LOULOU KILGORE Report Released Date/Time: Sep 26, 2023 10:07 AM Reporting Lab: [facility] [address] [phone] Performing Lab: [facility] [address] [facility] [address] CREATININE 0.78 mg/dL 0.7-1.3 UREA NITROGEN 16.3 [...] 98.4 >60 Mar 20, 2024 11:30 AM [facility] LIPID PANEL (STL) PLASMA Specimen Type: PLASM A Comment: No hemolysis noted. Ordering Provider: LOULOU KILGORE Report Released Date/Time: Sep 26, 2023 10:07 AM Reporting Lab: [facility] [address] [place] [phone] Performing Lab: [address] [phone] CHOLESTEROL 197 mg/dL 0-200 TRIGLYCERIDE 111 mg/dL 0-150 CALCULATED LDL 129 mg/dL HDL(New) 46 mg/dL >40 Mar 20, 2024 11:30 AM [facility] CBC BLOOD Specimen Type: BLOOD No comment entered. Ordering Provider: LOULOU KILGORE Report Released Date/Time: Sep 26, 2023 10:07 AM Reporting Lab: [facility] [address] [place] [phone] Performing Lab: [address] [phone] WBC 4.7 10*3/uL 3.6-11.2 RBC 4.92 10*6/uL [...] 0.00-0. 20 Mar 20, 2024 11:30 AM [facility] PROST. SPECIFIC AG.(PB-STL) SERUM Specimen Ty pe: SERUM Comment: The listed sex of this patient may not be a typical indication for this test. Therefore, reference ranges or interpretive criteria listed may not be valid. Clinical correlation suggested. Ordering Provider: LOULOU KILGORE Report Released Date/Time: Sep 26, 2023 10:07 AM Reporting Lab: [facility] [address] [place] [phone] Performing Lab: [address] [phone] PROST. SPECIFIC AG.(PB-STL) 1.393 ng/mL 0-4 Mar 20, 2024 11:30 AM [facility] HGA1C BLOOD Specimen Type: BLOOD No comment entered. Ordering Provider: LOULOU KILGORE Report Released Date/Time: Sep 26, 2023 10:07 AM Reporting Lab: [address] [phone] Performing Lab: [address] [address] HGA1C 5.9 4.0-6.0 Mar 20, 2024 11:30 AM [facility] TSH (MA-PB) SERUM Specimen Type: SERUM Comment: No hemolysis noted. Ordering Provider: LOULOU KILGORE Report Released Date/Time: Sep 26, 2023 10:07 AM Reporting Lab: [facility] [address] [facility] [phone] Performing Lab: [facility] [address] [facility] [phone] TSH 1.969 u[IU]/mL 0.47-5 Mar 20, 2024 11:30 AM [facility] VITAMIN D, 25-HYDROXY SERUM Specimen Type: SE RUM Comment: The listed sex of this patient may not be a typical indication for this test. Therefore, reference ranges or interpretive criteria listed may not be valid. Clinical correlation suggested. Ordering Provider: LOULOU KILGORE Report Released Date/Time: Sep 26, 2023 10:07 AM Reporting Lab: [facility] [address] [facility] [phone] Performing Lab: [place] [address] [facility] [address] VITAMIN D, 25-HYDROXY 31.5 ng/mL 30-96 Vital Signs: All taken on the encounter date This section contains inpatient and outpatient Vital Signs collected on the date of the Encounter. Date/Time Temperature Pulse Blood Pressure Respiratory Rate SP02 Pain Height Weight Body Mass Index Source Mar 21, 2024 11:39 AM 98 93 138/73 16 97 0 [facility] Encounter Notes: All associated encounter notes This section contains the clinical notes associated to the Encounter. Date/Time Encounter Note(s) Provider Source Mar 21, 2024 08:07 AM OTOLARYNGOLOGY NOT E: LOCAL TITLE: OTOLARYNGOLOGY [facility] STANDARD TITLE: OTOLARYNGOLOGY NOTE DATE OF NOTE: MAR 21, 2024@08:07 ENTRY DATE: MAR 21, 2024@08:07:48 AUTHOR: LESVIA DEVI COSIGNER: HERMELINDO HERRON URGENCY: STATUS: COMPLETED OTOLARYNGOLOGY [facility] Has ADDENDA Life Sustaining Treatment Orders OTOLARYNGOLOGY-HEAD AND NECK SURGERY - NEW PATIENT CONSULT NOTE CC: recurrent sinus infections, hearing loss HPI NOV 30, 2023: RAJEEV SAN is a 68 y/o male presenting for persistent hearing loss and recurrent sinus infections. He has a history of right TM perforation s/p multiple tympanoplasty (w/ Dr. Allen) c/b persistent perforation. He has persistent hearing loss as well as intermittent otorrhea from the right ear. No otalgia, facial weakness, or vertigo. He is scheduled to see Dr. Allen again in December. He typically has significant facial pressure with sinus infections that improves with antibiotics. Denies any facial numbness, vision or smell loss, or known allergies. He has persistent right nasal obstruction. Interval (MAR 21, 2024): RAJEEV SAN is a 68 y/o WHITE MALE presenting for follow-up. He had tympanoplasty with DR allen 1 week ago to fix his TM perforation on the R. He reports 1 episode of congestion/facial pressure requiring steroids and antibiotics since he last saw us. He completed his nasal saline irrigations and flonase with some relief Pt denies ear pain, dysphagia, globus, aspiration, hemoptysis, voice change and unintentional weight loss. PHYSICAL EXAM: GEN: General: Awake, NAD FACE: Normocephalic/Atraumatic. No scars or cutaneous lesions. EARS: Bilateral auricles well formed. No drainage. Microscopy exam: R EAC clear, TM w/ packing in place L EAC clear, TM intact, Me aerated NOSE: External nose normal. No drainage. Nasal septum deviated to the left EYES: EOMI. Conjugate gaze. No nystagmus. 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 Advised patient to continue otologic care with Dr. Allen and follow-up as scheduled. Discussed with the patient his finding of normal CT sinus. His nasal congestion and facial pressure likely rhinitis 2/2 chronic rhinitis. Discussed with the patient continuing nasal regimen with consideration of operative intervention c/w Endoscopic septoplasty, bilateral inferior turbinate reductions PLAN: - Continue sinus irrigations BID, flonase, azelastine - Follow-up with Dr. Allen as scheduled - OR scheduling for Endoscopic septoplasty, bilateral inferior turbinate reductions, general anesthesia 1.5 hrs* /amilcar/ LESVIA DEVI MD Signed: 03/21/2024 11:35 /amilcar/ HERMELINDO HERRON STAFF PHYSICIAN Cosigned: 03/21/2024 11:44 Receipt Acknowledged By: 03/24/2024 09:57 /amilcar/ APRYL SCHWARTZ REGISTERED NURSE 03/31/2024 ADDENDUM STATUS: COMPLETED Called patient to discuss OR scheduling. Per discussion, patient did not meet with attending prior to being placed on OR waiting list. He also has a few upcoming trips. Discussed meeting with our new rhinology provider who will be starting in April, patient agreeable to this plan. Patient has a few upcoming trips making Sunday OR challenging. Text order placed for patient to be seen in clinic with Dr. Diaz. Removed from OR waitlist. Placed on tracking log. /amilcar/ APRYL SCHWARTZ REGISTERED NURSE Signed: 03/31/2024 10:00 LESVIA DEVI [facility]
--- OUTSIDE RECORDS SUMMARY | 2024-09-29 08:11 | XMS_ITS ---
Author Name Department of [place] Organization [place] Address [address] [place] [address] Care Team Providers Care Bookbinding Machine Operator Name Role Phone LOULOU KILGORE [...] PART A Nov 19, 2022 PART A [id number] [place]Y [place] PATIENT MEDICARE (WNR) MEDICARE ([place]) PART B Nov 19, 2022 PART B [id number] [place] PATIENT Selected Encounter This section includes the information on record at [place] for the Encounter. 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 Date/Time Primary/Secondary Diagnosis Diagnosis Name Provider Source Feb 11, 2024 10:40 AM PRIMARY Low back pain, unspecified EVER CARR [facility] Feb 11, 2024 10:40 AM SECONDARY Myalgia, other site EVER CARR [facility] Plan of Treatment: Future Appointments (+ 6 months) and Future Tests (+/- 45 days) The Plan of Treatment section includes future care activities for the [facility] [place] [facility] This section includes future appointments and future orders which are active, pending or scheduled. Future Appointments This section includes appointments that were scheduled to occur 6 months from the date of the Encounter, up to a maximum of 20 appointments. The data comes from all [facility]. Appointment Date/Time Appointment Type Appointme nt Facility Name Mar 17, 2024 01:00 PM AMBULATORY - SURGERY [facility] Mar 21, 2024 11:30 AM AMBULATORY - SURGERY [facility] Mar 24, 2024 10:00 AM AMBULATORY - MEDICINE [facility] Mar 27, 2024 10:30 AM AMBULATORY - MEDICINE [facility] Apr 01, 2024 08:30 AM AMBULATORY - NONE [facility] Apr 03, 2024 10:00 AM AMBULATORY - NONE [facility] Apr 10, 2024 10:00 AM AMBULATORY - MEDICINE [facility] Jun 05, 2024 09:30 AM AMBULATORY - SURGERY [facility] July 15, 2024 11:00 AM AMBULATORY - SURGERY [facility] July 15, 2024 12:00 PM AMBULATORY - SURGERY [facility] Radiology Reports: +/- 30 days of [...] the Encounter. The data comes from all [facility]. Date/Time Radiology Report Provider Source Jan 12, 2024 08:[address] SINUS W/O CONTR AST (ENV): RAJEEV SAN [id number] -[id number] M Exm Date: JAN 12, 2024@08:45 Req Phys: RAJEEV FRANCIS Pat Loc: [place]-ENT HEAD AND NECK CONSULT ( Img Loc: [place] IMAGING [place] Service: Unknown [facility] [address] [place] [address] (Case [id number] COMPLETE) CT SINUS W/O CONTRAST (ENV) (CT Detailed) CPT:98865 Reason for Study: chronic sinusiitis Clinical History: Responsible Attending: Dr. Singh Attending Contact Number: [phone] Resident Contact Number: [facility] Allergies listed in CPRS chart: CAFFEINE Creatinine: CREATININE 0.88 mg/dL 03/21/2023 08:21 /eGFR: STL EGFR (within one year). CREATININE 0.88 mg/dL (03/21/23 08:21) Wt: 188 lb [85.28 kg] (09/26/2023 09:34) History of: Renal failure, chronic or acute renal disease: NO Report Status: Verified Date Reported: JAN 14, 2024 Date Verified: JAN 14, 2024 Corporate Representative E-Sig:/ES/CHARLIE VELEZ MD Report: Axial images with sagittal and coronal reconstructions through the paranasal sinuses were performed. No mucosal thickening, soft tissue masses, or fluid in the sinuses. No bony erosion or destruction. The infundibula of the osteomeatal complexes are patent. Impression: Normal Primary Interpreting Staff: CHARLIE VELEZ MD, Radiologist (Corporate Representative) /CHARLIE CARTER [facility] Encounter Notes: All associated encounter notes This section contains the clinical notes associated to the Encounter. Date/Time Encounter Note(s) Provider Source Feb 11, 2024 10:22 AM CHIROPRACTIC NOTE: LOCAL TITLE: CHIROPRACTIC [facility] F/U [facility] STANDARD TITLE: CHIROPRACTIC NOTE DATE OF NOTE: FEB 11, 2024@10:22 ENTRY DATE: FEB 11, 2024@10:22:08 AUTHOR: EVER CARR COSIGNER: URGENCY: STATUS: COMPLETED SUBJECTIVE: Patient presents today for a follow up visit of low back back pain. he notes after yesterday after helping his son build storage unit in garage he had spasm in low back along low back, has improved since yesterday however still quite sore, denies radicular symptoms. He had orthopedic appointment. He rates low back as 6/10. Since previous visit has been using resistance bands regularly over past 3 weeks and finds that low back is getting stronger. Scheduled for ear surgery 03/03/2024 GOALS: Decrease low back pain, improve core [...] extremity. OBJECTIVE/PALPATION: Taut and tender thoracolumbar paraspinals, quadratus lumborum and right glutes/hamstring RESTRICTIONS: Thoracic, lumbar, SIJ ASSESSMENT: Patient is [...] exam. The benefits, risks and alternatives to child caregiver private home were discussed with the patient, along with [...] paraspinals, and QLs Manual therapy 8 minutes. Patient was instructed in seated figure 4 external hip rotators stretch. Encouraged continued home exercise routine. The patient reported feeling much better following their treatment. Treatment rendered without incident. HOME CARE: bug exercises, 10 reps 3 sets daily, curl ups 10 reps, 3 times daily, seated hamstring stretch as needed. Supine trunk rotations as needed, seated figure 4 hold 2-3 seconds, 5 reps, B/L daily. RTC:4-6 wks /es/ EVER CARR [facility] Chiropractic Physician Signed: 02/11/2024 10:41 EVER CARR [facility]
--- OUTSIDE RECORDS SUMMARY | 2024-09-29 08:11 | XMS_ITS | Encounter Summary ---
Author Name [facility] [facility] [place] [facility] [place] Address [address] [facility] [facility], [place] [address] Care Team Providers Care Rn Pediatric Name Role Phone LOULOU KILGORE Primary Care [...] PART A Nov 19, 2022 PART A [id number] [place] PATIENT MEDICARE (WNR) MEDICARE (M) PART B Nov 19, 2022 PART B [id number] [place] PATIENT Selected Encounter This section includes the information on record at [place] for the Encounter. Date/Time Encounter Type Encounter Description Reason Provider Source Apr 10, 2024 10:00 AM OFFICE O/P EST LOW 20 MIN PRIMARY CARE/MEDICINE ICD-10-CM M79.673 Pain in unspecified foot LOULOU KILGORE Encounter Template Text not used by [facility] Assessments - Encounter Diagnoses This section includes the primary and secondary diagnoses documented for the Encounter. Date/Time Primary/Secondary Diagnosis Diagnosis Name Provider Source Apr 10, 2024 10:28 AM PRIMARY Pain in unspecified foot SAMANTHA CONDON [facility] Plan of Treatment: Future Appointments (+ 6 months) and Future Tests (+/- 45 days) The Plan of Treatment section includes future care activities for the patient from all [place] treatmentfacilities. This section includes future appointments and future orders which are active, pending or scheduled. Future Appointments This section includes appointments that were scheduled to occur 6 months from the date of the Encounter, up to a maximum of 20 appointments. The data comes from all [place] treatment facilities. Appointment Date/Time Appointment Type Appointme nt Facility Name Jun 05, 2024 09:30 AM AMBULATORY - SURGERY [facility] July 15, 2024 11:00 AM AMBULATORY - SURGERY [facility] July 15, 2024 12:00 PM AMBULATORY - SURGERY [facility] Sep 08, 2024 10:30 AM AMBULATORY - SURGERY [facility] Lab Results: +/- 30 days of the encounter This section includes the Chemistry and Hematology Lab Results on record with [place] for the patient. Radiology Reports and Pathology Reports are provided separately, in subsequent sections. Lab Results This section contains the Chemistry/Hematology Results that were resulted 30 days before or 30 daysafter the date of the Encounter. Date/Time Source Result Type Result - Unit Interpretation Reference Range Specimen Type Comment Mar 20, 2024 11:30 AM [facility] COMPREHENSIVE METABOLIC PANEL PLASMA Specimen Type: PLASMA Comment: No hemolysis noted. Ordering Provider: LOULOU IKLGORE Report Released Date/Time: Sep 26, 2023 10:07 AM Reporting Lab: [facility] [address] [facility] [phone] Performing Lab: [facility] [address] [facility] [phone] CREATININE 0.78 mg/dL 0.7-1.3 UREA NITROGEN 16.3 [...] 98.4 >60 Mar 20, 2024 11:30 AM [facility] CBC BLOOD Specimen Type: BLOOD No comment entered. Ordering Provider: LOULOU KILGORE Report Released Date/Time: Sep 26, 2023 10:07 AM Reporting Lab: [facility] [address] [facility] [phone] Performing Lab: [facility] [address] [place] [phone] WBC 4.7 10*3/uL 3.6-11.2 RBC 4.92 10*6/uL [...] 0.00-0. 20 Mar 20, 2024 11:30 AM [facility] LIPID PANEL (STL) PLASMA Specimen Type: PLASM A Comment: No hemolysis noted. Ordering Provider: LOULOU KILGORE Report Released Date/Time: Sep 26, 2023 10:07 AM Reporting Lab: [facility] [address] [place] [phone] Performing Lab: [facility] [address] [facility] [phone] CHOLESTEROL 197 mg/dL 0-200 TRIGLYCERIDE 111 mg/dL 0-150 CALCULATED LDL 129 mg/dL HDL(New) 46 mg/dL >40 Mar 20, 2024 11:30 AM [facility] PROST. SPECIFIC AG.(PB-STL) SERUM Specimen Ty pe: SERUM Comment: The listed sex of this patient may not be a typical indication for this test. Therefore, reference ranges or interpretive criteria listed may not be valid. Clinical correlation suggested. Ordering Provider: LOULOU KILGORE Report Released Date/Time: Sep 26, 2023 10:07 AM Reporting Lab: [facility] [address] [place] [phone] Performing Lab: [facility] [address] [place] [phone] PROST. SPECIFIC AG.(PB-STL) 1.393 ng/mL 0-4 Mar 20, 2024 11:30 AM [facility] HGA1C BLOOD Specimen Type: BLOOD No comment entered. Ordering Provider: LOULOU KILGORE Report Released Date/Time: Sep 26, 2023 10:07 AM Reporting Lab: [facility] [address] [facility] [phone] Performing Lab: [facility] [address] [place] [phone] HGA1C 5.9 4.0-6.0 Mar 20, 2024 11:30 AM [facility] TSH (MA-PB) SERUM Specimen Type: SERUM Comment: No hemolysis noted. Ordering Provider: LOULOU KILGORE Report Released Date/Time: Sep 26, 2023 10:07 AM Reporting Lab: [facility] [address] [place] [phone] Performing Lab: [facility] [address] [place] [phone] TSH 1.969 u[IU]/mL 0.47-5 Mar 20, 2024 11:30 AM [facility] VITAMIN D, 25-HYDROXY SERUM Specimen Type: SE RUM Comment: The listed sex of this patient may not be a typical indication for this test. Therefore, reference ranges or interpretive criteria listed may not be valid. Clinical correlation suggested. Ordering Provider: LOULOU KILGORE Report Released Date/Time: Sep 26, 2023 10:07 AM Reporting Lab: [facility] [address] [facility] [phone] Performing Lab: [facility] [address] [facility] [phone] VITAMIN D, 25-HYDROXY 31.5 ng/mL 30-96 Vital Signs: All taken on the encounter date This section contains inpatient and outpatient Vital Signs collected on the date of the Encounter. Date/Time Temperature Pulse Blood Pressure Respiratory Rate SP02 Pain Height Weight Body Mass Index Source Apr 10, 2024 09:54 AM 97.6 77 131/86 18 99 195.4 29 [facility] Social History: Smoking Status (Most current) and Tobacco Use (All prior to encounter date) This section includes the most current, and the historical, smoking and tobacco- related health factors from the [place] facility where the Encounter took place. Current Smoking Status This section includes the most current smoking, or tobacco-related health factor, from the [place] facility where the Encounter took place. Date/Time Current Smoking Status Comment Dusty ity Mar 27, 2024 10:30 AM [place]-TOBACCO NEVER U SED CIGARETTES [facility] Tobacco Use History This section includes a history of the smoking, or tobacco-related health factors, that were collected on or before the date of the Encounter. The data comes from the [place] facility where the Encounter took place. Date/Time Smoking Status/Tobacco Use Comment F acility Mar 27, 2024 10:30 AM [place]-TOBACCO NEVER U SED OTHER TYPE [facility] Mar 26, 2023 10:30 AM VA-TOBACCO NEVER USED [facility] Mar 29, 2022 01:00 PM VA-TOBACCO NEVER USED [facility] Encounter Notes: All associated encounter notes This section contains the clinical notes associated to the Encounter. Date/Time Encounter Note(s) Provider Source Apr 14, 2024 10:51 AM ADDENDUM: LOCAL TITLE: Addendum STANDARD TITLE: ADDENDUM DATE OF NOTE: APR 14, 2024@10:51:11 ENTRY DATE: APR 14, 2024@10:51:12 AUTHOR: SAMANTHA CONDON EXP COSIGNER: URGENCY: STATUS: COMPLETED Podiatry response to consult: Per prosthetics guidelines patient is not eligible for new orthotics until Mar 2027 however, patient may have the orthotics refurbished and the parts worn out will be replaced. No need to see Podiatry for this as PCP may order refurbishment of the orthotics per prosthetics guidelines PCP will need to place a prosthetics consult for refurbishment of the orthotics. thanks. --placed consult for refurbishment of current inserts. RNCM could you please notify pt of the above. /es/ SAMANTHA CONDON NP MSN, CHARGER OPERATOR HELPER, ZIPPER IRONER-BC Signed: 04/14/2024 10:52 Receipt Acknowledged By: 04/14/2024 11:05 /amilcar/ ANDREA RESTREPO MSM, RN,CCM REGISTERED NURSE --- Original Document --- 04/10/24 PRIMARY CARE PROVIDER ESTABLISHED VISIT STL: Patient is 68 and WHITE Self Identified Gender - Man Reason for visit:Unscheduled follow-up Chief Complaint: new custom shoe inserts History of Present Illness: 68yo white male presents today for evaluation for new custom shoe inserts. He was seen by podiatry 2022 and custom shoe inserts were issued to him. The consistent use of these orthotics greatly improves/resolves his foot pain. historically had pain in bilat arches and heels. His current orthotics are getting word dt daily use, parts of them are deteriorating. Since orthotics have deteriorated some the occassional pain to R heel has retruned. 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 No redness, swelling to any part of foot. no lesions, wounds. 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 3) Pain in both feet 4) Deviated nasal septum 5) Low back pain 6) Prediabetes 7) Elevated blood-pressure reading without diagnosis of hypertension Medication Review: The essential med list for [...] EVERY ACTIVE EVENING Indication: FOR HIGH CHOLESTEROL 7) SODIUM CHLORIDE 0.9% INHL 3ML USE 3 ML VIAL BY TO AFFECTED ACTIVE AREA(S) FOUR TIMES A DAY USE DIRECTED BY YOUR EYE CARE PROVIDER Indication: FOR SCLERAL CONTACT LENS Active Non-VA Medications Status 1) Non-VA DICLOFENAC NA 75MG EC TAB 75MG BY MOUTH EVERY MORNING ACTIVE AND EVENING Indication: FOR PAIN 8 Total Medications REVIEW OF SYSTEMS: See HPI for further details of positive complaints. All 10 systems reviewed and otherwise negative. Physical Exam VITALS (most recent, as listed in the electronic record): B/P: 131/86 (04/10/2024 09:54) Pulse: 77 (04/10/2024 09:54) Temperature: 97.6 F [36.4 C] (04/10/2024 09:54) Weight: 195.4 lb [88.63 kg] (04/10/2024 09:54) Height: 69 in [175.3 cm] (03/27/2024 10:29) BMI: 28.9 Pain: 2 (03/27/2024 10:29) (0-10 scale) General: WD, WN in NAD, pleasant affect Skin: no lesions or rashes noted. Lungs: CTA bilat, no W/R/R Heart: RRR, nl S1/S2, no murmurs, no S3/S4 gallops. Extremities: No edema, pedal pulses intact Assessment/Plan: #Heel pain, R>L -resolves with use of orthotics, his orthotics are deteriorating and heel pain is returning sometimes to R -foot exam complete -podiatry consult placed RTC: As sceduled for routine fu in 6 mo PAVE Foot Check - L,N,P,PH,PO,PT,U: A complete foot check was completed at this encounter. VISUAL INSPECTION: Includes inspection for skin breaks, deformity, erythema, trauma, pallor on elevation, dependent rubor, nail deformities, extensive callus and pitting edema. Visual exam results: Abnormal Observations: Hammertoes PEDAL PULSES: Includes palpation of dorsalis and posterior tibial pulses and signs/symptoms of vascular compromise like pain, pallor, parasthesia or paralysis. Present (even if diminished) SENSORY CHECK: Includes 10 gram Monofilament (Cleghorn-Justin) test of sensation. Intact (Greater than or equal to 80% of sites checked) Abnormal (Less than 80% of sites checked): Intact LOW-RISK: LOW RISK INFORMATION PROVIDED: 1. Advised patient not to walk barefoot. 2. Explained the importance of daily foot checks for changes. 3. Stressed the importance of daily foot hygiene, including bathing and complete drying. /monet CONDON NP MSN, CHARGER OPERATOR HELPER, ZIPPER IRONER-BC Signed: 04/10/2024 10:30 04/14/2024 ADDENDUM STATUS: UNSIGNED You may not VIEW this UNSIGNED Addendum. SAMANTHA CONDON [facility] Apr 10, 2024 10:30 AM ORTHOTICS PROSTHETICS NOTE: LOCAL TITLE: PROSTHETICS FOOT EVALUATION STL STANDARD TITLE: ORTHOTICS PROSTHETICS NOTE DATE OF NOTE: APR 10, 2024@10:30 ENTRY DATE: APR 10, 2024@10:30:53 AUTHOR: SAMANTHA CONDON EXP COSIGNER: URGENCY: STATUS: COMPLETED PROSTHETICS FOOT EVALUATION DIAGNOSIS: Hammertoe bilat feet (R 2nd and 3rd toe, L 2nd toe) Hallux limitus bilat Equinus Wetzel-Filament Test: Mar (within last 30 days) Sensation: Intact Circulation: Pedal Pulses: Posterior Tibial LEFT: Present RIGHT: Present Dorsalis Pedis LEFT: Present RIGHT: Present Hair Present: No History of Ulcers/Amputation: No List specific issues below. If none, indicate none below. Hammertoe bilat feet (R 2nd and 3rd toe, L 2nd toe) Hallux limitus bilat Equinus bilat ASSESSMENT: Foot Risk Score Level 1 LOW RISK - NOT eligible for shoes - DO NOT enter consult request Foot deformity Minor foot infection (with diabetes) /monet CONDON NP MSN, CHARGER OPERATOR HELPER, ZIPPER IRONER-BC Signed: 04/10/2024 10:[address] [facility] Apr 10, 2024 10:04 AM PRIMARY CARE NOTE: LOCAL TITLE: PRIMARY CARE PROVIDER ESTABLISHED VISIT STL STANDARD TITLE: PRIMARY CARE NOTE DATE OF NOTE: APR 10, 2024@10:04 ENTRY DATE: APR 10, 2024@10:04:24 AUTHOR: SAMANTHA CONDON EXP COSIGNER: URGENCY: STATUS: COMPLETED PRIMARY CARE PROVIDER ESTABLISHED VISIT ARTEM Has ADDENDA Patient is 68 and WHITE Self Identified Gender - Man Reason for visit:Unscheduled follow-up Chief Complaint: new custom shoe inserts History of Present Illness: 68yo white male presents today for evaluation for new custom shoe inserts. He was seen by podiatry 2022 and custom shoe inserts were issued to him. The consistent use of these orthotics greatly improves/resolves his foot pain. historically had pain in bilat arches and heels. His current orthotics are getting word dt daily use, parts of them are deteriorating. Since orthotics have deteriorated some the occassional pain to R heel has retruned. 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 No redness, swelling to any part of foot. no lesions, wounds. 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 3) Pain in both feet 4) Deviated nasal septum 5) Low back pain 6) Prediabetes 7) Elevated blood-pressure reading without diagnosis of hypertension Medication Review: The essential med list for [...] EVERY ACTIVE EVENING Indication: FOR HIGH CHOLESTEROL 7) SODIUM CHLORIDE 0.9% INHL 3ML USE 3 ML VIAL BY TO AFFECTED ACTIVE AREA(S) FOUR TIMES A DAY USE DIRECTED BY YOUR EYE CARE PROVIDER Indication: FOR SCLERAL CONTACT LENS Active Non-VA Medications Status 1) Non-VA DICLOFENAC NA 75MG EC TAB 75MG BY MOUTH EVERY MORNING ACTIVE AND EVENING Indication: FOR PAIN 8 Total Medications REVIEW OF SYSTEMS: See HPI for further details of positive complaints. All 10 systems reviewed and otherwise negative. Physical Exam VITALS (most recent, as listed in the electronic record): B/P: 131/86 (04/10/2024 09:54) Pulse: 77 (04/10/2024 09:54) Temperature: 97.6 F [36.4 C] (04/10/2024 09:54) Weight: 195.4 lb [88.63 kg] (04/10/2024 09:54) Height: 69 in [175.3 cm] (03/27/2024 10:29) BMI: 28.9 Pain: 2 (03/27/2024 10:29) (0-10 scale) General: WD, WN in NAD, pleasant affect Skin: no lesions or rashes noted. Lungs: CTA bilat, no W/R/R Heart: RRR, nl S1/S2, no murmurs, no S3/S4 gallops. Extremities: No edema, pedal pulses intact Assessment/Plan: #Heel pain, R>L -resolves with use of orthotics, his orthotics are deteriorating and heel pain is returning sometimes to R -foot exam complete -podiatry consult placed RTC: As sceduled for routine fu in 6 mo PAVE Foot Check - L,N,P,PH,PO,PT,U: A complete foot check was completed at this encounter. VISUAL INSPECTION: Includes inspection for skin breaks, deformity, erythema, trauma, pallor on elevation, dependent rubor, nail deformities, extensive callus and pitting edema. Visual exam results: Abnormal Observations: Hammertoes PEDAL PULSES: Includes palpation of dorsalis and posterior tibial pulses and signs/symptoms of vascular compromise like pain, pallor, parasthesia or paralysis. Present (even if diminished) SENSORY CHECK: Includes 10 gram Monofilament (Cleghorn-Justin) test of sensation. Intact (Greater than or equal to 80% of sites checked) Abnormal (Less than 80% of sites checked): Intact LOW-RISK: LOW RISK INFORMATION PROVIDED: 1. Advised patient not to walk barefoot. 2. Explained the importance of daily foot checks for changes. 3. Stressed the importance of daily foot hygiene, including bathing and complete drying. /monet CONDON NP MSN, CHARGER OPERATOR HELPER, ZIPPER IRONER-BC Signed: 04/10/2024 10:30 04/14/2024 ADDENDUM STATUS: COMPLETED Podiatry response to consult: Per prosthetics guidelines patient is not eligible for new orthotics until Mar 2027 however, patient may have the orthotics refurbished and the parts worn out will be replaced. No need to see Podiatry for this as PCP may order refurbishment of the orthotics per prosthetics guidelines PCP will need to place a prosthetics consult for refurbishment of the orthotics. thanks. --placed consult for refurbishment of current inserts. RNCM could you please notify pt of the above. /monet CONDON NP MSN, CHARGER OPERATOR HELPER, ZIPPER IRONER-BC Signed: 04/14/2024 10:52 Receipt Acknowledged By: 04/14/2024 11:05 /monet RESTREPO MSM, RN,[facility] REGISTERED NURSE 04/14/2024 ADDENDUM STATUS: COMPLETED RNCM called pt - please see note above. /monet RESTREPO MSM, RN,[facility] REGISTERED NURSE Signed: 04/14/2024 11:06 SAMANTHA CONDON [facility] Apr 10, 2024 09:58 AM NURSING NOTE: LOCAL TITLE: V15 PACT FACE TO FACE NOTE STL STANDARD TITLE: NURSING NOTE DATE OF NOTE: APR 10, 2024@09:58 ENTRY DATE: APR 10, 2024@09:58:40 AUTHOR: ANDREA RESTREPO EXP COSIGNER: URGENCY: STATUS: COMPLETED Provider Visit: Patient Identifiers : Full Name Date of Telephone Number Full Address Reason for visit: Established Follow-Up foot exam Mode of Arrival: Ambulatory Allergy Review: [place] Allergy list reviewed and remains current. Recent Vital Signs: Temperature: 97.6 F [36.4 C] (04/10/2024 09:54) Pulse: 77 (04/10/2024 09:54) Respiration: 18 (04/10/2024 09:54) B/P: 131/86 (04/10/2024 09:54) Pain: 2 (03/27/2024 10:29) Wt: 195.4 lb [88.63 kg] (04/10/2024 09:54) Ht: 69 in [175.3 cm] (03/27/2024 10:29) BMI: 28.9 POX: 99% (04/10/2024 09:54) PERSONAL HEALTH INVENTORY Notes: No data available for PHI note titles PERSONAL HEALTH INVENTORY - MAP: 03/27/2024 Personal Health Plan [place], [place] (MAP) my health 09/26/2023 Personal Health Plan [place], [place] (MAP) getting over covid 03/26/2023 Personal Health Plan [place], [place] (MAP) HAVING FUN WITH MY AND STAYING HEALTHY What matters most to you in your life right now? 's Response: my health WHOLE HEALTH SHARED GOALS: PERSONAL HEALTH PLAN - SHARED GOALS: 03/27/2024 [facility] Shared Goals weight loss 09/26/2023 [facility] Shared Goals weight loss SHARED GOALS weight loss Would you like to discuss any personal problem, family problem, alcohol use, drug use, or a mental or emotional illness? No Contact provided Primary Care phone number and encouraged to call if any questions or concerns. Review that after hours nurse line [phone] and emergency room are available 11/09 for patient use. Contact verbalized good understanding. Sexual Orientation - CP,L,N,P,PH,PS,S,U: The patient thinks of their sexual orientation as: Straight or Heterosexual /es/ ANDREA RESTREPO MSM, RN,CCM REGISTERED NURSE Signed: 04/10/2024 10:14 ANDREA RESTREPO [facility]
--- OUTSIDE RECORDS SUMMARY | 2024-09-29 08:11 | XMS_ITS | Encounter Summary ---
Author Name [facility] [place] Organization [facility] [place] Address [address] [place] [address] Care Team Providers Care Manager Engagement Name Role Phone LOULOU KILGORE Primary Care [...] PART A Nov 19, 2022 PART A [id number] [phone] MANDY SAN PATIENT MEDICARE (WNR) MEDICARE (M) PART B Nov 19, 2022 PART B [id number] MANDY SAN PATIENT Selected Encounter This section includes the information on record at [place] for the Encounter. Date/Time Encounter Type Encounter Description Reason Provider Source Jan 22, 2024 08:40 AM CHIROPRACT MANJ 3-4 REGIONS BACKGROUND CHECK COORDINATOR ICD-10-CM M54.50 Low back pain, unspecified ESME CARR Encounter Template Text not used by [facility] Assessments - Encounter Diagnoses This section includes the primary and secondary diagnoses documented for the Encounter. Date/Time Primary/Secondary Diagnosis Diagnosis Name Provider Source Jan 22, 2024 09:00 AM PRIMARY Low back pain, unspecified EVER CARR [facility] Jan 22, 2024 09:00 AM SECONDARY Myalgia, other site EVER CARR [facility] Plan of Treatment: Future Appointments (+ 6 months) and Future Tests (+/- 45 days) The Plan of Treatment section includes future care activities for the patient from all [place] treatmentfafirsthealthities. This section includes future appointments and future [...] AM AMBULATORY - NONE [facility] Feb 11, 2024 10:20 AM AMBULATORY - NONE [facility] Mar 17, 2024 01:00 PM AMBULATORY - SURGERY [facility] Mar 21, 2024 11:30 AM AM[facility]ULATORY - [facility]ERY [facility] Mar 24, 2024 10:00 AM AMBULATORY - MEDICINE [facility] Mar 27, 2024 10:30 AM AMBULATORY - MED[facility]INE [facility] Apr 01, 2024 08:30 AM AMBULATORY - NONE [facility] Apr 03, 2024 10:00 AM AMBULATORY - NONE [facility] Apr 10, 2024 10:00 AM AMBULATORY - MEDICINE [facility] Jun 05, 2024 09:30 AM AMBULATORY - [facility]ERY [facility] July 15, 2024 11:00 AM AMBULATORY - SURGERY [facility] July 15, 2024 12:00 PM AMBULATORY - SURGERY [facility] Radiology Reports: +/- 30 [...] the Encounter. The data comes from all [place] treatment facilities. Date/Time Radiology Report Provider Source Jan 12, 2024 08:[address] SINUS W/O CONTR AST (ENV): RAJEEV SAN [id number] -[id number] M Exm Date: JAN 12, 2024@08:45 Req Phys: RAJEEV FRANCIS Pat Loc: [facility]-ENT HEAD AND NECK CONSULT ( Img Loc: [facility]-CT IMAGING [facility] Service: Unknown [facility], [address] [place] [address] (Case [id number] COMPLETE) CT SINUS W/O CONTRAST (ENV) (CT Detailed) CPT:53948 Reason for Study: chronic sinusiitis Clinical History: Responsible Attending: Dr. Singh Attending Contact Number: [phone] Resident Contact Number: CT SINUS STEALTH Allergies listed in CPRS chart: CAFFEINE Creatinine: CREATININE 0.88 mg/dL 03/21/2023 08:21 /eGFR: STL EGFR (within one year). CREATININE 0.88 mg/dL (03/21/23 08:21) Wt: 188 lb [85.28 kg] (09/26/2023 09:34) History of: Renal failure, chronic or acute renal disease: NO Report Status: Verified Date Reported: JAN 14, 2024 Date Verified: JAN 14, 2024 Corporate Director Of Human Resources E-Sig:/ES/CHARLIE VELEZ MD Report: Axial images with sagittal and coronal reconstructions through the paranasal sinuses were performed. No mucosal thickening, soft tissue masses, or fluid in the sinuses. No bony erosion or destruction. The infundibula of the osteomeatal complexes are patent. Impression: Normal Primary Interpreting Staff: CHARLIE VELEZ MD, Radiologist (Corporate Director Of Human Resources) /CHARLIE [facility]TER [facility] Encounter Notes: All associated encounter notes This section contains the clinical notes associated to the Encounter. Date/Time Encounter Note(s) Provider Source Jan 22, 2024 07:43 AM CHIROPRACTIC NOTE: LOCAL TITLE: CHIROPRACTIC [facility] F/U ST STANDARD TITLE: CHIROPRACTIC NOTE DATE OF NOTE: JAN 22, 2024@07:43 ENTRY DATE: JAN 22, 2024@07:43:05 AUTHOR: EVER CARR COSIGNER: URGENCY: STATUS: COMPLETED SUBJECTIVE: He notes since previous visit has been walking funny d/t the knee pain and aggravating low back complaint. He missed previous visit d/t flare meineires. He recently got new shoes which have been helpful. Today rates low back complaint as 4/10, pointing across beltline. Denies radicular symptoms in lower extremities. Scheduled to meet with orthopedics later today regarding left knee. GOALS: Decrease low back pain, improve core [...] left lower extremity. OBJECTIVE/PALPATION: Taut and tender bilateral thoracolumbar paraspinals and QLs. RESTRICTIONS: Thoracic, lumbar, [...] exam. The benefits, risks and alternatives to customer care associate were discussed with the patient, along with [...] needed. Supine trunk rotations as needed RTC: 3-4 wks /es/ EVER CARR [facility] Chiropractic Physician Signed: 01/22/2024 09:00 EVER CARR [facility]
--- OUTSIDE RECORDS SUMMARY | 2024-09-29 08:12 | XMS_ITS ---
Author Name [facility] [place] [facility] [place] [facility] [place] Address [address] [place] [address] Care Team Providers Care Automatic Toe Laster Name Role Phone LOULOU KILGORE Primary Care [...] Policy Sears's Name Patient's Relationship to Policy Saers MEDICARE (WNR) MEDICARE (M) PART A Nov 19, 2022 PART A [id number] [phone] MANDY SAN PATIENT MEDICARE (WNR) MEDICARE (M) PART B Nov 19, 2022 PART B [id number] MANDY SAN PATIENT Selected Encounter This section includes the information on record at [place] for the Encounter. 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 Date/Time Primary/Secondary Diagnosis Diagnosis Name Provider Source Oct 30, 2023 10:37 AM PRIMARY Low back pain, unspecified EVER CARR [facility] Oct 30, 2023 10:37 AM SECONDARY Myalgia, other site ETHELCLEMENCIAEVER CARVALHO Jr [facility] Plan of Treatment: Future Appointments (+ 6 months) and Future Tests (+/- 45 days) The Plan of Treatment section includes future care activities for the patient from all [place] treatmentfaformerly [facility] hospitalities. This section includes future appointments and future orders which are active, pending or scheduled. Future Appointments This section includes appointments that were scheduled to occur 6 months from the date of the Encounter, up to a maximum of 20 appointments. The data comes from all [place] treatment facilities. Appointment Date/Time Appointment Type Appointme nt Facility Name Oct 31, 2023 12:45 PM AMBULATORY - SUR[facility]ERY [facility] Nov 16, 2023 11:00 AM AMBULATORY - [facility]ERY [facility] Nov 20, 2023 08:20 AM AMBULATORY - NONE [facility] Nov 30, 2023 01:00 PM AMBULATORY - SURGERY [facility] Dec 10, 2023 09:34 AM AMBULATORY - MEDICINE [facility] Jan 01, 2024 09:00 AM AMBULATORY - SURGERY [facility] Jan 12, 2024 09:00 AM AMBULATORY - NONE [facility] Jan 22, 2024 08:40 AM AMBULATORY - NONE [facility] Jan 22, 2024 01:30 PM AMBULATORY - [facility]ERY [facility] Jan 22, 2024 02:30 PM AMBULATORY - NONE [facility] Jan 31, 2024 11:00 AM AMBULATORY - NONE [facility] Feb 11, 2024 10:20 AM AMBULATORY - NONE [facility] Mar 17, 2024 01:00 PM AMBULATORY - SURGERY [facility] Mar 21, 2024 11:30 AM AMBULATORY - SURGERY [facility] Mar 24, 2024 10:00 AM AMBULATORY - MEDICINE [facility] Mar 27, 2024 10:30 AM AMBULATORY - MEDICINE [facility] Apr 01, 2024 08:30 AM AM[facility]ULATORY [facility] Apr 03, 2024 10:00 AM AMBULATORY - NONE [facility] Apr 10, 2024 10:00 AM AMBULATORY - MEDICINE [facility] Encounter Notes: All associated encounter notes This section contains the clinical notes associated to the Encounter. Date/Time Encounter Note(s) Provider Source Oct 30, 2023 07:49 AM CHIROPRACTIC NOTE: LOCAL TITLE: [facility] F/U ST STANDARD TITLE: CHIROPRACTIC NOTE DATE OF NOTE: OCT 30, 2023@07:49 ENTRY DATE: OCT 30, 2023@07:49:59 AUTHOR: EVER ACRR COSIGNER: URGENCY: STATUS: COMPLETED SUBJECTIVE: He notes lately the morning has been feeling a bit stiff getting up in the morning. He notes when on road trip back held up wuite well. He notes continuing to sleep wiht pillow under/between knees. He finds since using pillow has been sleeping better. Has been busy working around the home and staying active. GOALS: Decrease low back pain, improve core [...] OBJECTIVE/PALPATION: Taut and tender thoracolumbar paraspinals, and R QL. RESTRICTIONS: Thoracic, lumbar, SIJ ASSESSMENT: Patient [...] exam. The benefits, risks and alternatives to home health aide caregiver were discussed with the patient, along with an opportunity to ask questions. Patient then gave an informed consent to treatment. Plan of care will consist of 4 -6 visits consisting of chiropractic manipulation with an incremental increase in home exercise depending on the patients response. The patient agrees to this plan. Treatment consisted of flexion distraction lumbar spine, prone manipulation thoracic spine, side-lying manipulation lumbar and SIJ. Manual therapy consisting of table assisted pin and stretch thoracolumbar paraspinals, side-lying passive stretch lumbar paraspinals prone vibratory massage thoracic and lumbar paraspinals. Manual therapy 8 minutes. The patient reported feeling much better following their treatment. Treatment rendered without incident. HOME CARE: bug exercises, 10 reps 3 sets daily, curl ups 10 reps, 3 times daily, seated hamstring stretch as needed. Supine trunk rotations as needed RTC: 3 wks /es/ EVER CARR [facility] Chiropractic Physician Signed: 10/30/2023 10:38 EVER CARR [facility]
--- OUTSIDE RECORDS SUMMARY | 2024-09-29 08:12 | XMS_ITS | Clinical Summary ---
Author Organization [facility] [employer] Address [address] [place] [address] Care Team Providers Care Mid Level Project Manager Name Role Phone [address] Primary Care Prov ider Source Comments [facility] [employer],non-owned Affiliates and Associated Physician Practices is amultiple site organization consisting of ambulatory clinics and hospital sitesin [place], [place], [place] and [place]. This disclosure is being madepursuant to the Care Everywhere program and may not contain all information available regarding this patient. Last updated 17.[facility] [employer] Allergies Active Allergy Reactions Criticality Noted Date Comments Caffeine Other,Unknown Low 03/17/2003 Other reaction(s): Other (See Comments) No Known Drug Allergy 02/06/2011 Medications * This document contains information received from the source organization and may not represent a complete record from that organization. * Be aware that medications may not be up to date on this document. Alwaysverify current medications with the patient. 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 30 day supply. 454 g 3 3 Active albuterol HFA (Proventil; Ventolin; Proair) 108 (90 Base) MCG/ACT inhaler 4 Active Active Problems Problem Noted Date Diagnosed Date Seborrheic keratosis 04/01/2020 Actinic skin damage 03/30/2020 Assessment & Plan (03/30/2020 4:48 PM COST CONSULTANT): Explained benign nature, reassurance provided. ABCDEs of melanoma was explained to the pt, advised pt on consistent sunscreen use (SPF > 30, UVA + UVB). Monthly self-exam, and avoid direct sunlight/tanning. Onychomycosis due to dermatophyte 09/15/2018 Foreign body granuloma of skin 09/15/2018 Overview (09/15/2018): Vicryl suture Hypertrophic scar 03/01/2018 Inflamed seborrheic keratosis 09/26/2017 Assessment & Plan (03/30/2020 4:48 PM COST CONSULTANT): - Discussed benign potential - Fully reviewed treatment options with patient including indications, risks, benefits, alternatives to LN2 - pt desires treatment - Cryo x 5 lesion - Wound care reviewed - Post cryo handout given Neoplasm of uncertain behavior of skin 8 Actinic keratosis 08/31/2017 Assessment & Plan (03/30/2020 4:48 PM COST CONSULTANT): - Discussed premalignant potential - forehead - Fully reviewed treatment options with patient including indications, risks, benefits, alternatives to LN2, topical therapy, PDT - pt desires treatment - Cryo x 4 - Wound care reviewed - Post cryo handout given Solar lentiginosis 08/31/2017 History of nonmelanoma skin cancer 08/31/2017 Assessment & Plan (03/30/2020 4:48 PM COST CONSULTANT): -NER -cont q1y FBSE Melanocytic nevi of trunk 08/31/2017 Pterygium of right eye 03/14/2017 Age-related cataract 12/03/2014 Pterygium 12/03/2014 Immunizations Immunization Administration Dates Next Due INFLUENZA VACCINE 12/27/2019 Family History Medical History Relation Name Comments Asthma Neg Hx CVA Neg Hx Cancer - Breast Neg Hx Cancer - Other Neg Hx Cancer - Skin, Melanoma Neg Hx Cancer - Skin, Non Melanoma Neg Hx Eczema Neg Hx Glaucoma Neg Hx Hemophilia Neg Hx Macular Degeneration Neg Hx Psoriasis Neg Hx Social History Tobacco Use Types Packs/Day Years Used Date Smoking Tobacco: Never Smokeless Tobacco: Never Tobacco Cessation:Counseling Given: Not Answered Alcohol Use Standard Drinks/Week Comments Yes 0 (1 standard drink = 0.6 oz pur e alcohol) occasionally Sex and Gender Information Value Date Recorded Sex Assigned at Not on file Legal Sex Male 5:17 PM COST CONSULTANT Gender Identity Not on file Sexual Orientation Not on file Last Filed Vital Signs Vital Sign Reading Time Taken Comments Blood Pressure 139/98 03/15/2021 9:56 AM COST CONSULTANT Pulse 78 03/15/2021 9:56 AM COST CONSULTANT Temperature 36.6 C (97.8 F) 03/14/2017 2:40 PM COST CONSULTANT Respiratory Rate 17 03/14/2017 2:40 PM COST CONSULTANT Oxygen Saturation 98% 10/25/2017 1:18 PM CDT Inhaled Oxygen Concentration - - Weight 83.9 kg (185 lb) 03/15/2021 7:24 AM COST CONSULTANT Height 175.3 cm (5' 9) 03/15/2021 7:24 AM COST CONSULTANT Body Mass Index 27.32 03/15/2021 7:24 AM COST CONSULTANT Plan of Treatment Upcoming Encounters Date Type Department Care Team (Late st Contact Info) Description 10/28/2024 2:20 PM CDT Office Visit [facility] - Dermatology [address] [place] [address], [place] [address] Bobby Bello MD [address] [place] [address] [address] [place] [address] Health Maintenance Due Date Last Done Comments COLOGUARD (AGES 45-75) - COL ON CA SCREENING 1957 CT COLONOGRAPHY - COLON CA SCREENING 1955 FIT - COLON CA SCREENING 1957 FLEX SIG - COLON CA SCREENING 1957 MEDICARE AWV 12 MONTHS 1957 HEPATITIS C SCREENING 11/20/1975 DTAP/TDAP/TD VACCINES (1 - Tdap) 1976 PNEUMOCOCCAL VACCINE 50+ (1 of 1 - PCV) 11/25/2007 ZOSTER VACCINE (1 of 2) 11/25/2007 COVID-19 VACCINE (3 - 2023-2 5 season) 2023 04/07/2020, 03/09/2020 DEPRESSION SCREENING 02/20/2024 INFLUENZA VACCINE (#1) 2024 12/27/2019 Respiratory Syncytial Virus (RSV) Vaccine Pt: or over 60 yrs (1 - 1-dose 75+ series) 2032 COLON MONITORING 07/09/2033 07/10/2023 COLONOSCOPY - COLON CA SCREENING 07/09/2033 07/10/2023 Colorectal Cancer Screening 07/09/2033 HEPATITIS B VACCINE Aged Out No longe r eligible based on patient's age to complete this topic HIB VACCINE Aged Out No longer eligi ble based on patient's age to complete this topic HPV VACCINE Aged Out No longer eligi ble based on patient's age to complete this topic MENINGOCOCCAL (Group B) VACCINE SHARED DECISION-MAKING Aged Out No longer eligible based on patient's age to complete this topic MENINGOCOCCAL GROUPS A/C/Y/W VACCINE Aged Out No longer eligible b ased on patient's age to complete this topic Insurance MEDICARE MEDICARE [facility] Care Teams Mid Level Project Manager Relationship Specialty Start Date End [facility] [address] [place] [address] PCP - General Family Medicine 06/20/19
--- OUTSIDE RECORDS SUMMARY | 2024-09-29 08:12 | XMS_ITS | Patient Health Record ---
Author Organization [facility] Address [address] [place], [place] [id number] Care Team Providers Care Lamination Inspector Name Role Phone ASIA CLARK Unavailable [phone] Reason For Referral No Information Medications Medication SIG (Take, Route, Frequency, Duration) Notes Start Date End Date Status calcium carbonate 1250 MG / cholecalciferol 125 UNT Oral Tablet ORAL calcium carbonate 1250 MG / cholecalciferol 125 UNT Oral TabletOriginal Medicationcalcium carbonate 1250 MG / cholecalciferol 125 UNT Oral Tablet *Reorder from [email or web address] for eRx and Interaction Alerts* 9 Active ergocalciferol 1.25 MG Oral Capsule ORAL ergocalciferol 1.25 MG Oral CapsuleOriginal Medicationergocalciferol 1.25 MG Oral Capsule *Reorder from [email or web address] for eRx and Interaction Alerts* 9 Active Medrol Dosepak ORAL Medrol DosepakOr iginal MedicationMedrol Dosepak *Reorder from [employer] for eRx and Interaction Alerts* 9 Active fexofenadine hydrochloride 180 MG Oral Tablet [Marimar] ORAL fexofenadine hydrochloride 180 MG Oral Tablet [Marimar]Original Medicationfexofenadine hydrochloride 180 MG Oral Tablet [Marimar] *Reorder from [employer] for eRx and Interaction Alerts* 9 Active Plan Of Treatment No Information Insurance Providers Payer Name Payer Address Payer Phone Subscriber Number Group Number Insured Name Patient Relationship to Insured Coverage Start Date Coverage End Date [facility] [address] [place] [phone] [id number] RAJEEV SAN Self - patient is the insured
--- OUTSIDE RECORDS SUMMARY | 2024-09-29 08:12 | XMS_ITS | Encounter Summary ---
Author Organization [facility] Address [address] [place] [address] Care Team Providers Care Air Sealing Technician Name Role Phone [facility] Primary Care Prov ider [facility], [address] [place] [address] Primary Care Prov ider Reason for Visit * Reason Onset Date Comments General 10/17/2017 Encounter Details Date Type Department Care Team (Late st Contact Info) Description 10/17/2017 Telephone [facility] [address] [place] [address] Bobby Bello MD [address] [facility] [address] [place] [address] General Social History Tobacco Use Types Packs/Day Years Used Date Smoking Tobacco: Never Smokeless Tobacco: Never Alcohol Use Standard Drinks/Week Comments Yes 0 (1 standard drink = 0.6 oz pur e alcohol) occasionally Sex and Gender Information Value Date Recorded Sex Assigned at Not on file Legal 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 Ace cunningham for pts surgery consult on 09/12/17 Dr. Broderick documented in this encounter Plan of Treatment Upcoming Encounters Date Type Department Care Team (Late st Contact Info) Description 10/28/2024 2:20 PM CDT Office Visit [facility] - Dermatology [address] [place] [address], [place] [address] Bobby Bello MD [address] [place] [address] [address] [place] [address] documented as of this encounter Visit Diagnoses Not on filedocumented in this encounter Care Teams Air Sealing Technician Relationship Specialty Start Date End Date [address] [employer], [place], [place] [id number] PCP - General 08/21/17 06/19/[address] [facility], [place], [place] [address] PCP - General Family Medicine 06/20/19 documented as of this encounter
--- OUTSIDE RECORDS SUMMARY | 2024-09-29 08:15 | XMS_ITS | Continuity of Care Document ---
Author Name DOD-DE Organization DOD-DE Care Team Providers Care Political Science Instructor Name Role Phone [facility] Unavailable Unavailable Problems Combined list of problems [...] membrane marginal perforation Active Condition [id number] CHEST PAIN Active Condition DoD Outpatient Physician Consultation Active Condition DoD ACTINIC KERATOSIS Inactive Condition DoD SKIN NEOPLASM UNCERTAIN BEHAVIOR Active Condition DoD Preventive Medicine Estab Patient Checkup Adult 40-64 Inactive Condition DoD visit for: issue repeat prescription Inactive Condition DoD Back Muscle Spasm Active Condition DoD ANTERIOR [...] an accupuncture referral and schedule the appointment. [facility] [place] Active Condition Electroc autery x 2 lesions. Snip removal of axillary lesion. Tolerated well. [facility] SKIN CANCER Active Condition No new l esions noted today on full skin exam DoD Laboratory Studies Inactive Condition L AB LIPID PANEL~SEND PATIENT TO LAB~BLOOD~RED /SST on 02 Jan 2008 ~PRE-ACTIVE . . . . . . . . . . . . . . . . sNOBLEC [id number] [facility] DERMATOPHYTOSIS NAILS Active Condition DoD visit for: screening malignant neoplasm colon Active Condition [facility] visit for: screening exam lipoid disorders Active Condition [facility] LUMBAGO Active Condition [facility] visit for: refer patient without exam or treatment Inactive Condition [facility] SKIN CANCER BASAL CELL CARCINOMA Active Condition see below DoD X-Ray Inactive Condition CT results DoD Imaging Studies Inactive Condition DoD STRAIN Inactive Condition Has faild conservative therapy. Will get MRI of the pelvis to look at the inginal ligament and associated muscles. Exam is negative for hernia bulges. F/U after the MRI. May need referral to ortho. [facility] Other Physical Therapy Inactive Condition DoD FOREIGN BODY GRANULOMAS OF THE SKIN Active Condition Vicryl suture DoD Derangement of meniscus of left knee joint Active Condition [facility] Deviated nasal septum Active Condition [facility] Elevated blood-pressure reading without diagnosis of hypertension Active Condition [facility] Pain in both feet Active Condition [facility] Prediabetes Active Condition [facility] Diagnosis: ICD-10-CM H52.6 Other disorders of refraction Active Diagnosis [facility] Diagnosis: ICD-10-CM M23.207 Derangement of unsp meniscus due to old tear/inj, left knee Active Diagnosis [facility] Diagnosis: ICD-10-CM H90.A22 Snsrnrl hear loss, uni, l ear, with rstrcd hear cntra side Active Diagnosis [facility] Diagnosis: ICD-10-CM R09.81 Nasal congestion [address] Diagnosis [facility] Diagnosis: ICD-10-CM Z71.9 Counseling, unspecified Active Diagnosis [facility] Diagnosis: ICD-10-CM M79.673 Pain in unspecified foot Active Diagnosis [facility] Diagnosis: ICD-10-CM Z46.89 Encounter for fitting and adjustment of oth devices Active Diagnosis [facility] Diagnosis: ICD-10-CM M54.50 Low back pain, unspecified Active Diagnosis [facility] Diagnosis: ICD-10-CM J34.2 Deviated nasal septum Active Diagnosis [facility] Diagnosis: ICD-10-CM H11.009 Unspecified pterygium of unspecified eye Active Diagnosis [facility] Diagnosis: ICD-10-CM H43.811 Vitreous degeneration, right eye Active Diagnosis [facility] Diagnosis: ICD-10-CM J41.0 Simple chronic bronchitis Active Diagnosis [facility] Diagnosis: ICD-10-CM J32.8 Other chronic sinusitis Active Diagnosis [facility] Diagnosis: ICD-10-CM H90.3 Sensorineural hearing loss, bilateral Active Diagnosis [facility] Diagnosis: ICD-10-CM H91.93 Unspecified hearing loss, bilateral Active Diagnosis [facility] Diagnosis: ICD-10-CM E78.5 Hyperlipidemia, unspecified Active Diagnosis [facility] Diagnosis: ICD-10-CM H90.A31 Mix cndct/snrl hear loss,uni,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 Active Diagnosis [facility] Diagnosis: ICD-10-CM M17.12 Unilateral primary osteoarthritis, left knee Active Diagnosis [facility] Diagnosis: ICD-10-CM K63.5 Polyp of colon Active Diagnosis [facility] Diagnosis: ICD-10-CM Z01.818 Encounter for other preprocedural examination Active Diagnosis [facility] Diagnosis: ICD-10-CM H11.003 Unspecified pterygium of eye, bilateral Active Diagnosis [facility] Diagnosis: ICD-10-CM Z23 Encounter for immunization Active Diagnosis [facility] Diagnosis: ICD-10-CM Z12.11 Encounter for screening for malignant neoplasm of colon Active Diagnosis [facility] Medications Combined list of outpatient medications [...] RHINITIS *PRIME BEFORE USE* NASAL ACTIVE 04/15/2025 [id number] 5 MANDY FRANCIS P 2024 1 [facility] AZELASTINE HCL 137MCG/SPRA Y INHL,NASAL, 30ML SPRAY 2 SPRAYS IN NOSTRIL( S) TWICE A DAY FOR ALLERGIC RHINITIS *PRIME BEFORE USE* NASAL DISCONT INUED 11/30/2024 [id number] 5 MANDY FRANCIS P 2023 1 [facility] calcium-vit stroud D extended release Oral, every morning, 0 total refill(s ), Maintena nce Oral (given by mouth) Ordered 2023 0055C-[address] [place] [address] CARBOXYMETH YLCELLULOSE NA 1% GEL,OPH 0.4ML INSTILL 1 DROP INTO AFFECTED EYE(S) FOUR TIMES A DAY NEEDED FOR DRY EYE(S) USE DIRECTED OPHTHA LMIC 08/16/2024 [id number] NAY SINGH N 2023 90 [facility] CODEINE 10MG/GUAIFE NESIN 100MG/5ML (SF & AF) LIQUID TAKE 10 ML BY MOUTH FOUR TIMES A DAY NEEDED FOR COUGH ORAL 01/09/2024 [id number] 4 Saskia FRYE 2023 118 [facility] CRESTOR (BRAND) 20 MG ORAL TAB TAKE ONE-HALF TABLET BY MOUTH EVERY EVENING 03/26/2024 [id number] 4 LOULOU KILGORE 2023 45 [facility] DICLOFENAC NA 1% GEL,TOP APPLY 4 GM TO AFFECTED AREA(S) FOUR TIMES A DAY NEEDED FOR PAIN NO MORE THAN 16 GM/DAY TO ANY LOWER EXTREMIT Y JOINT. NO MORE THAN 8 GM/DAY TO ANY UPPER EXTREMIT Y JOINT. MAX 32GM/DAY OVER ALL JOINTS.( MEASURE DOSE WITH RULER INSIDE BOX) TOPICA L ACTIVE 03/28/2025 [id number] 5 BRENNA KILGORE D 2024 100 [facility] DICLOFENAC NA 1% GEL,TOP APPLY 4 GM TO AFFECTED AREA(S) FOUR TIMES A DAY FOR PAIN DO NOT EXCEED MORE THAN 16 GRAMS DAILY TO ANY LOWER EXTREMIT Y JOINT. NOT MORE THAN 8 GRAMS DAILY TO ANY UPPER EXTREMIT Y JOINT. MAX 32GM/DAY OVER ALL JOINTS. (MEASURE DOSE WITH RULER ATTACHED INSIDE BOX) TOPICA L DISCONT INUED 08/16/2024 [id number] 4 Saskia PALMER W 2023 300 [facility] DICLOFENAC NA 75MG TAB,EC TAKE ONE TABLET BY MOUTH EVERY MORNING AND EVENING ORAL ACTIVE BRENNA KILGORE 2022 [facility] FLUTICASONE PROPIONATE 50MCG/SPRAY SOLN,NASAL, 16GM INSTILL 2 SPRAYS IN NOSTRIL( S) TWICE A DAY FOR RHINITIS (MUST BE USED DIRECTED FOR MINIMUM OF 21 DAYS TO PROVIDE ADEQUATE BENEFITS ) NASAL ACTIVE 03/28/2025 [id number] 5 BRENNA KILGORE D 2024 6 [facility] FLUTICASONE PROPIONATE 50MCG/SPRAY SOLN,NASAL, 16GM INSTILL 2 SPRAYS IN NOSTRIL( S) TWICE A DAY FOR RHINITIS (MUST BE USED DIRECTED FOR MINIMUM OF 21 DAYS TO PROVIDE ADEQUATE BENEFITS ) NASAL DISCONT INUED 02/28/2024 [id number] 4 MANDY FRANCIS P 2023 3 [facility] OLOPATADINE 0.2 % EYE DROP [2.5 ML] INSTILL 1 DROP IN BOTH EYES ONCE A DAY 07/06/2024 [id number] 4 CHUN AGUILAR 2023 10 [facility]ile OLOPATADINE HCL 0.2% SOLN,OPH INSTILL 1 DROP IN BOTH EYES ONCE A DAY OPHTHA LMIC 07/06/2024 [id number] 4 CHUN AGUILAR 2023 10 [facility] Abhijit rosuvastati n 10 mg oral tablet 1 tab(s), Oral, Daily, # 90 tab(s), 3 total refill(s ), Acute, Pharmacy : [facility] Oral (given by mouth) Complet ed 01/25/2024 3 2023 90.0 0055C-[address] [place] [address] rosuvastati n 10 mg tablet See dose instruct ions in comments , # 90 EA, 2 total refill(s ), Acute Complet ed 12/25/2022 3 2022 90.0 Ambulat ory Pharmac y ROSUVASTATI N CA 20MG TAB TAKE ONE-HALF TABLET BY MOUTH EVERY EVENING ORAL ACTIVE 03/28/2025 [id number] 5 BRENNA KILGORE 2024 45 [facility] ROSUVASTATI N CA 20MG TAB TAKE ONE-HALF TABLET BY MOUTH EVERY EVENING ORAL DISCONT INUED 03/26/2024 [id number] BRENNA KILGORE 2023 45 [facility] SINUS RINSE NEILMED REGULAR KIT USE 1 KIT NOSTRIL( S) TWICE A DAY FOR NASAL CONGESTI ON NASAL 12/30/2023 [id number] 4 MANDY FRANCIS 2023 1 [facility] Allergies, Adverse Reactions, Alerts Combined [...] to substance (finding) Tremor SEVERE active 3 [facility] CAFFEINE (CAFFEINE) Drug allergy (disorder) Unknown active 4 [facility] ([facility]) Immunizations Combined list of available immunizations from the Department of Defense and Veterans Affairs facilities. Immunization Series Date Given Administered By Site Reaction Lot Number CVX Code Drug Senior Informatica Etl Developer Status Comments Source zoster vaccine, inactivated 2020 zzLef t Arm [id number] [employer]Smith[employer] ne complet ed zoster vaccine, inactivat ed 08/25/20 Given Ambulat ory Pharmac y zoster vaccine recombinant 1 2020 Unknown, Provider [id number] [employer] ([facility]) complet ed zoster vaccine recombina nt DoD COVID Vaccine Moderna 2020 TRANSCR IBED 207 complet ed COVID Vaccine Moderna 04/07/20 Given Ambulat ory Pharmac y SARS-COV-2 (COVID-19) vaccine, mRNA, spike protein, LNP, preservative free, 100 mcg or 50 mcg dose 2 2020 Unknown, Provider 207 Moderna [employer] (MOD) complet ed SARS-COV- 2 (COVID-19 ) vaccine, mRNA, spike protein, LNP, preservat dana free, 100 mcg or 50 mcg dose DoD COVID Vaccine Moderna 2020 TRANSCR IBED 207 complet ed COVID Vaccine Moderna 03/09/20 Given Ambulat ory Pharmac y SARS-COV-2 (COVID-19) vaccine, mRNA, spike protein, LNP, preservative free, 100 mcg or 50 mcg dose 1 2020 Unknown, Provider 207 Moderna [employer] (MOD) complet ed SARS-COV- 2 (COVID-19 ) vaccine, mRNA, spike protein, LNP, preservat dana free, 100 mcg or 50 mcg dose DoD INFLUENZA, UNSPECIFIED FORMULATION 1 2019 88 complet ed HISTORICA L INFORMATI ON - FROM OTHER REGISTRY, [facility] tetanus, diphtheria, acellular pertu is 2016 zzLef t Arm [id number] [employer] complet ed tetanus, diphtheri a, acellular pertussis 08/16/16 Given Ambulat ory Pharmac y tetanus toxoid, reduced diphtheria toxoid, and acellular pertu is vaccine, adsorbed 1 2016 Unknown, Provider [address] ([place]) complet ed tetanus toxoid, reduced diphtheri a toxoid, and acellular pertussis vaccine, adsorbed DoD influenza virus vaccine, whole virus 2002 zzLef t Arm [id number] 16 sanofi pasteur complet ed influenza virus vaccine, whole virus 12/08/02 Given Ambulat ory Pharmac y influenza virus vaccine, whole virus 1 2002 Unknown, Provider [id number] 16 Sanofi Pasteur ([facility]) complet ed influenza virus vaccine, whole virus DoD influenza virus vaccine, whole virus 2001 [id number] Accruent complet ed influenza virus vaccine, whole virus 12/23/01 Given Ambulat ory Pharmac y influenza virus vaccine, whole virus 1 2001 Unknown, Provider [id number] 16 [facility] ([facility]) complet ed influenza virus vaccine, whole virus DoD meningococcal polysaccharid e (MPSV4) 2001 [id number] sanofi pasteur complet ed meningoco ccal polysacch aride (MPSV4) 07/25/01 Given Ambulat ory Pharmac y meningococcal polysaccharid e vaccine (MPSV4) 1 2001 Unknown, Provider [id number] Sanofi Pasteur ([facility]) complet ed meningoco ccal polysacch aride vaccine (MPSV4) DoD influenza virus vaccine, whole virus 2000 [id number] 16 sanofi pasteur complet ed influenza virus vaccine, whole virus 02/06/01 Given Ambulat ory Pharmac y influenza virus vaccine, whole virus 1 2000 Unknown, Provider [id number] 16 Sanofi Pasteur ([facility]) complet ed influenza virus vaccine, whole virus DoD influenza virus vaccine, whole virus 1999 zzLef t Arm [id number] [employer] complet ed influenza virus vaccine, whole virus 01/30/00 Given Ambulat ory Pharmac y influenza virus vaccine, whole virus 1 1999 Unknown, Provider [id number] 16 [facility] ([facility]) complet ed influenza virus vaccine, whole virus DoD tuberculin purified protein derivative 1999 zzLef t Arm [id number] sanofi pasteur complet ed Patient Tolerance : Negative Ambulat ory Pharmac y tuberculin skin test; purified protein derivative solution, intradermal 1 1999 Unknown, Provider [id number] Sanofi Pasteur ([facility]) complet ed tuberculi n skin test; purified [...] DoD influenza virus vaccine, whole virus 1998 [id number] 16 sanofi pasteur complet ed influenza virus vaccine, whole virus 01/31/99 Given Ambulat ory Pharmac y influenza virus vaccine, whole virus 1 1998 Unknown, Provider [id number] 16 Sanofi Pasteur ([facility]) complet ed influenza virus vaccine, whole virus DoD influenza virus vaccine, whole virus [id number] 16 [facility] complet ed influenza virus vaccine, whole virus 12/10/97 Given Ambulat ory Pharmac y hepatitis A adult vaccine 1997 52 complet ed hepatitis A adult vaccine 12/10/97 Given Ambulat ory Pharmac y influenza virus vaccine, whole virus 1 1997 Unknown, Provider [id number] 16 [facility] ([facility]) complet ed influenza virus vaccine, whole virus [...] ed trivalent polioviru s vaccine, live, oral [facility] Results Combined list of recent chemistry, [...] Sep 18, 2024 11:19 AM Reporting Lab: [facility] [address] [facility] [address] Performing Lab: [facility] [address] [place] [address] [facility] BASIC METABOLIC PANEL UREA NITROGEN [MASS/VOLUM E] IN SERUM OR PLASMA 20.8 mg/dL 9.0 - 25.0 09/23 Specimen Type: PLASMA Comment: No hemolysis noted. Ordering Provider: ANTONIA GAONA Report Released Date/Time: Sep 18, 2024 11:19 AM Reporting Lab: [address] [address] Performing Lab: [address] [address] [facility] BASIC METABOLIC PANEL GLUCOSE [MASS/VOLUM E] IN SERUM OR PLASMA 151 mg/dL 72 - 99 09/23 H Specimen Type: PLASMA Comment: No hemolysis noted. Ordering Provider: ANTONIA GAONA Report Released Date/Time: Sep 18, 2024 11:19 AM Reporting Lab: [place] [address] [facility] [address] Performing Lab: [address] [address] [facility] BASIC METABOLIC PANEL SODIUM [MOLES/VOLU ME] IN SERUM OR PLASMA 140 meq/L 136 - 145 09/23 Specimen Type: PLASMA Comment: No hemolysis noted. Ordering Provider: ANTONIA GAONA Report Released Date/Time: Sep 18, 2024 11:19 AM Reporting Lab: [place] [address] [facility] [address] Performing Lab: [address] [address] [facility] BASIC METABOLIC PANEL POTASSIUM [MOLES/VOLU ME] IN SERUM OR PLASMA 3.8 meq/L 3.5 - 5 08/05 /2025 Specimen Type: PLASMA Comment: No hemolysis noted. Ordering Provider: ANTONIA GAONA Report Released Date/Time: Sep 18, 2024 11:19 AM Reporting Lab: [facility] [address] [facility] [address] Performing Lab: [facility] [address] [facility] [address] [facility] BASIC METABOLIC PANEL CHLORIDE [MOLES/VOLU ME] IN SERUM OR PLASMA 107 meq/L 98 - 107 09/23 Specimen Type: PLASMA Comment: No hemolysis noted. Ordering Provider: ATNONIA GAONA Report Released Date/Time: Sep 18, 2024 11:19 AM Reporting Lab: [facility] [address] [place] [address] Performing Lab: [facility] [address] [facility] [address] [facility] BASIC METABOLIC PANEL CARBON DIOXIDE, TOTAL [MOLES/VOLU ME] IN SERUM OR PLASMA 26 meq/L 22 - 31 09/23 Specimen Type: PLASMA Comment: No hemolysis noted. Ordering Provider: ANTONIA GAONA Report Released Date/Time: Sep 18, 2024 11:19 AM Reporting Lab: [facility] [address] [facility] [address] Performing Lab: [facility] [address] [facility] [address] [facility] BASIC METABOLIC PANEL CALCIUM [MASS/VOLUM E] IN SERUM OR PLASMA 9.1 mg/dL 8.4 - 10.4 09/23 Specimen Type: PLASMA Comment: No hemolysis noted. Ordering Provider: ANTONIA GAONA Report Released Date/Time: Sep 18, 2024 11:19 AM Reporting Lab: [facility] [address] [facility] [address] Performing Lab: [facility] [address] [facility] [address] [facility] BASIC METABOLIC PANEL GLOMERULAR FILTRATION RATE/1.73 SQ M.PREDICTED [VOLUME RATE/AREA] IN SERUM, PLASMA OR BLOOD BY CREATININE- BASED FORMULA (CKD-EPI 2020) 96.2 60 09/23 Specimen Type: PLASMA Comment: No hemolysis noted. Ordering Provider: ANTONIA GAONA Report Released Date/Time: Sep 18, 2024 11:19 AM Reporting Lab: [place] [address] Performing Lab: [address] CBC LEUKOCYTES [#/VOLUME] IN BLOOD BY AUTOMATED COUNT 5.7 10*3/u L 3.6 - 11.2 09/23 Specimen Type: BLOOD No comment entered. Ordering Provider: ANTONIA GAONA Report Released Date/Time: Sep 18, 2024 11:19 AM Reporting Lab: [place] [address] Performing Lab: [address] CBC ERYTHROCYTE S [#/VOLUME] IN BLOOD BY AUTOMATED COUNT 4.72 10*6/u L 4.10 - 5.70 09/23 Specimen Type: BLOOD No comment entered. Ordering Provider: ANTONIA GAONA Report Released Date/Time: Sep 18, 2024 11:19 AM Reporting Lab: [place] [address] Performing Lab: [address] CBC HEMOGLOBIN [MASS/VOLUM E] IN BLOOD 14.0 g/dL 13.1 - 16.8 09/23 Specimen Type: BLOOD No comment entered. Ordering Provider: ANTONIA GAONA Report Released Date/Time: Sep 18, 2024 11:19 AM Reporting Lab: [place] [address] Performing Lab: [address] [place] [address] [facility] CBC HEMATOCRIT [VOLUME FRACTION] OF BLOOD 42.8 38.2 - 48.4 09/23 Specimen Type: BLOOD No comment entered. Ordering Provider: ANTONIA GAONA Report Released Date/Time: Sep 18, 2024 11:19 AM Reporting Lab: [address] [address] Performing Lab: [address] [address] [facility] CBC MCV [ENTITIC VOLUME] BY AUTOMATED COUNT 90.7 fL 80.0 - 100.0 09/23 Specimen Type: BLOOD No comment entered. Ordering Provider: ANTONIA GAONA Report Released Date/Time: Sep 18, 2024 11:19 AM Reporting Lab: [address] [address] Performing Lab: [address] [address] [facility] CBC MCH [ENTITIC MASS] BY AUTOMATED COUNT 29.7 pg 27.0 - 34.0 09/23 Specimen Type: BLOOD No comment entered. Ordering Provider: ANTONIA GAONA Report Released Date/Time: Sep 18, 2024 11:19 AM Reporting Lab: [address] [address] Performing Lab: [address] [address] [facility] CBC MCHC [MASS/VOLUM E] BY AUTOMATED COUNT 32.7 g/dL 33.0 - 36.0 09/23 L Specimen Type: BLOOD No comment entered. Ordering Provider: ANTONIA GAONA Report Released Date/Time: Sep 18, 2024 11:19 AM Reporting Lab: [address] [address] Performing Lab: [address] [place] [address] [facility] CBC PLATELETS [#/VOLUME] IN BLOOD BY AUTOMATED COUNT 162 10*3/u L 150 - 400 09/23 Specimen Type: BLOOD No comment entered. Ordering Provider: ANTONIA GAONA Report Released Date/Time: Sep 18, 2024 11:19 AM Reporting Lab: [address] [address] Performing Lab: [place] [address] [facility] [address] [facility] CBC PLATELET MEAN VOLUME [ENTITIC VOLUME] IN BLOOD BY AUTOMATED COUNT 10.6 fL 7.5 - 11.2 09/23 Specimen Type: BLOOD No comment entered. Ordering Provider: ANTONIA GAONA Report Released Date/Time: Sep 18, 2024 11:19 AM Reporting Lab: [place] [address] [facility] [address] Performing Lab: [place] [address] [facility] [address] [facility] CBC ERYTHROCYTE DISTRIBUTIO N WIDTH [RATIO] BY AUTOMATED COUNT 12.7 11.8 - 15.1 09/23 Specimen Type: BLOOD No comment entered. Ordering Provider: ANTONIA GAONA Report Released Date/Time: Sep 18, 2024 11:19 AM Reporting Lab: [place] [address] [facility] [address] Performing Lab: [address] [address] [facility] CBC LYMPHOCYTES /100 LEUKOCYTES IN BLOOD BY AUTOMATED COUNT 25 09/23 Specimen Type: BLOOD No comment entered. Ordering Provider: ANTONIA GAONA Report Released Date/Time: Sep 18, 2024 11:19 AM Reporting Lab: [place] [address] [facility] [address] Performing Lab: [place] [address] [facility] [address] [facility] CBC MONOCYTES/1 00 LEUKOCYTES IN BLOOD BY AUTOMATED COUNT 6 09/23 Specimen Type: BLOOD No comment entered. Ordering Provider: ANTONIA GAONA Report Released Date/Time: Sep 18, 2024 11:19 AM Reporting Lab: [facility] [address] [facility] [address] Performing Lab: [facility] [address] [facility] [address] [place] [address] CBC NEUTROPHILS /100 LEUKOCYTES IN BLOOD BY AUTOMATED COUNT 67 09/23 Specimen Type: BLOOD No comment entered. Ordering Provider: ANTONIA GAONA Report Released Date/Time: Sep 18, 2024 11:19 AM Reporting Lab: [facility] [address] [place] [address] Performing Lab: [facility] [address] [place], [place] [id number] CBC EOSINOPHILS /100 LEUKOCYTES IN BLOOD BY AUTOMATED COUNT 1 09/23 Specimen Type: BLOOD No comment entered. Ordering Provider: ANTONIA GAONA Report Released Date/Time: Sep 18, 2024 11:19 AM Reporting Lab: [facility] [address] [place] [address] Performing Lab: [address] [phone] [place] [address] CBC BASOPHILS/1 00 LEUKOCYTES IN BLOOD BY AUTOMATED COUNT 0 09/23 Specimen Type: BLOOD No comment entered. Ordering Provider: ANTONIA GAONA Report Released Date/Time: Sep 18, 2024 11:19 AM Reporting Lab: [address] [address] Performing Lab: [address] [address] [facility] CBC LYMPHOCYTES [#/VOLUME] IN BLOOD BY AUTOMATED COUNT 1.43 10*3/u L 0.77 - 4.50 09/23 Specimen Type: BLOOD No comment entered. Ordering Provider: ANTONIA GAONA Report Released Date/Time: Sep 18, 2024 11:19 AM Reporting Lab: [address] [address] Performing Lab: [address] [address] [facility] CBC MONOCYTES [#/VOLUME] IN BLOOD BY AUTOMATED COUNT 0.34 10*3/u L 0.19 - 0.80 09/23 Specimen Type: BLOOD No comment entered. Ordering Provider: ANTONIA GAONA Report Released Date/Time: Sep 18, 2024 11:19 AM Reporting Lab: [address] [address] Performing Lab: [address] [address] [facility] CBC NEUTROPHILS [#/VOLUME] IN BLOOD BY AUTOMATED COUNT 3.83 10*3/u L 2.10 - 8.00 09/23 Specimen Type: BLOOD No comment entered. Ordering Provider: ANTONIA GAONA Report Released Date/Time: Sep 18, 2024 11:19 AM Reporting Lab: [address] [address] Performing Lab: [address] [address] [facility] CBC EOSINOPHILS [#/VOLUME] IN BLOOD BY AUTOMATED COUNT 0.06 10*3/u L 0.00 - 0.60 09/23 Specimen Type: BLOOD No comment entered. Ordering Provider: ANTONIA GAONA Report Released Date/Time: Sep 18, 2024 11:19 AM Reporting Lab: [address] [address] Performing Lab: [address] [address] [facility] CBC BASOPHILS [#/VOLUME] IN BLOOD BY AUTOMATED COUNT 0.02 10*3/u L 0.00 - 0.20 09/23 Specimen Type: BLOOD No comment entered. Ordering Provider: ANTONIA GAONA Report Released Date/Time: Sep 18, 2024 11:19 AM Reporting Lab: [address] [address] Performing Lab: [phone] CBC LEUKOCYTES [#/VOLUME] IN BLOOD BY AUTOMATED COUNT 4.7 10*3/u L 3.6 - 11.2 03/20 Specimen Type: BLOOD No comment entered. Ordering Provider: LOULOU KILGORE Report Released Date/Time: Sep 26, 2023 10:07 AM Reporting Lab: [place] [phone] Performing Lab: [address] CBC ERYTHROCYTE S [#/VOLUME] IN BLOOD BY AUTOMATED COUNT 4.92 10*6/u L 4.10 - 5.70 03/20 Specimen Type: BLOOD No comment entered. Ordering Provider: LOULOU KILGORE Report Released Date/Time: Sep 26, 2023 10:07 AM Reporting Lab: [address] [address] Performing Lab: [address] [phone] [place] [address] CBC HEMOGLOBIN [MASS/VOLUM E] IN BLOOD 14.5 g/dL 13.1 - 16.8 03/20 Specimen Type: BLOOD No comment entered. Ordering Provider: LOULOU KILGORE Report Released Date/Time: Sep 26, 2023 10:07 AM Reporting Lab: [address] [address] Performing Lab: [address] CBC HEMATOCRIT [VOLUME FRACTION] OF BLOOD 44.9 38.2 - 48.4 03/20 Specimen Type: BLOOD No comment entered. Ordering Provider: LOULOU KILGORE Report Released Date/Time: Sep 26, 2023 10:07 AM Reporting Lab: [address] [phone] Performing Lab: [address] [phone] [place] [address] CBC MCV [ENTITIC VOLUME] BY AUTOMATED COUNT 91.3 fL 80.0 - 100.0 03/20 Specimen Type: BLOOD No comment entered. Ordering Provider: LOULOU KILGORE Report Released Date/Time: Sep 26, 2023 10:07 AM Reporting Lab: [address] [address] Performing Lab: [address] [phone] [place] [address] CBC MCH [ENTITIC MASS] BY AUTOMATED COUNT 29.5 pg 27.0 - 34.0 03/20 Specimen Type: BLOOD No comment entered. Ordering Provider: LOULOU KILGORE Report Released Date/Time: Sep 26, 2023 10:07 AM Reporting Lab: [address] [phone] Performing Lab: [address] [address] [facility] CBC MCHC [MASS/VOLUM E] BY AUTOMATED COUNT 32.3 g/dL 33.0 - 36.0 03/20 L Specimen Type: BLOOD No comment entered. Ordering Provider: LOULOU KILGORE Report Released Date/Time: Sep 26, 2023 10:07 AM Reporting Lab: [address] [address] Performing Lab: [address] [address] [facility] CBC PLATELETS [#/VOLUME] IN BLOOD BY AUTOMATED COUNT 133 10*3/u L 150 - 400 03/20 L Specimen Type: BLOOD No comment entered. Ordering Provider: LOULOU KILGORE Report Released Date/Time: Sep 26, 2023 10:07 AM Reporting Lab: [facility] [address] [place] [phone] Performing Lab: [facility] [address] [place] [phone] [facility] CBC PLATELET MEAN VOLUME [ENTITIC VOLUME] IN BLOOD BY AUTOMATED COUNT 12.7 fL 7.5 - 11.2 03/20 H Specimen Type: BLOOD No comment entered. Ordering Provider: LOULOU KILGORE Report Released Date/Time: Sep 26, 2023 10:07 AM Reporting Lab: [facility] [address] [place] [phone] Performing Lab: [address] [phone] CBC ERYTHROCYTE DISTRIBUTIO N WIDTH [RATIO] BY AUTOMATED COUNT 12.4 11.8 - 15.1 03/20 Specimen Type: BLOOD No comment entered. Ordering Provider: LOULOU KILGORE Report Released Date/Time: Sep 26, 2023 10:07 AM Reporting Lab: [facility] [address] [place] [phone] Performing Lab: [facility] [address] [place] [phone] [place] [address] CBC LYMPHOCYTES /100 LEUKOCYTES IN BLOOD BY AUTOMATED COUNT 23 03/20 Specimen Type: BLOOD No comment entered. Ordering Provider: LOULOU KILGORE Report Released Date/Time: Sep 26, 2023 10:07 AM Reporting Lab: [facility] [address] [place] [phone] Performing Lab: [facility] [address] [place] [address] CBC MONOCYTES/1 00 LEUKOCYTES IN BLOOD BY AUTOMATED COUNT 9 03/20 Specimen Type: BLOOD No comment entered. Ordering Provider: LOULOU KILGORE Report Released Date/Time: Sep 26, 2023 10:07 AM Reporting Lab: [facility] [address] [facility] [phone] Performing Lab: [facility] [address] [place] [phone] [facility] CBC NEUTROPHILS /100 LEUKOCYTES IN BLOOD BY AUTOMATED COUNT 67 03/20 Specimen Type: BLOOD No comment entered. Ordering Provider: LOULOU KILGORE Report Released Date/Time: Sep 26, 2023 10:07 AM Reporting Lab: [facility] [address] [place] [phone] Performing Lab: [address] [phone] [place] [address] CBC EOSINOPHILS /100 LEUKOCYTES IN BLOOD BY AUTOMATED COUNT 1 03/20 Specimen Type: BLOOD No comment entered. Ordering Provider: LOULOU KILGORE Report Released Date/Time: Sep 26, 2023 10:07 AM Reporting Lab: [facility] [address] [place] [phone] Performing Lab: [address] [phone] [place] [address] CBC BASOPHILS/1 00 LEUKOCYTES IN BLOOD BY AUTOMATED COUNT 0 03/20 Specimen Type: BLOOD No comment entered. Ordering Provider: LOULOU KILGORE Report Released Date/Time: Sep 26, 2023 10:07 AM Reporting Lab: [facility] [address] [place] [phone] Performing Lab: [facility] [address] [place] [phone] [place] [address] CBC LYMPHOCYTES [#/VOLUME] IN BLOOD BY AUTOMATED COUNT 1.06 10*3/u L 0.77 - 4.50 03/20 Specimen Type: BLOOD No comment entered. Ordering Provider: LOULOU KILGORE Report Released Date/Time: Sep 26, 2023 10:07 AM Reporting Lab: [facility] [address] [place] [phone] Performing Lab: [facility] [place] [phone] [facility] CBC MONOCYTES [#/VOLUME] IN BLOOD BY AUTOMATED COUNT 0.41 10*3/u L 0.19 - 0.80 03/20 Specimen Type: BLOOD No comment entered. Ordering Provider: LOULOU KILGORE Report Released Date/Time: Sep 26, 2023 10:07 AM Reporting Lab: [place] [phone] Performing Lab: [place] [phone] CBC NEUTROPHILS [#/VOLUME] IN BLOOD BY AUTOMATED COUNT 3.10 10*3/u L 2.10 - 8.00 03/20 Specimen Type: BLOOD No comment entered. Ordering Provider: LOULOU KILGORE Report Released Date/Time: Sep 26, 2023 10:07 AM Reporting Lab: [place] [phone] Performing Lab: [place] [phone] CBC EOSINOPHILS [#/VOLUME] IN BLOOD BY AUTOMATED COUNT 0.06 10*3/u L 0.00 - 0.60 03/20 Specimen Type: BLOOD No comment entered. Ordering Provider: LOULOU KILGORE Report Released Date/Time: Sep 26, 2023 10:07 AM Reporting Lab: [address] [phone] Performing Lab: [address] [address] [facility] CBC BASOPHILS [#/VOLUME] IN BLOOD BY AUTOMATED COUNT 0.02 10*3/u L 0.00 - 0.20 03/20 Specimen Type: BLOOD No comment entered. Ordering Provider: LOULOU KILGORE Report Released Date/Time: Sep 26, 2023 10:07 AM Reporting Lab: [address] [address] Performing Lab: [facility] [address] [address] [facility] COMPREHEN SIVE METABOLIC PANEL CREATININE [MASS/VOLUM E] IN SERUM OR PLASMA 0.78 mg/dL 0.7 - 1.3 03/20 Specimen Type: PLASMA Comment: No hemolysis noted. Ordering Provider: LOULOU KILGORE Report Released Date/Time: Sep 26, 2023 10:07 AM Reporting Lab: [place] [phone] Performing Lab: [address] [address] [facility] COMPREHEN SIVE METABOLIC PANEL UREA NITROGEN [MASS/VOLUM E] IN SERUM OR PLASMA 16.3 mg/dL 9.0 - 25.0 03/20 Specimen Type: PLASMA Comment: No hemolysis noted. Ordering Provider: LOULOU KILGORE Report Released Date/Time: Sep 26, 2023 10:07 AM Reporting Lab: [address] [phone] Performing Lab: [address] [address] [facility] COMPREHEN SIVE METABOLIC PANEL GLUCOSE [MASS/VOLUM E] IN SERUM OR PLASMA 94 mg/dL 72 - 99 03/20 Specimen Type: PLASMA Comment: No hemolysis noted. Ordering Provider: LOULOU KILGORE Report Released Date/Time: Sep 26, 2023 10:07 AM Reporting Lab: [address] [address] Performing Lab: [address] [phone] [facility] COMPREHEN SIVE METABOLIC PANEL SODIUM [MOLES/VOLU ME] IN SERUM OR PLASMA 142 meq/L 136 - 145 03/20 Specimen Type: PLASMA Comment: No hemolysis noted. Ordering Provider: LOULOU KILGORE Report Released Date/Time: Sep 26, 2023 10:07 AM Reporting Lab: [address] [phone] Performing Lab: [facility] [address] [facility] [phone] [facility] COMPREHEN SIVE METABOLIC PANEL POTASSIUM [MOLES/VOLU ME] IN SERUM OR PLASMA 4.7 meq/L 3.5 - 5 03/20 Specimen Type: PLASMA Comment: No hemolysis noted. Ordering Provider: LOULOU KILGORE Report Released Date/Time: Sep 26, 2023 10:07 AM Reporting Lab: [facility] [address] [place] [phone] Performing Lab: [facility] [address] [place] [phone] [facility] COMPREHEN SIVE METABOLIC PANEL CHLORIDE [MOLES/VOLU ME] IN SERUM OR PLASMA 110 meq/L 98 - 107 03/20 H Specimen Type: PLASMA Comment: No hemolysis noted. Ordering Provider: LOULOU KILGORE Report Released Date/Time: Sep 26, 2023 10:07 AM Reporting Lab: [facility] [address] [place] [phone] Performing Lab: [address] [phone] [facility] COMPREHEN SIVE METABOLIC PANEL CARBON DIOXIDE, TOTAL [MOLES/VOLU ME] IN SERUM OR PLASMA 25 meq/L 22 - 31 03/20 Specimen Type: PLASMA Comment: No hemolysis noted. Ordering Provider: LOULOU KILGORE Report Released Date/Time: Sep 26, 2023 10:07 AM Reporting Lab: [facility] [address] [facility] [phone] Performing Lab: [facility] [address] [place] [phone] [facility] COMPREHEN SIVE METABOLIC PANEL CALCIUM [MASS/VOLUM E] IN SERUM OR PLASMA 9.2 mg/dL 8.4 - 10.4 03/20 Specimen Type: PLASMA Comment: No hemolysis noted. Ordering Provider: LOULOU KILGORE Report Released Date/Time: Sep 26, 2023 10:07 AM Reporting Lab: [facility] [address] [place] [phone] Performing Lab: [facility] [address] [place], [place] [phone] [place] [address] COMPREHEN SIVE METABOLIC PANEL PROTEIN [MASS/VOLUM E] IN SERUM OR PLASMA 6.8 g/dL 6 - 8.6 03/20 Specimen Type: PLASMA Comment: No hemolysis noted. Ordering Provider: LOULOU KILGORE Report Released Date/Time: Sep 26, 2023 10:07 AM Reporting Lab: [place] [phone] Performing Lab: [address] COMPREHEN SIVE METABOLIC PANEL ALBUMIN [MASS/VOLUM E] IN SERUM OR PLASMA 3.9 g/dL 3.4 - 5 03/20 Specimen Type: PLASMA Comment: No hemolysis noted. Ordering Provider: LOULOU KILGORE Report Released Date/Time: Sep 26, 2023 10:07 AM Reporting Lab: [place] [phone] Performing Lab: [place] [phone] [place] [address] COMPREHEN SIVE METABOLIC PANEL BILIRUBIN.T OTAL [MASS/VOLUM E] IN SERUM OR PLASMA 0.6 mg/dL 0.2 - 1.2 03/20 Specimen Type: PLASMA Comment: No hemolysis noted. Ordering Provider: LOULOU KILGORE Report Released Date/Time: Sep 26, 2023 10:07 AM Reporting Lab: [facility] [address] [place], [place] [phone] Performing Lab: [address] COMPREHEN SIVE METABOLIC PANEL ALKALINE PHOSPHATASE [ENZYMATIC ACTIVITY/VO LUME] IN SERUM OR PLASMA 51 U/L 40 - 150 03/20 Specimen Type: PLASMA Comment: No hemolysis noted. Ordering Provider: LOULOU KILGORE Report Released Date/Time: Sep 26, 2023 10:07 AM Reporting Lab: [facility] [address] [facility] [phone] Performing Lab: [facility] [address] [facility] [phone] [place] [address] COMPREHEN SIVE METABOLIC PANEL ASPARTATE AMINOTRANSF ERASE [ENZYMATIC ACTIVITY/VO LUME] IN SERUM OR PLASMA 23 U/L 5 - 34 03/20 Specimen Type: PLASMA Comment: No hemolysis noted. Ordering Provider: LOULOU KILGORE Report Released Date/Time: Sep 26, 2023 10:07 AM Reporting Lab: [facility] [address] [place] [phone] Performing Lab: [facility] [address] [place] [address] [phone] [place] [address] COMPREHEN SIVE METABOLIC PANEL ALANINE AMINOTRANSF ERASE [ENZYMATIC ACTIVITY/VO LUME] IN SERUM OR PLASMA 18 U/L 8 - 40 03/20 Specimen Type: PLASMA Comment: No hemolysis noted. Ordering Provider: LOULOU KILGORE Report Released Date/Time: Sep 26, 2023 10:07 AM Reporting Lab: [facility] [address] [place] [phone] Performing Lab: [facility] [address] [place] [address] [phone] [place] [address] COMPREHEN SIVE METABOLIC PANEL GLOMERULAR FILTRATION RATE/1.73 SQ M.PREDICTED [VOLUME RATE/AREA] IN SERUM, PLASMA OR BLOOD BY CREATININE- BASED FORMULA (CKD-EPI 2020) 98.4 60 03/20 Specimen Type: PLASMA Comment: No hemolysis noted. Ordering Provider: LOULOU KILGORE Report Released Date/Time: Sep 26, 2023 10:07 AM Reporting Lab: [facility] [address] [facility] [phone] Performing Lab: [facility] [address] [place] [phone] [facility] HGA1C HEMOGLOBIN A1C/HEMOGLO BIN.TOTAL IN BLOOD 5.9 4.0 - 6.0 03/20 Specimen Type: BLOOD No comment entered. Ordering Provider: LOULOU KILGORE Report Released Date/Time: Sep 26, 2023 10:07 AM Reporting Lab: [facility] [address] [place] [phone] Performing Lab: [facility] [address] [place] [phone] [facility] LIPID PANEL (STL) CHOLESTEROL [MASS/VOLUM E] IN SERUM OR PLASMA 197 mg/dL 0 - 200 03/20 Specimen Type: PLASMA Comment: No hemolysis noted. Ordering Provider: LOULOU KILGORE Report Released Date/Time: Sep 26, 2023 10:07 AM Reporting Lab: [address] [phone] Performing Lab: [address] [phone] [facility] LIPID PANEL (STL) TRIGLYCERID E [MASS/VOLUM E] IN SERUM OR PLASMA 111 mg/dL 0 - 150 03/20 Specimen Type: PLASMA Comment: No hemolysis noted. Ordering Provider: LOULOU KILGORE Report Released Date/Time: Sep 26, 2023 10:07 AM Reporting Lab: [facility] [address] [place] [phone] Performing Lab: [facility] [address] [place] [phone] [facility] LIPID PANEL (STL) CHOLESTEROL IN LDL [MASS/VOLUM E] IN SERUM OR PLASMA BY CALCULATION 129 mg/dL 03/20 Specimen Type: PLASMA Comment: No hemolysis noted. Ordering Provider: LOULOU KILGORE Report Released Date/Time: Sep 26, 2023 10:07 AM Reporting Lab: [facility] [address] [place] [phone] Performing Lab: [address] [phone] [facility] LIPID PANEL (STL) CHOLESTEROL IN HDL [MASS/VOLUM E] IN SERUM OR PLASMA 46 mg/dL 40 03/20 Specimen Type: PLASMA Comment: No hemolysis noted. Ordering Provider: LOULOU KILGORE Report Released Date/Time: Sep 26, 2023 10:07 AM Reporting Lab: [place] [address] Performing Lab: [address] PROST. SPECIFIC AG.(PB-ST L) PROSTATE SPECIFIC AG [MASS/VOLUM E] IN SERUM OR PLASMA 1.393 ng/mL 0 - 4 03/20 Specimen Type: SERUM Comment: The listed sex of this patient may not be a typical indication for this test. Therefore, reference ranges or interpretiv e criteria listed may not be valid. Clinical correlation suggested. Ordering Provider: LOULOU KILGORE Report Released Date/Time: Sep 26, 2023 10:07 AM Reporting Lab: [place] [address] Performing Lab: [address] TSH (MA-PB) THYROTROPIN [UNITS/VOLU ME] IN SERUM OR PLASMA 1.969 u[IU]/ mL 0.47 - 5 03/20 Specimen Type: SERUM Comment: No hemolysis noted. Ordering Provider: LOULOU KILGORE Report Released Date/Time: Sep 26, 2023 10:07 AM Reporting Lab: [place] [address] Performing Lab: [address] VITAMIN D, 25-HYDROX Y 25-HYDROXYV ITAMIN [...] Sep 26, 2023 10:07 AM Reporting Lab: [facility] [address] [facility] [address] Performing Lab: [facility] [address] [facility] [address] [facility] Chemistry eGFR CKD EPI 95 mL/min [...] 2.8 mg/dL 2.3 - 4.7 05/09 N [facility] [place]ette Chemistry Creatinine Level 0.90 mg/dL 0.72 - 1.25 05/09 N [facility] Chemistry Glucose Lvl 102 mg/dL 74 - 99 05/09 H [facility] [place] Chemistry AGAP 10.00 0.00 - 15.00 05/09 N [facility] Chemistry Albumin 3.90 g/dL 3.50 - 5.20 05/09 N [facility] Chemistry BUN/Creat Ratio 20 mg/dL 12 - 20 05/09 N [facility] Chemistry Calcium 9.7 mg/dL 8.4 - 10.2 05/09 N [facility] [place] Chemistry Chloride 104 mmol/L 98 - 107 05/09 N [facility] [place] Chemistry CO2 26 mmol/L 22 - 29 05/09 N [facility] Chemistry BUN 18 mg/dL 8 - 26 05/09 N [facility] Chemistry eAvg Glucose 105 mg/dL 05/09 [facility] Chemistry Hemoglobin A1c 5.3 % 4.0 - [...] the patient and ordering Hemoglobin Electrophor esis. [facility] Chemistry Chol/HDL 3 mg/dL 05/09 [facility] Chemistry Cholesterol Total 188 mg/dL 05/09 N Interpretiv e Data: According to the [place] [employer] : AGES 0-19: Desirable: < 170 mg/dL Borderline High: 170-199 mg/dL High Blood Cholesterol : >/= 200 mg/dL ADULTS: Desirable < 200 mg/dL Borderline High: 200-239 mg/dL High Blood Cholesterol : >/= 240 mg/dL [facility] Chemistry HDL Cholesterol 56 mg/dL 40 - 59 05/09 N Interpretiv e Data: HDL (HIGH DENSITY LIPOPROTEIN ): ADULTS: Low: < 40 mg/dL High: >/= 60 mg/dL AGES 0 -19: Low: < 40 mg/dL Borderline Low: 40 - 45 mg/dL Acceptable: > 45 mg/dL [facility] Chemistry LDL 123 mg/dL 100 - 130 05/09 N Interpretiv e Data: AGES 0-19: Desirable: < 110 mg/dL Borderline High: 110-129 mg/dL High: >/= 130 mg/dL ADULTS: Desirable: <100 mg/dL Near/above optimal: 100-130 mg/dL Borderline High: 131-159 mg/dL High: 160-189 mg/dL Very High: 190 mg/dL [facility] Chemistry LDL/HDL 2 05/09 [facility] Chemistry Triglycerid es 73 mg/dL 7 - 149 05/09 N Interpretiv e Data: AGES 0-9: Desirable: < 75 mg/dL Borderline High: 75-99 mg/dL High: >/= 100 mg/dL AGES 10-19: Desirable: < 90 mg/dL Borderline High: 90-129 mg/dL High: >/= 130 mg/dL ADULTS: Desirable: < 150 mg/dL Borderline High: 150-199 mg/dL High: >/= 240 mg/dL Very High: >/= 500 mg/dL [facility] Chemistry Potassium Lvl 4.1 mmol/L 3.5 - 5.1 05/09 N 375 [facility] [place] Chemistry Sodium 140 mmol/L 136 - 145 05/09 N 375 [facility] [place] Chemistry Protein Total 7.3 g/dL 6.4 - 8.3 05/09 N [facility] [place] Chemistry AGAP 10.00 0.00 - 15.00 05/09 N [facility] [place] Chemistry Albumin 3.90 g/dL 3.50 - 5.20 05/09 N [facility] [place] Chemistry Alk Phos 60 U/L 40 - 150 05/09 N [facility] [place] Chemistry ALT 14 U/L 5 - 55 05/09 N [facility] [place] Chemistry AST 14 U/L 5 - 34 05/09 N [facility] [place] Chemistry Bilirubin Total 0.6 mg/dL 0.2 - 1.2 05/09 N 375 [facility] [place] Chemistry BUN 18 mg/dL 8 - 26 05/09 N 375 [facility] [place] Chemistry BUN/Creat Ratio 20 mg/dL 12 - 20 05/09 N [facility] [place] Chemistry Calcium 9.7 mg/dL 8.4 - 10.2 05/09 N 375 [facility] [place] Chemistry CO2 26 mmol/L 22 - 29 05/09 N [facility] [place] Chemistry Creatinine Level 0.90 mg/dL 0.72 - 1.25 05/09 N 375 [facility] [place] Chemistry Glucose Lvl 102 mg/dL 74 - 99 05/09 H [id number] [facility] [place] Hematolog y MCHC 33.0 g/dL 33.0 - 36.5 05/09 N 375 [facility] [place] Hematolog y MCH 30 pg 28 - 33 05/09 N 375 [facility] [facility]olog [facility] Hemoglobin 15.2 g/dL 13.0 - 16.3 05/09 N [id number] [facility] Hematolog y Hematocrit 46 % 40 - 49 05/09 N [id number] [facility] [place] Hematolog y Differentia l? Auto ( 8:49 AM) 05/09 N [id number] [facility] Hematolog [facility] WBC 9.5 x10^3/ mcL 4.0 - 11.0103 05/09 N [id number] [facility] Hematolog [facility] RDW 12.6 % 11.0 - 14.9 05/09 N [id number] [facility] Hematolog [facility] RBC 5.0 x10^6/ mcL 4.0 - 5.6106 05/09 N [id number] [facility] Hematolog [facility] Platelets 158.0 x10^3/ mcL 150.0 - 450.0103 05/09 N -375 [facility] Hematolog [facility] MPV 11.1 fL 7.4 - 10.4 05/09 H [id number] [facility] [place] [facility] MCV 92 fL 80 - 97 05/09 N [id number] [facility] Hematolog y Neutrophil % Auto 79.5 % 46.0 - 77.0 05/09 H [id number] [facility] Lymph Absolute 1.2 x10^3/ mcL 1.2 - 4.0103 05/09 N [id number] [facility]emat[facility] Crane Absolute 0.6 x10^3/ mcL 0.2 - 0.8103 05/09 N [id number] [facility] Lymphocyte % Auto 12.2 % 20.0 - 40.0 05/09 L [id number] [facility]ematolog [facility] Monocyte % Auto 7 % 1 - 12 05/09 N [id number] [facility] Hematolog y Neutro Absolute 7.6 x10^3/ mcL 2.0 - 7.0103 05/09 H [id number] [facility] Baso Absolute 0.0 [...] Oct 04, 2022 11:21 AM Reporting Lab: [facility] [address] [place] [phone] Performing Lab: [facility] [address] [place] [phone] [facility] Vital Signs Combined list of inpatient and [...] [facility] SYSTOLIC BLOOD PRESSURE 147 06/06/19 09:20:27 [facility] DIASTOLIC BLOOD PRESSURE 78 025 09:20:27 [facility] PULSE OXIMETRY 97 06/05/2024 09:20:27 [facility] PAIN 0 06/05/2024 09:20:27 [facility] TEMPERATURE 97.8 06/05/2024 09:20:27 [facility] PULSE 77 06/05/2024 09:20:27 [facility] RESPIRATION 18 06/05/2024 09:20:27 [facility] SYSTOLIC BLOOD PRESSURE 131 04/10/19 09:54:28 [facility] DIASTOLIC BLOOD PRESSURE 86 025 09:54:28 [facility] PULSE OXIMETRY 99 04/10/2024 09:54:28 [facility] WEIGHT 195.4 04/10/2024 09:54:28 [facility] BMI 29 kg/m2 04/10/2024 09:54:28 [facility] TEMPERATURE 97.6 04/10/2024 09:54:28 [facility] PULSE 77 04/10/2024 09:54:28 [facility] RESPIRATION 18 04/10/2024 09:54:28 [facility] SYSTOLIC BLOOD PRESSURE 143 03/27/19 10:29:37 [facility] DIASTOLIC BLOOD PRESSURE 78 025 10:29:37 [facility] PULSE OXIMETRY 96 03/27/2024 10:29:37 [facility] WEIGHT 194.8 03/27/2024 10:29:37 [facility] BMI 29 kg/m2 03/27/2024 10:29:37 [facility] PAIN 2 03/27/2024 10:29:37 [facility] HEIGHT 69 03/27/2024 10:29:37 [facility] TEMPERATURE 98 03/27/2024 10:29:37 [facility] PULSE 75 03/27/2024 10:29:37 [facility] RESPIRATION 16 03/27/2024 10:29:37 [facility] SYSTOLIC BLOOD PRESSURE 138 03/21/19 25 11:39:14 [facility] DIASTOLIC BLOOD PRESSURE 73 025 11:39:14 [facility] PULSE OXIMETRY 97 03/21/2024 11:39:14 [facility] PAIN 0 03/21/2024 11:39:14 [facility] TEMPERATURE 98 03/21/2024 11:39:14 [facility] PULSE 93 03/21/2024 11:39:14 [facility] RESPIRATION 16 03/21/2024 11:39:14 [facility] SYSTOLIC BLOOD PRESSURE 157 01/22/20 24 13:30:34 [facility] DIASTOLIC BLOOD PRESSURE 80 024 13:30:34 [facility] PULSE OXIMETRY 98 01/22/2024 13:30:34 [facility] WEIGHT 196.6 01/22/2024 13:30:34 [facility] BMI 29 kg/m2 01/22/2024 13:30:34 [facility] PAIN 8 01/22/2024 13:30:34 [facility] HEIGHT 69 01/22/2024 13:30:34 [facility] TEMPERATURE 96.8 01/22/2024 13:30:34 [facility] PULSE 77 01/22/2024 13:30:34 [facility] RESPIRATION 18 01/22/2024 13:30:34 [facility] Encounters Combined list of: 1) Encounters from Department of [facility] Affairs facilities going backup to the last 18 months, not all VA inpatient encounters are included; 2) Encounters from the Department of [facility] facilities going backup to 280 months. Location Location Details Encounter Type Encounter Number Reason For Visit Attending Provider ADM Date DC Date Status Disposition Source [address] [place] [address] [employer] ([facility])(Eric matology) OUTPATIENT [id number] f/u CHRISTIANO MAYERS 09/24 Released w/o Limitations [address] [place] [address] [employer] ([facility])(D ermatol ogy) [address] [place] [address] [employer] ([facility])(Pt Neuromusc uloskelet al Clinic) OUTPATIENT [id number] EZEQUIEL Cuevas 05/03 Released w/o Limitations [facility] [employer] ([facility])(P t Neuromu sculosk eletal Clinic) [address] [place] [address] [employer] ([facility])(Phy sical Therapy) OUTPATIENT [id number] TL KOHLER 05/17 Released w/o Limitations [address] [place] [address] [employer] ([facility])(P hysical Therapy ) [address] [place] [address] [employer] ([facility])(Phy sical Therapy) OUTPATIENT [id number] TL KOHLER 05/23 Released w/o Limitations [address] [place] [address] [employer] ([facility])(P hysical Therapy ) [address] [place] [address] [employer] ([facility])(Phy sical Therapy) OUTPATIENT [id number] TL KOHLER 05/25 Released w/o Limitations [address] [place] [address] [employer] ([facility])(P hysical Therapy ) [address] [place] [address] [employer] ([facility])(Phy sical Therapy) OUTPATIENT [id number] TL KOHLER 05/31 Released w/o Limitations [address] [place] [address] [employer] ([facility])(P hysical Therapy ) [address] [place] [address] [employer] ([facility])(Pt Neuromusc uloskelet al Clinic) OUTPATIENT [id number] EZEQUIEL HUFFMAN 06/01 Released w/o Limitations [address] [place] [address])(P t Neuromu sculosk eletal [facility]) [address] [place] [address])(Pt Neuromusc uloskelet al [facility]) OUTPATIENT [id number] EZEQUIEL HUFFMAN 07/05 Released w/o Limitations [address] [place] [address])(P t Neuromu sculosk eletal [facility]) [address] [place] [address])([facility]GME FHI1) TELE CONSULT [id number] Pull Groin Muscle - MRI Results EMELYN HERNANDEZ Vickie 08/[address] [place] [address])(F amily Practic e Non-GME FHI1) [address] [place] [address])([facility] Non-GME FHI1) TELE CONSULT [id number]- [facility] jack-karen VALLEJOEMELYN FRANCOIS Vickie 04/[address] [place] [address])(F amily Practic e Non-GME FHI1) [address] [place] [address])([facility] jeni Practice Non-GME FHI1) OUTPATIENT [id number] EXTREME LOWER BACK PAIN GIOVANNA ESCOBEDO 10/30 Released w/o Limitations [address] [place] [address])(F amily Practic e Non-GME FHI1) [address] [place] [address])([facility] jeni Practice Non-GME FHI1) TELE CONSULT [id number] MRI results - LESVIA Poole 11/[address] [place] [address])(F amily Practic e Non-GME FHI1) [address] [place] [address])([facility] jeni Practice Non-GME FHI1) OUTPATIENT [id number] f/u on MRI results and lumbago GIOVANNA ESCOBEDO 12/14 Released w/o Limitations [address] [place] [address])(F amily Practic e Non-GME FHI1) [address] [place] [address])([facility] jeni Practice Non-GME FHI1) TELE CONSULT [id number] renew ref for yrly derm exam - ARSLAN Royal 05/[address] [place] [address])(F amily Practic e Non-GME FHI1) [address] [place] [address])([facility] Non-GME FHI1) TELE CONSULT [id number] referra jack oliva on- LESVIA Poole 05/[address] [place] [address])(F amily Practic e Non-GME FHI1) [address] [place] [address])([facility] Non-GME FHI1) OUTPATIENT [id number] NEED REFERRA L TO DERM AND OTHER DISCUSS ION??? RAFAEL RAMESH 09/23 Released w/o Limitations [address] [place] [address])(F amily Practic e Non-GME FHI1) [address] [place] [address])([facility] jeni Practice Non-GME FHI2) TELE CONSULT [id number] Lab Call Back- BENEDICTO Sanchez 09/[address] [place] [address])(F amily Practic e Non-GME FHI2) [address] [place] [address])(Eric matology) OUTPATIENT [id number] BASAL CELL NEVUS SYNDROM E TONIE FOREMAN 10/02 Released w/o Limitations [address] [place] [address])(D ermatol ogy) [address] [place] [address])([facility] Non-GME FHI2) TELE CONSULT [id number] ANGELICA WHIPPLE 10/[address] [place] [address])(F amily Practic e Non-GME FHI2) [address] [place] [address])(Sco tt Internal Medicine Tm) OUTPATIENT [id number] lower back pain [place] 10/13 Released w/o Limitations [address] [place] [address])(S cott Interna l Medicin e Tm) [address] [place] [address])([facility] jeni Practice Non-GME FHI2) TELE CONSULT [id number] referra santiago/HIGINIO Mayfield 10/[address] [place] [address])(F amily Practic e Non-GME FHI2) [address] [place] [address] [employer] [facility])([facility] jeni Practice Non-GME FHI2) TELE CONSULT [id number] Med Request MALU ALVES 11/[address] [place] [address] [employer] [facility])(F amily Practic e Non-GME FHI2) [address] [place] [address] [employer] [facility])([facility] jeni Practice Non-GME FHI1) TELE CONSULT [id number] Labs MALU ALVES 11/[address] [place] [address] [employer] [facility])(F amily Practic e Non-GME FHI1) [address] [place] [address] [employer] [facility])([facility] jeni Practice Non-GME FHI2) TELE CONSULT [id number] call back lab results LEOBARDO LYNN 12/[address] [place], [place] [address]B [facility])(F amily Practic e Non-GME FHI2) [address] [place], [place] [address]B [facility])(Opt ometry) OUTPATIENT [id number] C ANNUAL EXAM - WEARS READING GLASSES SUMEET COOK W 01/06 Released w/o Limitations [address] [place] [address] [employer] [facility])(O ptometr y) [address] [place] [address] [employer] [facility])([facility] Non-GME FHI1) OUTPATIENT [id number] f/u on cholest medhat RAFAEL RAMESH 01/09 Released w/o Limitations [address] [place] [address] [employer] [facility])(F amily Practic e Non-GME FHI1) [address] [place] [address] [employer] [facility])([facility] Non-GME FHI1) TELE CONSULT [id number] PCM/NOB LE/BIGH AM-PT REQUEST ING LAB TESTS MAHAMED HOGAN 02/[address] [place] [address] [employer] [facility])(F amily Practic e Non-GME FHI1) [address] [place] [address] [employer] [facility])([facility] jeni Practice Non-GME FHI1) TELE CONSULT [id number] Ramesh/B igham/w ants lab results LEOBARDO LYNN 03/[address] [place] [address] [employer] [facility])(F amily Practic e Non-GME FHI1) [address] [place] [address] [employer] [facility])(Sco tt FHC Team 3) TELE CONSULT [id number] call re: stress echo MARIYA MILNER Vickie 05/[address] [place] [address] [employer] [facility] ([facility])([facility] Team 3) [address] [place] [address] [employer] [place] [facility])(Eric matology) OUTPATIENT [id number] history of basal cell cancer TONIE FOREMAN Clare 06/03 Released w/o Limitations [address] [place] [address] [employer] [place] ([facility])(D ermatol alessandra) [address] [place] [address] [employer] [place] [facility])([facility] Team 3) TELE CONSULT [id number] med refill- STEVEN Collins 01/[address] [place] [address] [employer] [facility])([facility] Team 3) [address] [place] [address] [employer] [place] [facility])([facility] Team 3) OUTPATIENT [id number] annual cholest RAFAEL Pretty 01/22 Released w/o Limitations [address] [place] [address] [employer] [place] [facility])([facility] Team 3) [address] [place] [address] [employer] [place] [facility])([facility] Team 4) TELE CONSULT [id number] Ramesh/r eferral request CAROLINA SIGALA 03/[address] [place] [address] [employer] [place] [facility])([facility] Team 4) [address] [place] [address] [employer] [place] [facility])(Fam jeni Med Tm B Non-AD BCC) OUTPATIENT [id number] PAIN IN RT RIBS (SECOND KEVIN TO TRAUMA) LIVIER MATTSON 03/18 Released w/o Limitations [address] [place] [address] [employer] [place] [facility])(F amily Med Tm B Non-AD BCC) [address] [place] [address] [facility] [place] [facility])([facility] Team 3) OUTPATIENT [id number] back pain [phone] RAFAEL RAMESH 06/01 Released w/o Limitations [address] [place] [address] [employer] [place] [facility])([facility] Team 3) [address] [place] [address] [employer] [facility])([facility] Team 3) TELE CONSULT [id number] Pt request ing referra l to Opthama logist -[phone] BAIRON WILEY 10/[address] [place] [address] [facility] [place] [facility])([facility] Team 3) [address] [place] [address] [facility])([facility] Team 3) OUTPATIENT [id number] Pt with hx pterygi um seen by jacinda optlori kimball who states vision is worseni NAREN Salas 10/05 Released w/o Limitations [address] [place] [address] [facility])([facility] Team 3) [address] [place] [address] [facility])([facility] Team 3) TELE CONSULT [id number] Vlad /[phone]/re fill LIPITOR and labs ordered CHHOEUN, VENTURA R 02/09 Referred for Appointment [address] [place] [address] [facility] 3) [address] [place] [address] [facility])([facility] Team 3) TELE CONSULT [id number] Vlad /[phone]/re fill LIPITOR CHHOEUN, VENTURA R 02/28 Referred for Appointment [address] [place] [address] [facility])([facility] 3) [address] [place] [address] [facility])([facility] Team 3) TELE CONSULT [id number] Santana/ [phone]/ca rdio referra l extenti on LIZ Bales R 04/07 Referred for Appointment [facility] Medical [facility])([facility] Team 3) [address] [place] [address] [facility])([facility] Team 3) TELE CONSULT [id number] [facility] referra l renewed . [phone] LIZ MACEDO R 04/22 Referred for Appointment [facility] Medical [facility])([facility] 3) [address] [place] [address] [facility])([facility] Team 3) TELE CONSULT [id number] T con for referra l for eye surgery 0n [address] Cook ph [phone] LIZ MACEDO R 07/[address] [place] [address] [facility] [place] [facility])([facility] 3) [address] [place] [address] [facility])([facility] Team 3) TELE CONSULT [id number] T con for referra l for eye special ist at [facility] ph [phone] 09/[address] [place] [address] [facility])([facility] Team 3) [address] [place] [address] [facility])([facility] Team 3) OUTPATIENT [id number] medical assessm ent prior to surgery NAREN COOK 10/26 Released w/o Limitations [address] [place] [address])([facility] Team 3) [address] [place] [address])([facility] Team 3) TELE CONSULT [id number] Notes Entered by: DIVINA HOUSTON 23 Mar 2011 1200 ------- ------- ------- ------- -- Jacoby harper /Randall hy/[phone]. [phone]/m LIZ Salazar 03/[address] [place] [address])([facility] Team 3) [address] [place] [address])(War rior Op Med Cln Tm A Ad) TELE CONSULT [id number] Notes Entered by: Jr RAMIREZ 10 Jul 2012 0720 ------- ------- ------- ------- -- Request ing blood work Kong [id number] CARISA CORNEJO I 07/[address] [place] [address])(W arrior Op Med Cln Tm A Ad) [address] [place] [address])(War rior Op Med Cln Tm A Ad) TELE CONSULT [id number] Notes Entered by: LUDWIN PRECIADO 11 Jul 2012 1237 ------- ------- ------- ------- -- CAROLINA Miller 07/[address] [place] [address])(W arrior Op Med Cln Tm A Ad) [address] [place] [address])(War rior Op Med Cln Tm A Ad) OUTPATIENT [id number] [facility] s exam ED PRECIADO 07/24 Released w/o Limitations [address] [place] [address] [facility])(W arrior Op Med Cln Tm A Ad) [address] [place] [address] [facility])(Eric matology) OUTPATIENT [id number] skin cancer history CAMILLEPERCY MARQUEZ 08/08 Released w/o Limitations [address] [place] [address] [employer] [place] ([facility])(D ermatol ogy) [address] [place] [address] [facility])(Fam jeni Med Tm B Non-AD BCC) TELE CONSULT [id number] Notes Entered by: DESTIN RIVERA 24 Dec 2012 0800 ------- ------- ------- ------- -- Network Results - CARDIOL OGY - 3 ED PRECIADO 12/[address] [place] [address] [facility])(F amily Med Tm B Non-AD BCC) [address] [place] [address] [facility])(War rior Op Med Cln Tm A Ad) TELE CONSULT [id number] Notes Entered by: LINNEA BOYD 24 Dec 2012 1216 ------- ------- ------- ------- -- Network results - Ophthal mology - 3 ED PRECIADO 12/[address] [place] [address] [facility])(W arrior Op Med Cln Tm A Ad) [address] [place] [address] [facility])(War rior Op Med Cln Tm A Ad) OUTPATIENT [id number] pt fell on ice-1 wk ago, feels L side rib cage pain [id number] ED PRECIADO 04/02 Released w/o Limitations [address] [place] [address] [facility])(W arrior Op Med Cln Tm A Ad) [address] [place] [address] [facility])(War rior Op Med Cln Tm A Ad) TELE CONSULT [id number] Notes Entered by: LUDWIN PRECIADO 03 Apr 2013 1140 ------- ------- ------- ------- -- X-ray ED PRECIADO 04/[address] [place] [address])(W arrior Op Med Cln Tm A Ad) [address] [place] [address])(War rior Op Med Cln Tm A Ad) TELE CONSULT [id number] Notes Entered by: Jr RAMIREZ 04 Aug 2013 1155 ------- ------- ------- ------- -- Med refill Preciado DARIEN BEE 08/[address] [place] [address])(W arrior Op Med Cln Tm A Ad) [address] [place] [address])(War rior Op Med Cln Tm A Ad) OUTPATIENT [id number] annual face to face check up, med refED Elena 08/12 Released w/o Limitations [address] [place] [address])(W arrior Op Med Cln Tm A Ad) [address] [place] [address])(Fam jeni Med Tm B Non-AD BCC) TELE CONSULT [id number] Notes Entered by: DESTIN RIVERA 04 Nov 2013 1338 ------- ------- ------- ------- -- Network Results - DERMATO LOGY - 09/25/13 ED PRECIADO 11/[address] [place] [address])(F amily Med Tm B Non-AD BCC) [address] [place] [address])(War rior Op Med Cln Tm A Ad) TELE CONSULT [id number] Notes Entered by: THERESA CUELLAR 02 Apr 2014 0821 ------- ------- ------- ------- -- Dermato logy trenton l renewal request ed by DEYANIRA Cronin 04/02 Referred for Appointment [address] [place] [address])(W arrior Op Med Cln Tm A Ad) [address] [place] [address])(War rior Op Med Cln Tm A Ad) TELE CONSULT [id number] Notes Entered by: DESTIN RIVERA 27 Apr 2014 1625 ------- ------- ------- ------- -- Network Results - DERMATO LOGY - 04/27/14 BELINDA BERNABE 04/[address] [place] [address])(W arrior Op Med Cln Tm A Ad) [address] [place] [address])(War rior Op Med Cln Tm A Ad) TELE CONSULT [id number] Notes Entered by: ROB LUND ELS 24 Aug 2014 1248 ------- ------- ------- ------- -- Lab Request //Med Renewal //Liver mon//44 4.0417 DOUG MCKEON 08/24 Referred for Appointment [address] [place] [address])(W arrior Op Med Cln Tm A Ad) [address] [place] [address])(War rior Op Med Cln Tm A Ad) OUTPATIENT [id number] annual check up BELINDA BERNABE 09/10 Released w/o Limitations [address] [place] [address])(W arrior Op Med Cln Tm A Ad) [address] [place] [address])(War rior Op Med Cln Tm A Ad) TELE CONSULT [id number] Notes Entered by: VINOD DIGGS 29 Sep 2014 1457 ------- ------- ------- ------- -- Laborat ory results BELINDA BERNABE 09/[address] [place] [address])(W arrior Op Med Cln Tm A Ad) [address] [place] [address])(War rior Op Med Cln Tm A Ad) TELE CONSULT [id number] Notes Entered by: VINOD DIGGS 17 Nov 2014 1305 ------- ------- ------- ------- -- Thaddeus su t count DOUG MCKEON 11/17 Referred for Appointment [address] [place] [address])(W arrior Op Med Cln Tm A Ad) [address] [place] [address])(Fam jeni Med Tm B Non-AD BCC) TELE CONSULT [id number] Notes Entered by: LUCHO SANTIAGO 21 Jan 2015 0647 ------- ------- ------- ------- -- Lab results LINDADOUG GUZMÁN Jack 01/21 Referred for Appointment [address] [place] [address])(F amily Med Tm B Non-AD BCC) [address] [place] [address])([facility] Internal Medicine ) TELE CONSULT [id number] Notes Entered by: Vickie LUCIANO 11 May 2015 0732 ------- ------- ------- ------- -- ER F/U Appt / Sangita / Martin# AUNG PEREZ 05/[address] [place] [address])(S cott Interna l Medicin e Tm) [address] [place] [address])([facility] Internal Medicine ) OUTPATIENT [id number] f/u ER Visit-- L Mid Finger Injury (record s receive d) KANIKA QUESADA 05/11 Released w/o Limitations [address] [place] [address])(S cott Interna l Medicin e Tm) [address] [place] [address])([facility] Internal Medicine ) TELE CONSULT [id number] Notes Entered by: TOMMY BHATTI 13 May 2015 1325 ------- ------- ------- ------- -- Needs a referra l for occupat ional therapy AUNG PEREZ 05/[address] [place] [address])(S cott Interna l Medicin e Tm) [address] [place] [address])([facility] Internal Medicine ) TELE CONSULT [id number] Notes Entered by: TASHI GRAY 02 Aug 2015 0722 ------- ------- ------- ------- -- TRENTON HARPER / SANGITA / / ATTILA CABRERA 08/01 Immediate Referral [address] [place] [address])(S cott Interna l Medicin e Tm) [address] [place] [address])(Eric matology) OUTPATIENT [id number] Foreign body granulo ma of the skin and subcuta neous tissue DANIELA SHAW 09/14 Released w/o Limitations [address] [place] [address])(D ermatol ogy) [address] [place] [address])([facility] matology) OUTPATIENT [id number] Excisio n left mid back DANIELA SAHW 10/04 Released w/o Limitations [address] [place] [address])(D ermatol ogy) [address] [place] [address])([facility] OUTPATIENT [id number] Notes Entered by: Jr AL 18 Oct 2015 0743 ------- ------- ------- ------- -- Suture Removal DANIELA SHAW 10/17 Released w/o Limitations [address] [place] [address])(D ermatol ogy) [address] [place] [address])([facility] Internal Medicine Tm) TELE CONSULT [id number] Notes Entered by: Estiven TEAGUE 15 Nov 2015 1335 ------- ------- ------- ------- -- Med renewal / Sangtia / SOLE Vela 11/[address] [place] [address])(S cott Interna l Medicin e Tm) [address] [place] [address])([facility] Tm) TELE CONSULT [id number] Notes Entered by: Rosalie FELICIANO 19 Nov 2015 1028 ------- ------- ------- ------- -- Med jacobyill JASON WINN 11/18 Referred for Appointment [facility] Medical Group [facility])(S cott Interna l Medicin e Tm) [facility])([facility] Medicine ) TELE CONSULT [id number] Notes Entered by: LAN WOOD 05 Jan 2016 0937 ------- ------- ------- ------- -- Network results Physica l Therapy 016 [place], [place] 01/04 [facility])(S cott Interna l Medicin e Tm) [facility])([facility] Medicine ) TELE CONSULT [id number] Notes Entered by: LAN WOOD 20 Jan 2016 0927 ------- ------- ------- ------- -- Network results Surgery 016 [place], [place] 01/19 [facility])(S cott Interna l Medicin e Tm) [facility])([facility] Medicine ) TELE CONSULT [id number] Notes Entered by: ISIDRA MAGDALENO 28 Feb 2016 1544 ------- ------- ------- ------- -- Med Renewal / Request for Lab Order / Pushpa / - sgJASON Paulino 02/27 Referred for Appointment [facility] Medical Group [facility])(S cott Interna l Medicin e Tm) [facility] Medical Group [facility])(Research [facility] OUTPATIENT [id number] f/u labs annual appoint ment [place] 03/07 Released w/o Limitations [facility] Medical Group Percy CLEMONS ([facility])(S cott Interna l Medicin e Tm) [facility] Medical [facility] Percy [facility])([facility] ) TELE CONSULT [id number] Notes Entered by: FRANCISCA HOROWITZ 15 Jun 2016 0911 ------- ------- ------- ------- -- Med leroy /Tenzin mcghee/ /nely ANGEL DELEONGARCÍA Johnston 06/15 Medication Refill Forwarded [address] [place] [address] Percy [facility])(S cott Interna l Medicin e Tm) [address] [place] [address])([facility] ) TELE CONSULT [id number] Notes Entered by: Estiven MATTSON 14 Jul 2016 1612 ------- ------- ------- ------- -- Network results Ophthal mology 05/12/16 TB SCOTT SHIN V 07/[address] [place] [address] Percy [facility])( cott Interna l Medicin e Tm) [address] [place] [address])([facility] ) TELE CONSULT [id number] Notes Entered by: MEL HANCOCK RET 24 Jul 2016 0730 ------- ------- ------- ------- -- SX: Swollen tight from fluid- [facility] F/U Cecil nickerson/John borrero/ JASON WINN 07/24 Referred for Appointment [address] [place] [address] Percy [facility])(S cott Interna l Medicin e Tm) [address] [place] [address] Percy [facility])([facility] ) OUTPATIENT [id number] rt knee pain and swellin g SCOTT SHIN V 08/02 Released w/o Limitations [address] [place] [address] Percy [facility])(S cott Interna l Medicin e Tm) [address] [place] [address] Per[facility])([facility]) OUTPATIENT [id number] right knee CARLOS LEE A 08/04 Released w/o Limitations [address] [place] [address] Percy [facility])(V A - Orthope dics) [address] [place] [address] Per[facility])([facility]) OUTPATIENT [id number] f/u right knee bursiti CARLOS Myers A 08/11 Released w/o Limitations [address] [place] [address] Percy [facility])(V A - Orthope dics) [address] [place] [address])([facility] [id number] Follow up right knee bursiti CARLOS Myers 08/28 Released w/o Limitations [address] [place] [address])(V A - Orthope dics) [address] [place] [address])([facility] ) TELE CONSULT [id number] Notes Entered by: Vickie LUCIANO 29 Mar 2017 0832 ------- ------- ------- ------- -- Med Renewal / Pushpa/ [phone] - SOLE Rosen 03/[address] [place] [address])(S cott Interna l Medicin e Tm) [address] [place] [address])([facility] ) OUTPATIENT [id number] Med refill, lab results , annual visit TE [place] 04/27 Released w/o Limitations [address] [place] [address])([facility] Intern[facility] l Medicin [facility] Tm) [address] [place] [address])([facility] ) TELE CONSULT [id number] Notes Entered by: MICHAEL ERVIN 20 Jun 2017 1008 ------- ------- ------- ------- -- Trenton Harper /Dirk /[phone] SOLE JONES 06/[address] [place] [address])(S cott Interna l Medicin e Tm) [address] [place] [address])([facility] ) OUTPATIENT [id number] open wound on head and f/u vertigo - [id number] PRICE PARKER 07/31 Released w/o Limitations [address] [place] [address])(S cott Interna l Medicin e Tm) [facility] Medical [facility])([facility] ) TELE CONSULT [id number] Notes Entered by: FRANCISCA HOROWITZ 29 Aug 2017 1134 ------- ------- ------- ------- -- STAT Referra jack 04 September 2017/Elayne diaz 4.0417/ KATIE Arnold 08/[address] [place] [address] Group [facility])(S cott Interna l Medicin e Tm) [address] [place] [address] Group [facility])([facility] ) TELE CONSULT [id number] Notes Entered by: JOHNATHON OLSEN 17 Oct 2017 0912 ------- ------- ------- ------- -- Retro referra jack Dumont - - tsg ADRIENNE QUIROS 10/17 Referred for Appointment [facility] Medical [facility])(S cott Interna l Medicin e Tm) [facility] Medical [facility])([facility] ) OUTPATIENT [id number] right foot pain and cough x 3 wks MOUSTAPHA DUMONT 02/07 Released w/o Limitations [facility] Medical [facility])(S cott Interna l Medicin e Tm) [address] [place] [address])([facility] ) TELE CONSULT [id number] Notes Entered by: VIOLETA KNOX 01 Mar 2018 0858 ------- ------- ------- ------- -- STAT-re jey cooley /davie / DARIEN Chandler 03/01 Referred for Appointment [facility])(S cott Interna l Medicin e Tm) [address] [place] [address])([facility] ) TELE CONSULT [id number] 7 Notes Entered by: VIOLETA KNOX 14 May 2018 1124 ------- ------- ------- ------- -- Medicat ion leroy /davie / SOLE Taveras 05/14 Medication Refill Forwarded [address] [place] [address])(S cott Interna l Medicin e Tm) [address] [place] [address])([facility] ) TELE CONSULT [id number] 6 Notes Entered by: JOHNATHON OLSEN 07 Jun 2018 1002 ------- ------- ------- ------- -- Order maryan - Davie - - SOLE Maldonado 06/07 Other Not Elsewhere Classified [address] [place] [address])([facility] Intern[facility] l Medicin [facility] Tm) [address] [place] [address])([facility] ) OUTPATIENT [id number] annual check up MOUSTAPHA DUMONT 06/19 Released w/o Limitations [address] [place] [address])([facility] cott Interna l Medicin e Tm) [address] [place] [address])([facility] ) TELE CONSULT [id number] 3 Notes Entered by: John GARCIA 10 Jul 2018 1523 ------- ------- ------- ------- -- Network results Podiatr y 019 MOUSTAPHA HERNADEZ 07/[address] [place] [address])(S cott Intern[facility] l Medicin e Tm) [address] [place] [address])([facility] ) TELE CONSULT [id number] 9 Notes Entered by: SHANNON IVAN 05 Sep 2018 1118 ------- ------- ------- ------- -- STAT Aug Otorhin olary Ref Renew Req/Sos nov/ GUSTAVO Snowa -a jh STEVEN PAUL 09/05 Referred for Appointment [facility] Medical Group [facility])(S cott Interna l Medicin e Tm) [address] [place] [address])([facility] ) TELE CONSULT [id number] 6 Notes Entered by: MATHIEU ASTUDILLO R 17 Feb 2019 1141 ------- ------- ------- ------- -- Referra l Renewal /Sosalexandre / SOLE JONES 02/17 Other Not Elsewhere Classified [address] [place] [address] Group [facility])(S cott Interna l Medicin e Tm) [address] [place] [address])([facility] ) TELE CONSULT [id number] 8 Notes Entered by: BERNICE MATSON 04 Jul 2019 0859 ------- ------- ------- ------- -- Referra l Renewal / Sosalexandre/ (634) STEVEN PAUL 07/03 Referred for Appointment [address] [place] [address] Group [facility])(S cott Interna l Medicin e Tm) [address] [place] [address])([facility] ) TELE CONSULT [id number] 9 Notes Entered by: SHANNON IVAN 05 Aug 2019 1236 ------- ------- ------- ------- -- Lab Test Inquiry -Med Renewal Request / Sosnov/ 618- - [facility] [phone] MOUSTAPHA DUMONT 08/[address] [place] [address] Group [facility])(S cott Interna l Medicin e Tm) [address] [place] [address])([facility] ) TELE CONSULT [id number] 2 Notes Entered by: MATHIEU ASTUDILLO R 19 Dec 2019 1507 ------- ------- ------- ------- -- Positiv e COVID Test/Co hen/618 .444.04 17 SOLE JONES 12/18 Other Not Elsewhere Classified [address] [place] [address] Group [facility])(S cott Interna l Medicin e Tm) [address] [place] [address])([facility] ) OUTPATIENT [id number] right hand middle finger pain/61 8 444 0417/vi rtual MAMIE GUERRERO 01/28 Released w/o Limitations [address] [place] [address])([facility] Intern[facility] l Medicin [facility] Tm) [address] [place] [address])([facility] ) TELE CONSULT [id number] 1 Notes Entered by: Jr GUERRERO 30 Jan 2020 1456 ------- ------- ------- ------- -- Finger pain STEVEN PAUL 01/29 Other Not Elsewhere Classified [address] [place] [address])([facility] cott Interna l Medicin e Tm) [address] [place] [address])([facility] ) OUTPATIENT [id number] Virtual - L ear pain, MAMIE GUERRERO 02/05 Released w/o Limitations [address] [place] [address])([facility] Intern[facility] l Medicin [facility] Tm) [address] [place] [address])([facility] ) TELE CONSULT [id number] 1 Notes Entered by: SHANNON IVAN 18 Mar 2020 1108 ------- ------- ------- ------- -- Dermato roselia Moratayaq- Appt CesarBean [phone] -ADRIENNE Saldana 03/18 Referred for Appointment [address] [place] [address])([facility] Intern[facility] l Medicin [facility] Tm) [address] [place] [address])([facility] ) TELE CONSULT [id number] 0 Notes Entered by: BERNICE MATSON 06 Jul 2020 1032 ------- ------- ------- ------- -- Trenton Guerrero/ STEVEN PAUL 07/06 Other Not Elsewhere Classified [address] [place] [address])([facility] Intern[facility] l Medicin [facility] Tm) [address] [place] [address])([facility] ) TELE CONSULT [id number] 6 Notes Entered by: SHANNON IVAN 13 Aug 2020 0911 ------- ------- ------- ------- -- Med Renewal Request / Shashi/ - SOLE Rosen 08/13 Medication Refill Forwarded [address] [place] [address])([facility] Intern[facility] l Medicin [facility] Tm) [address] [place] [address])([facility] ) OUTPATIENT [id number] F2f lab and annual CONNOR CARRIZALES 08/18 Released w/o Limitations [address] [place] [address])([facility] Intern[facility] Tm) [address] [place] [address])([facility] ) TELE CONSULT [id number] 1 Notes Entered by: BERNICE MATSON 07 Oct 2020 0759 ------- ------- ------- ------- -- Lab Request / Shashi/ SOLE JONES 10/07 Other Not Elsewhere Classified [address] [place] [address])([facility] Intern[facility] Medicin [facility] Tm) [address] [place] [address])([facility] ) OUTPATIENT [id number] RX eval, f2f appt CONNOR CARRIZALES 10/08 Released w/o Limitations [address] [place] [address])([facility] Intern[facility] l Medicin [facility] Tm) [address] [place] [address])([facility] ) TELE CONSULT [id number] 5 Notes Entered by: BIANCA GRIMALDO 30 Nov 2020 1012 ------- ------- ------- ------- -- SX Itchine rivas/ Lavinia martin/ JASON LUND 11/30 Referred for Appointment [address] [place] [address])([facility] Intern[facility] l Medicin [facility] Tm) [address] [place] [address])([facility] ) OUTPATIENT [id number] F2F rash/it sharon possibl e drug reatcio n SWETHA CRUZ 12/01 Released w/o Limitations [address] [place] [address])([facility] Intern[facility] l Medicin [facility] Tm) [address] [place] [address])([facility] ) TELE CONSULT [id number] 4 Notes Entered by: SHARON STOKES 10 Dec 2020 1458 ------- ------- ------- ------- -- Network Results Podiatr y 021 BF SWETHA CRUZ 12/[address] [place] [address])([facility] Intern[facility] l Medicin [facility] Tm) [address] [place] [address])([facility] ) TELE CONSULT [id number] 0 Notes Entered by: Clare BRITO 07 Sep 2021 0859 ------- ------- ------- ------- -- Rx Renewal 6 days left/Ro tee / LISSA SCHRADER 09/[address] [place] [address])([facility] Tm) [address] [place] [address])([facility] ) TELE CONSULT [id number] 4 Notes Entered by: BERNICE MATSON 29 Nov 2021 0927 ------- ------- ------- ------- -- Lab Results / and Appt Request / Felix fitzgerald/ [id number] VARINDER NIETOCaroline Santiago 11/29 Medication Refill Forwarded [address] [place] [address])([facility]) [address] [place] [address])([facility] ) OUTPATIENT [id number] f/u annual phyical [id number] EVER FUNG 12/07 Released w/o Limitations [address] [place] [address])([facility] Tm) [address] [place] [address])([facility] ) OUTPATIENT [id number] F2F - left knee pain EVER FUNG 01/23 Released w/o Limitations [address] [place] [address])([facility] Tm) [address] [place] [address])([facility] ) TELE CONSULT [id number] 5 Notes Entered by: BERNICE MATSON 21 Feb 2022 0953 ------- ------- ------- ------- -- MRI Results / Felix fitzgerald / [phone] STEVEN PAUL 02/21 Other Not Elsewhere Classified [address] [place] [address])([facility] Intern[facility] Medic[facility] Tm) [address] [place] [address])([facility] ) TELE CONSULT [id number] Notes Entered by: CYN OTTO 27 Feb 2022 1204 ------- ------- ------- ------- -- MRI Review STEVEN PAUL 02/27 Other Not Elsewhere Classified [address] [place] [address])([facility] Medic[facility] Tm) [address] [place] [address])([facility] ) OUTPATIENT [id number] VIRTUAL MRI RESULTS EVER FUNG 02/27 Released w/o Limitations [address] [place] [address])(S [facility] Intern[facility] l Medicin [facility] Tm) [address] [place] [address])([facility] ) OUTPATIENT [id number] 2 F2F - F/U right ear EVER FUNG 03/14 Released w/o Limitations [address] [place] [address])([facility] Intern[facility] Medicin [facility] Tm) [address] [place] [address])([facility] ) TELE CONSULT [id number] 6 Notes Entered by: RYLAN CHAVEZ 16 Mar 2022 1526 ------- ------- ------- ------- -- Network results Orthope dics 023 HLW EVER FUNG 03/[address] [place] [address])([facility] cott Intern[facility] l Medicin [facility] Tm) [address] [place] [address])([facility] ) TELE CONSULT [id number] 9 Notes Entered by: LUIZ TURNER 12 Apr 2022 1630 ------- ------- ------- ------- -- Network results Otolary ngology [ENT] 04/06/19 23 EVER BUSTILLO 04/[address] [place] [address])(S cott Intern[facility] l Medicin [facility] Tm) [address] [place] [address])([facility] ) TELE CONSULT [id number] Notes Entered by: OSCAR LARKIN 26 Apr 2022 0954 ------- ------- ------- ------- -- Trenton Aviles /Victoria donahue/618 .444.04 17 TANG FUCHS 04/26 Other Not Elsewhere Classified [address] [place] [address])([facility] cott Interna l Medicin e Tm) [address] [place] [address])([facility] ) TELE CONSULT [id number] 8 Notes Entered by: JOHNATHON OLSEN 26 May 2022 0956 ------- ------- ------- ------- -- F/U Spec - Referra l req - Felix es - - [facility] STEVEN PAUL 05/26 Referred for Appointment [address] [place] [address])([facility] Intern[facility] l Medicin [facility] Tm) [address] [place] [address])([facility] ) TELE CONSULT [id number] 0 Notes Entered by: JEET CELESTE 15 Jun 2022 0739 ------- ------- ------- ------- -- Sx - Possibl e Hernia/ Felix es/618. 444.041 7 ANDREA SEYMOUR 06/15 Referred- Emergency Department [address] [place] [address])([facility] Intern[facility] l Medicin [facility] Tm) [address] [place] [address])([facility] ) TELE CONSULT [id number] 1 Notes Entered by: CHERRY LEDEZMA 16 Jun 2022 0836 ------- ------- ------- ------- -- ER JOSELO/ FELIX ES / TANG FUCHS 06/16 Other Not Elsewhere Classified [address] [place] [address])([facility] Intern[facility] l Medicin [facility] Tm) [address] [place] [address])([facility] ) TELE CONSULT [id number] 5 Notes Entered by: RYLAN CHAVEZ 22 Jun 2022 1100 ------- ------- ------- ------- -- Network results Orthope dics 023 EVER QUINTERO 06/[address] [place] [address])([facility] cott Interna l Medicin e Tm) [address] [place] [address])([facility] Tm) TELE CONSULT [id number] 0 Notes Entered by: Abhijit GUERIN 02 Jul 2022 1356 ------- ------- ------- ------- -- Network Results - Otolary ngology EVER FUNG 07/[address] [place] [address] Percy [facility] ([facility])(S cott Interna l Medicin e Tm) [facility] Outpatient Encounter [id number] 04/18 [facility] Outpatient Encounter [id number] 04/23 [facility] OFF/OP CONSLTJ NEW/EST SF 20 95835-7.65 [id number] Diagnos is: ICD-10- CM Z12.11 Encount er for screeni ng for maligna nt neoplas m of colon SHEDELJAK RKENISHA L 05/07 [facility] OFF/OP CNSLTJ NEW/EST MOD 40 25361-8.65 [id number] Diagnos is: ICD-10- CM 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, left knee WEHKING,PE GGY W 05/08 [facility] OFF/OP CNSLTJ NEW/EST MOD 40 27718-7.65 [id number] Diagnos is: ICD-10- CM M54.50 Low back pain, unspeci junaid CARR MA TTHEW J 05/22 [facility] INFLUENZA IMM STATUS ASSESS [id number] [id number] Diagnos is: ICD-10- CM Z23 Encount er for immuniz ANDREA Ayala 05/30 [facility] MANUAL THERAPY 1/> [facility] 98531-7.65 [id number] Diagnos is: ICD-10- CM M54.50 Low back pain, unspeci fied ETHELKELVINJOÃO TTHEW J 06/11 [facility] MANUAL THERAPY 1/> [facility] 02597-4.65 [id number] 526 Diagnos is: ICD-10- CM M54.50 Low back pain, unspeci fied ETHELKELVINJOÃO TTHEW J 07/02 [facility] FITTING/CH ECKING 36646-3.65 [id number] 146 Diagnos is: ICD-10- CM H90.A31 Mix cndct/s nrl hear loss,un i,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 COLONOSCOP Y W/LESION REMOVAL 13567-8.65 [id number] Diagnos is: ICD-10- CM K63.5 Polyp of colon WENDY KarinaCHELLY T 07/09 [facility] Outpatient Encounter [id number] [id number] 07/09 [facility] Outpatient Encounter 02007-0.65 [id number] MARKO OCHOA 07/09 [facility] Outpatient Encounter 30413-6.65 [id number] 8 NAHEED NANCE 07/11 [facility] Outpatient Encounter 90784-7.65 [id number] 07/12 [facility] Outpatient Encounter [id number] [id number] 2 07/26 [facility] MANUAL THERAPY 1/> [facility] [id number] [id number] Diagnos is: ICD-10- CM M54.50 Low back pain, unspeci fied JOÃO CARR TTHEW J 07/30 [facility] OFFICE O/P EST MOD 30 MIN 97406-4.65 [id number] Diagnos is: ICD-10- CM 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, left knee WEHKING,PE GGY W 08/15 [facility] Outpatient Encounter [id number] [id number] 08/15 [facility] Outpatient Encounter 46933-3.65 [id number] Diagnos is: ICD-10- CM 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 , left knee RAUSARIA,S MEHDI 08/15 [facility] Outpatient Encounter [id number] [id number] LOULOU KILGORE 09/18 [facility] Outpatient Encounter [id number] [id number] 09/18 [facility] HEARING AID FITTING/CH ECKING 29302-2.65 [id number] Diagnos is: ICD-10- CM H90.A31 Mix cndct/s nrl hear loss,un i,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 BLUE LIU S E 09/20 [facility] Outpatient Encounter [id number] [id number] 09/23 [facility] OFFICE O/P EST MOD 30 MIN 78767-8.65 [id number] Diagnos is: ICD-10- CM E78.5 Hyperli pidemia , unspeci fied LOULOU KILGORE D 09/25 [facility] Outpatient Encounter [id number] [id number] 09/25 [facility] MANUAL THERAPY 1/> [facility] 43224-5.65 [id number] Diagnos is: ICD-10- CM M54.50 Low back pain, unspeci fied JOÃO CARR TTHEW J 10/29 [facility] EAR IMPRESSION 69806-6.65 [id number] Diagnos is: ICD-10- CM H91.93 Unspeci fied hearing loss, BLUE Jones E 10/30 [facility] Outpatient Encounter 54426-8.65 [id number] 10/30 [facility] HEARING AID FITTING/CH ECKING 17019-9.65 [id number] Diagnos is: ICD-10- CM H90.3 Sensori neural hearing loss, harsh pritchard NAMITA VALDOVINOS J 11/[address] [facility] MANUAL THERAPY 1/ [facility] 93136-5.65 [id number] 502 Diagnos is: ICD-10- CM M54.50 Low back pain, unspeci fied JOÃO CARR TTHEW J 11/19 [facility] OFFICE O/P NEW LOW 30 MIN 15542-6.65 [id number] Diagnos is: ICD-10- CM J32.8 Other chronic sinusit is HERMELINDO HERRON 11/29 [facility] Outpatient Encounter 62346-3.65 [id number] JANNETH FRYE 12/09 [facility] EMERGENCY DEPT VISIT LOW [facility] 97589-8.65 [id number] Diagnos is: ICD-10- CM J41.0 Simple chronic bronchi tis JANNETH FRYE 12/09 [facility] Outpatient Encounter [id number] [id number] JANNETH FRYE 12/09 [facility] OFFICE O/P EST MOD 30 MIN 32352-4.65 [id number] Diagnos is: ICD-10- CM 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 Outpatient Encounter [id number] [id number] 01/21 [facility] ORTHOTIC MGMT&TRAIN G 1ST ENC 29002-2.65 [id number] 249 Diagnos is: ICD-10- CM Z46.89 Encount er for fitting and adjustm ent of oth devices DEJON MAZARIEGOS ERT J 01/[address] [facility] Outpatient Encounter [id number] [id number] RAMANDEEP,OLGA NTHA L 01/23 [facility] BELT STRAP SLEEV GRMNT COVER 58038-0.65 [id number] Diagnos is: ICD-10- CM Z46.89 Encount er for fitting and adjustm ent of oth devices OLIVERIO GIBSON 01/[address] [facility] MANUAL THERAPY 1/> [facility] 75770-2.65 [id number] Diagnos is: ICD-10- CM M54.50 Low back pain, unspeci fied JOÃO CARR TTHEW J 02/10 [facility] Outpatient Encounter 08997-5.65 [id number] 02/13 [facility] OFFICE O/P EST LOW 20 MIN 04704-8.65 [id number] Diagnos is: ICD-10- CM H11.009 Unspeci fied pterygi um of unspeci fied eye MARY NOE 03/17 [facility] Outpatient Encounter [id number] [id number] MAGUI,LOULOU D 03/19 [facility] OFFICE O/P EST MOD 30 MIN 29143-2.65 [id number] Diagnos is: ICD-10- CM J34.2 Deviate d nasal septum GERMAINE,HERMELINDO ODETTE 03/21 [facility] [facility] Outpatient Encounter [id number] 03/24 [facility] OFFICE O/P EST MOD 30 MIN [id number] Diagnos is: ICD-10- CM M54.50 Low back pain, unspeci fied MAGUI,LOULOU D 03/27 [facility] MANUAL THERAPY 1/> REGIONS [id number] Diagnos is: ICD-10- CM M54.50 Low back pain, unspeci fied JOÃO CARR TTHEW J 04/01 [facility] Outpatient Encounter [id number] 04/02 [facility] BELT STRAP SLEEV GRMNT COVER [id number] Diagnos is: ICD-10- CM Z46.89 Encount er for fitting and adjustm ent of oth devices OLIVERIO GIBSON KALANI 04/03 [facility] OFF/OP EST MAY X REQ PHY/QHP [id number] Diagnos is: ICD-10- CM 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, 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 Alireza Lebron 04/08 [facility] OFFICE O/P EST LOW 20 MIN [id number] Diagnos is: ICD-10- CM M79.673 Pain in unspeci fied foot MAGUI,LOULOU D 04/10 [facility] OFF/OP EST MAY X REQ PHY/QHP [id number] Diagnos is: ICD-10- CM 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, 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 Alireza Lebron 04/14 [facility] Outpatient Encounter [id number] 05/06 [facility] Outpatient Encounter [id number] 05/06 [facility] OFFICE O/P EST LOW 20 MIN [id number] Diagnos is: ICD-10- CM R09.81 Nasal congest TRACY Macdonald ETT E 06/05 [facility] Outpatient Encounter [id number] SEAN PALMER GGY W 07/03 [facility] N [facility] HEARING AID FITTING/CH ECKING [id number] Diagnos is: ICD-10- CM H90.A22 Snsrnrl hear loss, uni, l ear, with rstrcd hear cntra side LUKE LOWE 07/15 [facility] Outpatient Encounter [id number] 07/15 [facility] O[facility]P EST MOD 30 MIN [id number] Diagnos is: ICD-10- CM 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, left knee WEANABELL,PE GGY W 07/15 [facility] N [facility] OFFICE O/P EST MOD 30 MIN [id number] Diagnos is: ICD-10- CM H52.6 Other disorde rs of refract ion HASMUKHMARY 09/[address] [facility] N [facility] Outpatient Encounter [id number] 09/18 [facility] Procedures Combined list of: 1) Procedures from Department of Veterans Affairs facilities going back up to thelast 18 months, not all VA non-surgical procedures are included; 2) All procedures from the Department of Defense facilities. Procedure Procedure Type Code Date Perfomer Comments Sour e Hernia repair Hernia repair (procedure) [id number] 20225C [facility]-S [facility] Right Tympanoplasty Repair of middle ear (procedure) [id number] 20225C- [facility]-S fanny Pterygium excision Simple excision of pterygium (procedure) [id number] 2013 x5 of left eye, x1 of right eye 5th [facility] Arthroscopy of right shoulder with limited debridement Arthroscopy of shoulder with limited debridement (procedure) [id number] 5th [facility] TELE ASSESS & MGT [...] ENDURANCE, RANGE OF MOTION AND FLEXIBILITY 2002 [facility] ROTATOR CUFF REPAIR 2002 [facility] ARTHROSCOPY OF SHOULDER 2002 [facility] OTHER REPAIR OF SHOULDER 2002 [facility] EXERCISE EQUIPMENT 2002 [facility] RANGE OF MOTION MEASUREMENTS AND REPORT [...] ENDURANCE, RANGE OF MOTION AND FLEXIBILITY 2002 [facility] APPLICATION OF A MODALITY TO 1 OR MORE AREAS; ELECTRICAL STIMULATION (MANUAL), EACH 15 MINUTES 2002 [facility] PHYSICAL THERAPY EVALUATION 2001 [facility] Non-Physician Phone Call To Patient/Provider Brief (5-10min) Non-Physician Phone Call To Patient/Provider Brief (5-10min) [id number] 2017 ADRIENNE QUIROS [facility] Non-Physician Phone Call To Patient/Provider Brief (5-10min) Non-Physician Phone Call To Patient/Provider Brief (5-10min) 30215 2017 KATIE BLANKENSHIP [facility] Non-Physician Phone Call To Patient/Provider Brief (5-10min) Non-Physician Phone Call To Patient/Provider Brief (5-10min) [id number] 2017 SOLE JONES [facility] Non-Physician Phone Call To Patient/Provider Brief (5-10min) Non-Physician Phone Call To Patient/Provider Brief (5-10min) [id number] 2017 SOLE JONES [facility] Arthrocentesis Aspiration Of Bursa Of Knee Arthrocentesis Aspiration Of Bursa Of Knee 31642 2016 CARLOS LEE [facility] Non-Physician Phone Call To Patient/Provider Brief (5-10min) Non-Physician Phone Call To Patient/Provider Brief (5-10min) 14388 2016 JASON WINN [facility] Non-Physician Phone Call To Patient/Provider Brief (5-10min) Non-Physician Phone Call To Patient/Provider Brief (5-10min) 58657 2016 JASON WINN [facility] Non-Physician Phone Call To Patient/Provider Brief (5-10min) Non-Physician Phone Call To Patient/Provider Brief (5-10min) 44284 2015 JASON WINN [facility] Non-Physician Phone Call To Patient/Provider Brief (5-10min) Non-Physician Phone Call To Patient/Provider Brief (5-10min) 11994 2015 SOLE JONES [facility] Postoperative Visit, Without Charge Postoperative Visit, Without Charge 28781 2015 DANIELA SHAW [facility] Layer Closure Of Wound Trunk 2.6 to 7.5 cm Layer Closure Of Wound Trunk 2.6 to 7.5 cm 47305 2015 DANIELA SHAW Excision Of Lesion Trunk Benign 1.1 to 2cm Excision Of Lesion Trunk Benign 1.1 to 2cm 20432 2015 DANIELA SHAW Destruct Of Benign Lesion By Any Method Second Through 14 Destruct Of Benign Lesion By Any Method Second Through 14 65151 2015 DANIELA SHAW Destruction Of Benign Lesion By Any Method One Lesion Destruction Of Benign Lesion By Any Method One Lesion 74809 2015 DANIELA SHAW Destruct Of Premalignant Lesion By Any Method 2nd Through 14 Destruct Of Premalignant Lesion By Any Method 2nd Through 14 70819 2015 DANIELA SHAW Destruction Of Premalignant Lesion By Any Method One Lesion Destruction Of Premalignant Lesion By Any Method One Lesion 61093 2015 DANIELA SHAW Shaving Of Lesion Trunk .6 to 1cm Shaving Of Lesion Trunk .6 to 1cm 86874 2015 DANIELA SHAW Non-Physician Phone Call To Patient/Provider Brief (5-10min) Non-Physician Phone Call To Patient/Provider Brief (5-10min) 83494 2015 AUNG PEREZ Non-Physician Phone Call To Pt/Provider Intermed (11-20 min) Non-Physician Phone Call To Pt/Provider Intermed (11-20 min) 46433 2015 AUNG PEREZ Non-Physician Phone Call To Patient/Provider Brief (5-10min) Non-Physician Phone Call To Patient/Provider Brief (5-10min) 07076 2014 DOUG MCKEON Non-Physician Phone Call To Patient/Provider Brief (5-10min) Non-Physician Phone Call To Patient/Provider Brief (5-10min) 53192 2014 DOUG MCKEON Non-Physician Phone Call To Patient/Provider Brief (5-10min) Non-Physician Phone Call To Patient/Provider Brief (5-10min) 61559 2014 DOUG MCKEON Non-Physician Phone Call To Patient/Provider Brief (5-10min) Non-Physician Phone Call To Patient/Provider Brief (5-10min) 83112 2014 DEYANIRA CUELLAR [facility] Non-Physician Phone Call To Patient/Provider Brief (5-10min) Non-Physician Phone Call To Patient/Provider Brief (5-10min) 28274 2013 DARIEN BEE [facility] Destruct Of Premalignant Lesion By Any Method 2nd Through 14 Destruct Of Premalignant Lesion By Any Method 2nd Through 14 44099 2012 PERCY OBRIEN Destruction Of Premalignant Lesion By Any Method One Lesion Destruction Of Premalignant Lesion By Any Method One Lesion 99165 2012 PERCY OBRIEN [facility] Biopsy Skin Biopsy Skin 92611 2012 PERCY OBRIEN [facility] Non-Physician Phone Call To Patient/Provider Brief (5-10min) Non-Physician Phone Call To Patient/Provider Brief (5-10min) 25846 2011 LIZ MACEDO [facility] Destruction Of Benign Lesion By Cryosurgery 2008 TONIE FOREMAN [facility] Non-Physician Phone Call To Patient/Provider Brief (5-10min) Non-Physician Phone Call To Patient/Provider Brief (5-10min) 25005 2008 LEOBARDO LYNN [facility] Determination Of Refractive State Determination Of Refractive State [id number] 2007 SUMEET COOK [facility] Ophthalmological New Patient Start Comprehensive Care Ophthalmological New Patient Start Comprehensive Care 86948 2007 SUMEET COOK [facility] Physical Medicine Physical Therapy Re-Evaluation Physical Medicine Physical Therapy Re-Evaluation 01416 2004 EZEQUIEL HUFFMAN Physical Medicine Physical Therapy Re-Evaluation Physical Medicine Physical Therapy Re-Evaluation 98606 2004 EZEQUIEL HUFFMAN Modalities Ultrasound Modalities Ultrasound 13619 2004 TL KOHLER [facility] Modalities Ultrasound Modalities Ultrasound 30109 2004 TL KOHLER Modalities Ultrasound Modalities Ultrasound 53645 2004 TL KOHLER Modalities Ultrasound Modalities Ultrasound 75866 2004 TL KOHLER Physical Therapy Mobilization Joint Physical Therapy Mobilization Joint 39140 2004 TL KOHLER Physical Medicine Physical Therapy Evaluation Physical Medicine Physical Therapy Evaluation 38746 2004 EZEQUIEL HUFFMAN DoD Waiver services; not otherwise specified (NOS) MAMIE GUERRERO [facility] Non-Physician Phone Call To Patient/Provider Brief (5-10min) Non-Physician Phone Call To Patient/Provider Brief (5-10min) 68024 LARRY NIETO [facility] Non-Physician Phone Call To Pt/Provider Intermed (11-20 min) Non-Physician Phone Call To Pt/Provider Intermed (11-20 min) 19655 TANG FUCHS [facility] Social History Combined list of available smoking, tobacco, and other social history from Department of Defense and Veterans Affairs facilities. Social History Type Response Date Comment [facility] e Tobacco smoking status NHIS DE-TOBACCO NEVER USED CIGARETTES 03/27/2024 [facility] History of tobacco use DE-TOBACCO NEVER USED OTHER TYPE 03/27/2024 [facility] History of tobacco use DE-TOBACCO NEVER USED 03/26/2023 [facility] Sex Representation Male (finding) 04/13/2022 Un known Organization History of tobacco use VA-TOBACCO NEVER USED 03/29/2022 [facility] Tobacco Cigarette use: Never-cigarette user. Other Tobacco use: Never-other tobacco user (not cigarettes). [facility] Sexual Orientation Ambula tory Pharmacy Gender identity Ambulator y Pharmacy This section is an empty social history section. [facility] Assessment and Plan Combined list of [...] II risk) (6.0% 30-day risk of , [place], or cardiac arrest) -Olson score: 0.1% risk of [place] or cardiac arrest -DASI score: 50.7. METS [...] to surgery. Will review old records from [facility] and consider further workup after surgery. 2. M urmur [place] back in 2012. TTE at the time [...] that he saw cardiology in 2013 at [facility] for evaluation of a murmur. He [...] encouraged to return to clinic, present to [facility] or ER for persistent worsening or development of other concerning symptoms. Patient cites understanding and agrees with plan of care. A total of 30 minutes was spent on this visit reviewing previous notes, counseling the patient on the listed diagnoses, reviewing/ordering tests, adjusting medications, and documenting the findings in this note. Jeffry Khanna MD [facility], [facility] Internal Medicine Staff Physician Extracted from:Title: [id number] [...] 2010, due for repeat, being scheduled with [facility] -Lung CA: D oes not meet criteria (non-smoker) -Prostate Cancer: Being obtained through the [facility], discussed risks and benefits -Osteoporosis Screening: N [...] this note. Jeffry Khanna MD Capt, [facility] Internal Medicine Staff Physician 09/29/2024 [id number] Plan of Care List of future care activities from Department of Veterans Affairs facilities. Additional future care activities may be listed in the Assessment and Plan section. Date/Time Care Activity Care Activity Detail Juanita ty 11/13/2024 AMBULATORY - NONE AMBULATORY - NONE [facility] Functional Status Combined list of recent functional and cognitive assessments recorded at Department of Defense and Veterans Affairs (VA).DE Functional Dagmar Measurement (FIM) Scale: 1 = Total Assistance (Subject = 0% +), 2 = Maximal Assistance (Subject = 25% +), 3 = Moderate Assistance (Subject = 50% +), 4 = Minimal Assistance (Subject = 75% +), 5 = Supervision, 6 = Modified Dagmar (Device), 7 = Complete Dagmar (Timely, Safely). Assessment Date/Time Source Assessment Type Assessment Skill Assessment Score Assessment Details No data available for this section
--- OUTSIDE RECORDS SUMMARY | 2024-09-29 08:15 | XMS_ITS | Encounter Summary ---
Author Name [facility] [place] [facility] [place] Address [address] [place] [address] Care Team Providers Care Tower Erector Helper Name Role Phone LOULOU KILGORE Primary Care [...] PART A Nov 19, 2022 PART A [id number] [place] PATIENT MEDICARE (WNR) MEDICARE (M) PART B Nov 19, 2022 PART B [id number] [place] PATIENT Selected Encounter This section includes the information on record at [place] for the Encounter. Date/Time Encounter Type Encounter Description Reason Provider Source July 15, 2024 11:00 AM HEARING AID FITTING/CHECKING AUDIOLOGY ICD-10-CM H90.A22 Snsrnrl hear loss, uni, l ear, with rstrcd hear cntra side FREDDIE LOWE IHNimisha Encounter Template Text not used by VA Assessments - Encounter Diagnoses This section includes the primary and secondary diagnoses documented for the Encounter. Date/Time Primary/Secondary Diagnosis Diagnosis Name Provider Source July 15, 2024 11:39 AM PRIMARY Snsrnrl hear loss, uni, l ear, with rstrcd hear cntra side LUKE LOWE [facility] July 15, 2024 11:39 AM SECONDARY Mix cndct/snrl hear loss,uni,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 LUKE LOWE [facility] Plan of Treatment: Future Appointments (+ 6 months) and Future Tests (+/- 45 days) The Plan of Treatment section includes future care activities for the patient from all [place] [facility]. This section includes future appointments and future orders which are active, pending or scheduled. Future Appointments This section includes appointments that were scheduled to occur 6 months from the date of the Encounter, up to a maximum of 20 appointments. The data comes from all [place] treatment facilities. Appointment Date/Time Appointment Type Appointme nt Facility Name Sep 08, 2024 10:30 AM [facility] Nov 13, 2024 10:30 AM AMBULATORY - NONE [facility] Jan 07, 2025 01:30 PM AMBULATORY - MEDICINE [facility] Jan 12, 2025 10:30 AM AMBULATORY - SURGERY [facility] Encounter Notes: All associated encounter notes This section contains the clinical notes associated to the Encounter. Date/Time Encounter Note(s) Provider Source July 15, 2024 10:52 AM AUDIOLOGY E & M NO TE: LOCAL TITLE: AUDIO [facility]ALS [facility] STANDARD TITLE: AUDIOLOGY E & M NOTE DATE OF NOTE: JULY 15, 2024@10:52 ENTRY DATE: JULY 15, 2024@10:52:38 AUTHOR: LUKE LOWE EXP COSIGNER: URGENCY: STATUS: COMPLETED SUBJECT: audio Purpose of appt: audio [x] initiated visit [] provider initiated visit Case history: Otoscopic evaluation unremarkable left ear. Right ear otoscopy had limited visibility due to surgical ear. Could not completely visualize the TM. Canal is dry. The was seen today for an evaluation of hearing loss following right ear surgery. He described the surgery with Dr. Gonzalez as an attempt to repair the TM with mastoid drainage. He maintains that a few days after surgery, his right ear hearing improved, however it gradually started to feel full and hearing decreased. He denied active drainage, dizziness or ear pain. But pressure remains and hearing is decreased. Bilateral tinnitus. Need to confirm hearing. Vet previously issued the following aids by [place] and wore them to the appt today: 07/06/23 SONOVA PHONAK AUDEO L90-R CLARIBEL R [id number] 07/06/23 SONOVA PHONAK AUDEO L90-R CLARIBEL L [id number] (SlimTips) RESULTS: Right Ear- Audiometry (air and/or bone conduction): moderate to profound mixed loss SRT: 55 dB WRS: 84% Tympanogram: Jerger Type B, FLAT with large ECV Reflexes: could not maintain seal Left Ear- Audiometry (air and/or bone conduction): normal to mild sloping to severe high frequency sensorineural hearing loss SRT: 30 dB WRS: 96% Tympanogram: Jerger Type Ad, hypermobile Reflexes: could not maintain seal Right mixed loss, left sensorineural hearing loss. Good WRS bilaterally. Essentially consistent with last audio in Sep 2023. remains an excellent candidate for amplification. [facility] today. 07/06/23 SONOVA PHONAK AUDEO L90-R CLARIBEL R [id number] 07/06/23 SONOVA PHONAK AUDEO L90-R CLARIBEL L [id number] (SlimTips) Aids read out. Adjusted acoustics to match slim tip fitting. Ran new fdbk test. Ran audiogram direct. Re-calculated gain. Vet reported comfort and good balance with overall improved audibility. He left with aids worn. He stated that he has a surgical f/u with Dr. Gonzalez next week and will contact this clinic if further adj are required. /amilcar/ Linda JOSE Staff Credit Product Analyst, Surgery Service Signed: 07/15/2024 11:39 LUKE LOWE [facility]
[2024-09-29 08:16] VITALS: BP 142/72; PULSE 86; RESP 18; TEMP 36.7; O2SAT 97
== END 2024-09-29 08:31 | disposition home or self-care (01) ==
PROVIDERS: Emergency Provider Nurse Practitioner Family
DX: H66.002 Acute suppurative otitis media without spontaneous rupture of ear drum, left ear (principal); J01.40 Acute pansinusitis, unspecified; E78.00 Pure hypercholesterolemia, unspecified; Z85.828 Personal history of other malignant neoplasm of skin
CPT/HCPCS: 99213; G0463

== ENCOUNTER 2024-10-27 16:48 | Emergency (ER) | payer MEDICARE, OTHER, SELFPAY ==
--- OUTSIDE RECORDS SUMMARY | 2010-01-11 09:00 | XMS_ITS | Continuity of Care Document ---
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 Distillery Manager Name Role Phone Elsi Knight Unavailable Unavailable Procedures Procedure Date Post-op Follow-up Visit Post-op Follow-up Visit Post-op Follow-up Visit Post-op Follow-up Visit Post-op Follow-up Visit Post-op Follow-up Visit Post-op Follow-up Visit Pterygium Excison W/Graft Eye Exam, New Patient Advance Directives Directive Yes / No Effective Date File Name No Information Encounters Encounter Description Practice Location Reason(s) For Visit Diagnoses Date Provider Providers Copied on Encounter [facility], [address] [place] [address] [address], [place], [place], [id number], tel:[phone] [facility] No Information 3-201 0 Antonia John [address] , [address], [place], [address], [place]. tel:[phone] [facility], [address] [place] [address] [address], [place], [place], [id number], [place] tel:[phone] [facility] No Information 2-201 0 Antonia John [address] , [address], [place], [address], [place]. tel:[phone] [facility], [address], [place], [place], [id number], [place] tel:[phone] [facility] No Information Oct-2 9-201 0 Knight Elsi. [address], [address], [place], [place], [facility], . tel:[phone] [facility], [address], [place], [place], [id number], [place] tel:[phone] [facility] No Information Oct-1 5-201 0 Knight Elsi. [address] , [address], [place], [facility], [place]. tel:[phone] [facility], [address], [place], [place], [id number], [place] tel:[phone] [facility] No Information Oct-1 2-201 0 Knight Elsi. [address] , [address], [place], [facility], [place]. tel:[phone] [facility], [address] [place] [address] [address], [place], [place], [id number], [place] tel:[phone] [facility] No Information Oct-1 1-201 0 Ekaterina Bhatia. [address], [place], [facility], [place]. tel:[phone] [facility], [address], [place], [place], [id number], [place] tel:[phone] [facility] No Information Oct-0 7-201 0 Knight Elsi. [address], [place], [facility], [place]. tel:[phone] [facility], [address], [place], [place], [id number], [place] tel:[phone] [facility] No Information Oct-0 6-201 0 Antonia John [address], [place], [address], [place]. tel:[phone] [facility], [address], [place], [place], [id number], [place] tel:[phone] [facility] No Information Sep-2 3-201 0 Antonia John [address] [facility] , [address], [place], [address], [place]. tel:[phone] Family History Family Member Type Diagnosis Age At Onset No Information Payers Payer name Insurance type Covered democrat ID Authoriza tion(s) No Information Social History Type Description Quantity Date Captured Comments Sex Male Smoking Status No Information Chief Complaint And Reason For Visit No Information Reason For Referral Reason For Referral No Information History Of Present Illness Encounter Date Complaint History Of Prese nt Illness No Information Functional Status Date Functional Assessmen t No Information Instructions Date Instruction Additional Infor mation No Information Assessments Type Assessment Date No Information Patient Care Teams Name Effective Dates (start - stop) Status Members No Information
--- NOTE | ~2024-10-27 | XR_ITS ---
EXAMINATION: XR knee RT min 4V DATE: 10/27/2024 17:30 INDICATION: Pain TECHNIQUE: 4 images of the right knee were obtained. COMPARISON: 08/06/2019 FINDINGS: [Mild joint space narrowing in the patellofemoral joint. [ No radiographic evidence for an acute fracture or dislocation.] [ No radiopaque foreign body.] [ No sclerotic or destructive bone lesions.] Small suprapatellar effusion. Soft tissue swelling about the right knee. IMPRESSION: 1. [ No acute bony abnormality identified.] 2. Mild joint space narrowing in the patellofemoral joint. If symptoms persist or worsen consider a short-term follow-up study or additional imaging for further assessment. Reviewed, dictated and finalized at location Q. IMPRESSION: 1. [ No acute bony abnormality identified.] 2. Mild joint space narrowing in the patellofemoral joint. If symptoms persist or worsen consider a short-term follow-up study or addition al imaging for further assessment.
--- OUTSIDE RECORDS SUMMARY | 2024-10-27 16:50 | XMS_ITS | Clinical Summary ---
Author Organization [facility] Address [address] [place] [address] Care Team Providers Care Product Development Intern Name Role Phone Jeffry Khanna MD Primary [...] Description 07/29/2024 10:00 AM CDT Office Visit [facility] Otol[facility]ology [address], [facility] [address] [place] [address] Juliocesar Gonzalez MD Chronic atticoantral suppurative otitis media, right ear (Primary Dx); Conductive hearing loss of right ear with unrestricted hearing of left ear 07/29/2024 9:40 AM CDT Procedure visit [facility] Otolaryngology [address], [facility] [address] [place] [address] Mixed conductive and sensorineural hearing [...] money to buy more. Never true 03/24/19 Within the past 12 months, t he [...] on file Legal Sex Male 4:04 AM ADMINISTRATIVE SERVICES SPECIALIST Gender Identity Not on file Sexual Orientation Not on file Obstetrics History Last Filed Vital Signs Vital Sign Reading Time Taken Comments Blood Pressure 135/87 03/24/2024 9:46 AM ADMINISTRATIVE SERVICES SPECIALIST 97 Pulse 87 03/24/2024 9:46 AM ADMINISTRATIVE SERVICES SPECIALIST Temperature 36.4 C (97.5 F) 03/24/2024 9:46 AM ADMINISTRATIVE SERVICES SPECIALIST Respiratory Rate 10 03/24/2024 9:46 AM ADMINISTRATIVE SERVICES SPECIALIST Oxygen Saturation 98% 03/24/2024 9:46 AM ADMINISTRATIVE SERVICES SPECIALIST Inhaled Oxygen Concentration - - Weight 87.5 kg (193 lb) 03/24/2024 9:46 AM ADMINISTRATIVE SERVICES SPECIALIST Height 175.3 cm (5' 9) 03/24/2024 9:46 AM ADMINISTRATIVE SERVICES SPECIALIST Body Mass Index 28.5 03/24/2024 9:46 AM ADMINISTRATIVE SERVICES SPECIALIST Plan of Treatment Health Maintenance Due Date Last Done Comments Colon Cancer Screening-Colonoscopy 1957 Depression Screening 1957 Hepatitis C Screening 1955 Prostate Cancer Screening-PSA 1957 DTaP/Tdap/Td Vaccine (1 - Tdap) 1968 Hepatitis B Screening 11/25/1975 Pneumococcal vaccine 65+ (1 of 2 - PCV) 1976 Zoster Vaccine (1 of 2) 11/25/2007 Well Visit 65+ 2022 Covid-19 Vaccine (3 - season) 10/21/202310/2021, 03/09/2020 Influenza Vaccine (#1) 2024 12/27/2019 Fall Risk Assessment 03/03/2025 03/03/2024 Goals Goal Patient Goal Type Associated Problems Recent Progress Patient-Stated? Author CCM Chronic Pain Care Plan Chronic Care Management Cathy Garcia, RN Note: Problem: Chronic Pain Goals: 1. [...] Final Result from Last 3 Months Insurance Roomer Travel [facility] MEDICARE FOR LIFE MEDICARE FOR LIFE Care Teams Product Development Intern Relationship Specialty Start Date End Date Jeffry Khanna MD PCP - General Internal Medicine 2/13/24
--- OUTSIDE RECORDS SUMMARY | 2024-10-27 16:50 | XMS_ITS ---
Author Organization [facility] Medical [facility] Building [facility] Address [address] [place] [address] Care Team Providers Care Final Touch Up Painter Name Role Phone Jeffry Khanna MD Primary [...]
--- OUTSIDE RECORDS SUMMARY | 2024-10-27 16:50 | XMS_ITS | Clinical Summary ---
Author Organization [facility] Address [address] [place] [address] Care Team Providers Care An Employee Sponsor Or Advocate And Name Role Phone None, Provider MD Primary [...] Wellness Visit 2022 COVID-19 Vaccine (4 - 2024-2 6 season) 2024 02/27/2021, 04/07/2020, 03/09/2020 DTaP, Tdap and Td [...] age to complete this topic Insurance MEDICARE [facility] Care Teams An Employee Sponsor Or Advocate And Relationship Specialty Start Date End Date None, Provider, PCP - General UNKNOWN PHYSICIAN SPECIALTY 07/19/23
--- OUTSIDE RECORDS SUMMARY | 2024-10-27 16:50 | XMS_ITS | Patient Health Record ---
Author Organization [facility] Address [address] [place], [place] [address] Care Team Providers Care Mixing Engineer Name Role Phone ASIA CLARK Unavailable [phone] Reason For Referral No Information Medications Medication SIG (Take, Route, Frequency, Duration) Notes Start Date End Date Status calcium carbonate 1250 MG / cholecalciferol 125 UNT Oral Tablet ORAL calcium carbonate 1250 MG / cholecalciferol 125 UNT Oral TabletOriginal Medicationcalcium carbonate 1250 MG / cholecalciferol 125 UNT Oral Tablet *Reorder from [employer] for eRx and Interaction Alerts* 9 Active ergocalciferol 1.25 MG Oral Capsule ORAL ergocalciferol 1.25 MG Oral CapsuleOriginal Medicationergocalciferol 1.25 MG Oral Capsule *Reorder from [employer] for eRx and Interaction Alerts* 9 Active Medrol Dosepak ORAL Medrol DosepakOr iginal MedicationMedrol Dosepak *Reorder from [employer] for eRx and Interaction Alerts* 9 Active fexofenadine hydrochloride 180 MG Oral Tablet [Marimar] ORAL fexofenadine hydrochloride 180 MG Oral Tablet [Marimar]Original Medicationfexofenadine hydrochloride 180 MG Oral Tablet [Marimar] *Reorder from [employer] for eRx and Interaction Alerts* 9 Active Plan Of Treatment No Information Insurance Providers Payer Name Payer Address Payer Phone Subscriber Number Group Number Insured Name Patient Relationship to Insured Coverage Start Date Coverage End Date [facility] [address] [place] [address] [id number] RAJEEV SAN Self - patient is the insured
--- OUTSIDE RECORDS SUMMARY | 2024-10-27 16:50 | XMS_ITS | Encounter Summary ---
Author Organization [facility] Address [address] [place] [address] Care Team Providers Care Cpa Tax Name Role Phone [facility], [facility] Primary Care Prov ider [facility], [address] [place] [address] Primary Care Prov ider Reason for Visit * Reason Onset Date Comments General 10/17/2017 Encounter Details Date Type Department Care Team (Late st Contact Info) Description 10/17/2017 Telephone [facility]at[facility] [address] [place] [address] Bobby Bello MD [address] [facility] [address] [place] [address] General Social History Tobacco Use Types Packs/Day Years Used Date Smoking Tobacco: Never Smokeless Tobacco: Never Alcohol Use Standard Drinks/Week Comments Yes 0 (1 standard drink = 0.6 oz pur e alcohol) occasionally Sex and Gender Information Value Date Recorded Sex Assigned at Not on file Legal Sex Male 5:17 PM [employer] Gender Identity Not on file Sexual Orientation Not on file documented as of this encounter Miscellaneous Notes * Telephone Encounter - Raven Calhoun - 10/17/2017 3:11 PM CDT Dawit from [facility] internal medicine calling to request amb referral from dr. Ace cunningham for pts surgery consult on 09/12/17 Dr. Broderick documented in this encounter Plan of Treatment Upcoming Encounters Date Type Department Care Team (Late st Contact Info) Description 10/28/2024 2:20 PM CDT Office Visit [facility] - Dermatology [address] [place] [address], [place] [address] Bobby Bello MD [address] [place] [address] [address] [place] [address] documented as of this encounter Visit Diagnoses Not on filedocumented in this encounter Care Teams Cpa Tax Relationship Specialty Start Date End Date [address] [place] [employer], [place], [place] [id number] PCP - General 08/21/17 06/19/[address] [place] [facility], [place], [place] [id number] PCP - General Family Medicine 06/20/19 documented as of this encounter
--- OUTSIDE RECORDS SUMMARY | 2024-10-27 16:50 | XMS_ITS | Clinical Summary ---
Author Organization [facility] Address [address] [place] [address] Care Team Providers Care Pole Framer Machine Name Role Phone [address] Primary Care Prov ider Source Comments [facility],non-owned Affiliates and Associated Physician Practices is amultiple site organization consisting of ambulatory clinics and hospital sitesin [place], [place], [place] and [place]. This disclosure is being madepursuant to the Care Everywhere program and may not contain all information available regarding this patient. Last updated 17.[facility] Allergies Active Allergy Reactions Criticality Noted Date [...] Active triamcinolone acetonide (Kenalog) 0.1 % creamIndication s:Esmond's disease Apply to chest rash, daily as needed. 30 day supply. 454 g 3 3 Active albuterol HFA (Proventil; Ventolin; Proair) 108 (90 Base) MCG/ACT inhaler 4 Active Active Problems Problem Noted Date Diagnosed Date Seborrheic keratosis 04/01/2020 Actinic skin damage 03/30/2020 Assessment & Plan (03/30/2020 4:48 PM MEDTRONICS TECHNICIAN): Explained benign nature, reassurance provided. ABCDEs of melanoma was explained to the pt, advised pt on consistent sunscreen use (SPF > 30, UVA + UVB). Monthly self-exam, and avoid direct sunlight/tanning. Onychomycosis due to dermatophyte 09/15/2018 Foreign body granuloma of skin 09/15/2018 Overview (09/15/2018): Vicryl suture Hypertrophic scar 03/01/2018 Inflamed seborrheic keratosis 09/26/2017 Assessment & Plan (03/30/2020 4:48 PM MEDTRONICS TECHNICIAN): - Discussed benign potential - Fully reviewed treatment options with patient including indications, risks, benefits, alternatives to LN2 - pt desires treatment - Cryo x 5 lesion - Wound care reviewed - Post cryo handout given Neoplasm of uncertain behavior of skin 8 Actinic keratosis 08/31/2017 Assessment & Plan (03/30/2020 4:48 PM MEDTRONICS TECHNICIAN): - Discussed premalignant potential - forehead - Fully reviewed treatment options with patient including indications, risks, benefits, alternatives to LN2, topical therapy, PDT - pt desires treatment - Cryo x 4 - Wound care reviewed - Post cryo handout given Solar lentiginosis 08/31/2017 History of nonmelanoma skin cancer 08/31/2017 Assessment & Plan (03/30/2020 4:48 PM MEDTRONICS TECHNICIAN): -NER -cont q1y FBSE Melanocytic nevi of [...] on file Legal Sex Male 5:17 PM MEDTRONICS TECHNICIAN Gender Identity Not on file Sexual Orientation Not on file Last Filed Vital Signs Vital Sign Reading Time Taken Comments Blood Pressure 139/98 03/15/2021 9:56 AM MEDTRONICS TECHNICIAN Pulse 78 03/15/2021 9:56 AM MEDTRONICS TECHNICIAN Temperature 36.6 C (97.8 F) 03/14/2017 2:40 PM MEDTRONICS TECHNICIAN Respiratory Rate 17 03/14/2017 2:40 PM MEDTRONICS TECHNICIAN Oxygen Saturation 98% 10/25/2017 1:18 PM CDT Inhaled Oxygen Concentration - - Weight 83.9 kg (185 lb) 03/15/2021 7:24 AM MEDTRONICS TECHNICIAN Height 175.3 cm (5' 9) 03/15/2021 7:24 AM MEDTRONICS TECHNICIAN Body Mass Index 27.32 03/15/2021 7:24 AM MEDTRONICS TECHNICIAN Plan of Treatment Upcoming Encounters Date Type Department Care Team (Late st Contact Info) Description 10/28/2024 2:20 PM CDT Office Visit [facility] - Dermatology [address] [place] [address], [place] [address] Bobby Bello MD [address] [place] [address] [address] [place] [address] Health Maintenance Due Date Last Done Comments [...] 11/25/2007 ZOSTER VACCINE (1 of 2) 11/25/2007 DEPRESSION SCREENING 02/20/2024 COVID-19 VACCINE (3 - 2024-2 6 season) 2024 04/07/2020, 03/09/2020 INFLUENZA VACCINE (#1) 2024 12/27/2019 Respiratory Syncytial [...] to complete this topic Insurance MEDICARE MEDICARE Care Teams Pole Framer Machine Relationship Specialty Start Date End Date [facility] [address] [place] [address] PCP - General Family Medicine 06/20/19
[2024-10-27 17:12] VITALS: BP 136/92; PULSE 83; RESP 18; TEMP 36.7; O2SAT 96
--- NOTE | 2024-10-27 17:56 | ED.LOWEXIN ---
HPI - Extremity Injury (Lower) General Chief Complaint: Extremity Injury, Lower Stated Complaint: right knee pain Time Seen by Provider: 10/27/24 17:17 Source: patient Mode of arrival: ambulatory Limitations: no limitations History of Present Illness HPI Narrative: Patient is a 68-year-old male who presents the ED with report of right knee pain. Patient reports he was covering his pool and twisted his R knee with his leg planted. [place] a pop in his medial knee. C/o pain to his medial R knee since then, worse with ambulation, bearing weight. Has not taken anything for pain. Denies numbness. Related Data Home Medications ?Medication ?Instructions ?Recorded ?Confirmed ?Last Taken ?Type rosuvastatin 10 mg tablet (Crestor) 10 mg PO HS 08/06/19 07/18/22 07/15/22 History albuterol sulfate 90 mcg/actuation inhalation 09/29/24 Unknown History aerosol inhaler azelastine 205.5 mcg (0.15 %) 1 spray intranasal QDAY 09/29/24 09/29/24 Unknown History nasal spray (Astepro Allergy) fluticasone propionate 50 1 spray intranasal DAILY PRN nasal 09/29/24 09/29/24 Unknown History mcg/actuation nasal congestion spray,suspension (24 Hour Allergy Relief) Allergies Allergy/AdvReac Type Severity Reaction Status Date / Time caffeine AdvReac Mild Other Verified 10/27/24 17:18 Review of Systems Review of Systems: All systems reviewed & are unremarkable except as noted in HPI. All systems reviewed & are unremarkable except as noted in HPI and below PMFSH Past Medical History Medical History History of skin cancer Hypercholesterolemia Surgical History Surgical History H/O bilateral inguinal hernia repair 07/18/22 Robotic assisted laparoscopic bilateral inguinal hernia repair with 3D mid weight mesh S/P shoulder surgery Family History Family History Mother Diabetes mellitus Hypertension Social History Social History Smoking status: Never smoker Alcohol intake: current Drinks per week: 3 Living arrangements: with family Gender identity (if verbalized by the patient): Female Spiritual care concerns: No Exam Narrative: GENERAL: Well appearing, well-nourished, non-toxic, in no acute distress. HEAD: Normocephalic, atraumatic. RESPIRATORY: Airway patent, respirations nonlabored. CARDIOVASCULAR: Regular rate and rhythm without murmurs, rubs, or gallops. Pedal pulses intact and easily palpable. MUSCULOSKELETAL: Moves all extremities. No gross deformities. Tenderness to palpation over medial R knee joint spaces. Minimal swelling. No calf tenderness. No warmth or erythema knee. SKIN: Warm, dry, normal color. NEURO: A&O X3. Speech clear. Cranial nerves II-XII grossly intact. No ataxic movements. PSYCHIATRIC: Appropriate mood and affect. Normal interaction. Course Vital Signs Vital signs: Vital Signs Temperature 98.0 F 10/27/24 17:12 Pulse Rate 83 10/27/24 17:12 Respiratory Rate 18 10/27/24 17:12 Blood Pressure 136/92 H 10/27/24 17:12 Pulse Oximetry 96 10/27/24 17:12 Oxygen Delivery Room Air 10/27/24 17:12 Temperature 98.0 F 10/27/24 17:12 Pulse Rate 83 10/27/24 17:12 Respiratory Rate 18 10/27/24 17:12 Blood Pressure 136/92 H 10/27/24 17:12 Pulse Oximetry 96 10/27/24 17:12 Oxygen Delivery Room Air 10/27/24 17:12 MDM - Extremity Injury (Lower) MDM Narrative Medical decision making narrative: Patient?s injury is consistent with musculoskeletal etiology. No signs of neurologic or vascular compromise on physical examination. Compartments are soft without signs of compartment syndrome. XR showing small suprapatellar joint effusion, soft tissue swelling of the knee. Pain is consistent with knee sprain, discussed possibility of internal derangement/ligament/meniscus injury. Patient placed in Jaden bandage, given pain control. Given crutches. Discussed rice therapy. Patient is felt to be stable for discharge home and further outpatient management and treatment. Will refer to orthopedics for further eval if needed. Given return precautions. Discharged in stable condition Medical Records Attestation: I reviewed the patient's medical records. Imaging Data Attestation: I personally reviewed and interpreted this imaging study as follows: Radiologist's impression: ITS Impressions Knee X-Ray 10/27/24 17:31 IMPRESSION: 1. [ No acute bony abnormality identified.] 2. Mild joint space narrowing in the patellofemoral joint. If symptoms persist or worsen consider a short-term follow-up study or additional imaging for further assessment. Discharge Plan Discharge Clinical Impression: Strain of right knee Patient Disposition: Home Condition: Stable Instructions: Antibiotic Form, Knee Sprain (ED), P.R.I.C.E. Treatment (ED) Additional Instructions: Keep leg elevated as much as possible, recommend frequent icing to knee. Utilize crutches for assistance with walking. Utilize Jaden bandage for compression and support. Recommend Tylenol/ibuprofen as needed for pain. Marble as needed for more severe pain. Follow-up with orthopedics for further evaluation if needed. Return to the ED for worsening or severe pain or swelling, recurrent fall or injury, numbness, or any other symptoms of concern. Patient Language: [place] Prescriptions: New hydrocodone-acetaminophen 5-325 mg tablet 1 tablet PO Q6H PRN (Reason: pain) Qty: 5 0RF No Action albuterol sulfate 90 mcg/actuation HFA aerosol inhaler INHALATION fluticasone propionate [24 Hour Allergy Relief] 50 mcg/actuation spray,suspension 1 spray intranasal DAILY PRN (Reason: nasal congestion) Rx Instructions: administer into each nostril methylprednisolone [Medrol (Ugo)] 4 mg tablets,dose pack See Rx Instructions .ROUTE .COMPLEX Qty: 21 0RF Rx Instructions: orally per package directions amoxicillin-pot clavulanate 875-125 mg tablet 1 tablet PO Q12H 10 Days Qty: 20 0RF azelastine [Astepro Allergy] 205.5 mcg (0.15 %) spray,non-aerosol 1 spray intranasal QDAY Rx Instructions: administer into each nostril rosuvastatin [Crestor] 10 mg tablet 10 mg PO HS Follow-up/Referrals: Hong Mccormack MD [Physician, Orthopedics] Referral Note: [facility] [Primary Care Provider, Medical] Time of Disposition: 17:56
[2024-10-27] MEDS: HYDROcodone/acetaminophen (*CRX) 5-325 MG TABLET 1 TAB PO (18:07)
[2024-10-27] MEDS: KETOROLAC (*BKC) 60 MG/2 ML VIAL IM (18:08)
== END 2024-10-27 18:21 | disposition home or self-care (01) ==
LOC: ANHED 18:03
PROVIDERS: Emergency Provider Physician Assistant
DX: S86.911A Strain of unspecified muscle(s) and tendon(s) at lower leg level, right leg, initial encounter (principal); E78.00 Pure hypercholesterolemia, unspecified; Z85.828 Personal history of other malignant neoplasm of skin; X50.9XXA Other and unspecified overexertion or strenuous movements or postures, initial encounter
CPT/HCPCS: 73564; 96372; 99283; A9270; J1885